=== PATIENT | female | born 1965 ===

== ENCOUNTER 2024-07-30 09:33 | Outpatient (AMB) | payer BC, SELFPAY ==
[2024-07-30 09:47] VITALS: BP 110/78; PULSE 73; O2SAT 94; BMI 27.1
--- NOTE | 2024-07-30 09:47 | MHC.OFFVIS ---
Vital Signs 07/30/24 09:47 Height 5 ft 5 in Weight 162 lb 11.218 oz BMI 27.1 BP 110/78 Blood Pressure Location Lt brachial Position Sitting Pulse 73 Pulse Source Pulse Oximeter Pulse Oximetry (%) 94 Oxygen Delivery Method Room Air Intake Visit Reasons: knee arthritis Allergies No Known Allergies Allergy (Verified 07/30/24 09:49) HPI HPI knee arthritis: Details: Pain started a week ago in her right knee. She lost 50 lb with zepbound. She has had 6 months benefit with cortisone injection in her right knee. Review of Systems Const All systems reviewed & are unremarkable except as noted in HPI and below Physical Exam Vital Signs: Last Vital Signs Pulse 73 07/30/24 09:47 BP 110/78 07/30/24 09:47 Pulse Ox 94 07/30/24 09:47 Oxygen Delivery Method Room Air 07/30/24 09:47 BMI result Body Mass Index 27.1 Const Other: General: Comfortable Skin: No lesions seen MSK: Tender to palpate right joint line. Knee hypertrophy found. Mild effusion right knee. Slight valgus deformity of bilateral knees. Good range of motion of bilateral knees. Office Procedures AMB Joint Injection/Aspiration Joint Injection/Aspiration Details: Right knee joint Prep: site was prepped using aseptic technique Injected: 40 mg of, Kenalog, with 1 mL of and 1% plain lidocaine Procedure: The patient tolerated the procedure well. Postprocedure protocol was discussed with patient. Coding 88393 - Large joint Procedure code (CPT) selection complete Office Meds lidocaine (PF) 10 mg/mL (1 %) injection solution Performing Provider: Brandan Mills MD Performing Location: [facility] [place] [facility] Administered by: Brandan Mills MD on 07/30/24 10:28 Dose Route Admin Location Dispensed Lot Number Expiration Date [facility] [employer]ing Equipment Operator 10 mg Infiltration 2 mL [id number] [employer] Kenalog 40 mg/mL suspension for injection Performing Provider: Brandan Mills MD Performing Location: [facility] [place] [facility] Administered by: Brandan Mills MD on 07/30/24 10:28 Dose Route Admin Location Dispensed Lot Number Expiration Date [facility] [employer] Equipment Operator 40 mg intra-articular 1 mL [id number] [employer] Assessment & Plan Assessment & Plan (1) Knee osteoarthritis: Comment: Left knee greater than right knee Previously treated with cortisone injection to right knee on 11/2022, 07/2023 and 01/2024. Relapse of pain. Code(s): M17.9 - Osteoarthritis of knee, unspecified Category: Medical Qualifiers: Laterality: right Osteoarthritis type: primary Qualified Code(s): M17.11 - Unilateral primary osteoarthritis, right knee Plan: Patient received left knee cortisone injection this visit Discussed importance of having a regular exercise routine I congratulated the patient on weight loss. She is currently on Zepbound Return to clinic in 6 months or sooner if needed Orders: Orders AMB Joint Injection/Aspiration Today M17.9 - Osteoarthritis of knee, unspecified Coding Level of Care Code Est Pt Level 4 (95216) Complex EM visit Add On G2211 Diagnoses Primary osteoarthritis of right knee M17.11 Laterality: right Osteoarthritis type: primary CPT Codes Coding - 73518 Large joint: 05913 - Large joint ([id number])
== END 2024-07-30 10:30 | disposition home or self-care (01) ==
PROVIDERS: Visit Provider Internal Medicine Rheumatology
DX: M17.11 Unilateral primary osteoarthritis, right knee (principal)
CPT/HCPCS: 20610; 99213

== ENCOUNTER → 2024-07-30 09:33 | Outpatient (BNVA) | payer BC, SELFPAY | PROVIDERS: Visit Provider Internal Medicine Rheumatology | DX: M17.11 Unilateral primary osteoarthritis, right knee (principal) | CPT/HCPCS: 20610; J2003; J3300 ==

== ENCOUNTER 2025-01-28 10:40 | Outpatient (AMB) | payer BC, SELFPAY ==
--- NOTE | 2025-01-28 10:41 | A.OFFVIS_ITS ---
Vital Signs 01/28/25 10:42 Height 5 ft 5 in Weight 166 lb 0.129 oz BMI 27.6 BP 140/80 H Blood Pressure Location Lt brachial Position Sitting Pulse 85 Pulse Source Pulse Oximeter Pulse Oximetry (%) 98 Oxygen Delivery Method Room Air Intake Visit Reasons: 6 mnts Intake Note: Patient presents today for a follow up for right knee arthritis. Allergies No Known Allergies Allergy (Verified 07/30/24 09:49) HPI HPI 6 mnts: Details: She is planning possible surgery right 3rd trigger finger and cyst. Recieving cortisone injection. She developed right ankle and right hand swelling yesterday. MS is still there. Tylenol arthritis 1300mg TID without change. She had vomitting and dirrhea last week Mon to Monday. +chills. Could not find a thermameter. Physical Exam Vital Signs: Last Vital Signs Pulse 85 01/28/25 10:42 BP 140/80 H 01/28/25 10:42 Pulse Ox 98 01/28/25 10:42 Oxygen Delivery Method Room Air 01/28/25 10:42 BMI result Body Mass Index 27.6 Const Other: General: Comfortable Skin: No lesions seen Respiratory: Normal breath sounds. No crackles. CVS: RRR MSK: Tender left 2-4th MCPs with synovitis of 2nd-3rd MCP. Tender L 3rd PIP. Synovitis of left 2nd PIP. Tender and synovitis wrist and ankle with tenederness.Tender to palpate right joint line and anserine bursa. Knee hypertrophy found. Mild effusion right knee. Slight valgus deformity of bilateral knees. Right shoulder abduction 120 degree (current thoracic outlet syndrome/brachial plexus injury) requiring assistance of right arm for abduction. Good internal external rotation of both shoulders. Normal range of motion of lower extremities. Office Procedures AMB Joint Injection/Aspiration Joint Injection/Aspiration Details: Right knee joint Prep: site was prepped using aseptic technique Injected: 40 mg of, Kenalog, with 1 mL of and 1% plain lidocaine Procedure: Informed verbal consent was obtained. The patient tolerated the procedure well. Postprocedure protocol was discussed with patient. Coding 47451 - Large joint Procedure code (CPT) selection complete Office Meds lidocaine (PF) 10 mg/mL (1 %) injection solution Performing Provider: Brandan Mills MD Performing Location: [facility] [place] [facility] Administered by: Brandan Mills MD on 01/28/25 11:21 Dose Route Admin Location Dispensed Lot Number Expiration Date [facility] Biological Scientist 10 mg Infiltration 2 mL [id number] 12/21/26 07683-069-58 NINA MURDOCK Total Dispensed Waste 2 mL 50 % Kenalog 40 mg/mL suspension for injection Performing Provider: Brandan Mills MD Performing Location: [facility] [place] [facility] Administered by: Brandan Mills MD on 01/28/25 11:21 Dose Route Admin Location Dispensed Lot Number Expiration Date [facility] Biological Scientist 40 mg intra-articular 1 mL [id number] 02/20/27 99394-760-67 [employer] Total Dispensed Waste 1 mL 0 % Assessment & Plan Assessment & Plan (1) Knee osteoarthritis: Comment: Left knee greater than right knee. Previously treated with cortisone injection to right knee on 11/2022, 07/2023, 01/2024, 07/2024. Relapse of pain. Code(s): M17.9 - Osteoarthritis of knee, unspecified Category: Medical Qualifiers: Laterality: right Osteoarthritis type: primary Qualified Code(s): M17.11 - Unilateral primary osteoarthritis, right knee Plan: Patient received right knee cortisone injection this visit Discussed importance of having a regular exercise routine She is currently on Zepbound for weight loss Return to clinic in 3 months or sooner if needed (2) Reactive arthritis: Comment: inflammatory arthritis with onset yesterday is likely in related to recent GI illness from last week. We discussed natural course of reactive arthritis and management. Most cases of reactive arthritis or self-limited. 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 I will then prescribed a course of prednisone Avoid oral NSAIDs due to per history of chronic kidney disease Return to clinic in 3 months Orders: Orders AMB Joint Injection/Aspiration Today M17.11 - Unilateral primary osteoarthritis, right knee Coding Level of Care Code Est Pt Level 4 (22127) Complex EM visit Add On G2211 Diagnoses Primary osteoarthritis of right knee M17.11 Laterality: right Osteoarthritis type: primary Reactive arthritis of multiple sites M02.39 Reactive arthritis location: multiple sites CPT Codes Coding - 92474 Large joint: 95430 - Large joint ([id number])
[2025-01-28 10:42] VITALS: BP 140/80; PULSE 85; O2SAT 98; BMI 27.6
--- OUTSIDE RECORDS SUMMARY | 2025-01-28 11:40 | XMS_ITS | Data Portability ---
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 Bryson polanco on 01/19/2024. She reached the office describing an increase in pain and swelling and redness and was advised to present to urgent care. She denies feeling ill in any way. She denies any new injury accident or trauma specific to the left foot. She reports that she has been compliant with recommendations for ice elevation and use of her postop shoe. Review of the chart would reflect that she was recognized as having a blister on her first postop visit. That was drained in the office. She did not have any signs or symptoms of infection at that time. 58-year-old female with BMI of 32.3 is ambulatory into the exam room unassisted. She has an antalgic tendency favoring left lower extremity. She has a postop shoe in place. Her wounds are reinforced with Steri-Strips. They are removed. Her wounds are nicely closed with no signs or symptoms of infection. There is mild erythema in the space between her 2 surgical incisions. There is no fluctuance or drainage. There are no streaks of lymphangitis. Distal checks are intact save for some swelling at the great toe. 58-year-old female status post bunionectomy on 01/19/2024. History and exam show no clear signs of infection or complication. Recommendations are for continued ice applications and elevation. Tylenol as needed for pain. Asked that he level restriction and use of postop shoe as instructed by her surgeon. Follow-up as previously scheduled with our foot and ankle team. Patient was seen and evaluated by Lennox Avery MS, CATRACHITA in indirect conjuction with Documenting Provider: Nicolette Michelle MD . He/She agrees with history, physical examination, tests/diagnostic imaging, and treatment plan. This document was generated using voice recognition software. As a result, there may be unintended spelling, grammatical and/or textual errors. [email or web address] Not available 02/06/2024 14:39:55 02/29/2024 02/29/2024 The patient is doing well six weeks post operatively following her left foot hallux valgus correction and right foot PITER procedure She will begin to transition to regular footwear as tolerated Continue with scar massage Plan to follow up in 6 weeks for repeat evaluation with repeat weightbearing left foot xrays Patient was seen and evaluated by Heike Mcleod PA-C in indirect conjunction with Documenting Provider: Nicolette Michelle MD He/She agrees with history, physical examination, tests/diagnostic imaging, and treatment plan [email or web address] Not available 02/29/2024 11:55:06 04/18/2024 04/18/2024 She is doing gre at now 3 months postoperatively. She may continue to advance her activities as she is able. She may continue to ice and elevate if needed. She should continue to work on her first MTP range of motion although this is quite good. She will follow-up in three months for repeat evaluation with repeat x-rays of her left foot. If she has any issues sooner with her right foot and her possible suture, she will follow up. Not available 04/21/2024 13:25:38 05/24/2024 05/24/2024 The above findin gs were discussed in detail to the patient.She has evidence of left middle finger trigger finger recurrent from steroid injections, last one about 5 months ago as well as a left middle finger retinacular cyst. Pathology expected prognosis were discussed. Treatment options for recurrent trigger finger including another steroid injection versus consideration for surgical A1 ángel release. I did let her know that after the third injection, typically symptoms do not continue to improve. She is considering surgery however does not feel the timing is right for her and would like to proceed with an injection at this time and will consider surgery if it does recur after this. In terms of the retinacular cyst, we discussed treatment options which include continued observation, sometimes they can get better on their own, or in office injection versus surgical excision. She like to try an office injection today. Details of injection and as well as risks were discussed, including but not limited to infection, bleeding, nerve injury, no improvement, worsening of symptoms, flare reaction, skin depigmentation, and lipodystrophy. I let them know it can take 2 days to 2 weeks to start working and up to 6 weeks to take its full effect. They understand this and gave verbal consent. They tolerated the procedure well. She will return to see me if her symptoms recur or she would like to consider surgery, I did let her know if to wait 3 months after this injection to do surgery which puts this in to August. All of her questions were answered, she is in agreement the plan. [email or web address] Not available 05/24/2024 12:55:23 07/25/2024 07/25/2024 She is doing gre at now more than 6 months postoperatively. She has no limitations. She may advance her activities as she is able. She may follow-up with me as needed. [email or web address] Not available 07/27/2024 17:53:47 Plan of Treatment Reminders Order Date Submit Date Provider Last Modified By Organization Details Last Modified Time Details Appointments FOLLOW UP 2024 09:30A M Olamide lea MD Not available Not available Not available Lab None recorded. Referral None recorded. Procedures None recorded. Surgeries None recorded. Imaging XR, foot, 3 or more view 2024 025 [facility], [address], [place], [address], 07/25/2024 17:15:47 XR, foot, 3 or more view 2023 024 [facility], [address], [place], [id number], 04/18/2024 16:34:50 XR, foot, 3 or more view 2023 [email or web address] [facility], [address], [address], [place], [address], 02/29/2024 12:15:08 Medication Orders lidocaine (PF) 10 mg/mL (1 %) injection solution 2023 024 [email or web address] [facility], [address] [place] [address], [id number], 07/25/2024 09:47:27 triamcino lone acetonide 40 mg/mL suspensio n for injection 2023 024 [email or web address] [facility], [address] [place] [address], [id number], 07/25/2024 09:47:49 lidocaine (PF) 10 mg/mL (1 %) injection solution 2023 024 [email or web address] Not available 07/25/2024 09:47:27 triamcino lone acetonide 40 mg/mL suspensio n for injection 2023 024 Not available 07/25/2024 09:47:49 Patient TargetsNo targets recorded. Patient Instructions Encounter Date Encounter Id Patient Instructions Last Modified By Organization Details Last Modified Time 02/29/2024 [id number] Weightbearing x-rays of the left foot were obtained in the [place] office on 02/29/24 demonstrates hallux valgus correction with first metatarsal osteotomy and proximal phalanx osteotomy. There is callus appreciated at the first metatarsal osteotomy [email or web address] Not available 02/29/2024 11:55:32 04/18/2024 [id number] Weightbearing x-rays of the left foot were obtained on 04/18/24 demonstrating excellent correction of her hallux valgus deformity with hardware in her first metatarsal and proximal phalanx. Not available 04/21/2024 13:26:52 05/24/2024 [id number] You have been provided with a cortisone injection in order to reduce the pain and inflammation that you are experiencing. The injection consists of two medications. Cortisone (an anti-inflammatory that will take 48-72 hours to take effect) and Lidocaine (a numbing agent that will last 2-3 hours). Please note that not everyone will have a lasting response following the injection. PATIENT INSTRUCTIONS Once the Lidocaine wears off, you may have an increase in your pain. I recommend icing the affected area for 20 minutes 3-4 times per day. It is recommended that you refrain from any high level activities using the joint or limb that was injected for approximately 24-48 hours. Normal day-to-day activities are generally not a problem. POSSIBLE SIDE EFFECTS Individuals with dark complexions may experience some skin discoloration locally at the site of the injection. There is the possibility of an increase in discomfort within 48 hours following the injection. This is called a flare . To help minimize the chances of this, please see the post-injection instructions above. There is a less than 1% chance of an infection. If you notice any signs of infection (redness, warmth, drainage, fever greater than 100 degrees) please call our office or contact us through the portal [email or web address]. [email or web address] Not available 05/24/2024 12:53:31 07/25/2024 [id number] 3 views of the left foot obtained weightbearing on 07/25/2024 demonstrate a healed first metatarsal and proximal phalanx osteotomy with a well corrected hallux valgus deformity. Not available 07/27/2024 17:53:18 Reason for Referral None Reported. Problems Name Problem SNOMED Code Status Onset Date Resolution Date Notes Provider Name and Address Organization Details Recorded Time Acquired trigger finger of left middle finger 3912439581260 02 Active [address], [place], [address], [place] [facility] 3 11:54:23 Neck pain 14667307 Active [address], [place], [address], [place] [facility] 4 10:01:50 Ganglion cyst of tendon sheath of left hand 4140473255370 105 Active [address], [place], [address], [place] [facility] 3 10:01:23 Osteoarthri tis of wrist 885428795 Active [address], [place], [address], [place] [facility] 3 10:01:32 Acquired left hallux valgus 9491375062582 03 Active 2022 Nicolette Michelle MD [address], [place], [address], [place] [facility] 3 07:49:37 Tailor's bunion of left foot 5195746779522 100 Active [address], [place], [address], [place] [facility] 3 07:49:42 Ganglion of flexor tendon sheath of finger 806528726 Active [address], [place], [address], [place] [facility] 4 12:53:19 Problem Notes None recorded. Procedures Surgical History Date Name Laterality Status Provider Name and Address Organization Details Recorded Time 05/24/20 24 LES trigger finger/De Quervain's injection completed MD [address], [place], [address], [place] [facility] 05/24/2024 12:50:57 05/24/20 24 LES ganglion cyst injection completed MD [address], [place], [address], [place] [facility] 05/24/2024 12:53:02 01/19/20 24 ORTHOPAEDIC SURGERY (SURG) completed Yamilet Singh [place] [facility] 01/22/2024 09:18:37 01/03/20 24 AONE tendon sheath cortisone injection completed Pavan Santana MD [address], [place], [address], [facility] 01/03/2024 12:01:17 04/05/20 23 AONE tendon sheath cortisone injection completed Pavan Santana MD [address], [place], [address], [facility] 04/05/2023 12:16:48 procedure on wrist completed Nael [facility] 2022 09:37:28 Imaging Results None recorded. Procedure Notes None recorded. Medical Equipment None Reported. Allergies Allergen ID Allergen Name Allergen Category Reaction Reaction Severity Criticality Documentation Date Start Date Code Code System Note Provider Name and Address Organization Details Recorded Time 3054 diclofena c Not available Not available Not available Not available 2022 3355 RxNorm Nael Wheat null, [facility] 09:35:31 Medications Name Sig Start Date Stop Date Status Note LastModified by Organization Details LastModified Time flowflex kit test 05/03 completed Not Available Not Available Not Available cyclobenzap rine 10 mg tablet TAKE ONE TABLET BY MOUTH THREE TIMES A DAY 02/05 completed Not Available Not Available Not Available amoxicillin 500 mg capsule TAKE 4 CAPSULES BY MOUTH 1 HOUR BEFORE DENTAL APPOINTME NT DIRECTED active Not Available Not Available No t Available bupropion HCl SR 150 mg tablet,12 hr sustained-r elease TAKE ONE TABLET BY MOUTH TWICE A DAY active Not Available Not Available No t Available aspirin 325 mg tablet TAKE 1 TABLET EVERY DAY BY MOUTH AFTER SURGERY FOR 30 DAYS 04/26 completed Not Available Not Available Not Available hydrocodone 5 mg-acetamin ophen 325 mg tablet TAKE ONE TABLET BY MOUTH EVERY 6 HOURS NEEDED FOR PAIN 05/03 completed Not Available Not Available Not Available sucralfate 1 gram tablet TAKE ONE TABLET BY MOUTH FOUR TIMES A DAY 02/05 completed Not Available Not Available Not Available lisinopril 20 mg tablet TAKE ONE TABLET BY MOUTH EVERY DAY active Not Available Not Available No t Available omeprazole 40 mg capsule,del ayed release TAKE ONE CAPSULE BY MOUTH ONCE DAILY 02/05 completed Not Available Not Available Not Available acetaminoph en 500 mg tablet TAKE 2 TABLETS 3 TIMES A DAY BY MOUTH AFTER SURGERY NEEDED FOR PAIN 02/05 completed Not Available Not Available Not Available amoxicillin 500 mg tablet TAKE 1 TABLET BY MOUTH THREE TIMES A DAY FOR 10 DAYS 05/03 completed Not Available Not Available Not Available pantoprazol e 20 mg tablet,emani yed release TAKE ONE TABLET BY MOUTH TWICE A DAY active Not Available Not Available No t Available methocarbam ol 750 mg tablet 04/03 completed Not Available Not Available Not Available IBU 600 mg tablet TAKE 1 TABLET BY MOUTH EVERY 6 HOURS 02/05 completed Not Available Not Available Not Available Kenalog 10 mg/mL suspension for injection Take 2 mL by injection route. 05/03 completed Not Available Not Available Not Available triamcinolo ne acetonide 40 mg/mL suspension for injection Take 20 mg by injection route. 07/25 completed Not Available Not Available Not Available nortriptyli ne 10 mg capsule TAKE TWO TABLETS BY MOUTH ONCE A DAY active Not Available Not Available No t Available polymyxin B sulfate 10,000 unit-trimet hoprim 1 mg/mL eye drops INSTILL ONE DROP IN EACH EYE EVERY 3 HOURS FOR 7 DAYS; START WITH ONLY IN THE RIGHT EYE AND INCREASE TO IN EACH EYE IF SYMPTOMS DEVELOP IN I 02/05 completed Not Available Not Available Not Available gabapentin 300 mg capsule TAKE ONE CAPSULE BY MOUTH EVERY MORNING AND TAKE TWO CAPSULES BY MOUTH EVERY EVENING active Not Available Not Available No t Available montelukast 10 mg tablet TAKE ONE TABLET BY MOUTH EVERY DAY 12/06 completed Not Available Not Available Not Available lisinopril 40 mg tablet TAKE ONE TABLET BY MOUTH EVERY DAY 07/25 completed Not Available Not Available Not Available ipratropium bromide 21 mcg (0.03 %) nasal spray SPRAY 1 SPRAY IN EACH NOSTRIL DAILY AT BEDTIME active Not Available Not Available No t Available amoxicillin 875 mg-potassiu m clavulanate 125 mg tablet TAKE ONE TABLET BY MOUTH EVERY 12 HOURS FOR 7 DAYS 01/31 completed Not Available Not Available Not Available oxycodone 5 mg tablet TAKE ONE TABLET BY MOUTH EVERY 6 HOURS 02/05 completed Not Available Not Available Not Available bupropion HCl SR 200 mg tablet,12 hr sustained-r elease TAKE ONE TABLET BY MOUTH TWICE A DAY 07/25 completed Not Available Not Available Not Available cyclobenzap rine 5 mg tablet TAKE ONE TABLET BY MOUTH DAILY AT BEDTIME NEEDED active Not Available Not Available No t Available Premarin 0.625 mg/gram vaginal cream INSERT 0.5 GRAM VAGINALLY TWICE WEEKLY AT BEDTIME FOR 60 DAYS active Not Available Not Available No t Available duloxetine 30 mg capsule,del ayed release TAKE ONE CAPSULE BY MOUTH TWICE A DAY active Not Available Not Available No t Available chlorhexidi ne gluconate 0.12 % mouthwash SWISH AND EXPECTORA TE 10ML THREE TIMES A DAY 12/06 completed Not Available Not Available Not Available lidocaine (PF) 10 mg/mL (1 %) injection solution Take 1 mL by injection route. 07/25 completed Not Available Not Available Not Available GaviLyte-G 236 gram-22.74 gram-6.74 gram-5.86 gram oral solution MIX POWDER WITH WATER ACCORDING TO PRODUCT LABEL. FOLLOW INSTRUCTI ONS GIVEN BY [facility] FOR WHEN TO START. TAKE 8OZ BY MOUTH EVERY 20 MINUTE 04/03 completed Not Available Not Available Not Available lidocaine (PF) 100 mg/5 mL (2 %) injection syringe Take 1 mL by injection route. 02/05 completed Not Available Not Available Not Available Flowflex COVID-19 Antigen Home Test kit USE DIRECTED PER MANUFACTU RER INSTRUCTI ONS TO TEST FOR COVID-19 04/03 completed Not Available Not Available Not Available Zepbound 10 mg/0.5 mL subcutaneou s pen injector INJECT 0.5ML UNDER THE SKIN ONCE A WEEK active Not Available Not Available No t Available Zepbound 5 mg/0.5 mL subcutaneou s pen injector INJECT THE CONTENTS OF 1 PEN 5 MG PER 0.5ML) SUBCUTANE OUSLY ONCE WEEKLY 04/26 completed Not Available Not Available Not Available Zepbound 2.5 mg/0.5 mL subcutaneou s pen injector INJECT UNDER THE SKIN ONCE A WEEK DIRECTED 02/05 completed Not Available Not Available Not Available Zepbound 7.5 mg/0.5 mL subcutaneou s pen injector INJECT 0.5ML UNDER THE SKIN ONCE WEEKLY 05/24 completed Not Available Not Available Not Available Vitals Date Recorded Body height Body mass index (BMI) Body weight Provider Name and Address Organization Details Last Updated DateTime 07/25/2024 167.64 cm 32.3 kg/m2 [address]66.[address] [place] [facility] 07/25/2024 09:48:08 Date Recorded Body height Body mass index (BMI) Body weight Provider Name and Address Organization Details Last Updated DateTime 02/06/2024 167.64 cm 32.3 kg/m2 16294.47 g Matilde Perlaersen [place] [facility] 02/06/2024 14:04:06 Date Recorded Body height Body mass index (BMI) Body weight Provider Name and Address Organization Details Last Updated DateTime 04/18/2024 167.64 cm 32.3 kg/m2 [address]456.[address] [place] [facility] 04/18/2024 14:59:13 Date Recorded Body height Body mass index (BMI) Body weight Provider Name and Address Organization Details Last Updated DateTime 04/26/2024 167.64 cm 32.3 kg/m2 [address]6087.[address] [place] [facility] 04/26/2024 09:33:52 Date Recorded Body height Body mass index (BMI) Body weight Provider Name and Address Organization Details Last Updated DateTime 05/24/2024 167.64 cm 32.3 kg/m2 44568.47 g Justyna Cali [place] [facility] 05/24/2024 08:32:40 Social History None recorded. Functional Status Question Answer Note LastModified by Organizat ion Details LastModified Time Do you or have you ever used any other forms of tobacco or nicotine? No [email or web address] Information not available 05/24/2024 What is your level of alcohol consumption? Occasional [email or web address] Information not available 2022 Mental Status None recorded. Family History Nothing Reported. Medical History Condition Response Coronary Artery Disease N Gout N Hyperthyroidism N MRSA N Blood Transfusion N Emphysema N Hypothyroidism N Depression N COPD N Pacemaker N Vascular Disease N Gastrointestinal Disease N Anxiety Disorder N Autoimmune disease N Arthritis N Cancer N Stroke N High Cholesterol N Neurologic Disorder N Liver Disease N Organ Transplant N Rheumatoid Arthritis N Arrhythmia N Fibromyalgia N Kidney Disease N Allergies/Hayfever N Adverse Reaction to Anesthesia N Thyroid Problems N Anemia N Brain Injury N Heart Attack (MN) N Osteopenia N Diabetes N Bleeding Disorder N Seizures/Epilepsy N AIDS/HIV N Congestive Heart Failure (CHF) N Asthma N Amputation N Reflux/GERD N Sleep Apnea N Hepatitis N Aneurysm N Heart Disease N Pulmonary Embolism N Hypertension Y Osteoporosis N Gynecological HistoryNo gynecological history recorded. Obstetrics History GPAL:G 0 P 0 0 0 0 Past Encounters Encounter ID Performer Location Encounter Start Date Encounter Closed Date Diagnosis/Indication Diagnosis SNOMED-CT Code Diagnosis ICD10 Code Diagnosis Note [id number] Rohan Dewey MD [place] [phone] 11/14/2022 11:34:57 11/14/2022 12:37:55 History of lumbar fusion 7406203122 9106 Z98.1 Pressure i njury of buttock 288680679 L89.309 Ischial bursitis/W eaver's bottom [id number] Pavan Santana MD [address] [address] 2022 09:28:07 2022 10:02:58 Pain of left wrist 7372980043 30121 M25.532 Ganglion c yst of tendon sheath of left hand 2942468205 070794 M67.442 Osteoarthr itis of wrist 320364646 M19.039 [id number] Nicolette Michelle MD [address] [address] 11/24/2022 09:56:15 11/24/2022 10:27:30 Pain in left foot 0202924250 73745 M79.672 Acquired l eft hallux valgus 7729577985 95670 M20.12 Tailor's b union of left foot 4294682555 401201 M21.622 Orthopedic hardware in situ 903367853 Z97.8 [id number] Pavan Santana MD [address] [address] 04/05/2023 11:30:08 04/05/2023 12:00:47 Acquired trigger finger of left middle finger 0690367141 73144 M65.332 Ganglion c yst of tendon sheath of left hand 2935456723 832506 M67.442 [id number] Pavan Santana MD [address] [address] 05/03/2023 09:11:24 05/03/2023 09:23:00 Acquired trigger finger of left middle finger 4373622423 68024 M65.332 Ganglion c yst of tendon sheath of left hand 3687687282 703151 M67.442 [id number] Rohan Dewey MD [address] [address] 08/07/2023 09:10:05 08/07/2023 10:05:59 Neck pain 86414469 M54.2 Low back pain 069563116 M54.50 Pain in pelvis 86239153 R10.2 History of cervical spine fusion 6167505026 101 Z98.1 History of lumbar fusion 5411362665 9106 Z98.1 [id number] RAÚL KENNEDY PA-C [address] [address] 09/11/2023 13:14:07 09/11/2023 14:13:06 Neck pain 35297305 M54.2 History of cervical spine fusion 6867400070 101 Z98.1 History of lumbar fusion 0247682492 9106 Z98.1 [id number] Nicolette Michelle MD [address] [address] 12/07/2023 11:33:01 12/07/2023 12:19:28 Acquired left hallux valgus 7981367594 20203 M20.12 Orthopedic hardware in situ 942463946 Z97.8 Pain in right foot 45323 36727 72795 M79.671 [id number] Pavan Santana MD [address] [address] 01/03/2024 11:12:04 01/03/2024 11:35:21 Triggering of digit 627420144 M65.332 Additional diagnosis detail: Trigger finger, left middle finger 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 3907236773 77529 M65.332 Ganglion c yst of tendon sheath of left hand 2760893441 830442 M67.442 Long finger [id number] HEIKE MCLEOD PA-C [place] [address] 02/01/2024 16:08:00 02/01/2024 16:45:08 Acquired left hallux valgus 0532910343 84858 M20.12 Orthopedic hardware in situ 549817997 Z97.8 [id number] [facility] [address] [place], [place] [address] [address] [place] [address] 9 02/06/2024 13:46:52 02/06/2024 14:36:04 Acquired left hallux valgus 6310021461 12538 M20.12 [id number] HEIKE MCLEOD PA-C [place] [address] 02/29/2024 11:30:04 02/29/2024 11:56:30 Acquired left hallux valgus 2638443750 52365 M20.12 Orthopedic hardware in situ 012675253 Z97.8 [id number] Nicolette Michelle MD [place] [address] 9 04/18/2024 14:53:17 04/18/2024 15:18:20 Acquired left hallux valgus 9712850578 21306 M20.12 Orthopedic hardware in situ 742567122 Z97.8 [id number] Olamide Joseph MD [place] [address] 9 05/24/2024 08:28:47 05/24/2024 09:08:23 Triggering of digit 485536733 M65.332 Ganglion o f flexor tendon sheath of finger 836180244 M67.442 [id number] Nicolette Michelle MD [place] [address] 9 07/25/2024 09:37:19 07/25/2024 10:37:36 Acquired left hallux valgus 2627101728 83661 M20.12 Orthopedic hardware in situ 480806762 Z97.8 Health Concerns Section Related Observation LastModified by Organization Detai ls LastModified Time None Recorded Concern Status LastModified by Organization Details LastModified Time None Recorded Advance Directives Directive None Recorded Payers Insurance Date Sequence Insurance Name Policy Number Policy Yeager Covered Member ID Yeager Member ID Guarantor Name 07/24/2024 1 [place] [id number] Jose Manuel Riddle [id number] Notes Date Note Type Note Provider Name and Address Organization Details Recorded Time 02/29/2024 text/html Date of Surgery: 01/19/24 left foot hallux valgus correction, right foot removal of hardware Anjali Ruiz is a 58 year old female who presents today 6 weeks post oepratively. She has no pain. She is still wearing a postoperative shoe on the left foot but is returned to regular footwear on the right. She has little swelling. She is overall happy with her progress. She denies chest pain, shortness of breath, calf pain, calf swelling or fevers. From 02/01/24 TK: for her first post operative appointment. She is doing very well. She did roll her left foot but does not report any significant injuries after this happened. She has very little discomfort. She is overall doing very well. She denies chest pain, shortness of breath, calf pain, calf swelling or fevers. From 12/07/23 AJF: approximately 1 year after she was last seen regarding her bilateral feet. She is overall unchanged. She would like to proceed with removal of hardware from her right foot and correction of her left hallux valgus. She reports that her pain on the left is an average of a 7 and on the right is an 8 out of 10. She finds her hardware to be very symptomatic for her. Regarding the left side, she would like to proceed with correction of her hallux valgus deformity. From 11/24/22 (AJF): for evaluation of a new problem regarding her left foot. She notes that she has previously undergone surgery on her right foot for correction of her hallux valgus but ultimately had to have a second surgery for hammertoes and ultimately underwent Keely osteotomies of her second and third toes. She is overall very frustrated that she had to have 2 surgeries. Again regarding her right foot, she recently saw a veneer clipper who told her that she did not know what these implants were and was uncomfortable removing them and the patient now feels increasingly upset that she would need to have a third surgery. However, she presents today noting that her feet, predominantly her left foot gets sore in some shoes and she would like to know what her options are. She reports that her pain is aching burning and cramping and a 6-8 out of 10. It is moderate constant worsening. She previously underwent spine surgery with Dr. Saravia reports that she did quite well from this. She denies any ongoing radiculopathy or neuropathy. Nicolette Michelle MD [address], [place], [address], [place] [facility] 03/03/2024 10:04:59 04/18/2024 text/html Date of Surgery: 01/19/24: 1. L eft foot hallux valgus correction2. Right foot removal of hardware Anjali Ruiz is a 58 year old female who presents today for follow-up evaluation now approximately 3 months postoperatively. Overall, she is doing well. She does report more discomfort on her right side where I removed her hardware than on her left hallux valgus correction. She notes that she has an irritation at the proximal aspect of the incision on the right side. She is overall pleased with her correction on her left side. From 02/29/24 (TK): 6 weeks post oepratively. She has no pain. She is still wearing a postoperative shoe on the left foot but is returned to regular footwear on the right. She has little swelling. She is overall happy with her progress. She denies chest pain, shortness of breath, calf pain, calf swelling or fevers. From 02/01/24 TK: for her first post operative appointment. She is doing very well. She did roll her left foot but does not report any significant injuries after this happened. She has very little discomfort. She is overall doing very well. She denies chest pain, shortness of breath, calf pain, calf swelling or fevers. From 12/07/23 AJF: approximately 1 year after she was last seen regarding her bilateral feet. She is overall unchanged. She would like to proceed with removal of hardware from her right foot and correction of her left hallux valgus. She reports that her pain on the left is an average of a 7 and on the right is an 8 out of 10. She finds her hardware to be very symptomatic for her. Regarding the left side, she would like to proceed with correction of her hallux valgus deformity. From 11/24/22 (AJF): for evaluation of a new problem regarding her left foot. She notes that she has previously undergone surgery on her right foot for correction of her hallux valgus but ultimately had to have a second surgery for hammertoes and ultimately underwent Keely osteotomies of her second and third toes. She is overall very frustrated that she had to have 2 surgeries. Again regarding her right foot, she recently saw a veneer clipper who told her that she did not know what these implants were and was uncomfortable removing them and the patient now feels increasingly upset that she would need to have a third surgery. However, she presents today noting that her feet, predominantly her left foot gets sore in some shoes and she would like to know what her options are. She reports that her pain is aching burning and cramping and a 6-8 out of 10. It is moderate constant worsening. She previously underwent spine surgery with Dr. Saravia reports that she did quite well from this. She denies any ongoing radiculopathy or neuropathy. 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 Santana in the past and has undergone trigger finger injections to the left middle finger, on 04/05/2023 and most recently on 01/03/2024.She notes the injections helped for 3 to 4 months and then symptoms started to recur. 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 This is painful with activities such as gripping. She does not feel like its gotten larger or smaller in size. Olamide Joseph MD [address], [place], [address], [place] [facility] 05/24/2024 12:56:03 07/25/2024 text/html Date of Surgery: 01/19/24: 1. Left foot hallux valgus correction2. Right foot removal of hardware Anjali Ruiz is a 58 year old female who presents today for evaluation now more than 6 months status post correction of her left hallux valgus and removal of her hardware on her right foot. She reports that she is doing great. Her pain is a 0 out of 10. From 04/18/24 (AJF): for follow-up evaluation now approximately 3 months postoperatively. Overall, she is doing well. She does report more discomfort on her right side where I removed her hardware than on her left hallux valgus correction. She notes that she has an irritation at the proximal aspect of the incision on the right side. She is overall pleased with her correction on her left side. From 02/29/24 (TK): 6 weeks postoperatively. She has no pain. She is still wearing a postoperative shoe on the left foot but is returned to regular footwear on the right. She has little swelling. She is overall happy with her progress. She denies chest pain, shortness of breath, calf pain, calf swelling or fevers. From 02/01/24 TK: for her first post operative appointment. She is doing very well. She did roll her left foot but does not report any significant injuries after this happened. She has very little discomfort. She is overall doing very well. She denies chest pain, shortness of breath, calf pain, calf swelling or fevers. From 12/07/23 AJF: approximately 1 year after she was last seen regarding her bilateral feet. She is overall unchanged. She would like to proceed with removal of hardware from her right foot and correction of her left hallux valgus. She reports that her pain on the left is an average of a 7 and on the right is an 8 out of 10. She finds her hardware to be very symptomatic for her. Regarding the left side, she would like to proceed with correction of her hallux valgus deformity. From 11/24/22 (AJF): for evaluation of a new problem regarding her left foot. She notes that she has previously undergone surgery on her right foot for correction of her hallux valgus but ultimately had to have a second surgery for hammertoes and ultimately underwent Keely osteotomies of her second and third toes. She is overall very frustrated that she had to have 2 surgeries. Again regarding her right foot, she recently saw a veneer clipper who told her that she did not know what these implants were and was uncomfortable removing them and the patient now feels increasingly upset that she would need to have a third surgery. However, she presents today noting that her feet, predominantly her left foot gets sore in some shoes and she would like to know what her options are. She reports that her pain is aching burning and cramping and a 6-8 out of 10. It is moderate constant worsening. She previously underwent spine surgery with Dr. Saravia reports that she did quite well from this. She denies any ongoing radiculopathy or neuropathy. Nicolette Michelle MD [address], [place], [address], [place] - [facility] 07/27/2024 17:54:03 OBGyn Episode No OBEpisode recorded.
--- OUTSIDE RECORDS SUMMARY | 2025-01-28 11:40 | XMS_ITS | Clinical Summary ---
Author Organization [facility] Address [address] [place] [address] Care Team Providers Care Mixing Picker Tender Name Role Phone Carleen López MD Primary Care Provider Allergies Active Allergy Reactions Criticality Noted Date Comments Diclofenac 06/27/2022 Other reaction(s): kidney failure Meloxicam 06/27/2022 Other reaction(s): elevated liver enzyme Medications Medication Sig Dispensed Refills Start Date End Date Status buPROPion (WELLBUTRIN SR) 150 MG 12 hr tablet Take 1 tablet (150 mg total) by mouth 2 (two) times a day. 0 12/04/2020 Active gabapentin (NEURONTIN) 300 MG capsule TAKE ONE CAPSULE IN THE MORNING AND TWO CAPSULES IN THE EVENING. DOSE INCREASE 0 12/04/2020 Active pantoprazole (PROTONIX) 20 MG tablet Take 1 tablet (20 mg total) by mouth 2 (two) times a day. 0 06/05/2021 Active vitamin B-12 (CYANOCOBALAMIN) 500 MCG tablet Take 2 tablets (1,000 mcg total) by mouth once a week. 0 Active Ascorbic Acid (Vitamin C) 500 MG CAPS Take 1,000 mg by mouth once a week. 0 Active Emdyyvr-Hznlwrbrib-J itamin D (VITAMIN D3/CALCIUM/PHOSPHORU S PO) Take 1 tablet by mouth once a week. 0 Active Magnesium 400 MG CAPS Take 1 capsule by mouth every night at bedtime. 0 Active Ferrous Sulfate (IRON PO) Take 1 tablet by mouth once a week. Patient did not know dose 0 Active nortriptyline (PAMELOR) 10 MG capsule TAKE 1-2 CAPSULES BY MOUTH EVERY NIGHT 0 11/08/2021 Active lisinopril (PRINIVIL,ZESTRIL) tablet 20 mg TAKE ONE TABLET BY MOUTH EVERY DAY 0 12/12/2021 Active senna (SENOKOT) 8.6 MG tablet Take 1 tablet by mouth 2 (two) times a day. 30 tablet 0 07/30/2022 Active methocarbamol (ROBAXIN) 750 MG tablet Take 1 tablet (750 mg total) by mouth every 6 (six) hours as needed (spasm). 30 tablet 0 07/30/2022 Active oxyCODONE (ROXICODONE) 5 MG immediate release tabletIndications:Hi story of fusion of cervical spine Take 1 tablet (5 mg total) by mouth every 4 (four) hours as needed for pain. 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 Neck pain 02/15/2021 Cervical spondylolysis 02/15/2021 Family History Medical History Relation Name Comments Arthritis Father Hyperlipidemia Father Arthritis Mother Cancer Mother Hypertension Mother Relation Name Status Comments Father Mother Social History Tobacco Use Types Packs/Day Years Used Date Smoking Tobacco: Never Smokeless Tobacco: Never Alcohol Use Standard Drinks/Week Comments Yes 2 (1 standard drink = 0.6 oz pure alcohol) 2 drinks/day wine and liquor, 1 day/week Sex and Gender Information Value Date Recorded Sex Assigned at Female 06/16/2021 2:59 PM EST Gender Identity Not on file Sexual Orientation Not on file Job Start Date Occupation Industry Not on file Not on file Not on file Last Filed Vital Signs Vital Sign Reading Time Taken Comments Blood Pressure 111/73 07/31/2022 8:15 AM EST Pulse 96 07/31/2022 8:15 AM EST Temperature 36.6 C (97.8 F) 07/31/2022 8:15 AM EST Respiratory Rate 16 07/31/2022 8:15 AM EST Oxygen Saturation 99% 07/31/2022 8:15 AM EST Inhaled Oxygen Concentration - - Weight 86.6 kg (191 lb) 08/15/2022 3:03 PM EST Height 165.1 cm (5' 5 ) 08/15/2022 3:03 PM EST Body Mass Index 31.78 08/15/2022 3:03 PM EST Plan of Treatment Health Maintenance Due Date Last Done Comments Hepatitis C Screening 1965 COVID-19 Vaccine (#1) 05/17/1964 Depression Screening 1975 BMI Counseling 11/15/1981 Preventative Health Evaluation 11/15/1981 DTap / Tdap / Td (1 - Tdap) 11/15/1982 Cervical Cancer Screening (P ap Smear) 11/15/1984 Colon Cancer Screening (Colonoscopy) 11/15/2008 Breast Cancer Screening (Mammogram) 11/15/2013 Shingrix-Zoster Vaccine (1 of 2) 11/15/2013 Influenza Vaccine (#1) 2025 RSV Adult > 60+ Yrs or Pregn ant (1 - 1-dose 75+ series) 11/15/2038 Hepatitis B Vaccines Aged Out No long er eligible based on patient's age to complete this topic Pneumococcal Vaccine Aged Out No long er eligible based on patient's age to complete this topic RSV Ped < 20 months Aged Out No longe r eligible based on patient's age to complete this topic Medical Devices Implanted Type Area Project Safety Manager Device Identifier Shelf Expiration Date Model / Serial / Lot Surgiflo Hemostatic Matrix [employer] [id number] - [id number] Implanted:Qty : 1 on 06/23/2021 by [place]an [place] [facility] [facility] [place] Hemostatic Agent Anterior: Spine Cervical [employer] 12/21/2022 [id number] / / [id number] Surgiflo Hemostatic Matrix [employer]King [id number] - [id number] Implanted:Qty : 1 on 07/29/2022 by Rohan Dewey [place] [facility] [facility] Hemostatic Agent Anterior: Spine Lumbar [employer] 04/22/2024 [id number] / / [id number] Vikos Cervical 14x14.5x6mm 7d Stry-Spin [id number] - [id number] Implanted:Qty : 1 on 06/23/2021 by Rohan Dewey [place] [facility] [facility] Anterior: Spine Cervical [employer] 02/17/2025 [id number] / [id number] / Vikos Cervical 14x14.5x6mm 7d Stry-Spin [id number] - [id number] Implanted:Qty : 1 on 06/23/2021 by Rohan Dewey [place] [facility] Anterior: Spine Cervical [employer] 08/18/2024 [id number] / [id number] / Vikos Allograft Systems Implanted:Qty : 1 on 06/23/2021 by Rohan Dewey [place] [facility] Anterior: Spine Cervical [employer] 06/29/2024 [id number] / [id number] / Anterior Cervical Plate Constr 3 Level 54mm Stry-K2m [id number] - [id number] Implanted:Qty : 1 on 06/23/2021 by Rohan Dewey [place] [facility] [place] [facility] Anterior: Spine Cervical [employer] [id number] / / Screw Va Self-Start 4x14mm Stry-K2m [id number] - [id number] Implanted:Qty : 8 on 06/23/2021 by Rohan Dewey [place] [facility] [place] [facility] Anterior: Spine Cervical [employer] [id number] / / Merrick Screw Implanted:Qty : 1 on 07/29/2022 by Rohan Dewey [place] [facility] [place] [facility] Anterior: Spine Lumbar [employer] [id number] / / Bone Graft Spine Infuse Med Medt-Sofa [id number] - [id number] Implanted:Qty : 1 on 07/29/2022 by Rohan Dewey [place] [facility] Spine Lumbar [employer] 07/24/2024 [id number] / / [id number] Merrick Al Implanted:Qty : 1 on 07/29/2022 by Rohan Dewey [place] [facility] [place] [facility] Anterior: Spine Lumbar [employer] 01/19/2027 [id number] / / [id number] Monetery Screw Implanted:Qty : 5 on 07/29/2022 by Rohan Dewey [place] [facility] [place] [facility] Anterior: Spine Lumbar [employer] [id number] / / Manisha Shrestha Implanted:Qty : 1 on 07/29/2022 by Rohan Dewey [place] [facility] Anterior: Spine Lumbar [employer] 02/12/2027 [id number] / / [id number] Additional Health Concerns Infection Onset Date Last Indicated COVID-19 Confirmed 07/02/2022 07/04/2022 Advance Directives For more information, please contact: [phone] Documents on File Type Date Recorded 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 Code Status History Code Status Date Activated Date Inactivated Comments Full Code 06/23/2021 11:16 AM 06/24/2021 5:12 PM This code status was ascertained in the following way: discussion with patient . Care Teams Mixing Picker Tender Relationship Specialty Start Date End Date Carleen López MD [address] [address] PCP - General Internal Medicine 06/16/21
--- OUTSIDE RECORDS SUMMARY | 2025-01-28 11:40 | XMS_ITS | Clinical Summary ---
Author Organization [facility] Address [address] [place] [address] Care Team Providers Care Rn Acute Dialysis Name Role Phone Carleen López MD Primary Care Provider [phone] Surgical History Surgery Date Site/Laterality Comments SHOULDER SURGERY PROCEDURE:SHOULDER SURGERY;COMMENT:repair of rotator cuff HAND SURGERY PROCEDURE:HAND SURGERY FOOT SURGERY PROCEDURE:FOOT SURGERY BARIATRIC SURGERY PROCEDURE:BARIATRIC SURGERY;COMMENT:gastric bypass CHOLECYSTECTOMY PROCEDURE:CHOLECYSTECTOMY OTHER SURGICAL HISTORY PROCEDURE:silicone breast implants OTHER SURGICAL HISTORY PROCEDURE:PANNICULECTOMY;COMMENT :also removal of posterior excess skin COLONOSCOPY PROCEDURE:COLONOSCOPY TONSILLECTOMY PROCEDURE:TONSILLECTOMY ESOPHAGOGASTRODUODENOSCOPY PROCEDURE:ESOPHAGOGASTRODUODENOS COPY;COMMENT:with biopsy CERVICAL FUSION 06/23/2021 Anterior PROCEDURE:CERVICAL FUSION;COMMENT:Procedure: C4-5, C5-6, C6-7 ANTERIOR CERVICAL DISC FUSION 3 LEVELS; Surgeon: Rohan Dewey MD; Location: [facility] MAIN OPERATING ROOM; Service: Spine; Laterality: Anterior; CERVICAL FUSION 06/23/2021 N/A PROCEDURE:CERVICAL FUSION;COMMENT:Procedure: ANTERIOR CERVICAL DISC FUSION 1 LEVEL; Surgeon: Rohan Dewey MD; Location: [facility] MAIN OPERATING ROOM; Service: Spine; Laterality: N/A; LUMBAR FUSION 07/29/2022 Anterior PROCEDURE:LUMBAR FUSION;COMMENT:Procedure: L4-5, L5-S1 FUSION SPINE LUMBAR ANTERIOR 2 INTERSPACES; Surgeon: Rohan Dewey MD; Location: [facility] MAIN OPERATING ROOM; Service: Spine; Laterality: Anterior; LUMBAR FUSION 07/29/2022 N/A PROCEDURE:LUMBAR FUSION;COMMENT:Procedure: FUSION SPINE LUMBAR ANTERIOR 1 INTERSPACE; Surgeon: Rohan Dewey MD; Location: [facility] MAIN OPERATING ROOM; Service: Spine; Laterality: N/A; Medical History Medical History Date Comments Hypertension DX:Hypertension High blood pressure DX:High bloo d pressure MRSA infection DX:MRSA infectio n;COMMENT:2013 Left lateral torso abscess HALEIGH (obstructive sleep apnea) DX :HALEIGH (obstructive sleep apnea);COMMENT:mild, does not use CPAP Erb's palsy DX:Erb's palsy Anxiety DX:Anxiety Osteoarthritis DX:Osteoarthriti s Chronic congestion of paranasal sinus DX:Chronic congestion of paranasal sinus Chronic back pain DX:Chronic gregory k pain Colon polyp, hyperplastic DX:Col on polyp, hyperplastic Insomnia DX:Insomnia Joint laxity DX:Joint laxity Class 1 obesity in adult DX:Clas s 1 obesity in adult Sciatica DX:Sciatica Depression DX:Depression Family History Medical History Relation Name Comments Arthritis Father Hyperlipidemia Father Arthritis Mother Cancer Mother Hypertension Mother Relation Name Status Comments Father Mother Social History Tobacco Use Types Packs/Day Years Used Date Smoking Tobacco: Never Smokeless Tobacco: Never Alcohol Use Standard Drinks/Week Comments Yes 2 (1 standard drink = 0.6 oz pur e alcohol) Comments Unknown Sex and Gender Information Value Date Recorded Sex Assigned at Not on file Legal Sex Female 10:03 PM EST Gender Identity Not on file Sexual Orientation Not on file Obstetrics History Last Filed Vital Signs Vital Sign Reading Time Taken Comments Blood Pressure 106/71 12/19/2023 2:31 PM EDT Pulse 105 12/19/2023 2:31 PM EDT Temperature - - Respiratory Rate - - Oxygen Saturation - - Inhaled Oxygen Concentration - - Weight 89.2 kg (196 lb 9.6 oz) 12/19/2023 2:31 P M EDT Height 167.6 cm (5' 6 ) 12/19/2023 2:31 PM EDT Body Mass Index 31.73 12/19/2023 2:31 PM EDT Plan of Treatment Health Maintenance Due Date Last Done Comments Breast Cancer Screening 1965 DTaP,Tdap,and Td Vaccines (1 - Tdap) 11/15/1982 Cervical Cancer Screening: P ap Smear 11/15/1984 Pneumococcal Vaccine: 50+ Ye ars (1 of 1 - PCV) 11/15/2013 Zoster Vaccines (1 of 2) 11/15/2013 Colorectal Cancer Screening: Colonoscopy 07/01/2022 Depression Screening 07/01/2022 HIV Screening 07/01/2022 Hepatitis C Screening 07/01/2022 Social Influencers of Health Screening 07/01/2022 COVID-19 Vaccine ( - 2023-2 5 season) 2024 Influenza Vaccine (#1) 2025 RSV Immunization Adult Patie nts (1 - 1-dose 75+ series) 11/15/2038 HIB Vaccines Aged Out No longer eligi ble based on patient's age to complete this topic HPV Vaccines Aged Out No longer eligi ble based on patient's age to complete this topic Hepatitis A Vaccines Aged Out No long er eligible based on patient's age to complete this topic Hepatitis B Vaccines Aged Out No long er eligible based on patient's age to complete this topic IPV Vaccines Aged Out No longer eligi ble based on patient's age to complete this topic MMR Vaccines Aged Out No longer eligi ble based on patient's age to complete this topic Meningococcal ACWY Vaccine Aged Out N o longer eligible based on patient's age to complete this topic Meningococcal B Vaccine Aged Out No l onger eligible based on patient's age to complete this topic RSV Immunization Patients Un kavitha 20 months Aged Out No longer eligible b ased on patient's age to complete this topic Varicella Vaccines Aged Out No longer eligible based on patient's age to complete this topic Medical Devices Implanted Type Area Validation Specialist Device Identifier Shelf Expiration Date Model / Serial / Lot Surgiflo Hemostatic Matrix Jaree [id number] Implanted:Qty : 1 on 06/23/2021 by Rohan Dewey MD Implants N/A: Spine Cervical [employer] 12/21/2022 2991 / / [id number] Surgiflo Hemostatic Matrix [id number] Implanted:Qty : 1 on 07/29/2022 by Rohan Dewey MD Implants N/A: Spine Lumbar [employer] 04/22/2024 2991 / / [id number] Vikos Cervical 14x14.5x6mm 7d Stry-Spin [id number] - [id number] Implanted:Qty : 1 on 06/23/2021 by Rohan Dewey MD N/A: Spine Cervical [employer] 02/17/2025 [id number] / [id number] / Vikos Cervical 14x14.5x6mm 7d Stry-Spin [id number] - [id number] Implanted:Qty : 1 on 06/23/2021 by Rohan Dewey MD N/A: Spine Cervical [employer] 08/18/2024 [id number] L7 / [id number] / Vikos [employer] Systems Implanted:Qty : 1 on 06/23/2021 by Rohan Dewey MD N/A: Spine Cervical [employer] 06/29/2024 [id number] L7 / [id number] / Anterior Cervical Plate Constr 3 Level 54mm Stry-K2m [id number] Implanted:Qty : 1 on 06/23/2021 by Rohan Dewey MD N/A: Spine Cervical [employer] [id number] / / Screw Va Self-Start 4x14mm Stry-K2m [id number] Implanted:Qty : 8 on 06/23/2021 by Rohan Dewey MD N/A: Spine Cervical [employer] [id number] / / [place] Screw Implanted:Qty : 1 on 07/29/2022 by Rohan Dewey MD N/A: Spine Lumbar [employer] [id number] / / Bone Graft Spine Infuse Med Medt-Sofa [id number] Implanted:Qty : 1 on 07/29/2022 by Rohan Dewey MD Spine Lumbar [employer] 07/24/2024 [id number] / / [id number] [place] Al Implanted:Qty : 1 on 07/29/2022 by Rohan Dewey MD N/A: Spine Lumbar [employer] 01/19/2027 [id number] / / [id number] Monetery Screw Implanted:Qty : 5 on 07/29/2022 by Rohan Dewey MD N/A: Spine Lumbar [employer] [id number] / / [place] Al Implanted:Qty : 1 on 07/29/2022 by Rohan Dewey MD N/A: Spine Lumbar [employer] 02/12/2027 [id number] / / [id number] Care Teams Rn Acute Dialysis Relationship Specialty Start Date End Date Carleen López MD [address] [place] [id number] PCP - General Internal Medicine 06/16/21
--- OUTSIDE RECORDS SUMMARY | 2025-01-28 11:40 | XMS_ITS | Patient Health Record ---
[facility] Organization [facility] [address] Address [address] [place] [address] Care Team Providers Care Assistant Branch Manager Name Role Phone Paige Desir Unavailable [phone] Allergies Allergen (clinical drug ingredient) Drug/Non Drug Allergy documented on EMR Reaction Allergy Type Onset Date Status maltodextrin maltodextrin (uncoded) Unknown Allergy Active fluoxetine Fluoxetine Unknown Drug Allergy Activ e Wellbutrin Unknown Drug Allergy Active lisinopril Lisinopril Unknown Drug Allergy Activ e sucralose Sucralose vomiting Allergy Active Results Component Value Reference Range Notes MAGNESIUM Reviewed date:03/27/2024 01:08:56 PM Interpretation: Performing Lab: Notes/Report: MAGNESIUM 2.3 1.9-2.6 mg/dL Note [employer], [place] [address] Housing Project Manager - Dayanara Cash MD TSH Reviewed date:03/27/2024 01:09:40 PM Interpretation: Performing Lab: Notes/Report: [facility], a member of [address] [address] Housing Project Manager - Dayanara Cash MD TSH 1.58 0.40-4.00 uIU/ml VITAMIN B12 Reviewed date:03/27/2024 01:08:41 PM Interpretation: Performing Lab: Notes/Report: VITAMIN B12 465 250-900 pg/mL COMPREHENSIVE METABOLIC PANE L Reviewed date:03/27/2024 01:09:25 PM Interpretation: Performing Lab: Notes/Report: Note Original Orderi ng Provider: PAIGE DESIR PA-C GLUCOSE 95 70-100 mg/dL Reference range applicable to fasting specimens only BUN 14 5-25 mg/dL CREAT 0.92 0.5-1.1 mg/dL GLOMERULAR FILTRATION RATE 71 >60 This eGFR result was calculated using the CKD-EPI 2020 Creatinine Equation SODIUM 141 135-145 mEq/L POTASSIUM 4.1 3.5-5.5 mmol/L CHLORIDE 109 96-110 mmol/L CO2 25 21-32 mmol/L ANION GAP 7 3-11 CALCIUM 9.3 8.5-10.5 mg/dL ALBUMIN 3.5 3.2-5.0 G/dL SGPT 29 10-60 U/L Reason For Referral No Information Medications Medication SIG (Take, Route, Frequency, Duration) Notes Start Date End Date Status Lisinopril 20 MG 1 tablet Oral Once a day; Duration: 30 days Active Nortriptyline HCl 10 MG Oral; Duration: 30 Days Active buPROPion HCl ER (SR) 150 MG 1 tablet in the morning Orally Once a day; Duration: 30 days Active Fish Oil 1200 MG 1 capsule Orally Thr ee times a day; Duration: 30 day(s) 09/28/2023 Active Zepbound 10 MG/0.5ML 0.5 mL Subcutaneous once weekly; Duration: 30 days Active Pantoprazole Sodium 20 MG TAKE ONE TABLE T BY MOUTH TWICE A DAY Oral; Duration: 90 Days Active Gabapentin 300 MG TAKE ONE CAPSULE BY MOUTH EVERY MORNING AND TAKE TWO CAPSULES EVERY EVENING Oral; Duration: 30 Days Active DULoxetine HCl 30 MG TAKE ONE CAPSULE BY MOUTH TWICE A DAY Oral; Duration: 30 Days Active Probiotic 09/28/2023 Active Magnesium Citrate 100 MG as directed Orally 2023 Active Tylenol Arthritis Pain 09/28/2023 Active Social History Tobacco Use: Social History Observation Description Date Details (start date - stop date) Former Smoker NA - NA Tobacco Use/Smoking Question Answer Notes Are you a former smoker How long has it been since you last smoked? 5-10 years Alcohol Screen (Audit-C) Question Answer Notes Did you have a drink contain ing alcohol in the past year? Yes How often did you have a dri nk containing alcohol in the past year? 4 or more times a week (4 points) Points 4 Interpretation Positive Problems Problem Type SNOMED Code ICD Code Onset Dates Problem Status W/U Status Risk Notes Problem Essential hypertension (32223986) Essential hypertension (I10) Active confirmed Problem Pure hypercholesterolemia (252807003) Pure hypercholesterolemia (E78.00) Active confirmed Problem Vitamin D deficiency (47427443) Vitamin D deficiency (E55.9) Active confirmed Problem Obesity (002663204) Obesity (BMI 30-39.9) (E66.9) Active confirmed Problem Obese class II (580472714734152) BMI 35.0-35.9,adult (Z68.35) Active confirmed Problem Obese class I (856004486911100) BMI 33.0-33.9,adult (Z68.33) Active confirmed Problem BMI 30+ - obesity (204388132) BMI 32.0-32.9,adult (Z68.32) Active confirmed Problem BMI 25-29 - overweight (867084733) BMI 27.0-27.9,adult (Z68.27) Active confirmed Problem Body mass index 30.0 0 to 34.99 (260598299600487) BMI 34.0-34.9,adult (Z68.34) Active confirmed Problem Overweight (399334107) Overweight (BMI 25.0-29.9) (E66.3) Active confirmed Problem History of gastric bypass (938868501) History of gastric bypass (Z98.84) Active confirmed Vital Signs Heart Rate 86 /min 01/07/2025 Oximetry 97 % 01/07/2025 Blood pressure diastolic 70 mm Hg 01/07/2025 Height 64 in 01/07/2025 Blood pressure systolic 112 mm Hg 01/07/2025 Weight 152.5 lbs 01/07/2025 BMI 26.17 kg/m2 01/07/2025 Encounters Encounter Location Date Provider Diagnosis [facility] [address] [address] 02/21/2024 Paige Svrcek Overweight (BMI 25.0 -29.9) E66.3 ; BMI 29.0-29.9,adult Z68.29 ; Essential hypertension I10 ; Pure hypercholesterolemia E78.00 ; History of gastric bypass Z98.84 and Weight loss counseling, encounter for Z71.3 [facility] [address] [address] 03/20/2024 Paige Svrcek Overweight (BMI 25.0 -29.9) E66.3 ; BMI 28.0-28.9,adult Z68.28 ; Muscle cramps R25.2 ; Essential hypertension I10 ; Pure hypercholesterolemia E78.00 ; History of gastric bypass Z98.84 and Weight loss counseling, encounter for Z71.3 [facility] [address] 04/23/2024 Paige Svrcek Overweight (BMI 25.0 -29.9) E66.3 ; BMI 27.0-27.9,adult Z68.27 ; Muscle cramps R25.2 ; Essential hypertension I10 ; Pure hypercholesterolemia E78.00 ; History of gastric bypass Z98.84 and Weight loss counseling, encounter for Z71.3 [facility] [address] 05/28/2024 Paige Svrcek BMI 27.0-27.9,adult Z68.27 ; Overweight (BMI 25.0-29.9) E66.3 ; Essential hypertension I10 ; Pure hypercholesterolemia E78.00 ; History of gastric bypass Z98.84 and Weight loss counseling, encounter for Z71.3 [facility] [address] 06/25/2024 Paige Svrcek BMI 27.0-27.9,adult Z68.27 ; Overweight (BMI 25.0-29.9) E66.3 ; Essential hypertension I10 ; Pure hypercholesterolemia E78.00 ; History of gastric bypass Z98.84 and Weight loss counseling, encounter for Z71.3 [facility] [address] 08/06/2024 Paige Svrcek BMI 27.0-27.9,adult Z68.27 ; Overweight (BMI 25.0-29.9) E66.3 ; Essential hypertension I10 ; Pure hypercholesterolemia E78.00 ; History of gastric bypass Z98.84 and Weight loss counseling, encounter for Z71.3 [facility] [address] 09/05/2024 Paige Svrcek Overweight (BMI 25.0 -29.9) E66.3 ; BMI 26.0-26.9,adult Z68.26 ; Essential hypertension I10 ; Pure hypercholesterolemia E78.00 ; History of gastric bypass Z98.84 and Weight loss counseling, encounter for Z71.3 [facility] [address] [address] 10/03/2024 Paige Svrcek Overweight (BMI 25.0 -29.9) E66.3 ; BMI 26.0-26.9,adult Z68.26 ; Essential hypertension I10 ; Pure hypercholesterolemia E78.00 ; History of gastric bypass Z98.84 and Weight loss counseling, encounter for Z71.3 [facility] [address] [address] 10/31/2024 Paige Svrcek Overweight (BMI 25.0 -29.9) E66.3 ; BMI 27.0-27.9,adult Z68.27 ; Essential hypertension I10 ; Pure hypercholesterolemia E78.00 ; History of gastric bypass Z98.84 and Weight loss counseling, encounter for Z71.3 [facility] [address] 12/05/2024 Paige Svrcek Overweight (BMI 25.0 -29.9) E66.3 ; BMI 25.0-25.9,adult Z68.25 ; Essential hypertension I10 ; Pure hypercholesterolemia E78.00 ; History of gastric bypass Z98.84 and Weight loss counseling, encounter for Z71.3 [facility] [address] 01/07/2025 Paige Svrcek Overweight (BMI 25.0 -29.9) E66.3 ; BMI 26.0-26.9,adult Z68.26 ; Essential hypertension I10 ; Pure hypercholesterolemia E78.00 ; History of gastric bypass Z98.84 and Weight loss counseling, encounter for Z71.[address] [facility] [address] [place] [address] 03/26/2024 Paige Svrcek [facility] [address] [address] 09/05/2024 Paige Svrcek [facility] [address] 12/05/2024 Paige Svrcek Assessments Encounter Date Diagnosis (ICD Code) Assessment Notes Treatment Notes Treatment Clinical Notes Section Notes 02/21/2024 BMI 29.0-29.9,adult (ICD-10 - Z68.29) #Obesity. 09/28/23: 208.78 pounds, BMI 34.7. S 10/19/23: 211 lbs, BMI 35.1 11/30/23: 200.1 lbs, BMI 33.3 02/21/24: 178.5, BMI 29.7 She is doing fantastic on Zepbound 5 mg. Denies any side effects. She is down an additional 14 pounds since her last visit and 30 pounds overall. She has noticed increased appetite and food noise and is requesting increase in dose. Will increase to 7.5 mg weekly on next fill. Discussed importance of protein intake, hydration and regular exercise. Follow-up in 4 weeks sooner with any concerns. #Hypertension. Blood pressure has been controlled on medication. Followed by PCP. #Hyperlipidemia. Followed by PCP. The patient will continue exercise regimen with an emphasis on improving/increasin g steps to at least 6,000-10,000 steps per day. Increasing cardio and strength training exercises as tolerated to improve weight loss and work on building muscle mass. Patient is committed to smarter eating with calorie counting and mindful eating. Limiting processed foods and carbohydrates and increasing leafy greens and lean proteins as well as fruits into their diet. Patient was counseled on the importance of eating local, organic food when possible. Patient has been counseled regarding effects of GLP/GIP-1 agonists and other FDA approved weight loss medications with regards to a multifactorial approach of weight loss as mentioned above and that the medication alone will not be sufficient to meet patients goals. We discussed holistic medication approach with emphasis on lifestyle modification. Discussed obesity as it increases risk of diabetes, cardiovascular disease, and/or organ damage. We spent a lot of time discussing the relationship between food, exercise, sleep, mental health, and obesity. We discussed the importance of having SECAs done every visit and having accountability done during these visits. That the scale is done to monitor not only weight loss but the body composition during medication management and healthy lifestyle changes. We discussed that if the patient is unable at times to financially afford this scale that we would rather waive the fee and have the scale done than have the patient not have the scale obtained. Will follow up with the patient in 4 weeks time to monitor weight loss. Total time was 30 min, greater than 50 % of time was spent on care coordination Case discussed with collaborating physician Michelle Allen who reviewed the assessment and plan. Chart, medications, labs, vital signs reviewed. Dictation was accomplished with the use of [employer] voice recognition software, prone to medical misidentifications and grammatical errors. This is unintentional and the practitioner does try to identify and correct these, but some could still be present. Please do not hesitate to contact practitioner for clarification. All questions answered to patients satisfaction. Patient verbalized understanding of diagnosis and treatments explained. To call sooner prior to next visit it any questions/concerns arise. 02/21/2024 Overweight (BMI 25.0-29.9) (ICD-10 - E66.3) #Obesity. 09/28/23: 208.78 pounds, BMI 34.7. S 10/19/23: 211 lbs, BMI 35.1 11/30/23: 200.1 lbs, BMI 33.3 02/21/24: 178.5, BMI 29.7 She is doing fantastic on Zepbound 5 mg. Denies any side effects. She is down an additional 14 pounds since her last visit and 30 pounds overall. She has noticed increased appetite and food noise and is requesting increase in dose. Will increase to 7.5 mg weekly on next fill. Discussed importance of protein intake, hydration and regular exercise. Follow-up in 4 weeks sooner with any concerns. #Hypertension. Blood pressure has been controlled on medication. Followed by PCP. #Hyperlipidemia. Followed by PCP. The patient will continue exercise regimen with an emphasis on improving/increasin g steps to at least 6,000-10,000 steps per day. Increasing cardio and strength training exercises as tolerated to improve weight loss and work on building muscle mass. Patient is committed to smarter eating with calorie counting and mindful eating. Limiting processed foods and carbohydrates and increasing leafy greens and lean proteins as well as fruits into their diet. Patient was counseled on the importance of eating local, organic food when possible. Patient has been counseled regarding effects of GLP/GIP-1 agonists and other FDA approved weight loss medications with regards to a multifactorial approach of weight loss as mentioned above and that the medication alone will not be sufficient to meet patients goals. We discussed holistic medication approach with emphasis on lifestyle modification. Discussed obesity as it increases risk of diabetes, cardiovascular disease, and/or organ damage. We spent a lot of time discussing the relationship between food, exercise, sleep, mental health, and obesity. We discussed the importance of having SECAs done every visit and having accountability done during these visits. That the scale is done to monitor not only weight loss but the body composition during medication management and healthy lifestyle changes. We discussed that if the patient is unable at times to financially afford this scale that we would rather waive the fee and have the scale done than have the patient not have the scale obtained. Will follow up with the patient in 4 weeks time to monitor weight loss. Total time was 30 min, greater than 50 % of time was spent on care coordination Case discussed with collaborating physician Michelle Allen who reviewed the assessment and plan. Chart, medications, labs, vital signs reviewed. Dictation was accomplished with the use of [employer] voice recognition software, prone to medical misidentifications and grammatical errors. This is unintentional and the practitioner does try to identify and correct these, but some could still be present. Please do not hesitate to contact practitioner for clarification. All questions answered to patients satisfaction. Patient verbalized understanding of diagnosis and treatments explained. To call sooner prior to next visit it any questions/concerns arise. 03/20/2024 BMI 28.0-28.9,adult (ICD-10 - Z68.28) #Obesity. 09/28/23: 208.78 pounds, BMI 34.7. S 10/19/23: 211 lbs, BMI 35.1 11/30/23: 200.1 lbs, BMI 33.3 02/21/24: 178.5, BMI 29.7 She is doing fantastic on Zepbound 5 mg. Denies any side effects. She is down an additional 14 pounds since her last visit and 30 pounds overall. She has noticed increased appetite and food noise and is requesting increase in dose. Will increase to 7.5 mg weekly on next fill. Discussed importance of protein intake, hydration and regular exercise. Follow-up in 4 weeks sooner with any concerns. 03/20/24: 172.8 pounds, BMI 28.8. She has done well on Zepbound 7.5 mg. However she has had intermittent muscle cramping, fatigue vomiting and diarrhea x 3 episodes. No symptoms in the past 2 weeks. Will get updated labs and follow-up pending results. She believes she was overdoing it on electrolytes and has cut back on intake. Continue to work on protein intake and regular exercise. Follow-up 4 weeks sooner with any concerns. #Muscle cramps- intermittent. check updated labs. F/u pending results. #Hypertension. Blood pressure has been controlled on medication. Followed by PCP. #Hyperlipidemia. Followed by PCP. The patient will continue exercise regimen with an emphasis on improving/increasin g steps to at least 6,000-10,000 steps per day. Increasing cardio and strength training exercises as tolerated to improve weight loss and work on building muscle mass. Patient is committed to smarter eating with calorie counting and mindful eating. Limiting processed foods and carbohydrates and increasing leafy greens and lean proteins as well as fruits into their diet. Patient was counseled on the importance of eating local, organic food when possible. Patient has been counseled regarding effects of GLP/GIP-1 agonists and other FDA approved weight loss medications with regards to a multifactorial approach of weight loss as mentioned above and that the medication alone will not be sufficient to meet patients goals. We discussed holistic medication approach with emphasis on lifestyle modification. Discussed obesity as it increases risk of diabetes, cardiovascular disease, and/or organ damage. We spent a lot of time discussing the relationship between food, exercise, sleep, mental health, and obesity. We discussed the importance of having SECAs done every visit and having accountability done during these visits. That the scale is done to monitor not only weight loss but the body composition during medication management and healthy lifestyle changes. We discussed that if the patient is unable at times to financially afford this scale that we would rather waive the fee and have the scale done than have the patient not have the scale obtained. Will follow up with the patient in 4 weeks time to monitor weight loss. Total time was 30 min, greater than 50 % of time was spent on care coordination Case discussed with collaborating physician Michelle Allen who reviewed the assessment and plan. Chart, medications, labs, vital signs reviewed. Dictation was accomplished with the use of [employer] voice recognition software, prone to medical misidentifications and grammatical errors. This is unintentional and the practitioner does try to identify and correct these, but some could still be present. Please do not hesitate to contact practitioner for clarification. All questions answered to patients satisfaction. Patient verbalized understanding of diagnosis and treatments explained. To call sooner prior to next visit it any questions/concerns arise. 03/20/2024 Overweight (BMI 25.0-29.9) (ICD-10 - E66.3) #Obesity. 09/28/23: 208.78 pounds, BMI 34.7. S 10/19/23: 211 lbs, BMI 35.1 11/30/23: 200.1 lbs, BMI 33.3 02/21/24: 178.5, BMI 29.7 She is doing fantastic on Zepbound 5 mg. Denies any side effects. She is down an additional 14 pounds since her last visit and 30 pounds overall. She has noticed increased appetite and food noise and is requesting increase in dose. Will increase to 7.5 mg weekly on next fill. Discussed importance of protein intake, hydration and regular exercise. Follow-up in 4 weeks sooner with any concerns. 03/20/24: 172.8 pounds, BMI 28.8. She has done well on Zepbound 7.5 mg. However she has had intermittent muscle cramping, fatigue vomiting and diarrhea x 3 episodes. No symptoms in the past 2 weeks. Will get updated labs and follow-up pending results. She believes she was overdoing it on electrolytes and has cut back on intake. Continue to work on protein intake and regular exercise. Follow-up 4 weeks sooner with any concerns. #Muscle cramps- intermittent. check updated labs. F/u pending results. #Hypertension. Blood pressure has been controlled on medication. Followed by PCP. #Hyperlipidemia. Followed by PCP. The patient will continue exercise regimen with an emphasis on improving/increasin g steps to at least 6,000-10,000 steps per day. Increasing cardio and strength training exercises as tolerated to improve weight loss and work on building muscle mass. Patient is committed to smarter eating with calorie counting and mindful eating. Limiting processed foods and carbohydrates and increasing leafy greens and lean proteins as well as fruits into their diet. Patient was counseled on the importance of eating local, organic food when possible. Patient has been counseled regarding effects of GLP/GIP-1 agonists and other FDA approved weight loss medications with regards to a multifactorial approach of weight loss as mentioned above and that the medication alone will not be sufficient to meet patients goals. We discussed holistic medication approach with emphasis on lifestyle modification. Discussed obesity as it increases risk of diabetes, cardiovascular disease, and/or organ damage. We spent a lot of time discussing the relationship between food, exercise, sleep, mental health, and obesity. We discussed the importance of having SECAs done every visit and having accountability done during these visits. That the scale is done to monitor not only weight loss but the body composition during medication management and healthy lifestyle changes. We discussed that if the patient is unable at times to financially afford this scale that we would rather waive the fee and have the scale done than have the patient not have the scale obtained. Will follow up with the patient in 4 weeks time to monitor weight loss. Total time was 30 min, greater than 50 % of time was spent on care coordination Case discussed with collaborating physician Michelle Allen who reviewed the assessment and plan. Chart, medications, labs, vital signs reviewed. Dictation was accomplished with the use of [employer] voice recognition software, prone to medical misidentifications and grammatical errors. This is unintentional and the practitioner does try to identify and correct these, but some could still be present. Please do not hesitate to contact practitioner for clarification. All questions answered to patients satisfaction. Patient verbalized understanding of diagnosis and treatments explained. To call sooner prior to next visit it any questions/concerns arise. 04/23/2024 BMI 27.0-27.9,adult (ICD-10 - Z68.27) #Obesity. 09/28/23: 208.78 pounds, BMI 34.7. S 10/19/23: 211 lbs, BMI 35.1 11/30/23: 200.1 lbs, BMI 33.3 02/21/24: 178.5, BMI 29.7 She is doing fantastic on Zepbound 5 mg. Will increase to 7.5 mg weekly on next fill. 03/20/24: 172.8 pounds, BMI 28.8. She has done well on Zepbound 7.5 mg. 04/23/24: 167.2 pounds, BMI 27.8. She is doing well on Zepbound 7.5 mg however has noticed increased appetite. She is down 44 pounds overall since starting with us. Will increase to 10 mg of Zepbound this month. Discussed importance of protein intake hydration and consistent exercise. Will follow-up again in 4 weeks with repeat Seca scale at that time. Follow-up sooner with any concerns. #Muscle cramps- resolved. #Hypertension. Blood pressure has been controlled on medication. Followed by PCP. #Hyperlipidemia. Followed by PCP. The patient will continue exercise regimen with an emphasis on improving/increasin g steps to at least 6,000-10,000 steps per day. Increasing cardio and strength training exercises as tolerated to improve weight loss and work on building muscle mass. Patient is committed to smarter eating with calorie counting and mindful eating. Limiting processed foods and carbohydrates and increasing leafy greens and lean proteins as well as fruits into their diet. Patient was counseled on the importance of eating local, organic food when possible. Patient has been counseled regarding effects of GLP/GIP-1 agonists and other FDA approved weight loss medications with regards to a multifactorial approach of weight loss as mentioned above and that the medication alone will not be sufficient to meet patients goals. We discussed holistic medication approach with emphasis on lifestyle modification. Discussed obesity as it increases risk of diabetes, cardiovascular disease, and/or organ damage. We spent a lot of time discussing the relationship between food, exercise, sleep, mental health, and obesity. We discussed the importance of having SECAs done every visit and having accountability done during these visits. That the scale is done to monitor not only weight loss but the body composition during medication management and healthy lifestyle changes. We discussed that if the patient is unable at times to financially afford this scale that we would rather waive the fee and have the scale done than have the patient not have the scale obtained. Will follow up with the patient in 4 weeks time to monitor weight loss. Total time was 30 min, greater than 50 % of time was spent on care coordination Case discussed with collaborating physician Michelle Allen who reviewed the assessment and plan. Chart, medications, labs, vital signs reviewed. Dictation was accomplished with the use of [employer] voice recognition software, prone to medical misidentifications and grammatical errors. This is unintentional and the practitioner does try to identify and correct these, but some could still be present. Please do not hesitate to contact practitioner for clarification. All questions answered to patients satisfaction. Patient verbalized understanding of diagnosis and treatments explained. To call sooner prior to next visit it any questions/concerns arise. 04/23/2024 Overweight (BMI 25.0-29.9) (ICD-10 - E66.3) #Obesity. 09/28/23: 208.78 pounds, BMI 34.7. S 10/19/23: 211 lbs, BMI 35.1 11/30/23: 200.1 lbs, BMI 33.3 02/21/24: 178.5, BMI 29.7 She is doing fantastic on Zepbound 5 mg. Will increase to 7.5 mg weekly on next fill. 03/20/24: 172.8 pounds, BMI 28.8. She has done well on Zepbound 7.5 mg. 04/23/24: 167.2 pounds, BMI 27.8. She is doing well on Zepbound 7.5 mg however has noticed increased appetite. She is down 44 pounds overall since starting with us. Will increase to 10 mg of Zepbound this month. Discussed importance of protein intake hydration and consistent exercise. Will follow-up again in 4 weeks with repeat Seca scale at that time. Follow-up sooner with any concerns. #Muscle cramps- resolved. #Hypertension. Blood pressure has been controlled on medication. Followed by PCP. #Hyperlipidemia. Followed by PCP. The patient will continue exercise regimen with an emphasis on improving/increasin g steps to at least 6,000-10,000 steps per day. Increasing cardio and strength training exercises as tolerated to improve weight loss and work on building muscle mass. Patient is committed to smarter eating with calorie counting and mindful eating. Limiting processed foods and carbohydrates and increasing leafy greens and lean proteins as well as fruits into their diet. Patient was counseled on the importance of eating local, organic food when possible. Patient has been counseled regarding effects of GLP/GIP-1 agonists and other FDA approved weight loss medications with regards to a multifactorial approach of weight loss as mentioned above and that the medication alone will not be sufficient to meet patients goals. We discussed holistic medication approach with emphasis on lifestyle modification. Discussed obesity as it increases risk of diabetes, cardiovascular disease, and/or organ damage. We spent a lot of time discussing the relationship between food, exercise, sleep, mental health, and obesity. We discussed the importance of having SECAs done every visit and having accountability done during these visits. That the scale is done to monitor not only weight loss but the body composition during medication management and healthy lifestyle changes. We discussed that if the patient is unable at times to financially afford this scale that we would rather waive the fee and have the scale done than have the patient not have the scale obtained. Will follow up with the patient in 4 weeks time to monitor weight loss. Total time was 30 min, greater than 50 % of time was spent on care coordination Case discussed with collaborating physician Michelle Allen who reviewed the assessment and plan. Chart, medications, labs, vital signs reviewed. Dictation was accomplished with the use of [employer] voice recognition software, prone to medical misidentifications and grammatical errors. This is unintentional and the practitioner does try to identify and correct these, but some could still be present. Please do not hesitate to contact practitioner for clarification. All questions answered to patients satisfaction. Patient verbalized understanding of diagnosis and treatments explained. To call sooner prior to next visit it any questions/concerns arise. 05/28/2024 BMI 27.0-27.9,adult (ICD-10 - Z68.27) #Obesity. 09/28/23: 208.78 pounds, BMI 34.7. S 10/19/23: 211 lbs, BMI 35.1 11/30/23: 200.1 lbs, BMI 33.3 02/21/24: 178.5, BMI 29.7 She is doing fantastic on Zepbound 5 mg. Will increase to 7.5 mg weekly on next fill. 03/20/24: 172.8 pounds, BMI 28.8. She has done well on Zepbound 7.5 mg. 04/23/24: 167.2 pounds, BMI 27.8. She is doing well on Zepbound 7.5 mg however has noticed increased appetite. She is down 44 pounds overall since starting with us. Will increase to 10 mg of Zepbound this month. Discussed importance of protein intake hydration and consistent exercise. Will follow-up again in 4 weeks with repeat Seca scale at that time. Follow-up sooner with any concerns 05/28/24: 160.7 pounds, BMI 27.6. She is doing well on Zepbound 10 mg. She is down 50 pounds overall since starting. Discussed continued protein intake, hydration and regular exercise especially resistance training. Advised to add B complex vitamin and increase vitamin D supplement. Offered JOSETTE injection which she declines today. Will follow-up again in 1 month sooner with any concerns. #Hypertension. Blood pressure has been controlled on medication. Followed by PCP. #Hyperlipidemia. Followed by PCP. The patient will continue exercise regimen with an emphasis on improving/increasin g steps to at least 6,000-10,000 steps per day. Increasing cardio and strength training exercises as tolerated to improve weight loss and work on building muscle mass. Patient is committed to smarter eating with calorie counting and mindful eating. Limiting processed foods and carbohydrates and increasing leafy greens and lean proteins as well as fruits into their diet. Patient was counseled on the importance of eating local, organic food when possible. Patient has been counseled regarding effects of GLP/GIP-1 agonists and other FDA approved weight loss medications with regards to a multifactorial approach of weight loss as mentioned above and that the medication alone will not be sufficient to meet patients goals. We discussed holistic medication approach with emphasis on lifestyle modification. Discussed obesity as it increases risk of diabetes, cardiovascular disease, and/or organ damage. We spent a lot of time discussing the relationship between food, exercise, sleep, mental health, and obesity. We discussed the importance of having SECAs done every visit and having accountability done during these visits. That the scale is done to monitor not only weight loss but the body composition during medication management and healthy lifestyle changes. We discussed that if the patient is unable at times to financially afford this scale that we would rather waive the fee and have the scale done than have the patient not have the scale obtained. Will follow up with the patient in 4 weeks time to monitor weight loss. Total time was 30 min, greater than 50 % of time was spent on care coordination Case discussed with collaborating physician Ranjana Allen who reviewed the assessment and plan. Chart, medications, labs, vital signs reviewed. Dictation was accomplished with the use of [employer] voice recognition software, prone to medical misidentifications and grammatical errors. This is unintentional and the practitioner does try to identify and correct these, but some could still be present. Please do not hesitate to contact practitioner for clarification. All questions answered to patients satisfaction. Patient verbalized understanding of diagnosis and treatments explained. To call sooner prior to next visit it any questions/concerns arise. 05/28/2024 Overweight (BMI 25.0-29.9) (ICD-10 - E66.3) #Obesity. 09/28/23: 208.78 pounds, BMI 34.7. S 10/19/23: 211 lbs, BMI 35.1 11/30/23: 200.1 lbs, BMI 33.3 02/21/24: 178.5, BMI 29.7 She is doing fantastic on Zepbound 5 mg. Will increase to 7.5 mg weekly on next fill. 03/20/24: 172.8 pounds, BMI 28.8. She has done well on Zepbound 7.5 mg. 04/23/24: 167.2 pounds, BMI 27.8. She is doing well on Zepbound 7.5 mg however has noticed increased appetite. She is down 44 pounds overall since starting with us. Will increase to 10 mg of Zepbound this month. Discussed importance of protein intake hydration and consistent exercise. Will follow-up again in 4 weeks with repeat Seca scale at that time. Follow-up sooner with any concerns 05/28/24: 160.7 pounds, BMI 27.6. She is doing well on Zepbound 10 mg. She is down 50 pounds overall since starting. Discussed continued protein intake, hydration and regular exercise especially resistance training. Advised to add B complex vitamin and increase vitamin D supplement. Offered JOSETTE injection which she declines today. Will follow-up again in 1 month sooner with any concerns. #Hypertension. Blood pressure has been controlled on medication. Followed by PCP. #Hyperlipidemia. Followed by PCP. The patient will continue exercise regimen with an emphasis on improving/increasin g steps to at least 6,000-10,000 steps per day. Increasing cardio and strength training exercises as tolerated to improve weight loss and work on building muscle mass. Patient is committed to smarter eating with calorie counting and mindful eating. Limiting processed foods and carbohydrates and increasing leafy greens and lean proteins as well as fruits into their diet. Patient was counseled on the importance of eating local, organic food when possible. Patient has been counseled regarding effects of GLP/GIP-1 agonists and other FDA approved weight loss medications with regards to a multifactorial approach of weight loss as mentioned above and that the medication alone will not be sufficient to meet patients goals. We discussed holistic medication approach with emphasis on lifestyle modification. Discussed obesity as it increases risk of diabetes, cardiovascular disease, and/or organ damage. We spent a lot of time discussing the relationship between food, exercise, sleep, mental health, and obesity. We discussed the importance of having SECAs done every visit and having accountability done during these visits. That the scale is done to monitor not only weight loss but the body composition during medication management and healthy lifestyle changes. We discussed that if the patient is unable at times to financially afford this scale that we would rather waive the fee and have the scale done than have the patient not have the scale obtained. Will follow up with the patient in 4 weeks time to monitor weight loss. Total time was 30 min, greater than 50 % of time was spent on care coordination Case discussed with collaborating physician Ranjana Allen who reviewed the assessment and plan. Chart, medications, labs, vital signs reviewed. Dictation was accomplished with the use of [employer] voice recognition software, prone to medical misidentifications and grammatical errors. This is unintentional and the practitioner does try to identify and correct these, but some could still be present. Please do not hesitate to contact practitioner for clarification. All questions answered to patients satisfaction. Patient verbalized understanding of diagnosis and treatments explained. To call sooner prior to next visit it any questions/concerns arise. 06/25/2024 BMI 27.0-27.9,adult (ICD-10 - Z68.27) #Obesity. 09/28/23: 208.78 pounds, BMI 34.7. S 10/19/23: 211 lbs, BMI 35.1 11/30/23: 200.1 lbs, BMI 33.3 02/21/24: 178.5, BMI 29.7 She is doing fantastic on Zepbound 5 mg. Will increase to 7.5 mg weekly on next fill. 03/20/24: 172.8 pounds, BMI 28.8. She has done well on Zepbound 7.5 mg. 04/23/24: 167.2 pounds, BMI 27.8. She is doing well on Zepbound 7.5 mg however has noticed increased appetite. She is down 44 pounds overall since starting with us. Will increase to 10 mg of Zepbound this month. Discussed importance of protein intake hydration and consistent exercise. Will follow-up again in 4 weeks with repeat Seca scale at that time. Follow-up sooner with any concerns 05/28/24: 160.7 pounds, BMI 27.6. She is doing well on Zepbound 10 mg. She is down 50 pounds overall since starting. Discussed continued protein intake, hydration and regular exercise especially resistance training. Advised to add B complex vitamin and increase vitamin D supplement. Offered JOSETTE injection which she declines today. Will follow-up again in 1 month sooner with any concerns. 06/25/24: 162 pounds, BMI 27.8. Weight is up slightly however fat mass is down and muscle mass is up. Discussed in detail with patient. Continue to work on consistent exercise, hydration and protein intake. Will follow-up again in 1 month sooner with any concerns will continue current regimen of Zepbound 10 mg weekly. #Hypertension. Blood pressure has been controlled on Lisinopril, Dose recreased by PCP yesterday. Followed by PCP. #Hyperlipidemia. Followed by PCP. The patient will continue exercise regimen with an emphasis on improving/increasin g steps to at least 6,000-10,000 steps per day. Increasing cardio and strength training exercises as tolerated to improve weight loss and work on building muscle mass. Patient is committed to smarter eating with calorie counting and mindful eating. Limiting processed foods and carbohydrates and increasing leafy greens and lean proteins as well as fruits into their diet. Patient was counseled on the importance of eating local, organic food when possible. Patient has been counseled regarding effects of GLP/GIP-1 agonists and other FDA approved weight loss medications with regards to a multifactorial approach of weight loss as mentioned above and that the medication alone will not be sufficient to meet patients goals. We discussed holistic medication approach with emphasis on lifestyle modification. Discussed obesity as it increases risk of diabetes, cardiovascular disease, and/or organ damage. We spent a lot of time discussing the relationship between food, exercise, sleep, mental health, and obesity. We discussed the importance of having SECAs done every visit and having accountability done during these visits. That the scale is done to monitor not only weight loss but the body composition during medication management and healthy lifestyle changes. We discussed that if the patient is unable at times to financially afford this scale that we would rather waive the fee and have the scale done than have the patient not have the scale obtained. Will follow up with the patient in 4 weeks time to monitor weight loss. Total time was 30 min, greater than 50 % of time was spent on care coordination Case discussed with collaborating physician Michelle Allen who reviewed the assessment and plan. Chart, medications, labs, vital signs reviewed. Dictation was accomplished with the use of [employer] voice recognition software, prone to medical misidentifications and grammatical errors. This is unintentional and the practitioner does try to identify and correct these, but some could still be present. Please do not hesitate to contact practitioner for clarification. All questions answered to patients satisfaction. Patient verbalized understanding of diagnosis and treatments explained. To call sooner prior to next visit it any questions/concerns arise. 06/25/2024 Overweight (BMI 25.0-29.9) (ICD-10 - E66.3) #Obesity. 09/28/23: 208.78 pounds, BMI 34.7. S 10/19/23: 211 lbs, BMI 35.1 11/30/23: 200.1 lbs, BMI 33.3 02/21/24: 178.5, BMI 29.7 She is doing fantastic on Zepbound 5 mg. Will increase to 7.5 mg weekly on next fill. 03/20/24: 172.8 pounds, BMI 28.8. She has done well on Zepbound 7.5 mg. 04/23/24: 167.2 pounds, BMI 27.8. She is doing well on Zepbound 7.5 mg however has noticed increased appetite. She is down 44 pounds overall since starting with us. Will increase to 10 mg of Zepbound this month. Discussed importance of protein intake hydration and consistent exercise. Will follow-up again in 4 weeks with repeat Seca scale at that time. Follow-up sooner with any concerns 05/28/24: 160.7 pounds, BMI 27.6. She is doing well on Zepbound 10 mg. She is down 50 pounds overall since starting. Discussed continued protein intake, hydration and regular exercise especially resistance training. Advised to add B complex vitamin and increase vitamin D supplement. Offered JOSETTE injection which she declines today. Will follow-up again in 1 month sooner with any concerns. 06/25/24: 162 pounds, BMI 27.8. Weight is up slightly however fat mass is down and muscle mass is up. Discussed in detail with patient. Continue to work on consistent exercise, hydration and protein intake. Will follow-up again in 1 month sooner with any concerns will continue current regimen of Zepbound 10 mg weekly. #Hypertension. Blood pressure has been controlled on Lisinopril, Dose recreased by PCP yesterday. Followed by PCP. #Hyperlipidemia. Followed by PCP. The patient will continue exercise regimen with an emphasis on improving/increasin g steps to at least 6,000-10,000 steps per day. Increasing cardio and strength training exercises as tolerated to improve weight loss and work on building muscle mass. Patient is committed to smarter eating with calorie counting and mindful eating. Limiting processed foods and carbohydrates and increasing leafy greens and lean proteins as well as fruits into their diet. Patient was counseled on the importance of eating local, organic food when possible. Patient has been counseled regarding effects of GLP/GIP-1 agonists and other FDA approved weight loss medications with regards to a multifactorial approach of weight loss as mentioned above and that the medication alone will not be sufficient to meet patients goals. We discussed holistic medication approach with emphasis on lifestyle modification. Discussed obesity as it increases risk of diabetes, cardiovascular disease, and/or organ damage. We spent a lot of time discussing the relationship between food, exercise, sleep, mental health, and obesity. We discussed the importance of having SECAs done every visit and having accountability done during these visits. That the scale is done to monitor not only weight loss but the body composition during medication management and healthy lifestyle changes. We discussed that if the patient is unable at times to financially afford this scale that we would rather waive the fee and have the scale done than have the patient not have the scale obtained. Will follow up with the patient in 4 weeks time to monitor weight loss. Total time was 30 min, greater than 50 % of time was spent on care coordination Case discussed with collaborating physician Michelle Allen who reviewed the assessment and plan. Chart, medications, labs, vital signs reviewed. Dictation was accomplished with the use of [employer] voice recognition software, prone to medical misidentifications and grammatical errors. This is unintentional and the practitioner does try to identify and correct these, but some could still be present. Please do not hesitate to contact practitioner for clarification. All questions answered to patients satisfaction. Patient verbalized understanding of diagnosis and treatments explained. To call sooner prior to next visit it any questions/concerns arise. 08/06/2024 BMI 27.0-27.9,adult (ICD-10 - Z68.27) #Obesity. 09/28/23: 208.78 pounds, BMI 34.7. S 10/19/23: 211 lbs, BMI 35.1 11/30/23: 200.1 lbs, BMI 33.3 02/21/24: 178.5, BMI 29.7 She is doing fantastic on Zepbound 5 mg. Will increase to 7.5 mg weekly on next fill. 03/20/24: 172.8 pounds, BMI 28.8. She has done well on Zepbound 7.5 mg. 04/23/24: 167.2 pounds, BMI 27.8. She is doing well on Zepbound 7.5 mg however has noticed increased appetite. She is down 44 pounds overall since starting with us. Will increase to 10 mg of Zepbound this month. Discussed importance of protein intake hydration and consistent exercise. Will follow-up again in 4 weeks with repeat Seca scale at that time. Follow-up sooner with any concerns 05/28/24: 160.7 pounds, BMI 27.6. She is doing well on Zepbound 10 mg. She is down 50 pounds overall since starting. Discussed continued protein intake, hydration and regular exercise especially resistance training. Advised to add B complex vitamin and increase vitamin D supplement. Offered JOSETTE injection which she declines today. Will follow-up again in 1 month sooner with any concerns. 06/25/24: 162 pounds, BMI 27.8. Weight is up slightly however fat mass is down and muscle mass is up. Discussed in detail with patient. Continue to work on consistent exercise, hydration and protein intake. Will follow-up again in 1 month sooner with any concerns will continue current regimen of Zepbound 10 mg weekly. 08/06/24: 157.9 pounds, BMI 27.1. She is doing well on Zepbound 10 mg. Discussed consistency with exercise. Continue hydration and protein intake. Will continue current regimen follow-up again in 1 month sooner with any concerns. #Hypertension. Blood pressure has been controlled on Lisinopril. Followed by PCP. #Hyperlipidemia. Followed by PCP. The patient will continue exercise regimen with an emphasis on improving/increasin g steps to at least 6,000-10,000 steps per day. Increasing cardio and strength training exercises as tolerated to improve weight loss and work on building muscle mass. Patient is committed to smarter eating with calorie counting and mindful eating. Limiting processed foods and carbohydrates and increasing leafy greens and lean proteins as well as fruits into their diet. Patient was counseled on the importance of eating local, organic food when possible. Patient has been counseled regarding effects of GLP/GIP-1 agonists and other FDA approved weight loss medications with regards to a multifactorial approach of weight loss as mentioned above and that the medication alone will not be sufficient to meet patients goals. We discussed holistic medication approach with emphasis on lifestyle modification. Discussed obesity as it increases risk of diabetes, cardiovascular disease, and/or organ damage. We spent a lot of time discussing the relationship between food, exercise, sleep, mental health, and obesity. We discussed the importance of having SECAs done every visit and having accountability done during these visits. That the scale is done to monitor not only weight loss but the body composition during medication management and healthy lifestyle changes. We discussed that if the patient is unable at times to financially afford this scale that we would rather waive the fee and have the scale done than have the patient not have the scale obtained. Will follow up with the patient in 4 weeks time to monitor weight loss. Total time was 30 min, greater than 50 % of time was spent on care coordination Case discussed with collaborating physician Michelle Allen who reviewed the assessment and plan. Chart, medications, labs, vital signs reviewed. Dictation was accomplished with the use of [employer] voice recognition software, prone to medical misidentifications and grammatical errors. This is unintentional and the practitioner does try to identify and correct these, but some could still be present. Please do not hesitate to contact practitioner for clarification. All questions answered to patients satisfaction. Patient verbalized understanding of diagnosis and treatments explained. To call sooner prior to next visit it any questions/concerns arise. 08/06/2024 Overweight (BMI 25.0-29.9) (ICD-10 - E66.3) #Obesity. 09/28/23: 208.78 pounds, BMI 34.7. S 10/19/23: 211 lbs, BMI 35.1 11/30/23: 200.1 lbs, BMI 33.3 02/21/24: 178.5, BMI 29.7 She is doing fantastic on Zepbound 5 mg. Will increase to 7.5 mg weekly on next fill. 03/20/24: 172.8 pounds, BMI 28.8. She has done well on Zepbound 7.5 mg. 04/23/24: 167.2 pounds, BMI 27.8. She is doing well on Zepbound 7.5 mg however has noticed increased appetite. She is down 44 pounds overall since starting with us. Will increase to 10 mg of Zepbound this month. Discussed importance of protein intake hydration and consistent exercise. Will follow-up again in 4 weeks with repeat Seca scale at that time. Follow-up sooner with any concerns 05/28/24: 160.7 pounds, BMI 27.6. She is doing well on Zepbound 10 mg. She is down 50 pounds overall since starting. Discussed continued protein intake, hydration and regular exercise especially resistance training. Advised to add B complex vitamin and increase vitamin D supplement. Offered JOSETTE injection which she declines today. Will follow-up again in 1 month sooner with any concerns. 06/25/24: 162 pounds, BMI 27.8. Weight is up slightly however fat mass is down and muscle mass is up. Discussed in detail with patient. Continue to work on consistent exercise, hydration and protein intake. Will follow-up again in 1 month sooner with any concerns will continue current regimen of Zepbound 10 mg weekly. 08/06/24: 157.9 pounds, BMI 27.1. She is doing well on Zepbound 10 mg. Discussed consistency with exercise. Continue hydration and protein intake. Will continue current regimen follow-up again in 1 month sooner with any concerns. #Hypertension. Blood pressure has been controlled on Lisinopril. Followed by PCP. #Hyperlipidemia. Followed by PCP. The patient will continue exercise regimen with an emphasis on improving/increasin g steps to at least 6,000-10,000 steps per day. Increasing cardio and strength training exercises as tolerated to improve weight loss and work on building muscle mass. Patient is committed to smarter eating with calorie counting and mindful eating. Limiting processed foods and carbohydrates and increasing leafy greens and lean proteins as well as fruits into their diet. Patient was counseled on the importance of eating local, organic food when possible. Patient has been counseled regarding effects of GLP/GIP-1 agonists and other FDA approved weight loss medications with regards to a multifactorial approach of weight loss as mentioned above and that the medication alone will not be sufficient to meet patients goals. We discussed holistic medication approach with emphasis on lifestyle modification. Discussed obesity as it increases risk of diabetes, cardiovascular disease, and/or organ damage. We spent a lot of time discussing the relationship between food, exercise, sleep, mental health, and obesity. We discussed the importance of having SECAs done every visit and having accountability done during these visits. That the scale is done to monitor not only weight loss but the body composition during medication management and healthy lifestyle changes. We discussed that if the patient is unable at times to financially afford this scale that we would rather waive the fee and have the scale done than have the patient not have the scale obtained. Will follow up with the patient in 4 weeks time to monitor weight loss. Total time was 30 min, greater than 50 % of time was spent on care coordination Case discussed with collaborating physician Michelle Allen who reviewed the assessment and plan. Chart, medications, labs, vital signs reviewed. Dictation was accomplished with the use of [employer] voice recognition software, prone to medical misidentifications and grammatical errors. This is unintentional and the practitioner does try to identify and correct these, but some could still be present. Please do not hesitate to contact practitioner for clarification. All questions answered to patients satisfaction. Patient verbalized understanding of diagnosis and treatments explained. To call sooner prior to next visit it any questions/concerns arise. 09/05/2024 BMI 26.0-26.9,adult (ICD-10 - Z68.26) #Obesity. 09/05/24: 154.2 pounds, BMI 26.5. She has done well on Zepbound 10 mg. She is very close to her goal of 150 pounds. We did review updated Sarkis and her muscle mass did come down this past month. We discussed this at length. Discussed increasing her protein intake to make sure she is getting at least 80 g a day as well as adding in resistance training. Will monitor closely. If muscle mass goes down further would need to taper down on dose. We did discuss strategies for maintenance as well. She is down about 55 pounds overall. Will follow-up again in 1 month sooner with any concerns. #Hypertension. Blood pressure has been controlled on Lisinopril. Followed by PCP. #Hyperlipidemia. Followed by PCP. The patient will continue exercise regimen with an emphasis on improving/increasin g steps to at least 6,000-10,000 steps per day. Increasing cardio and strength training exercises as tolerated to improve weight loss and work on building muscle mass. Patient is committed to smarter eating with calorie counting and mindful eating. Limiting processed foods and carbohydrates and increasing leafy greens and lean proteins as well as fruits into their diet. Patient was counseled on the importance of eating local, organic food when possible. Patient has been counseled regarding effects of GLP/GIP-1 agonists and other FDA approved weight loss medications with regards to a multifactorial approach of weight loss as mentioned above and that the medication alone will not be sufficient to meet patients goals. We discussed holistic medication approach with emphasis on lifestyle modification. Discussed obesity as it increases risk of diabetes, cardiovascular disease, and/or organ damage. We spent a lot of time discussing the relationship between food, exercise, sleep, mental health, and obesity. We discussed the importance of having SECAs done every visit and having accountability done during these visits. That the scale is done to monitor not only weight loss but the body composition during medication management and healthy lifestyle changes. We discussed that if the patient is unable at times to financially afford this scale that we would rather waive the fee and have the scale done than have the patient not have the scale obtained. Will follow up with the patient in 4 weeks time to monitor weight loss. Total time was 30 min, greater than 50 % of time was spent on care coordination Case discussed with collaborating physician Michelle Allen who reviewed the assessment and plan. Chart, medications, labs, vital signs reviewed. Dictation was accomplished with the use of [employer] voice recognition software, prone to medical misidentifications and grammatical errors. This is unintentional and the practitioner does try to identify and correct these, but some could still be present. Please do not hesitate to contact practitioner for clarification. All questions answered to patients satisfaction. Patient verbalized understanding of diagnosis and treatments explained. To call sooner prior to next visit it any questions/concerns arise. 09/05/2024 Overweight (BMI 25.0-29.9) (ICD-10 - E66.3) #Obesity. 09/05/24: 154.2 pounds, BMI 26.5. She has done well on Zepbound 10 mg. She is very close to her goal of 150 pounds. We did review updated Sarkis and her muscle mass did come down this past month. We discussed this at length. Discussed increasing her protein intake to make sure she is getting at least 80 g a day as well as adding in resistance training. Will monitor closely. If muscle mass goes down further would need to taper down on dose. We did discuss strategies for maintenance as well. She is down about 55 pounds overall. Will follow-up again in 1 month sooner with any concerns. #Hypertension. Blood pressure has been controlled on Lisinopril. Followed by PCP. #Hyperlipidemia. Followed by PCP. The patient will continue exercise regimen with an emphasis on improving/increasin g steps to at least 6,000-10,000 steps per day. Increasing cardio and strength training exercises as tolerated to improve weight loss and work on building muscle mass. Patient is committed to smarter eating with calorie counting and mindful eating. Limiting processed foods and carbohydrates and increasing leafy greens and lean proteins as well as fruits into their diet. Patient was counseled on the importance of eating local, organic food when possible. Patient has been counseled regarding effects of GLP/GIP-1 agonists and other FDA approved weight loss medications with regards to a multifactorial approach of weight loss as mentioned above and that the medication alone will not be sufficient to meet patients goals. We discussed holistic medication approach with emphasis on lifestyle modification. Discussed obesity as it increases risk of diabetes, cardiovascular disease, and/or organ damage. We spent a lot of time discussing the relationship between food, exercise, sleep, mental health, and obesity. We discussed the importance of having SECAs done every visit and having accountability done during these visits. That the scale is done to monitor not only weight loss but the body composition during medication management and healthy lifestyle changes. We discussed that if the patient is unable at times to financially afford this scale that we would rather waive the fee and have the scale done than have the patient not have the scale obtained. Will follow up with the patient in 4 weeks time to monitor weight loss. Total time was 30 min, greater than 50 % of time was spent on care coordination Case discussed with collaborating physician Michelle Allen who reviewed the assessment and plan. Chart, medications, labs, vital signs reviewed. Dictation was accomplished with the use of [employer] voice recognition software, prone to medical misidentifications and grammatical errors. This is unintentional and the practitioner does try to identify and correct these, but some could still be present. Please do not hesitate to contact practitioner for clarification. All questions answered to patients satisfaction. Patient verbalized understanding of diagnosis and treatments explained. To call sooner prior to next visit it any questions/concerns arise. 10/03/2024 BMI 26.0-26.9,adult (ICD-10 - Z68.26) #Obesity. 10/03/24: 152.9 pounds, BMI 26.2. She has done well on Zepbound and is very close to her goal. We are working on maintenance and increasing muscle mass. Again reviewed importance of protein intake and regular exercise including resistance training. She will add protein shake daily. Can start spacing out her dosing to every 10 days. Will monitor closely and follow-up in 1 month. Consider tapering down dose at next visit. #Hypertension. Blood pressure has been controlled on Lisinopril. Followed by PCP. #Hyperlipidemia. Followed by PCP. The patient will continue exercise regimen with an emphasis on improving/increasin g steps to at least 6,000-10,000 steps per day. Increasing cardio and strength training exercises as tolerated to improve weight loss and work on building muscle mass. Patient is committed to smarter eating with calorie counting and mindful eating. Limiting processed foods and carbohydrates and increasing leafy greens and lean proteins as well as fruits into their diet. Patient was counseled on the importance of eating local, organic food when possible. Patient has been counseled regarding effects of GLP/GIP-1 agonists and other FDA approved weight loss medications with regards to a multifactorial approach of weight loss as mentioned above and that the medication alone will not be sufficient to meet patients goals. We discussed holistic medication approach with emphasis on lifestyle modification. Discussed obesity as it increases risk of diabetes, cardiovascular disease, and/or organ damage. We spent a lot of time discussing the relationship between food, exercise, sleep, mental health, and obesity. We discussed the importance of having SECAs done every visit and having accountability done during these visits. That the scale is done to monitor not only weight loss but the body composition during medication management and healthy lifestyle changes. We discussed that if the patient is unable at times to financially afford this scale that we would rather waive the fee and have the scale done than have the patient not have the scale obtained. Will follow up with the patient in 4 weeks time to monitor weight loss. Total time was 30 min, greater than 50 % of time was spent on care coordination Case discussed with collaborating physician Ranjana Allen who reviewed the assessment and plan. Chart, medications, labs, vital signs reviewed. Dictation was accomplished with the use of [employer] voice recognition software, prone to medical misidentifications and grammatical errors. This is unintentional and the practitioner does try to identify and correct these, but some could still be present. Please do not hesitate to contact practitioner for clarification. All questions answered to patients satisfaction. Patient verbalized understanding of diagnosis and treatments explained. To call sooner prior to next visit it any questions/concerns arise. 10/03/2024 Overweight (BMI 25.0-29.9) (ICD-10 - E66.3) #Obesity. 10/03/24: 152.9 pounds, BMI 26.2. She has done well on Zepbound and is very close to her goal. We are working on maintenance and increasing muscle mass. Again reviewed importance of protein intake and regular exercise including resistance training. She will add protein shake daily. Can start spacing out her dosing to every 10 days. Will monitor closely and follow-up in 1 month. Consider tapering down dose at next visit. #Hypertension. Blood pressure has been controlled on Lisinopril. Followed by PCP. #Hyperlipidemia. Followed by PCP. The patient will continue exercise regimen with an emphasis on improving/increasin g steps to at least 6,000-10,000 steps per day. Increasing cardio and strength training exercises as tolerated to improve weight loss and work on building muscle mass. Patient is committed to smarter eating with calorie counting and mindful eating. Limiting processed foods and carbohydrates and increasing leafy greens and lean proteins as well as fruits into their diet. Patient was counseled on the importance of eating local, organic food when possible. Patient has been counseled regarding effects of GLP/GIP-1 agonists and other FDA approved weight loss medications with regards to a multifactorial approach of weight loss as mentioned above and that the medication alone will not be sufficient to meet patients goals. We discussed holistic medication approach with emphasis on lifestyle modification. Discussed obesity as it increases risk of diabetes, cardiovascular disease, and/or organ damage. We spent a lot of time discussing the relationship between food, exercise, sleep, mental health, and obesity. We discussed the importance of having SECAs done every visit and having accountability done during these visits. That the scale is done to monitor not only weight loss but the body composition during medication management and healthy lifestyle changes. We discussed that if the patient is unable at times to financially afford this scale that we would rather waive the fee and have the scale done than have the patient not have the scale obtained. Will follow up with the patient in 4 weeks time to monitor weight loss. Total time was 30 min, greater than 50 % of time was spent on care coordination Case discussed with collaborating physician Ranjana Allen who reviewed the assessment and plan. Chart, medications, labs, vital signs reviewed. Dictation was accomplished with the use of [employer] voice recognition software, prone to medical misidentifications and grammatical errors. This is unintentional and the practitioner does try to identify and correct these, but some could still be present. Please do not hesitate to contact practitioner for clarification. All questions answered to patients satisfaction. Patient verbalized understanding of diagnosis and treatments explained. To call sooner prior to next visit it any questions/concerns arise. 10/31/2024 BMI 27.0-27.9,adult (ICD-10 - Z68.27) #Obesity. 10/31/24: 160.7 pounds, BMI 27.6. Her weight is up 7 pounds since last visit however fat mass is down and muscle mass is up 5-1/2 pounds. She has really made an effort to increase her protein intake and exercise regimen. Encouraged to continue protein shakes to help supplement. As well as consistent exercise. Will continue current dosing of Zepbound 10 mg weekly. Follow-up with me in 1 month sooner with any concerns. #Hypertension. Blood pressure has been controlled on Lisinopril. Followed by PCP. #Hyperlipidemia. Followed by PCP. The patient will continue exercise regimen with an emphasis on improving/increasin g steps to at least 6,000-10,000 steps per day. Increasing cardio and strength training exercises as tolerated to improve weight loss and work on building muscle mass. Patient is committed to smarter eating with calorie counting and mindful eating. Limiting processed foods and carbohydrates and increasing leafy greens and lean proteins as well as fruits into their diet. Patient was counseled on the importance of eating local, organic food when possible. Patient has been counseled regarding effects of GLP/GIP-1 agonists and other FDA approved weight loss medications with regards to a multifactorial approach of weight loss as mentioned above and that the medication alone will not be sufficient to meet patients goals. We discussed holistic medication approach with emphasis on lifestyle modification. Discussed obesity as it increases risk of diabetes, cardiovascular disease, and/or organ damage. We spent a lot of time discussing the relationship between food, exercise, sleep, mental health, and obesity. We discussed the importance of having SECAs done every visit and having accountability done during these visits. That the scale is done to monitor not only weight loss but the body composition during medication management and healthy lifestyle changes. We discussed that if the patient is unable at times to financially afford this scale that we would rather waive the fee and have the scale done than have the patient not have the scale obtained. Will follow up with the patient in 4 weeks time to monitor weight loss. Total time was 30 min, greater than 50 % of time was spent on care coordination Case discussed with collaborating physician Ranjana Allen who reviewed the assessment and plan. Chart, medications, labs, vital signs reviewed. Dictation was accomplished with the use of [employer] voice recognition software, prone to medical misidentifications and grammatical errors. This is unintentional and the practitioner does try to identify and correct these, but some could still be present. Please do not hesitate to contact practitioner for clarification. All questions answered to patients satisfaction. Patient verbalized understanding of diagnosis and treatments explained. To call sooner prior to next visit it any questions/concerns arise. 10/31/2024 Overweight (BMI 25.0-29.9) (ICD-10 - E66.3) #Obesity. 10/31/24: 160.7 pounds, BMI 27.6. Her weight is up 7 pounds since last visit however fat mass is down and muscle mass is up 5-1/2 pounds. She has really made an effort to increase her protein intake and exercise regimen. Encouraged to continue protein shakes to help supplement. As well as consistent exercise. Will continue current dosing of Zepbound 10 mg weekly. Follow-up with me in 1 month sooner with any concerns. #Hypertension. Blood pressure has been controlled on Lisinopril. Followed by PCP. #Hyperlipidemia. Followed by PCP. The patient will continue exercise regimen with an emphasis on improving/increasin g steps to at least 6,000-10,000 steps per day. Increasing cardio and strength training exercises as tolerated to improve weight loss and work on building muscle mass. Patient is committed to smarter eating with calorie counting and mindful eating. Limiting processed foods and carbohydrates and increasing leafy greens and lean proteins as well as fruits into their diet. Patient was counseled on the importance of eating local, organic food when possible. Patient has been counseled regarding effects of GLP/GIP-1 agonists and other FDA approved weight loss medications with regards to a multifactorial approach of weight loss as mentioned above and that the medication alone will not be sufficient to meet patients goals. We discussed holistic medication approach with emphasis on lifestyle modification. Discussed obesity as it increases risk of diabetes, cardiovascular disease, and/or organ damage. We spent a lot of time discussing the relationship between food, exercise, sleep, mental health, and obesity. We discussed the importance of having SECAs done every visit and having accountability done during these visits. That the scale is done to monitor not only weight loss but the body composition during medication management and healthy lifestyle changes. We discussed that if the patient is unable at times to financially afford this scale that we would rather waive the fee and have the scale done than have the patient not have the scale obtained. Will follow up with the patient in 4 weeks time to monitor weight loss. Total time was 30 min, greater than 50 % of time was spent on care coordination Case discussed with collaborating physician Ranjana Allen who reviewed the assessment and plan. Chart, medications, labs, vital signs reviewed. Dictation was accomplished with the use of [employer] voice recognition software, prone to medical misidentifications and grammatical errors. This is unintentional and the practitioner does try to identify and correct these, but some could still be present. Please do not hesitate to contact practitioner for clarification. All questions answered to patients satisfaction. Patient verbalized understanding of diagnosis and treatments explained. To call sooner prior to next visit it any questions/concerns arise. 12/05/2024 BMI 25.0-25.9,adult (ICD-10 - Z68.25) #Obesity. 12/05/24: 151 pounds, BMI 25.9. She is doing well on Zepbound 10 mg. Weight is down however fat mass is stable and muscle is down. Discussed importance of lifestyle modifications including increased protein intake and consistent exercise. Will continue current dose follow-up again in 1 month. Continue to work on composition changes. #Hypertension. Blood pressure has been controlled on Lisinopril. Followed by PCP. #Hyperlipidemia. Followed by PCP. The patient will continue exercise regimen with an emphasis on improving/increasin g steps to at least 6,000-10,000 steps per day. Increasing cardio and strength training exercises as tolerated to improve weight loss and work on building muscle mass. Patient is committed to smarter eating with calorie counting and mindful eating. Limiting processed foods and carbohydrates and increasing leafy greens and lean proteins as well as fruits into their diet. Patient was counseled on the importance of eating local, organic food when possible. Patient has been counseled regarding effects of GLP/GIP-1 agonists and other FDA approved weight loss medications with regards to a multifactorial approach of weight loss as mentioned above and that the medication alone will not be sufficient to meet patients goals. We discussed holistic medication approach with emphasis on lifestyle modification. Discussed obesity as it increases risk of diabetes, cardiovascular disease, and/or organ damage. We spent a lot of time discussing the relationship between food, exercise, sleep, mental health, and obesity. We discussed the importance of having SECAs done every visit and having accountability done during these visits. That the scale is done to monitor not only weight loss but the body composition during medication management and healthy lifestyle changes. We discussed that if the patient is unable at times to financially afford this scale that we would rather waive the fee and have the scale done than have the patient not have the scale obtained. Will follow up with the patient in 4 weeks time to monitor weight loss. Total time was 30 min, greater than 50 % of time was spent on care coordination Case discussed with collaborating physician Michelle Allen who reviewed the assessment and plan. Chart, medications, labs, vital signs reviewed. Dictation was accomplished with the use of [employer] voice recognition software, prone to medical misidentifications and grammatical errors. This is unintentional and the practitioner does try to identify and correct these, but some could still be present. Please do not hesitate to contact practitioner for clarification. All questions answered to patients satisfaction. Patient verbalized understanding of diagnosis and treatments explained. To call sooner prior to next visit it any questions/concerns arise. 12/05/2024 Overweight (BMI 25.0-29.9) (ICD-10 - E66.3) #Obesity. 12/05/24: 151 pounds, BMI 25.9. She is doing well on Zepbound 10 mg. Weight is down however fat mass is stable and muscle is down. Discussed importance of lifestyle modifications including increased protein intake and consistent exercise. Will continue current dose follow-up again in 1 month. Continue to work on composition changes. #Hypertension. Blood pressure has been controlled on Lisinopril. Followed by PCP. #Hyperlipidemia. Followed by PCP. The patient will continue exercise regimen with an emphasis on improving/increasin g steps to at least 6,000-10,000 steps per day. Increasing cardio and strength training exercises as tolerated to improve weight loss and work on building muscle mass. Patient is committed to smarter eating with calorie counting and mindful eating. Limiting processed foods and carbohydrates and increasing leafy greens and lean proteins as well as fruits into their diet. Patient was counseled on the importance of eating local, organic food when possible. Patient has been counseled regarding effects of GLP/GIP-1 agonists and other FDA approved weight loss medications with regards to a multifactorial approach of weight loss as mentioned above and that the medication alone will not be sufficient to meet patients goals. We discussed holistic medication approach with emphasis on lifestyle modification. Discussed obesity as it increases risk of diabetes, cardiovascular disease, and/or organ damage. We spent a lot of time discussing the relationship between food, exercise, sleep, mental health, and obesity. We discussed the importance of having SECAs done every visit and having accountability done during these visits. That the scale is done to monitor not only weight loss but the body composition during medication management and healthy lifestyle changes. We discussed that if the patient is unable at times to financially afford this scale that we would rather waive the fee and have the scale done than have the patient not have the scale obtained. Will follow up with the patient in 4 weeks time to monitor weight loss. Total time was 30 min, greater than 50 % of time was spent on care coordination Case discussed with collaborating physician Michelle Allen who reviewed the assessment and plan. Chart, medications, labs, vital signs reviewed. Dictation was accomplished with the use of [employer] voice recognition software, prone to medical misidentifications and grammatical errors. This is unintentional and the practitioner does try to identify and correct these, but some could still be present. Please do not hesitate to contact practitioner for clarification. All questions answered to patients satisfaction. Patient verbalized understanding of diagnosis and treatments explained. To call sooner prior to next visit it any questions/concerns arise. 01/07/2025 BMI 26.0-26.9,adult (ICD-10 - Z68.26) #Obesity. 01/07/25: 152.4, BMI 26.2. She is doing fantastic on Zepbound 10 mg. Weight is up 1 pound however fat mass down 6 and half pounds and muscle mass up 2 pounds. Continue increased protein intake and regular exercise including resistance training. Follow-up again in 1 month sooner as needed. #Hypertension. Blood pressure has been controlled on Lisinopril. Followed by PCP. #Hyperlipidemia. Followed by PCP. The patient will continue exercise regimen with an emphasis on improving/increasin g steps to at least 6,000-10,000 steps per day. Increasing cardio and strength training exercises as tolerated to improve weight loss and work on building muscle mass. Patient is committed to smarter eating with calorie counting and mindful eating. Limiting processed foods and carbohydrates and increasing leafy greens and lean proteins as well as fruits into their diet. Patient was counseled on the importance of eating local, organic food when possible. Patient has been counseled regarding effects of GLP/GIP-1 agonists and other FDA approved weight loss medications with regards to a multifactorial approach of weight loss as mentioned above and that the medication alone will not be sufficient to meet patients goals. We discussed holistic medication approach with emphasis on lifestyle modification. Discussed obesity as it increases risk of diabetes, cardiovascular disease, and/or organ damage. We spent a lot of time discussing the relationship between food, exercise, sleep, mental health, and obesity. We discussed the importance of having SECAs done every visit and having accountability done during these visits. That the scale is done to monitor not only weight loss but the body composition during medication management and healthy lifestyle changes. We discussed that if the patient is unable at times to financially afford this scale that we would rather waive the fee and have the scale done than have the patient not have the scale obtained. Will follow up with the patient in 4 weeks time to monitor weight loss. Total time was 30 min, greater than 50 % of time was spent on care coordination Case discussed with collaborating physician Michelle Allen who reviewed the assessment and plan. Chart, medications, labs, vital signs reviewed. Dictation was accomplished with the use of [employer] voice recognition software, prone to medical misidentifications and grammatical errors. This is unintentional and the practitioner does try to identify and correct these, but some could still be present. Please do not hesitate to contact practitioner for clarification. All questions answered to patients satisfaction. Patient verbalized understanding of diagnosis and treatments explained. To call sooner prior to next visit it any questions/concerns arise. 01/07/2025 Overweight (BMI 25.0-29.9) (ICD-10 - E66.3) #Obesity. 01/07/25: 152.4, BMI 26.2. She is doing fantastic on Zepbound 10 mg. Weight is up 1 pound however fat mass down 6 and half pounds and muscle mass up 2 pounds. Continue increased protein intake and regular exercise including resistance training. Follow-up again in 1 month sooner as needed. #Hypertension. Blood pressure has been controlled on Lisinopril. Followed by PCP. #Hyperlipidemia. Followed by PCP. The patient will continue exercise regimen with an emphasis on improving/increasin g steps to at least 6,000-10,000 steps per day. Increasing cardio and strength training exercises as tolerated to improve weight loss and work on building muscle mass. Patient is committed to smarter eating with calorie counting and mindful eating. Limiting processed foods and carbohydrates and increasing leafy greens and lean proteins as well as fruits into their diet. Patient was counseled on the importance of eating local, organic food when possible. Patient has been counseled regarding effects of GLP/GIP-1 agonists and other FDA approved weight loss medications with regards to a multifactorial approach of weight loss as mentioned above and that the medication alone will not be sufficient to meet patients goals. We discussed holistic medication approach with emphasis on lifestyle modification. Discussed obesity as it increases risk of diabetes, cardiovascular disease, and/or organ damage. We spent a lot of time discussing the relationship between food, exercise, sleep, mental health, and obesity. We discussed the importance of having SECAs done every visit and having accountability done during these visits. That the scale is done to monitor not only weight loss but the body composition during medication management and healthy lifestyle changes. We discussed that if the patient is unable at times to financially afford this scale that we would rather waive the fee and have the scale done than have the patient not have the scale obtained. Will follow up with the patient in 4 weeks time to monitor weight loss. Total time was 30 min, greater than 50 % of time was spent on care coordination Case discussed with collaborating physician Michelle Allen who reviewed the assessment and plan. Chart, medications, labs, vital signs reviewed. Dictation was accomplished with the use of [employer] voice recognition software, prone to medical misidentifications and grammatical errors. This is unintentional and the practitioner does try to identify and correct these, but some could still be present. Please do not hesitate to contact practitioner for clarification. All questions answered to patients satisfaction. Patient verbalized understanding of diagnosis and treatments explained. To call sooner prior to next visit it any questions/concerns arise. 12/05/2024 Essential hypertensi on (ICD-10 - I10) #Obesity. 12/05/24: 151 pounds, BMI 25.9. She is doing well on Zepbound 10 mg. Weight is down however fat mass is stable and muscle is down. Discussed importance of lifestyle modifications including increased protein intake and consistent exercise. Will continue current dose follow-up again in 1 month. Continue to work on composition changes. #Hypertension. Blood pressure has been controlled on Lisinopril. Followed by PCP. #Hyperlipidemia. Followed by PCP. The patient will continue exercise regimen with an emphasis on improving/increasin g steps to at least 6,000-10,000 steps per day. Increasing cardio and strength training exercises as tolerated to improve weight loss and work on building muscle mass. Patient is committed to smarter eating with calorie counting and mindful eating. Limiting processed foods and carbohydrates and increasing leafy greens and lean proteins as well as fruits into their diet. Patient was counseled on the importance of eating local, organic food when possible. Patient has been counseled regarding effects of GLP/GIP-1 agonists and other FDA approved weight loss medications with regards to a multifactorial approach of weight loss as mentioned above and that the medication alone will not be sufficient to meet patients goals. We discussed holistic medication approach with emphasis on lifestyle modification. Discussed obesity as it increases risk of diabetes, cardiovascular disease, and/or organ damage. We spent a lot of time discussing the relationship between food, exercise, sleep, mental health, and obesity. We discussed the importance of having SECAs done every visit and having accountability done during these visits. That the scale is done to monitor not only weight loss but the body composition during medication management and healthy lifestyle changes. We discussed that if the patient is unable at times to financially afford this scale that we would rather waive the fee and have the scale done than have the patient not have the scale obtained. Will follow up with the patient in 4 weeks time to monitor weight loss. Total time was 30 min, greater than 50 % of time was spent on care coordination Case discussed with collaborating physician Michelle Allen who reviewed the assessment and plan. Chart, medications, labs, vital signs reviewed. Dictation was accomplished with the use of [employer] voice recognition software, prone to medical misidentifications and grammatical errors. This is unintentional and the practitioner does try to identify and correct these, but some could still be present. Please do not hesitate to contact practitioner for clarification. All questions answered to patients satisfaction. Patient verbalized understanding of diagnosis and treatments explained. To call sooner prior to next visit it any questions/concerns arise. 01/07/2025 Essential hypertensi on (ICD-10 - I10) #Obesity. 01/07/25: 152.4, BMI 26.2. She is doing fantastic on Zepbound 10 mg. Weight is up 1 pound however fat mass down 6 and half pounds and muscle mass up 2 pounds. Continue increased protein intake and regular exercise including resistance training. Follow-up again in 1 month sooner as needed. #Hypertension. Blood pressure has been controlled on Lisinopril. Followed by PCP. #Hyperlipidemia. Followed by PCP. The patient will continue exercise regimen with an emphasis on improving/increasin g steps to at least 6,000-10,000 steps per day. Increasing cardio and strength training exercises as tolerated to improve weight loss and work on building muscle mass. Patient is committed to smarter eating with calorie counting and mindful eating. Limiting processed foods and carbohydrates and increasing leafy greens and lean proteins as well as fruits into their diet. Patient was counseled on the importance of eating local, organic food when possible. Patient has been counseled regarding effects of GLP/GIP-1 agonists and other FDA approved weight loss medications with regards to a multifactorial approach of weight loss as mentioned above and that the medication alone will not be sufficient to meet patients goals. We discussed holistic medication approach with emphasis on lifestyle modification. Discussed obesity as it increases risk of diabetes, cardiovascular disease, and/or organ damage. We spent a lot of time discussing the relationship between food, exercise, sleep, mental health, and obesity. We discussed the importance of having SECAs done every visit and having accountability done during these visits. That the scale is done to monitor not only weight loss but the body composition during medication management and healthy lifestyle changes. We discussed that if the patient is unable at times to financially afford this scale that we would rather waive the fee and have the scale done than have the patient not have the scale obtained. Will follow up with the patient in 4 weeks time to monitor weight loss. Total time was 30 min, greater than 50 % of time was spent on care coordination Case discussed with collaborating physician Michelle Allen who reviewed the assessment and plan. Chart, medications, labs, vital signs reviewed. Dictation was accomplished with the use of [employer] voice recognition software, prone to medical misidentifications and grammatical errors. This is unintentional and the practitioner does try to identify and correct these, but some could still be present. Please do not hesitate to contact practitioner for clarification. All questions answered to patients satisfaction. Patient verbalized understanding of diagnosis and treatments explained. To call sooner prior to next visit it any questions/concerns arise. 10/03/2024 Essential hypertensi on (ICD-10 - I10) #Obesity. 10/03/24: 152.9 pounds, BMI 26.2. She has done well on Zepbound and is very close to her goal. We are working on maintenance and increasing muscle mass. Again reviewed importance of protein intake and regular exercise including resistance training. She will add protein shake daily. Can start spacing out her dosing to every 10 days. Will monitor closely and follow-up in 1 month. Consider tapering down dose at next visit. #Hypertension. Blood pressure has been controlled on Lisinopril. Followed by PCP. #Hyperlipidemia. Followed by PCP. The patient will continue exercise regimen with an emphasis on improving/increasin g steps to at least 6,000-10,000 steps per day. Increasing cardio and strength training exercises as tolerated to improve weight loss and work on building muscle mass. Patient is committed to smarter eating with calorie counting and mindful eating. Limiting processed foods and carbohydrates and increasing leafy greens and lean proteins as well as fruits into their diet. Patient was counseled on the importance of eating local, organic food when possible. Patient has been counseled regarding effects of GLP/GIP-1 agonists and other FDA approved weight loss medications with regards to a multifactorial approach of weight loss as mentioned above and that the medication alone will not be sufficient to meet patients goals. We discussed holistic medication approach with emphasis on lifestyle modification. Discussed obesity as it increases risk of diabetes, cardiovascular disease, and/or organ damage. We spent a lot of time discussing the relationship between food, exercise, sleep, mental health, and obesity. We discussed the importance of having SECAs done every visit and having accountability done during these visits. That the scale is done to monitor not only weight loss but the body composition during medication management and healthy lifestyle changes. We discussed that if the patient is unable at times to financially afford this scale that we would rather waive the fee and have the scale done than have the patient not have the scale obtained. Will follow up with the patient in 4 weeks time to monitor weight loss. Total time was 30 min, greater than 50 % of time was spent on care coordination Case discussed with collaborating physician Ranjana Allen who reviewed the assessment and plan. Chart, medications, labs, vital signs reviewed. Dictation was accomplished with the use of [employer] voice recognition software, prone to medical misidentifications and grammatical errors. This is unintentional and the practitioner does try to identify and correct these, but some could still be present. Please do not hesitate to contact practitioner for clarification. All questions answered to patients satisfaction. Patient verbalized understanding of diagnosis and treatments explained. To call sooner prior to next visit it any questions/concerns arise. 10/31/2024 Essential hypertensi on (ICD-10 - I10) #Obesity. 10/31/24: 160.7 pounds, BMI 27.6. Her weight is up 7 pounds since last visit however fat mass is down and muscle mass is up 5-1/2 pounds. She has really made an effort to increase her protein intake and exercise regimen. Encouraged to continue protein shakes to help supplement. As well as consistent exercise. Will continue current dosing of Zepbound 10 mg weekly. Follow-up with me in 1 month sooner with any concerns. #Hypertension. Blood pressure has been controlled on Lisinopril. Followed by PCP. #Hyperlipidemia. Followed by PCP. The patient will continue exercise regimen with an emphasis on improving/increasin g steps to at least 6,000-10,000 steps per day. Increasing cardio and strength training exercises as tolerated to improve weight loss and work on building muscle mass. Patient is committed to smarter eating with calorie counting and mindful eating. Limiting processed foods and carbohydrates and increasing leafy greens and lean proteins as well as fruits into their diet. Patient was counseled on the importance of eating local, organic food when possible. Patient has been counseled regarding effects of GLP/GIP-1 agonists and other FDA approved weight loss medications with regards to a multifactorial approach of weight loss as mentioned above and that the medication alone will not be sufficient to meet patients goals. We discussed holistic medication approach with emphasis on lifestyle modification. Discussed obesity as it increases risk of diabetes, cardiovascular disease, and/or organ damage. We spent a lot of time discussing the relationship between food, exercise, sleep, mental health, and obesity. We discussed the importance of having SECAs done every visit and having accountability done during these visits. That the scale is done to monitor not only weight loss but the body composition during medication management and healthy lifestyle changes. We discussed that if the patient is unable at times to financially afford this scale that we would rather waive the fee and have the scale done than have the patient not have the scale obtained. Will follow up with the patient in 4 weeks time to monitor weight loss. Total time was 30 min, greater than 50 % of time was spent on care coordination Case discussed with collaborating physician Ranjana Allen who reviewed the assessment and plan. Chart, medications, labs, vital signs reviewed. Dictation was accomplished with the use of [employer] voice recognition software, prone to medical misidentifications and grammatical errors. This is unintentional and the practitioner does try to identify and correct these, but some could still be present. Please do not hesitate to contact practitioner for clarification. All questions answered to patients satisfaction. Patient verbalized understanding of diagnosis and treatments explained. To call sooner prior to next visit it any questions/concerns arise. 08/06/2024 Essential hypertensi on (ICD-10 - I10) #Obesity. 09/28/23: 208.78 pounds, BMI 34.7. S 10/19/23: 211 lbs, BMI 35.1 11/30/23: 200.1 lbs, BMI 33.3 02/21/24: 178.5, BMI 29.7 She is doing fantastic on Zepbound 5 mg. Will increase to 7.5 mg weekly on next fill. 03/20/24: 172.8 pounds, BMI 28.8. She has done well on Zepbound 7.5 mg. 04/23/24: 167.2 pounds, BMI 27.8. She is doing well on Zepbound 7.5 mg however has noticed increased appetite. She is down 44 pounds overall since starting with us. Will increase to 10 mg of Zepbound this month. Discussed importance of protein intake hydration and consistent exercise. Will follow-up again in 4 weeks with repeat Seca scale at that time. Follow-up sooner with any concerns 05/28/24: 160.7 pounds, BMI 27.6. She is doing well on Zepbound 10 mg. She is down 50 pounds overall since starting. Discussed continued protein intake, hydration and regular exercise especially resistance training. Advised to add B complex vitamin and increase vitamin D supplement. Offered JOSETTE injection which she declines today. Will follow-up again in 1 month sooner with any concerns. 06/25/24: 162 pounds, BMI 27.8. Weight is up slightly however fat mass is down and muscle mass is up. Discussed in detail with patient. Continue to work on consistent exercise, hydration and protein intake. Will follow-up again in 1 month sooner with any concerns will continue current regimen of Zepbound 10 mg weekly. 08/06/24: 157.9 pounds, BMI 27.1. She is doing well on Zepbound 10 mg. Discussed consistency with exercise. Continue hydration and protein intake. Will continue current regimen follow-up again in 1 month sooner with any concerns. #Hypertension. Blood pressure has been controlled on Lisinopril. Followed by PCP. #Hyperlipidemia. Followed by PCP. The patient will continue exercise regimen with an emphasis on improving/increasin g steps to at least 6,000-10,000 steps per day. Increasing cardio and strength training exercises as tolerated to improve weight loss and work on building muscle mass. Patient is committed to smarter eating with calorie counting and mindful eating. Limiting processed foods and carbohydrates and increasing leafy greens and lean proteins as well as fruits into their diet. Patient was counseled on the importance of eating local, organic food when possible. Patient has been counseled regarding effects of GLP/GIP-1 agonists and other FDA approved weight loss medications with regards to a multifactorial approach of weight loss as mentioned above and that the medication alone will not be sufficient to meet patients goals. We discussed holistic medication approach with emphasis on lifestyle modification. Discussed obesity as it increases risk of diabetes, cardiovascular disease, and/or organ damage. We spent a lot of time discussing the relationship between food, exercise, sleep, mental health, and obesity. We discussed the importance of having SECAs done every visit and having accountability done during these visits. That the scale is done to monitor not only weight loss but the body composition during medication management and healthy lifestyle changes. We discussed that if the patient is unable at times to financially afford this scale that we would rather waive the fee and have the scale done than have the patient not have the scale obtained. Will follow up with the patient in 4 weeks time to monitor weight loss. Total time was 30 min, greater than 50 % of time was spent on care coordination Case discussed with collaborating physician Michelle Allen who reviewed the assessment and plan. Chart, medications, labs, vital signs reviewed. Dictation was accomplished with the use of [employer] voice recognition software, prone to medical misidentifications and grammatical errors. This is unintentional and the practitioner does try to identify and correct these, but some could still be present. Please do not hesitate to contact practitioner for clarification. All questions answered to patients satisfaction. Patient verbalized understanding of diagnosis and treatments explained. To call sooner prior to next visit it any questions/concerns arise. 09/05/2024 Essential hypertensi on (ICD-10 - I10) #Obesity. 09/05/24: 154.2 pounds, BMI 26.5. She has done well on Zepbound 10 mg. She is very close to her goal of 150 pounds. We did review updated [place] and her muscle mass did come down this past month. We discussed this at length. Discussed increasing her protein intake to make sure she is getting at least 80 g a day as well as adding in resistance training. Will monitor closely. If muscle mass goes down further would need to taper down on dose. We did discuss strategies for maintenance as well. She is down about 55 pounds overall. Will follow-up again in 1 month sooner with any concerns. #Hypertension. Blood pressure has been controlled on Lisinopril. Followed by PCP. #Hyperlipidemia. Followed by PCP. The patient will continue exercise regimen with an emphasis on improving/increasin g steps to at least 6,000-10,000 steps per day. Increasing cardio and strength training exercises as tolerated to improve weight loss and work on building muscle mass. Patient is committed to smarter eating with calorie counting and mindful eating. Limiting processed foods and carbohydrates and increasing leafy greens and lean proteins as well as fruits into their diet. Patient was counseled on the importance of eating local, organic food when possible. Patient has been counseled regarding effects of GLP/GIP-1 agonists and other FDA approved weight loss medications with regards to a multifactorial approach of weight loss as mentioned above and that the medication alone will not be sufficient to meet patients goals. We discussed holistic medication approach with emphasis on lifestyle modification. Discussed obesity as it increases risk of diabetes, cardiovascular disease, and/or organ damage. We spent a lot of time discussing the relationship between food, exercise, sleep, mental health, and obesity. We discussed the importance of having SECAs done every visit and having accountability done during these visits. That the scale is done to monitor not only weight loss but the body composition during medication management and healthy lifestyle changes. We discussed that if the patient is unable at times to financially afford this scale that we would rather waive the fee and have the scale done than have the patient not have the scale obtained. Will follow up with the patient in 4 weeks time to monitor weight loss. Total time was 30 min, greater than 50 % of time was spent on care coordination Case discussed with collaborating physician Michelle Allen who reviewed the assessment and plan. Chart, medications, labs, vital signs reviewed. Dictation was accomplished with the use of [employer] voice recognition software, prone to medical misidentifications and grammatical errors. This is unintentional and the practitioner does try to identify and correct these, but some could still be present. Please do not hesitate to contact practitioner for clarification. All questions answered to patients satisfaction. Patient verbalized understanding of diagnosis and treatments explained. To call sooner prior to next visit it any questions/concerns arise. 05/28/2024 Essential hypertensi on (ICD-10 - I10) #Obesity. 09/28/23: 208.78 pounds, BMI 34.7. S 10/19/23: 211 lbs, BMI 35.1 11/30/23: 200.1 lbs, BMI 33.3 02/21/24: 178.5, BMI 29.7 She is doing fantastic on Zepbound 5 mg. Will increase to 7.5 mg weekly on next fill. 03/20/24: 172.8 pounds, BMI 28.8. She has done well on Zepbound 7.5 mg. 04/23/24: 167.2 pounds, BMI 27.8. She is doing well on Zepbound 7.5 mg however has noticed increased appetite. She is down 44 pounds overall since starting with us. Will increase to 10 mg of Zepbound this month. Discussed importance of protein intake hydration and consistent exercise. Will follow-up again in 4 weeks with repeat Seca scale at that time. Follow-up sooner with any concerns 05/28/24: 160.7 pounds, BMI 27.6. She is doing well on Zepbound 10 mg. She is down 50 pounds overall since starting. Discussed continued protein intake, hydration and regular exercise especially resistance training. Advised to add B complex vitamin and increase vitamin D supplement. Offered JOSETTE injection which she declines today. Will follow-up again in 1 month sooner with any concerns. #Hypertension. Blood pressure has been controlled on medication. Followed by PCP. #Hyperlipidemia. Followed by PCP. The patient will continue exercise regimen with an emphasis on improving/increasin g steps to at least 6,000-10,000 steps per day. Increasing cardio and strength training exercises as tolerated to improve weight loss and work on building muscle mass. Patient is committed to smarter eating with calorie counting and mindful eating. Limiting processed foods and carbohydrates and increasing leafy greens and lean proteins as well as fruits into their diet. Patient was counseled on the importance of eating local, organic food when possible. Patient has been counseled regarding effects of GLP/GIP-1 agonists and other FDA approved weight loss medications with regards to a multifactorial approach of weight loss as mentioned above and that the medication alone will not be sufficient to meet patients goals. We discussed holistic medication approach with emphasis on lifestyle modification. Discussed obesity as it increases risk of diabetes, cardiovascular disease, and/or organ damage. We spent a lot of time discussing the relationship between food, exercise, sleep, mental health, and obesity. We discussed the importance of having SECAs done every visit and having accountability done during these visits. That the scale is done to monitor not only weight loss but the body composition during medication management and healthy lifestyle changes. We discussed that if the patient is unable at times to financially afford this scale that we would rather waive the fee and have the scale done than have the patient not have the scale obtained. Will follow up with the patient in 4 weeks time to monitor weight loss. Total time was 30 min, greater than 50 % of time was spent on care coordination Case discussed with collaborating physician Ranjana Allen who reviewed the assessment and plan. Chart, medications, labs, vital signs reviewed. Dictation was accomplished with the use of [employer] voice recognition software, prone to medical misidentifications and grammatical errors. This is unintentional and the practitioner does try to identify and correct these, but some could still be present. Please do not hesitate to contact practitioner for clarification. All questions answered to patients satisfaction. Patient verbalized understanding of diagnosis and treatments explained. To call sooner prior to next visit it any questions/concerns arise. 06/25/2024 Essential hypertensi on (ICD-10 - I10) #Obesity. 09/28/23: 208.78 pounds, BMI 34.7. S 10/19/23: 211 lbs, BMI 35.1 11/30/23: 200.1 lbs, BMI 33.3 02/21/24: 178.5, BMI 29.7 She is doing fantastic on Zepbound 5 mg. Will increase to 7.5 mg weekly on next fill. 03/20/24: 172.8 pounds, BMI 28.8. She has done well on Zepbound 7.5 mg. 04/23/24: 167.2 pounds, BMI 27.8. She is doing well on Zepbound 7.5 mg however has noticed increased appetite. She is down 44 pounds overall since starting with us. Will increase to 10 mg of Zepbound this month. Discussed importance of protein intake hydration and consistent exercise. Will follow-up again in 4 weeks with repeat Seca scale at that time. Follow-up sooner with any concerns 05/28/24: 160.7 pounds, BMI 27.6. She is doing well on Zepbound 10 mg. She is down 50 pounds overall since starting. Discussed continued protein intake, hydration and regular exercise especially resistance training. Advised to add B complex vitamin and increase vitamin D supplement. Offered JOSETTE injection which she declines today. Will follow-up again in 1 month sooner with any concerns. 06/25/24: 162 pounds, BMI 27.8. Weight is up slightly however fat mass is down and muscle mass is up. Discussed in detail with patient. Continue to work on consistent exercise, hydration and protein intake. Will follow-up again in 1 month sooner with any concerns will continue current regimen of Zepbound 10 mg weekly. #Hypertension. Blood pressure has been controlled on Lisinopril, Dose recreased by PCP yesterday. Followed by PCP. #Hyperlipidemia. Followed by PCP. The patient will continue exercise regimen with an emphasis on improving/increasin g steps to at least 6,000-10,000 steps per day. Increasing cardio and strength training exercises as tolerated to improve weight loss and work on building muscle mass. Patient is committed to smarter eating with calorie counting and mindful eating. Limiting processed foods and carbohydrates and increasing leafy greens and lean proteins as well as fruits into their diet. Patient was counseled on the importance of eating local, organic food when possible. Patient has been counseled regarding effects of GLP/GIP-1 agonists and other FDA approved weight loss medications with regards to a multifactorial approach of weight loss as mentioned above and that the medication alone will not be sufficient to meet patients goals. We discussed holistic medication approach with emphasis on lifestyle modification. Discussed obesity as it increases risk of diabetes, cardiovascular disease, and/or organ damage. We spent a lot of time discussing the relationship between food, exercise, sleep, mental health, and obesity. We discussed the importance of having SECAs done every visit and having accountability done during these visits. That the scale is done to monitor not only weight loss but the body composition during medication management and healthy lifestyle changes. We discussed that if the patient is unable at times to financially afford this scale that we would rather waive the fee and have the scale done than have the patient not have the scale obtained. Will follow up with the patient in 4 weeks time to monitor weight loss. Total time was 30 min, greater than 50 % of time was spent on care coordination Case discussed with collaborating physician Michelle Allen who reviewed the assessment and plan. Chart, medications, labs, vital signs reviewed. Dictation was accomplished with the use of [employer] voice recognition software, prone to medical misidentifications and grammatical errors. This is unintentional and the practitioner does try to identify and correct these, but some could still be present. Please do not hesitate to contact practitioner for clarification. All questions answered to patients satisfaction. Patient verbalized understanding of diagnosis and treatments explained. To call sooner prior to next visit it any questions/concerns arise. 03/20/2024 Muscle cramps (ICD-1 0 - R25.2) #Obesity. 09/28/23: 208.78 pounds, BMI 34.7. S 10/19/23: 211 lbs, BMI 35.1 11/30/23: 200.1 lbs, BMI 33.3 02/21/24: 178.5, BMI 29.7 She is doing fantastic on Zepbound 5 mg. Denies any side effects. She is down an additional 14 pounds since her last visit and 30 pounds overall. She has noticed increased appetite and food noise and is requesting increase in dose. Will increase to 7.5 mg weekly on next fill. Discussed importance of protein intake, hydration and regular exercise. Follow-up in 4 weeks sooner with any concerns. 03/20/24: 172.8 pounds, BMI 28.8. She has done well on Zepbound 7.5 mg. However she has had intermittent muscle cramping, fatigue vomiting and diarrhea x 3 episodes. No symptoms in the past 2 weeks. Will get updated labs and follow-up pending results. She believes she was overdoing it on electrolytes and has cut back on intake. Continue to work on protein intake and regular exercise. Follow-up 4 weeks sooner with any concerns. #Muscle cramps- intermittent. check updated labs. F/u pending results. #Hypertension. Blood pressure has been controlled on medication. Followed by PCP. #Hyperlipidemia. Followed by PCP. The patient will continue exercise regimen with an emphasis on improving/increasin g steps to at least 6,000-10,000 steps per day. Increasing cardio and strength training exercises as tolerated to improve weight loss and work on building muscle mass. Patient is committed to smarter eating with calorie counting and mindful eating. Limiting processed foods and carbohydrates and increasing leafy greens and lean proteins as well as fruits into their diet. Patient was counseled on the importance of eating local, organic food when possible. Patient has been counseled regarding effects of GLP/GIP-1 agonists and other FDA approved weight loss medications with regards to a multifactorial approach of weight loss as mentioned above and that the medication alone will not be sufficient to meet patients goals. We discussed holistic medication approach with emphasis on lifestyle modification. Discussed obesity as it increases risk of diabetes, cardiovascular disease, and/or organ damage. We spent a lot of time discussing the relationship between food, exercise, sleep, mental health, and obesity. We discussed the importance of having SECAs done every visit and having accountability done during these visits. That the scale is done to monitor not only weight loss but the body composition during medication management and healthy lifestyle changes. We discussed that if the patient is unable at times to financially afford this scale that we would rather waive the fee and have the scale done than have the patient not have the scale obtained. Will follow up with the patient in 4 weeks time to monitor weight loss. Total time was 30 min, greater than 50 % of time was spent on care coordination Case discussed with collaborating physician Michelle Allen who reviewed the assessment and plan. Chart, medications, labs, vital signs reviewed. Dictation was accomplished with the use of [employer] voice recognition software, prone to medical misidentifications and grammatical errors. This is unintentional and the practitioner does try to identify and correct these, but some could still be present. Please do not hesitate to contact practitioner for clarification. All questions answered to patients satisfaction. Patient verbalized understanding of diagnosis and treatments explained. To call sooner prior to next visit it any questions/concerns arise. 04/23/2024 Muscle cramps (ICD-1 0 - R25.2) #Obesity. 09/28/23: 208.78 pounds, BMI 34.7. S 10/19/23: 211 lbs, BMI 35.1 11/30/23: 200.1 lbs, BMI 33.3 02/21/24: 178.5, BMI 29.7 She is doing fantastic on Zepbound 5 mg. Will increase to 7.5 mg weekly on next fill. 03/20/24: 172.8 pounds, BMI 28.8. She has done well on Zepbound 7.5 mg. 04/23/24: 167.2 pounds, BMI 27.8. She is doing well on Zepbound 7.5 mg however has noticed increased appetite. She is down 44 pounds overall since starting with us. Will increase to 10 mg of Zepbound this month. Discussed importance of protein intake hydration and consistent exercise. Will follow-up again in 4 weeks with repeat Seca scale at that time. Follow-up sooner with any concerns. #Muscle cramps- resolved. #Hypertension. Blood pressure has been controlled on medication. Followed by PCP. #Hyperlipidemia. Followed by PCP. The patient will continue exercise regimen with an emphasis on improving/increasin g steps to at least 6,000-10,000 steps per day. Increasing cardio and strength training exercises as tolerated to improve weight loss and work on building muscle mass. Patient is committed to smarter eating with calorie counting and mindful eating. Limiting processed foods and carbohydrates and increasing leafy greens and lean proteins as well as fruits into their diet. Patient was counseled on the importance of eating local, organic food when possible. Patient has been counseled regarding effects of GLP/GIP-1 agonists and other FDA approved weight loss medications with regards to a multifactorial approach of weight loss as mentioned above and that the medication alone will not be sufficient to meet patients goals. We discussed holistic medication approach with emphasis on lifestyle modification. Discussed obesity as it increases risk of diabetes, cardiovascular disease, and/or organ damage. We spent a lot of time discussing the relationship between food, exercise, sleep, mental health, and obesity. We discussed the importance of having SECAs done every visit and having accountability done during these visits. That the scale is done to monitor not only weight loss but the body composition during medication management and healthy lifestyle changes. We discussed that if the patient is unable at times to financially afford this scale that we would rather waive the fee and have the scale done than have the patient not have the scale obtained. Will follow up with the patient in 4 weeks time to monitor weight loss. Total time was 30 min, greater than 50 % of time was spent on care coordination Case discussed with collaborating physician Michelle Allen who reviewed the assessment and plan. Chart, medications, labs, vital signs reviewed. Dictation was accomplished with the use of [employer] voice recognition software, prone to medical misidentifications and grammatical errors. This is unintentional and the practitioner does try to identify and correct these, but some could still be present. Please do not hesitate to contact practitioner for clarification. All questions answered to patients satisfaction. Patient verbalized understanding of diagnosis and treatments explained. To call sooner prior to next visit it any questions/concerns arise. 02/21/2024 Essential hypertensi on (ICD-10 - I10) #Obesity. 09/28/23: 208.78 pounds, BMI 34.7. S 10/19/23: 211 lbs, BMI 35.1 11/30/23: 200.1 lbs, BMI 33.3 02/21/24: 178.5, BMI 29.7 She is doing fantastic on Zepbound 5 mg. Denies any side effects. She is down an additional 14 pounds since her last visit and 30 pounds overall. She has noticed increased appetite and food noise and is requesting increase in dose. Will increase to 7.5 mg weekly on next fill. Discussed importance of protein intake, hydration and regular exercise. Follow-up in 4 weeks sooner with any concerns. #Hypertension. Blood pressure has been controlled on medication. Followed by PCP. #Hyperlipidemia. Followed by PCP. The patient will continue exercise regimen with an emphasis on improving/increasin g steps to at least 6,000-10,000 steps per day. Increasing cardio and strength training exercises as tolerated to improve weight loss and work on building muscle mass. Patient is committed to smarter eating with calorie counting and mindful eating. Limiting processed foods and carbohydrates and increasing leafy greens and lean proteins as well as fruits into their diet. Patient was counseled on the importance of eating local, organic food when possible. Patient has been counseled regarding effects of GLP/GIP-1 agonists and other FDA approved weight loss medications with regards to a multifactorial approach of weight loss as mentioned above and that the medication alone will not be sufficient to meet patients goals. We discussed holistic medication approach with emphasis on lifestyle modification. Discussed obesity as it increases risk of diabetes, cardiovascular disease, and/or organ damage. We spent a lot of time discussing the relationship between food, exercise, sleep, mental health, and obesity. We discussed the importance of having SECAs done every visit and having accountability done during these visits. That the scale is done to monitor not only weight loss but the body composition during medication management and healthy lifestyle changes. We discussed that if the patient is unable at times to financially afford this scale that we would rather waive the fee and have the scale done than have the patient not have the scale obtained. Will follow up with the patient in 4 weeks time to monitor weight loss. Total time was 30 min, greater than 50 % of time was spent on care coordination Case discussed with collaborating physician Michelle Allen who reviewed the assessment and plan. Chart, medications, labs, vital signs reviewed. Dictation was accomplished with the use of [employer] voice recognition software, prone to medical misidentifications and grammatical errors. This is unintentional and the practitioner does try to identify and correct these, but some could still be present. Please do not hesitate to contact practitioner for clarification. All questions answered to patients satisfaction. Patient verbalized understanding of diagnosis and treatments explained. To call sooner prior to next visit it any questions/concerns arise. 02/21/2024 Pure hypercholesterolemia (ICD-10 - E78.00) #Obesity. 09/28/23: 208.78 pounds, BMI 34.7. S 10/19/23: 211 lbs, BMI 35.1 11/30/23: 200.1 lbs, BMI 33.3 02/21/24: 178.5, BMI 29.7 She is doing fantastic on Zepbound 5 mg. Denies any side effects. She is down an additional 14 pounds since her last visit and 30 pounds overall. She has noticed increased appetite and food noise and is requesting increase in dose. Will increase to 7.5 mg weekly on next fill. Discussed importance of protein intake, hydration and regular exercise. Follow-up in 4 weeks sooner with any concerns. #Hypertension. Blood pressure has been controlled on medication. Followed by PCP. #Hyperlipidemia. Followed by PCP. The patient will continue exercise regimen with an emphasis on improving/increasin g steps to at least 6,000-10,000 steps per day. Increasing cardio and strength training exercises as tolerated to improve weight loss and work on building muscle mass. Patient is committed to smarter eating with calorie counting and mindful eating. Limiting processed foods and carbohydrates and increasing leafy greens and lean proteins as well as fruits into their diet. Patient was counseled on the importance of eating local, organic food when possible. Patient has been counseled regarding effects of GLP/GIP-1 agonists and other FDA approved weight loss medications with regards to a multifactorial approach of weight loss as mentioned above and that the medication alone will not be sufficient to meet patients goals. We discussed holistic medication approach with emphasis on lifestyle modification. Discussed obesity as it increases risk of diabetes, cardiovascular disease, and/or organ damage. We spent a lot of time discussing the relationship between food, exercise, sleep, mental health, and obesity. We discussed the importance of having SECAs done every visit and having accountability done during these visits. That the scale is done to monitor not only weight loss but the body composition during medication management and healthy lifestyle changes. We discussed that if the patient is unable at times to financially afford this scale that we would rather waive the fee and have the scale done than have the patient not have the scale obtained. Will follow up with the patient in 4 weeks time to monitor weight loss. Total time was 30 min, greater than 50 % of time was spent on care coordination Case discussed with collaborating physician Michelle Allen who reviewed the assessment and plan. Chart, medications, labs, vital signs reviewed. Dictation was accomplished with the use of [employer] voice recognition software, prone to medical misidentifications and grammatical errors. This is unintentional and the practitioner does try to identify and correct these, but some could still be present. Please do not hesitate to contact practitioner for clarification. All questions answered to patients satisfaction. Patient verbalized understanding of diagnosis and treatments explained. To call sooner prior to next visit it any questions/concerns arise. 03/20/2024 Essential hypertensi on (ICD-10 - I10) #Obesity. 09/28/23: 208.78 pounds, BMI 34.7. S 10/19/23: 211 lbs, BMI 35.1 11/30/23: 200.1 lbs, BMI 33.3 02/21/24: 178.5, BMI 29.7 She is doing fantastic on Zepbound 5 mg. Denies any side effects. She is down an additional 14 pounds since her last visit and 30 pounds overall. She has noticed increased appetite and food noise and is requesting increase in dose. Will increase to 7.5 mg weekly on next fill. Discussed importance of protein intake, hydration and regular exercise. Follow-up in 4 weeks sooner with any concerns. 03/20/24: 172.8 pounds, BMI 28.8. She has done well on Zepbound 7.5 mg. However she has had intermittent muscle cramping, fatigue vomiting and diarrhea x 3 episodes. No symptoms in the past 2 weeks. Will get updated labs and follow-up pending results. She believes she was overdoing it on electrolytes and has cut back on intake. Continue to work on protein intake and regular exercise. Follow-up 4 weeks sooner with any concerns. #Muscle cramps- intermittent. check updated labs. F/u pending results. #Hypertension. Blood pressure has been controlled on medication. Followed by PCP. #Hyperlipidemia. Followed by PCP. The patient will continue exercise regimen with an emphasis on improving/increasin g steps to at least 6,000-10,000 steps per day. Increasing cardio and strength training exercises as tolerated to improve weight loss and work on building muscle mass. Patient is committed to smarter eating with calorie counting and mindful eating. Limiting processed foods and carbohydrates and increasing leafy greens and lean proteins as well as fruits into their diet. Patient was counseled on the importance of eating local, organic food when possible. Patient has been counseled regarding effects of GLP/GIP-1 agonists and other FDA approved weight loss medications with regards to a multifactorial approach of weight loss as mentioned above and that the medication alone will not be sufficient to meet patients goals. We discussed holistic medication approach with emphasis on lifestyle modification. Discussed obesity as it increases risk of diabetes, cardiovascular disease, and/or organ damage. We spent a lot of time discussing the relationship between food, exercise, sleep, mental health, and obesity. We discussed the importance of having SECAs done every visit and having accountability done during these visits. That the scale is done to monitor not only weight loss but the body composition during medication management and healthy lifestyle changes. We discussed that if the patient is unable at times to financially afford this scale that we would rather waive the fee and have the scale done than have the patient not have the scale obtained. Will follow up with the patient in 4 weeks time to monitor weight loss. Total time was 30 min, greater than 50 % of time was spent on care coordination Case discussed with collaborating physician Michelle Allen who reviewed the assessment and plan. Chart, medications, labs, vital signs reviewed. Dictation was accomplished with the use of [employer] voice recognition software, prone to medical misidentifications and grammatical errors. This is unintentional and the practitioner does try to identify and correct these, but some could still be present. Please do not hesitate to contact practitioner for clarification. All questions answered to patients satisfaction. Patient verbalized understanding of diagnosis and treatments explained. To call sooner prior to next visit it any questions/concerns arise. 04/23/2024 Essential hypertensi on (ICD-10 - I10) #Obesity. 09/28/23: 208.78 pounds, BMI 34.7. S 10/19/23: 211 lbs, BMI 35.1 11/30/23: 200.1 lbs, BMI 33.3 02/21/24: 178.5, BMI 29.7 She is doing fantastic on Zepbound 5 mg. Will increase to 7.5 mg weekly on next fill. 03/20/24: 172.8 pounds, BMI 28.8. She has done well on Zepbound 7.5 mg. 04/23/24: 167.2 pounds, BMI 27.8. She is doing well on Zepbound 7.5 mg however has noticed increased appetite. She is down 44 pounds overall since starting with us. Will increase to 10 mg of Zepbound this month. Discussed importance of protein intake hydration and consistent exercise. Will follow-up again in 4 weeks with repeat Seca scale at that time. Follow-up sooner with any concerns. #Muscle cramps- resolved. #Hypertension. Blood pressure has been controlled on medication. Followed by PCP. #Hyperlipidemia. Followed by PCP. The patient will continue exercise regimen with an emphasis on improving/increasin g steps to at least 6,000-10,000 steps per day. Increasing cardio and strength training exercises as tolerated to improve weight loss and work on building muscle mass. Patient is committed to smarter eating with calorie counting and mindful eating. Limiting processed foods and carbohydrates and increasing leafy greens and lean proteins as well as fruits into their diet. Patient was counseled on the importance of eating local, organic food when possible. Patient has been counseled regarding effects of GLP/GIP-1 agonists and other FDA approved weight loss medications with regards to a multifactorial approach of weight loss as mentioned above and that the medication alone will not be sufficient to meet patients goals. We discussed holistic medication approach with emphasis on lifestyle modification. Discussed obesity as it increases risk of diabetes, cardiovascular disease, and/or organ damage. We spent a lot of time discussing the relationship between food, exercise, sleep, mental health, and obesity. We discussed the importance of having SECAs done every visit and having accountability done during these visits. That the scale is done to monitor not only weight loss but the body composition during medication management and healthy lifestyle changes. We discussed that if the patient is unable at times to financially afford this scale that we would rather waive the fee and have the scale done than have the patient not have the scale obtained. Will follow up with the patient in 4 weeks time to monitor weight loss. Total time was 30 min, greater than 50 % of time was spent on care coordination Case discussed with collaborating physician Michelle Allen who reviewed the assessment and plan. Chart, medications, labs, vital signs reviewed. Dictation was accomplished with the use of [employer] voice recognition software, prone to medical misidentifications and grammatical errors. This is unintentional and the practitioner does try to identify and correct these, but some could still be present. Please do not hesitate to contact practitioner for clarification. All questions answered to patients satisfaction. Patient verbalized understanding of diagnosis and treatments explained. To call sooner prior to next visit it any questions/concerns arise. 06/25/2024 Pure hypercholesterolemia (ICD-10 - E78.00) #Obesity. 09/28/23: 208.78 pounds, BMI 34.7. S 10/19/23: 211 lbs, BMI 35.1 11/30/23: 200.1 lbs, BMI 33.3 02/21/24: 178.5, BMI 29.7 She is doing fantastic on Zepbound 5 mg. Will increase to 7.5 mg weekly on next fill. 03/20/24: 172.8 pounds, BMI 28.8. She has done well on Zepbound 7.5 mg. 04/23/24: 167.2 pounds, BMI 27.8. She is doing well on Zepbound 7.5 mg however has noticed increased appetite. She is down 44 pounds overall since starting with us. Will increase to 10 mg of Zepbound this month. Discussed importance of protein intake hydration and consistent exercise. Will follow-up again in 4 weeks with repeat Seca scale at that time. Follow-up sooner with any concerns 05/28/24: 160.7 pounds, BMI 27.6. She is doing well on Zepbound 10 mg. She is down 50 pounds overall since starting. Discussed continued protein intake, hydration and regular exercise especially resistance training. Advised to add B complex vitamin and increase vitamin D supplement. Offered JOSETTE injection which she declines today. Will follow-up again in 1 month sooner with any concerns. 06/25/24: 162 pounds, BMI 27.8. Weight is up slightly however fat mass is down and muscle mass is up. Discussed in detail with patient. Continue to work on consistent exercise, hydration and protein intake. Will follow-up again in 1 month sooner with any concerns will continue current regimen of Zepbound 10 mg weekly. #Hypertension. Blood pressure has been controlled on Lisinopril, Dose recreased by PCP yesterday. Followed by PCP. #Hyperlipidemia. Followed by PCP. The patient will continue exercise regimen with an emphasis on improving/increasin g steps to at least 6,000-10,000 steps per day. Increasing cardio and strength training exercises as tolerated to improve weight loss and work on building muscle mass. Patient is committed to smarter eating with calorie counting and mindful eating. Limiting processed foods and carbohydrates and increasing leafy greens and lean proteins as well as fruits into their diet. Patient was counseled on the importance of eating local, organic food when possible. Patient has been counseled regarding effects of GLP/GIP-1 agonists and other FDA approved weight loss medications with regards to a multifactorial approach of weight loss as mentioned above and that the medication alone will not be sufficient to meet patients goals. We discussed holistic medication approach with emphasis on lifestyle modification. Discussed obesity as it increases risk of diabetes, cardiovascular disease, and/or organ damage. We spent a lot of time discussing the relationship between food, exercise, sleep, mental health, and obesity. We discussed the importance of having SECAs done every visit and having accountability done during these visits. That the scale is done to monitor not only weight loss but the body composition during medication management and healthy lifestyle changes. We discussed that if the patient is unable at times to financially afford this scale that we would rather waive the fee and have the scale done than have the patient not have the scale obtained. Will follow up with the patient in 4 weeks time to monitor weight loss. Total time was 30 min, greater than 50 % of time was spent on care coordination Case discussed with collaborating physician Michelle Allen who reviewed the assessment and plan. Chart, medications, labs, vital signs reviewed. Dictation was accomplished with the use of Dragon voice recognition software, prone to medical misidentifications and grammatical errors. This is unintentional and the practitioner does try to identify and correct these, but some could still be present. Please do not hesitate to contact practitioner for clarification. All questions answered to patients satisfaction. Patient verbalized understanding of diagnosis and treatments explained. To call sooner prior to next visit it any questions/concerns arise. 05/28/2024 Pure hypercholesterolemia (ICD-10 - E78.00) #Obesity. 09/28/23: 208.78 pounds, BMI 34.7. S 10/19/23: 211 lbs, BMI 35.1 11/30/23: 200.1 lbs, BMI 33.3 02/21/24: 178.5, BMI 29.7 She is doing fantastic on Zepbound 5 mg. Will increase to 7.5 mg weekly on next fill. 03/20/24: 172.8 pounds, BMI 28.8. She has done well on Zepbound 7.5 mg. 04/23/24: 167.2 pounds, BMI 27.8. She is doing well on Zepbound 7.5 mg however has noticed increased appetite. She is down 44 pounds overall since starting with us. Will increase to 10 mg of Zepbound this month. Discussed importance of protein intake hydration and consistent exercise. Will follow-up again in 4 weeks with repeat Seca scale at that time. Follow-up sooner with any concerns 05/28/24: 160.7 pounds, BMI 27.6. She is doing well on Zepbound 10 mg. She is down 50 pounds overall since starting. Discussed continued protein intake, hydration and regular exercise especially resistance training. Advised to add B complex vitamin and increase vitamin D supplement. Offered JOSETTE injection which she declines today. Will follow-up again in 1 month sooner with any concerns. #Hypertension. Blood pressure has been controlled on medication. Followed by PCP. #Hyperlipidemia. Followed by PCP. The patient will continue exercise regimen with an emphasis on improving/increasin g steps to at least 6,000-10,000 steps per day. Increasing cardio and strength training exercises as tolerated to improve weight loss and work on building muscle mass. Patient is committed to smarter eating with calorie counting and mindful eating. Limiting processed foods and carbohydrates and increasing leafy greens and lean proteins as well as fruits into their diet. Patient was counseled on the importance of eating local, organic food when possible. Patient has been counseled regarding effects of GLP/GIP-1 agonists and other FDA approved weight loss medications with regards to a multifactorial approach of weight loss as mentioned above and that the medication alone will not be sufficient to meet patients goals. We discussed holistic medication approach with emphasis on lifestyle modification. Discussed obesity as it increases risk of diabetes, cardiovascular disease, and/or organ damage. We spent a lot of time discussing the relationship between food, exercise, sleep, mental health, and obesity. We discussed the importance of having SECAs done every visit and having accountability done during these visits. That the scale is done to monitor not only weight loss but the body composition during medication management and healthy lifestyle changes. We discussed that if the patient is unable at times to financially afford this scale that we would rather waive the fee and have the scale done than have the patient not have the scale obtained. Will follow up with the patient in 4 weeks time to monitor weight loss. Total time was 30 min, greater than 50 % of time was spent on care coordination Case discussed with collaborating physician Ranjana Allen who reviewed the assessment and plan. Chart, medications, labs, vital signs reviewed. Dictation was accomplished with the use of [employer] voice recognition software, prone to medical misidentifications and grammatical errors. This is unintentional and the practitioner does try to identify and correct these, but some could still be present. Please do not hesitate to contact practitioner for clarification. All questions answered to patients satisfaction. Patient verbalized understanding of diagnosis and treatments explained. To call sooner prior to next visit it any questions/concerns arise. 09/05/2024 Pure hypercholesterolemia (ICD-10 - E78.00) #Obesity. 09/05/24: 154.2 pounds, BMI 26.5. She has done well on Zepbound 10 mg. She is very close to her goal of 150 pounds. We did review updated Sarkis and her muscle mass did come down this past month. We discussed this at length. Discussed increasing her protein intake to make sure she is getting at least 80 g a day as well as adding in resistance training. Will monitor closely. If muscle mass goes down further would need to taper down on dose. We did discuss strategies for maintenance as well. She is down about 55 pounds overall. Will follow-up again in 1 month sooner with any concerns. #Hypertension. Blood pressure has been controlled on Lisinopril. Followed by PCP. #Hyperlipidemia. Followed by PCP. The patient will continue exercise regimen with an emphasis on improving/increasin g steps to at least 6,000-10,000 steps per day. Increasing cardio and strength training exercises as tolerated to improve weight loss and work on building muscle mass. Patient is committed to smarter eating with calorie counting and mindful eating. Limiting processed foods and carbohydrates and increasing leafy greens and lean proteins as well as fruits into their diet. Patient was counseled on the importance of eating local, organic food when possible. Patient has been counseled regarding effects of GLP/GIP-1 agonists and other FDA approved weight loss medications with regards to a multifactorial approach of weight loss as mentioned above and that the medication alone will not be sufficient to meet patients goals. We discussed holistic medication approach with emphasis on lifestyle modification. Discussed obesity as it increases risk of diabetes, cardiovascular disease, and/or organ damage. We spent a lot of time discussing the relationship between food, exercise, sleep, mental health, and obesity. We discussed the importance of having SECAs done every visit and having accountability done during these visits. That the scale is done to monitor not only weight loss but the body composition during medication management and healthy lifestyle changes. We discussed that if the patient is unable at times to financially afford this scale that we would rather waive the fee and have the scale done than have the patient not have the scale obtained. Will follow up with the patient in 4 weeks time to monitor weight loss. Total time was 30 min, greater than 50 % of time was spent on care coordination Case discussed with collaborating physician Michelle Allen who reviewed the assessment and plan. Chart, medications, labs, vital signs reviewed. Dictation was accomplished with the use of [employer] voice recognition software, prone to medical misidentifications and grammatical errors. This is unintentional and the practitioner does try to identify and correct these, but some could still be present. Please do not hesitate to contact practitioner for clarification. All questions answered to patients satisfaction. Patient verbalized understanding of diagnosis and treatments explained. To call sooner prior to next visit it any questions/concerns arise. 08/06/2024 Pure hypercholesterolemia (ICD-10 - E78.00) #Obesity. 09/28/23: 208.78 pounds, BMI 34.7. S 10/19/23: 211 lbs, BMI 35.1 11/30/23: 200.1 lbs, BMI 33.3 02/21/24: 178.5, BMI 29.7 She is doing fantastic on Zepbound 5 mg. Will increase to 7.5 mg weekly on next fill. 03/20/24: 172.8 pounds, BMI 28.8. She has done well on Zepbound 7.5 mg. 04/23/24: 167.2 pounds, BMI 27.8. She is doing well on Zepbound 7.5 mg however has noticed increased appetite. She is down 44 pounds overall since starting with us. Will increase to 10 mg of Zepbound this month. Discussed importance of protein intake hydration and consistent exercise. Will follow-up again in 4 weeks with repeat Seca scale at that time. Follow-up sooner with any concerns 05/28/24: 160.7 pounds, BMI 27.6. She is doing well on Zepbound 10 mg. She is down 50 pounds overall since starting. Discussed continued protein intake, hydration and regular exercise especially resistance training. Advised to add B complex vitamin and increase vitamin D supplement. Offered JOSETTE injection which she declines today. Will follow-up again in 1 month sooner with any concerns. 06/25/24: 162 pounds, BMI 27.8. Weight is up slightly however fat mass is down and muscle mass is up. Discussed in detail with patient. Continue to work on consistent exercise, hydration and protein intake. Will follow-up again in 1 month sooner with any concerns will continue current regimen of Zepbound 10 mg weekly. 08/06/24: 157.9 pounds, BMI 27.1. She is doing well on Zepbound 10 mg. Discussed consistency with exercise. Continue hydration and protein intake. Will continue current regimen follow-up again in 1 month sooner with any concerns. #Hypertension. Blood pressure has been controlled on Lisinopril. Followed by PCP. #Hyperlipidemia. Followed by PCP. The patient will continue exercise regimen with an emphasis on improving/increasin g steps to at least 6,000-10,000 steps per day. Increasing cardio and strength training exercises as tolerated to improve weight loss and work on building muscle mass. Patient is committed to smarter eating with calorie counting and mindful eating. Limiting processed foods and carbohydrates and increasing leafy greens and lean proteins as well as fruits into their diet. Patient was counseled on the importance of eating local, organic food when possible. Patient has been counseled regarding effects of GLP/GIP-1 agonists and other FDA approved weight loss medications with regards to a multifactorial approach of weight loss as mentioned above and that the medication alone will not be sufficient to meet patients goals. We discussed holistic medication approach with emphasis on lifestyle modification. Discussed obesity as it increases risk of diabetes, cardiovascular disease, and/or organ damage. We spent a lot of time discussing the relationship between food, exercise, sleep, mental health, and obesity. We discussed the importance of having SECAs done every visit and having accountability done during these visits. That the scale is done to monitor not only weight loss but the body composition during medication management and healthy lifestyle changes. We discussed that if the patient is unable at times to financially afford this scale that we would rather waive the fee and have the scale done than have the patient not have the scale obtained. Will follow up with the patient in 4 weeks time to monitor weight loss. Total time was 30 min, greater than 50 % of time was spent on care coordination Case discussed with collaborating physician Michelle Allen who reviewed the assessment and plan. Chart, medications, labs, vital signs reviewed. Dictation was accomplished with the use of [employer] voice recognition software, prone to medical misidentifications and grammatical errors. This is unintentional and the practitioner does try to identify and correct these, but some could still be present. Please do not hesitate to contact practitioner for clarification. All questions answered to patients satisfaction. Patient verbalized understanding of diagnosis and treatments explained. To call sooner prior to next visit it any questions/concerns arise. 10/31/2024 Pure hypercholesterolemia (ICD-10 - E78.00) #Obesity. 10/31/24: 160.7 pounds, BMI 27.6. Her weight is up 7 pounds since last visit however fat mass is down and muscle mass is up 5-1/2 pounds. She has really made an effort to increase her protein intake and exercise regimen. Encouraged to continue protein shakes to help supplement. As well as consistent exercise. Will continue current dosing of Zepbound 10 mg weekly. Follow-up with me in 1 month sooner with any concerns. #Hypertension. Blood pressure has been controlled on Lisinopril. Followed by PCP. #Hyperlipidemia. Followed by PCP. The patient will continue exercise regimen with an emphasis on improving/increasin g steps to at least 6,000-10,000 steps per day. Increasing cardio and strength training exercises as tolerated to improve weight loss and work on building muscle mass. Patient is committed to smarter eating with calorie counting and mindful eating. Limiting processed foods and carbohydrates and increasing leafy greens and lean proteins as well as fruits into their diet. Patient was counseled on the importance of eating local, organic food when possible. Patient has been counseled regarding effects of GLP/GIP-1 agonists and other FDA approved weight loss medications with regards to a multifactorial approach of weight loss as mentioned above and that the medication alone will not be sufficient to meet patients goals. We discussed holistic medication approach with emphasis on lifestyle modification. Discussed obesity as it increases risk of diabetes, cardiovascular disease, and/or organ damage. We spent a lot of time discussing the relationship between food, exercise, sleep, mental health, and obesity. We discussed the importance of having SECAs done every visit and having accountability done during these visits. That the scale is done to monitor not only weight loss but the body composition during medication management and healthy lifestyle changes. We discussed that if the patient is unable at times to financially afford this scale that we would rather waive the fee and have the scale done than have the patient not have the scale obtained. Will follow up with the patient in 4 weeks time to monitor weight loss. Total time was 30 min, greater than 50 % of time was spent on care coordination Case discussed with collaborating physician Ranjana Allen who reviewed the assessment and plan. Chart, medications, labs, vital signs reviewed. Dictation was accomplished with the use of [employer] voice recognition software, prone to medical misidentifications and grammatical errors. This is unintentional and the practitioner does try to identify and correct these, but some could still be present. Please do not hesitate to contact practitioner for clarification. All questions answered to patients satisfaction. Patient verbalized understanding of diagnosis and treatments explained. To call sooner prior to next visit it any questions/concerns arise. 10/03/2024 Pure hypercholesterolemia (ICD-10 - E78.00) #Obesity. 10/03/24: 152.9 pounds, BMI 26.2. She has done well on Zepbound and is very close to her goal. We are working on maintenance and increasing muscle mass. Again reviewed importance of protein intake and regular exercise including resistance training. She will add protein shake daily. Can start spacing out her dosing to every 10 days. Will monitor closely and follow-up in 1 month. Consider tapering down dose at next visit. #Hypertension. Blood pressure has been controlled on Lisinopril. Followed by PCP. #Hyperlipidemia. Followed by PCP. The patient will continue exercise regimen with an emphasis on improving/increasin g steps to at least 6,000-10,000 steps per day. Increasing cardio and strength training exercises as tolerated to improve weight loss and work on building muscle mass. Patient is committed to smarter eating with calorie counting and mindful eating. Limiting processed foods and carbohydrates and increasing leafy greens and lean proteins as well as fruits into their diet. Patient was counseled on the importance of eating local, organic food when possible. Patient has been counseled regarding effects of GLP/GIP-1 agonists and other FDA approved weight loss medications with regards to a multifactorial approach of weight loss as mentioned above and that the medication alone will not be sufficient to meet patients goals. We discussed holistic medication approach with emphasis on lifestyle modification. Discussed obesity as it increases risk of diabetes, cardiovascular disease, and/or organ damage. We spent a lot of time discussing the relationship between food, exercise, sleep, mental health, and obesity. We discussed the importance of having SECAs done every visit and having accountability done during these visits. That the scale is done to monitor not only weight loss but the body composition during medication management and healthy lifestyle changes. We discussed that if the patient is unable at times to financially afford this scale that we would rather waive the fee and have the scale done than have the patient not have the scale obtained. Will follow up with the patient in 4 weeks time to monitor weight loss. Total time was 30 min, greater than 50 % of time was spent on care coordination Case discussed with collaborating physician Ranjana Allen who reviewed the assessment and plan. Chart, medications, labs, vital signs reviewed. Dictation was accomplished with the use of [employer] voice recognition software, prone to medical misidentifications and grammatical errors. This is unintentional and the practitioner does try to identify and correct these, but some could still be present. Please do not hesitate to contact practitioner for clarification. All questions answered to patients satisfaction. Patient verbalized understanding of diagnosis and treatments explained. To call sooner prior to next visit it any questions/concerns arise. 01/07/2025 Pure hypercholesterolemia (ICD-10 - E78.00) #Obesity. 01/07/25: 152.4, BMI 26.2. She is doing fantastic on Zepbound 10 mg. Weight is up 1 pound however fat mass down 6 and half pounds and muscle mass up 2 pounds. Continue increased protein intake and regular exercise including resistance training. Follow-up again in 1 month sooner as needed. #Hypertension. Blood pressure has been controlled on Lisinopril. Followed by PCP. #Hyperlipidemia. Followed by PCP. The patient will continue exercise regimen with an emphasis on improving/increasin g steps to at least 6,000-10,000 steps per day. Increasing cardio and strength training exercises as tolerated to improve weight loss and work on building muscle mass. Patient is committed to smarter eating with calorie counting and mindful eating. Limiting processed foods and carbohydrates and increasing leafy greens and lean proteins as well as fruits into their diet. Patient was counseled on the importance of eating local, organic food when possible. Patient has been counseled regarding effects of GLP/GIP-1 agonists and other FDA approved weight loss medications with regards to a multifactorial approach of weight loss as mentioned above and that the medication alone will not be sufficient to meet patients goals. We discussed holistic medication approach with emphasis on lifestyle modification. Discussed obesity as it increases risk of diabetes, cardiovascular disease, and/or organ damage. We spent a lot of time discussing the relationship between food, exercise, sleep, mental health, and obesity. We discussed the importance of having SECAs done every visit and having accountability done during these visits. That the scale is done to monitor not only weight loss but the body composition during medication management and healthy lifestyle changes. We discussed that if the patient is unable at times to financially afford this scale that we would rather waive the fee and have the scale done than have the patient not have the scale obtained. Will follow up with the patient in 4 weeks time to monitor weight loss. Total time was 30 min, greater than 50 % of time was spent on care coordination Case discussed with collaborating physician Michelle Allen who reviewed the assessment and plan. Chart, medications, labs, vital signs reviewed. Dictation was accomplished with the use of [employer] voice recognition software, prone to medical misidentifications and grammatical errors. This is unintentional and the practitioner does try to identify and correct these, but some could still be present. Please do not hesitate to contact practitioner for clarification. All questions answered to patients satisfaction. Patient verbalized understanding of diagnosis and treatments explained. To call sooner prior to next visit it any questions/concerns arise. 12/05/2024 Pure hypercholesterolemia (ICD-10 - E78.00) #Obesity. 12/05/24: 151 pounds, BMI 25.9. She is doing well on Zepbound 10 mg. Weight is down however fat mass is stable and muscle is down. Discussed importance of lifestyle modifications including increased protein intake and consistent exercise. Will continue current dose follow-up again in 1 month. Continue to work on composition changes. #Hypertension. Blood pressure has been controlled on Lisinopril. Followed by PCP. #Hyperlipidemia. Followed by PCP. The patient will continue exercise regimen with an emphasis on improving/increasin g steps to at least 6,000-10,000 steps per day. Increasing cardio and strength training exercises as tolerated to improve weight loss and work on building muscle mass. Patient is committed to smarter eating with calorie counting and mindful eating. Limiting processed foods and carbohydrates and increasing leafy greens and lean proteins as well as fruits into their diet. Patient was counseled on the importance of eating local, organic food when possible. Patient has been counseled regarding effects of GLP/GIP-1 agonists and other FDA approved weight loss medications with regards to a multifactorial approach of weight loss as mentioned above and that the medication alone will not be sufficient to meet patients goals. We discussed holistic medication approach with emphasis on lifestyle modification. Discussed obesity as it increases risk of diabetes, cardiovascular disease, and/or organ damage. We spent a lot of time discussing the relationship between food, exercise, sleep, mental health, and obesity. We discussed the importance of having SECAs done every visit and having accountability done during these visits. That the scale is done to monitor not only weight loss but the body composition during medication management and healthy lifestyle changes. We discussed that if the patient is unable at times to financially afford this scale that we would rather waive the fee and have the scale done than have the patient not have the scale obtained. Will follow up with the patient in 4 weeks time to monitor weight loss. Total time was 30 min, greater than 50 % of time was spent on care coordination Case discussed with collaborating physician Michelle Allen who reviewed the assessment and plan. Chart, medications, labs, vital signs reviewed. Dictation was accomplished with the use of [employer] voice recognition software, prone to medical misidentifications and grammatical errors. This is unintentional and the practitioner does try to identify and correct these, but some could still be present. Please do not hesitate to contact practitioner for clarification. All questions answered to patients satisfaction. Patient verbalized understanding of diagnosis and treatments explained. To call sooner prior to next visit it any questions/concerns arise. 01/07/2025 History of gastric bypass (ICD-10 - Z98.84) #Obesity. 01/07/25: 152.4, BMI 26.2. She is doing fantastic on Zepbound 10 mg. Weight is up 1 pound however fat mass down 6 and half pounds and muscle mass up 2 pounds. Continue increased protein intake and regular exercise including resistance training. Follow-up again in 1 month sooner as needed. #Hypertension. Blood pressure has been controlled on Lisinopril. Followed by PCP. #Hyperlipidemia. Followed by PCP. The patient will continue exercise regimen with an emphasis on improving/increasin g steps to at least 6,000-10,000 steps per day. Increasing cardio and strength training exercises as tolerated to improve weight loss and work on building muscle mass. Patient is committed to smarter eating with calorie counting and mindful eating. Limiting processed foods and carbohydrates and increasing leafy greens and lean proteins as well as fruits into their diet. Patient was counseled on the importance of eating local, organic food when possible. Patient has been counseled regarding effects of GLP/GIP-1 agonists and other FDA approved weight loss medications with regards to a multifactorial approach of weight loss as mentioned above and that the medication alone will not be sufficient to meet patients goals. We discussed holistic medication approach with emphasis on lifestyle modification. Discussed obesity as it increases risk of diabetes, cardiovascular disease, and/or organ damage. We spent a lot of time discussing the relationship between food, exercise, sleep, mental health, and obesity. We discussed the importance of having SECAs done every visit and having accountability done during these visits. That the scale is done to monitor not only weight loss but the body composition during medication management and healthy lifestyle changes. We discussed that if the patient is unable at times to financially afford this scale that we would rather waive the fee and have the scale done than have the patient not have the scale obtained. Will follow up with the patient in 4 weeks time to monitor weight loss. Total time was 30 min, greater than 50 % of time was spent on care coordination Case discussed with collaborating physician Michelle Allen who reviewed the assessment and plan. Chart, medications, labs, vital signs reviewed. Dictation was accomplished with the use of [employer] voice recognition software, prone to medical misidentifications and grammatical errors. This is unintentional and the practitioner does try to identify and correct these, but some could still be present. Please do not hesitate to contact practitioner for clarification. All questions answered to patients satisfaction. Patient verbalized understanding of diagnosis and treatments explained. To call sooner prior to next visit it any questions/concerns arise. 10/03/2024 History of gastric bypass (ICD-10 - Z98.84) #Obesity. 10/03/24: 152.9 pounds, BMI 26.2. She has done well on Zepbound and is very close to her goal. We are working on maintenance and increasing muscle mass. Again reviewed importance of protein intake and regular exercise including resistance training. She will add protein shake daily. Can start spacing out her dosing to every 10 days. Will monitor closely and follow-up in 1 month. Consider tapering down dose at next visit. #Hypertension. Blood pressure has been controlled on Lisinopril. Followed by PCP. #Hyperlipidemia. Followed by PCP. The patient will continue exercise regimen with an emphasis on improving/increasin g steps to at least 6,000-10,000 steps per day. Increasing cardio and strength training exercises as tolerated to improve weight loss and work on building muscle mass. Patient is committed to smarter eating with calorie counting and mindful eating. Limiting processed foods and carbohydrates and increasing leafy greens and lean proteins as well as fruits into their diet. Patient was counseled on the importance of eating local, organic food when possible. Patient has been counseled regarding effects of GLP/GIP-1 agonists and other FDA approved weight loss medications with regards to a multifactorial approach of weight loss as mentioned above and that the medication alone will not be sufficient to meet patients goals. We discussed holistic medication approach with emphasis on lifestyle modification. Discussed obesity as it increases risk of diabetes, cardiovascular disease, and/or organ damage. We spent a lot of time discussing the relationship between food, exercise, sleep, mental health, and obesity. We discussed the importance of having SECAs done every visit and having accountability done during these visits. That the scale is done to monitor not only weight loss but the body composition during medication management and healthy lifestyle changes. We discussed that if the patient is unable at times to financially afford this scale that we would rather waive the fee and have the scale done than have the patient not have the scale obtained. Will follow up with the patient in 4 weeks time to monitor weight loss. Total time was 30 min, greater than 50 % of time was spent on care coordination Case discussed with collaborating physician Ranjana Allen who reviewed the assessment and plan. Chart, medications, labs, vital signs reviewed. Dictation was accomplished with the use of [employer] voice recognition software, prone to medical misidentifications and grammatical errors. This is unintentional and the practitioner does try to identify and correct these, but some could still be present. Please do not hesitate to contact practitioner for clarification. All questions answered to patients satisfaction. Patient verbalized understanding of diagnosis and treatments explained. To call sooner prior to next visit it any questions/concerns arise. 12/05/2024 History of gastric bypass (ICD-10 - Z98.84) #Obesity. 12/05/24: 151 pounds, BMI 25.9. She is doing well on Zepbound 10 mg. Weight is down however fat mass is stable and muscle is down. Discussed importance of lifestyle modifications including increased protein intake and consistent exercise. Will continue current dose follow-up again in 1 month. Continue to work on composition changes. #Hypertension. Blood pressure has been controlled on Lisinopril. Followed by PCP. #Hyperlipidemia. Followed by PCP. The patient will continue exercise regimen with an emphasis on improving/increasin g steps to at least 6,000-10,000 steps per day. Increasing cardio and strength training exercises as tolerated to improve weight loss and work on building muscle mass. Patient is committed to smarter eating with calorie counting and mindful eating. Limiting processed foods and carbohydrates and increasing leafy greens and lean proteins as well as fruits into their diet. Patient was counseled on the importance of eating local, organic food when possible. Patient has been counseled regarding effects of GLP/GIP-1 agonists and other FDA approved weight loss medications with regards to a multifactorial approach of weight loss as mentioned above and that the medication alone will not be sufficient to meet patients goals. We discussed holistic medication approach with emphasis on lifestyle modification. Discussed obesity as it increases risk of diabetes, cardiovascular disease, and/or organ damage. We spent a lot of time discussing the relationship between food, exercise, sleep, mental health, and obesity. We discussed the importance of having SECAs done every visit and having accountability done during these visits. That the scale is done to monitor not only weight loss but the body composition during medication management and healthy lifestyle changes. We discussed that if the patient is unable at times to financially afford this scale that we would rather waive the fee and have the scale done than have the patient not have the scale obtained. Will follow up with the patient in 4 weeks time to monitor weight loss. Total time was 30 min, greater than 50 % of time was spent on care coordination Case discussed with collaborating physician Michelle Allen who reviewed the assessment and plan. Chart, medications, labs, vital signs reviewed. Dictation was accomplished with the use of [employer] voice recognition software, prone to medical misidentifications and grammatical errors. This is unintentional and the practitioner does try to identify and correct these, but some could still be present. Please do not hesitate to contact practitioner for clarification. All questions answered to patients satisfaction. Patient verbalized understanding of diagnosis and treatments explained. To call sooner prior to next visit it any questions/concerns arise. 10/31/2024 History of gastric bypass (ICD-10 - Z98.84) #Obesity. 10/31/24: 160.7 pounds, BMI 27.6. Her weight is up 7 pounds since last visit however fat mass is down and muscle mass is up 5-1/2 pounds. She has really made an effort to increase her protein intake and exercise regimen. Encouraged to continue protein shakes to help supplement. As well as consistent exercise. Will continue current dosing of Zepbound 10 mg weekly. Follow-up with me in 1 month sooner with any concerns. #Hypertension. Blood pressure has been controlled on Lisinopril. Followed by PCP. #Hyperlipidemia. Followed by PCP. The patient will continue exercise regimen with an emphasis on improving/increasin g steps to at least 6,000-10,000 steps per day. Increasing cardio and strength training exercises as tolerated to improve weight loss and work on building muscle mass. Patient is committed to smarter eating with calorie counting and mindful eating. Limiting processed foods and carbohydrates and increasing leafy greens and lean proteins as well as fruits into their diet. Patient was counseled on the importance of eating local, organic food when possible. Patient has been counseled regarding effects of GLP/GIP-1 agonists and other FDA approved weight loss medications with regards to a multifactorial approach of weight loss as mentioned above and that the medication alone will not be sufficient to meet patients goals. We discussed holistic medication approach with emphasis on lifestyle modification. Discussed obesity as it increases risk of diabetes, cardiovascular disease, and/or organ damage. We spent a lot of time discussing the relationship between food, exercise, sleep, mental health, and obesity. We discussed the importance of having SECAs done every visit and having accountability done during these visits. That the scale is done to monitor not only weight loss but the body composition during medication management and healthy lifestyle changes. We discussed that if the patient is unable at times to financially afford this scale that we would rather waive the fee and have the scale done than have the patient not have the scale obtained. Will follow up with the patient in 4 weeks time to monitor weight loss. Total time was 30 min, greater than 50 % of time was spent on care coordination Case discussed with collaborating physician Ranjana Allen who reviewed the assessment and plan. Chart, medications, labs, vital signs reviewed. Dictation was accomplished with the use of [employer] voice recognition software, prone to medical misidentifications and grammatical errors. This is unintentional and the practitioner does try to identify and correct these, but some could still be present. Please do not hesitate to contact practitioner for clarification. All questions answered to patients satisfaction. Patient verbalized understanding of diagnosis and treatments explained. To call sooner prior to next visit it any questions/concerns arise. 09/05/2024 History of gastric bypass (ICD-10 - Z98.84) #Obesity. 09/05/24: 154.2 pounds, BMI 26.5. She has done well on Zepbound 10 mg. She is very close to her goal of 150 pounds. We did review updated [place] and her muscle mass did come down this past month. We discussed this at length. Discussed increasing her protein intake to make sure she is getting at least 80 g a day as well as adding in resistance training. Will monitor closely. If muscle mass goes down further would need to taper down on dose. We did discuss strategies for maintenance as well. She is down about 55 pounds overall. Will follow-up again in 1 month sooner with any concerns. #Hypertension. Blood pressure has been controlled on Lisinopril. Followed by PCP. #Hyperlipidemia. Followed by PCP. The patient will continue exercise regimen with an emphasis on improving/increasin g steps to at least 6,000-10,000 steps per day. Increasing cardio and strength training exercises as tolerated to improve weight loss and work on building muscle mass. Patient is committed to smarter eating with calorie counting and mindful eating. Limiting processed foods and carbohydrates and increasing leafy greens and lean proteins as well as fruits into their diet. Patient was counseled on the importance of eating local, organic food when possible. Patient has been counseled regarding effects of GLP/GIP-1 agonists and other FDA approved weight loss medications with regards to a multifactorial approach of weight loss as mentioned above and that the medication alone will not be sufficient to meet patients goals. We discussed holistic medication approach with emphasis on lifestyle modification. Discussed obesity as it increases risk of diabetes, cardiovascular disease, and/or organ damage. We spent a lot of time discussing the relationship between food, exercise, sleep, mental health, and obesity. We discussed the importance of having SECAs done every visit and having accountability done during these visits. That the scale is done to monitor not only weight loss but the body composition during medication management and healthy lifestyle changes. We discussed that if the patient is unable at times to financially afford this scale that we would rather waive the fee and have the scale done than have the patient not have the scale obtained. Will follow up with the patient in 4 weeks time to monitor weight loss. Total time was 30 min, greater than 50 % of time was spent on care coordination Case discussed with collaborating physician Michelle Allen who reviewed the assessment and plan. Chart, medications, labs, vital signs reviewed. Dictation was accomplished with the use of [employer] voice recognition software, prone to medical misidentifications and grammatical errors. This is unintentional and the practitioner does try to identify and correct these, but some could still be present. Please do not hesitate to contact practitioner for clarification. All questions answered to patients satisfaction. Patient verbalized understanding of diagnosis and treatments explained. To call sooner prior to next visit it any questions/concerns arise. 08/06/2024 History of gastric bypass (ICD-10 - Z98.84) #Obesity. 09/28/23: 208.78 pounds, BMI 34.7. S 10/19/23: 211 lbs, BMI 35.1 11/30/23: 200.1 lbs, BMI 33.3 02/21/24: 178.5, BMI 29.7 She is doing fantastic on Zepbound 5 mg. Will increase to 7.5 mg weekly on next fill. 03/20/24: 172.8 pounds, BMI 28.8. She has done well on Zepbound 7.5 mg. 04/23/24: 167.2 pounds, BMI 27.8. She is doing well on Zepbound 7.5 mg however has noticed increased appetite. She is down 44 pounds overall since starting with us. Will increase to 10 mg of Zepbound this month. Discussed importance of protein intake hydration and consistent exercise. Will follow-up again in 4 weeks with repeat Seca scale at that time. Follow-up sooner with any concerns 05/28/24: 160.7 pounds, BMI 27.6. She is doing well on Zepbound 10 mg. She is down 50 pounds overall since starting. Discussed continued protein intake, hydration and regular exercise especially resistance training. Advised to add B complex vitamin and increase vitamin D supplement. Offered JOSETTE injection which she declines today. Will follow-up again in 1 month sooner with any concerns. 06/25/24: 162 pounds, BMI 27.8. Weight is up slightly however fat mass is down and muscle mass is up. Discussed in detail with patient. Continue to work on consistent exercise, hydration and protein intake. Will follow-up again in 1 month sooner with any concerns will continue current regimen of Zepbound 10 mg weekly. 08/06/24: 157.9 pounds, BMI 27.1. She is doing well on Zepbound 10 mg. Discussed consistency with exercise. Continue hydration and protein intake. Will continue current regimen follow-up again in 1 month sooner with any concerns. #Hypertension. Blood pressure has been controlled on Lisinopril. Followed by PCP. #Hyperlipidemia. Followed by PCP. The patient will continue exercise regimen with an emphasis on improving/increasin g steps to at least 6,000-10,000 steps per day. Increasing cardio and strength training exercises as tolerated to improve weight loss and work on building muscle mass. Patient is committed to smarter eating with calorie counting and mindful eating. Limiting processed foods and carbohydrates and increasing leafy greens and lean proteins as well as fruits into their diet. Patient was counseled on the importance of eating local, organic food when possible. Patient has been counseled regarding effects of GLP/GIP-1 agonists and other FDA approved weight loss medications with regards to a multifactorial approach of weight loss as mentioned above and that the medication alone will not be sufficient to meet patients goals. We discussed holistic medication approach with emphasis on lifestyle modification. Discussed obesity as it increases risk of diabetes, cardiovascular disease, and/or organ damage. We spent a lot of time discussing the relationship between food, exercise, sleep, mental health, and obesity. We discussed the importance of having SECAs done every visit and having accountability done during these visits. That the scale is done to monitor not only weight loss but the body composition during medication management and healthy lifestyle changes. We discussed that if the patient is unable at times to financially afford this scale that we would rather waive the fee and have the scale done than have the patient not have the scale obtained. Will follow up with the patient in 4 weeks time to monitor weight loss. Total time was 30 min, greater than 50 % of time was spent on care coordination Case discussed with collaborating physician Michelle Allen who reviewed the assessment and plan. Chart, medications, labs, vital signs reviewed. Dictation was accomplished with the use of [employer] voice recognition software, prone to medical misidentifications and grammatical errors. This is unintentional and the practitioner does try to identify and correct these, but some could still be present. Please do not hesitate to contact practitioner for clarification. All questions answered to patients satisfaction. Patient verbalized understanding of diagnosis and treatments explained. To call sooner prior to next visit it any questions/concerns arise. 06/25/2024 History of gastric bypass (ICD-10 - Z98.84) #Obesity. 09/28/23: 208.78 pounds, BMI 34.7. S 10/19/23: 211 lbs, BMI 35.1 11/30/23: 200.1 lbs, BMI 33.3 02/21/24: 178.5, BMI 29.7 She is doing fantastic on Zepbound 5 mg. Will increase to 7.5 mg weekly on next fill. 03/20/24: 172.8 pounds, BMI 28.8. She has done well on Zepbound 7.5 mg. 04/23/24: 167.2 pounds, BMI 27.8. She is doing well on Zepbound 7.5 mg however has noticed increased appetite. She is down 44 pounds overall since starting with us. Will increase to 10 mg of Zepbound this month. Discussed importance of protein intake hydration and consistent exercise. Will follow-up again in 4 weeks with repeat Seca scale at that time. Follow-up sooner with any concerns 05/28/24: 160.7 pounds, BMI 27.6. She is doing well on Zepbound 10 mg. She is down 50 pounds overall since starting. Discussed continued protein intake, hydration and regular exercise especially resistance training. Advised to add B complex vitamin and increase vitamin D supplement. Offered JOSETTE injection which she declines today. Will follow-up again in 1 month sooner with any concerns. 06/25/24: 162 pounds, BMI 27.8. Weight is up slightly however fat mass is down and muscle mass is up. Discussed in detail with patient. Continue to work on consistent exercise, hydration and protein intake. Will follow-up again in 1 month sooner with any concerns will continue current regimen of Zepbound 10 mg weekly. #Hypertension. Blood pressure has been controlled on Lisinopril, Dose recreased by PCP yesterday. Followed by PCP. #Hyperlipidemia. Followed by PCP. The patient will continue exercise regimen with an emphasis on improving/increasin g steps to at least 6,000-10,000 steps per day. Increasing cardio and strength training exercises as tolerated to improve weight loss and work on building muscle mass. Patient is committed to smarter eating with calorie counting and mindful eating. Limiting processed foods and carbohydrates and increasing leafy greens and lean proteins as well as fruits into their diet. Patient was counseled on the importance of eating local, organic food when possible. Patient has been counseled regarding effects of GLP/GIP-1 agonists and other FDA approved weight loss medications with regards to a multifactorial approach of weight loss as mentioned above and that the medication alone will not be sufficient to meet patients goals. We discussed holistic medication approach with emphasis on lifestyle modification. Discussed obesity as it increases risk of diabetes, cardiovascular disease, and/or organ damage. We spent a lot of time discussing the relationship between food, exercise, sleep, mental health, and obesity. We discussed the importance of having SECAs done every visit and having accountability done during these visits. That the scale is done to monitor not only weight loss but the body composition during medication management and healthy lifestyle changes. We discussed that if the patient is unable at times to financially afford this scale that we would rather waive the fee and have the scale done than have the patient not have the scale obtained. Will follow up with the patient in 4 weeks time to monitor weight loss. Total time was 30 min, greater than 50 % of time was spent on care coordination Case discussed with collaborating physician Michelle Allen who reviewed the assessment and plan. Chart, medications, labs, vital signs reviewed. Dictation was accomplished with the use of [employer] voice recognition software, prone to medical misidentifications and grammatical errors. This is unintentional and the practitioner does try to identify and correct these, but some could still be present. Please do not hesitate to contact practitioner for clarification. All questions answered to patients satisfaction. Patient verbalized understanding of diagnosis and treatments explained. To call sooner prior to next visit it any questions/concerns arise. 05/28/2024 History of gastric bypass (ICD-10 - Z98.84) #Obesity. 09/28/23: 208.78 pounds, BMI 34.7. S 10/19/23: 211 lbs, BMI 35.1 11/30/23: 200.1 lbs, BMI 33.3 02/21/24: 178.5, BMI 29.7 She is doing fantastic on Zepbound 5 mg. Will increase to 7.5 mg weekly on next fill. 03/20/24: 172.8 pounds, BMI 28.8. She has done well on Zepbound 7.5 mg. 04/23/24: 167.2 pounds, BMI 27.8. She is doing well on Zepbound 7.5 mg however has noticed increased appetite. She is down 44 pounds overall since starting with us. Will increase to 10 mg of Zepbound this month. Discussed importance of protein intake hydration and consistent exercise. Will follow-up again in 4 weeks with repeat Seca scale at that time. Follow-up sooner with any concerns 05/28/24: 160.7 pounds, BMI 27.6. She is doing well on Zepbound 10 mg. She is down 50 pounds overall since starting. Discussed continued protein intake, hydration and regular exercise especially resistance training. Advised to add B complex vitamin and increase vitamin D supplement. Offered JOSETTE injection which she declines today. Will follow-up again in 1 month sooner with any concerns. #Hypertension. Blood pressure has been controlled on medication. Followed by PCP. #Hyperlipidemia. Followed by PCP. The patient will continue exercise regimen with an emphasis on improving/increasin g steps to at least 6,000-10,000 steps per day. Increasing cardio and strength training exercises as tolerated to improve weight loss and work on building muscle mass. Patient is committed to smarter eating with calorie counting and mindful eating. Limiting processed foods and carbohydrates and increasing leafy greens and lean proteins as well as fruits into their diet. Patient was counseled on the importance of eating local, organic food when possible. Patient has been counseled regarding effects of GLP/GIP-1 agonists and other FDA approved weight loss medications with regards to a multifactorial approach of weight loss as mentioned above and that the medication alone will not be sufficient to meet patients goals. We discussed holistic medication approach with emphasis on lifestyle modification. Discussed obesity as it increases risk of diabetes, cardiovascular disease, and/or organ damage. We spent a lot of time discussing the relationship between food, exercise, sleep, mental health, and obesity. We discussed the importance of having SECAs done every visit and having accountability done during these visits. That the scale is done to monitor not only weight loss but the body composition during medication management and healthy lifestyle changes. We discussed that if the patient is unable at times to financially afford this scale that we would rather waive the fee and have the scale done than have the patient not have the scale obtained. Will follow up with the patient in 4 weeks time to monitor weight loss. Total time was 30 min, greater than 50 % of time was spent on care coordination Case discussed with collaborating physician Ranjana Allen who reviewed the assessment and plan. Chart, medications, labs, vital signs reviewed. Dictation was accomplished with the use of [employer] voice recognition software, prone to medical misidentifications and grammatical errors. This is unintentional and the practitioner does try to identify and correct these, but some could still be present. Please do not hesitate to contact practitioner for clarification. All questions answered to patients satisfaction. Patient verbalized understanding of diagnosis and treatments explained. To call sooner prior to next visit it any questions/concerns arise. 04/23/2024 Pure hypercholesterolemia (ICD-10 - E78.00) #Obesity. 09/28/23: 208.78 pounds, BMI 34.7. S 10/19/23: 211 lbs, BMI 35.1 11/30/23: 200.1 lbs, BMI 33.3 02/21/24: 178.5, BMI 29.7 She is doing fantastic on Zepbound 5 mg. Will increase to 7.5 mg weekly on next fill. 03/20/24: 172.8 pounds, BMI 28.8. She has done well on Zepbound 7.5 mg. 04/23/24: 167.2 pounds, BMI 27.8. She is doing well on Zepbound 7.5 mg however has noticed increased appetite. She is down 44 pounds overall since starting with us. Will increase to 10 mg of Zepbound this month. Discussed importance of protein intake hydration and consistent exercise. Will follow-up again in 4 weeks with repeat Seca scale at that time. Follow-up sooner with any concerns. #Muscle cramps- resolved. #Hypertension. Blood pressure has been controlled on medication. Followed by PCP. #Hyperlipidemia. Followed by PCP. The patient will continue exercise regimen with an emphasis on improving/increasin g steps to at least 6,000-10,000 steps per day. Increasing cardio and strength training exercises as tolerated to improve weight loss and work on building muscle mass. Patient is committed to smarter eating with calorie counting and mindful eating. Limiting processed foods and carbohydrates and increasing leafy greens and lean proteins as well as fruits into their diet. Patient was counseled on the importance of eating local, organic food when possible. Patient has been counseled regarding effects of GLP/GIP-1 agonists and other FDA approved weight loss medications with regards to a multifactorial approach of weight loss as mentioned above and that the medication alone will not be sufficient to meet patients goals. We discussed holistic medication approach with emphasis on lifestyle modification. Discussed obesity as it increases risk of diabetes, cardiovascular disease, and/or organ damage. We spent a lot of time discussing the relationship between food, exercise, sleep, mental health, and obesity. We discussed the importance of having SECAs done every visit and having accountability done during these visits. That the scale is done to monitor not only weight loss but the body composition during medication management and healthy lifestyle changes. We discussed that if the patient is unable at times to financially afford this scale that we would rather waive the fee and have the scale done than have the patient not have the scale obtained. Will follow up with the patient in 4 weeks time to monitor weight loss. Total time was 30 min, greater than 50 % of time was spent on care coordination Case discussed with collaborating physician Michelle Allen who reviewed the assessment and plan. Chart, medications, labs, vital signs reviewed. Dictation was accomplished with the use of [employer] voice recognition software, prone to medical misidentifications and grammatical errors. This is unintentional and the practitioner does try to identify and correct these, but some could still be present. Please do not hesitate to contact practitioner for clarification. All questions answered to patients satisfaction. Patient verbalized understanding of diagnosis and treatments explained. To call sooner prior to next visit it any questions/concerns arise. 03/20/2024 Pure hypercholesterolemia (ICD-10 - E78.00) #Obesity. 09/28/23: 208.78 pounds, BMI 34.7. S 10/19/23: 211 lbs, BMI 35.1 11/30/23: 200.1 lbs, BMI 33.3 02/21/24: 178.5, BMI 29.7 She is doing fantastic on Zepbound 5 mg. Denies any side effects. She is down an additional 14 pounds since her last visit and 30 pounds overall. She has noticed increased appetite and food noise and is requesting increase in dose. Will increase to 7.5 mg weekly on next fill. Discussed importance of protein intake, hydration and regular exercise. Follow-up in 4 weeks sooner with any concerns. 03/20/24: 172.8 pounds, BMI 28.8. She has done well on Zepbound 7.5 mg. However she has had intermittent muscle cramping, fatigue vomiting and diarrhea x 3 episodes. No symptoms in the past 2 weeks. Will get updated labs and follow-up pending results. She believes she was overdoing it on electrolytes and has cut back on intake. Continue to work on protein intake and regular exercise. Follow-up 4 weeks sooner with any concerns. #Muscle cramps- intermittent. check updated labs. F/u pending results. #Hypertension. Blood pressure has been controlled on medication. Followed by PCP. #Hyperlipidemia. Followed by PCP. The patient will continue exercise regimen with an emphasis on improving/increasin g steps to at least 6,000-10,000 steps per day. Increasing cardio and strength training exercises as tolerated to improve weight loss and work on building muscle mass. Patient is committed to smarter eating with calorie counting and mindful eating. Limiting processed foods and carbohydrates and increasing leafy greens and lean proteins as well as fruits into their diet. Patient was counseled on the importance of eating local, organic food when possible. Patient has been counseled regarding effects of GLP/GIP-1 agonists and other FDA approved weight loss medications with regards to a multifactorial approach of weight loss as mentioned above and that the medication alone will not be sufficient to meet patients goals. We discussed holistic medication approach with emphasis on lifestyle modification. Discussed obesity as it increases risk of diabetes, cardiovascular disease, and/or organ damage. We spent a lot of time discussing the relationship between food, exercise, sleep, mental health, and obesity. We discussed the importance of having SECAs done every visit and having accountability done during these visits. That the scale is done to monitor not only weight loss but the body composition during medication management and healthy lifestyle changes. We discussed that if the patient is unable at times to financially afford this scale that we would rather waive the fee and have the scale done than have the patient not have the scale obtained. Will follow up with the patient in 4 weeks time to monitor weight loss. Total time was 30 min, greater than 50 % of time was spent on care coordination Case discussed with collaborating physician Michelle Allen who reviewed the assessment and plan. Chart, medications, labs, vital signs reviewed. Dictation was accomplished with the use of [employer] voice recognition software, prone to medical misidentifications and grammatical errors. This is unintentional and the practitioner does try to identify and correct these, but some could still be present. Please do not hesitate to contact practitioner for clarification. All questions answered to patients satisfaction. Patient verbalized understanding of diagnosis and treatments explained. To call sooner prior to next visit it any questions/concerns arise. 02/21/2024 History of gastric bypass (ICD-10 - Z98.84) #Obesity. 09/28/23: 208.78 pounds, BMI 34.7. S 10/19/23: 211 lbs, BMI 35.1 11/30/23: 200.1 lbs, BMI 33.3 02/21/24: 178.5, BMI 29.7 She is doing fantastic on Zepbound 5 mg. Denies any side effects. She is down an additional 14 pounds since her last visit and 30 pounds overall. She has noticed increased appetite and food noise and is requesting increase in dose. Will increase to 7.5 mg weekly on next fill. Discussed importance of protein intake, hydration and regular exercise. Follow-up in 4 weeks sooner with any concerns. #Hypertension. Blood pressure has been controlled on medication. Followed by PCP. #Hyperlipidemia. Followed by PCP. The patient will continue exercise regimen with an emphasis on improving/increasin g steps to at least 6,000-10,000 steps per day. Increasing cardio and strength training exercises as tolerated to improve weight loss and work on building muscle mass. Patient is committed to smarter eating with calorie counting and mindful eating. Limiting processed foods and carbohydrates and increasing leafy greens and lean proteins as well as fruits into their diet. Patient was counseled on the importance of eating local, organic food when possible. Patient has been counseled regarding effects of GLP/GIP-1 agonists and other FDA approved weight loss medications with regards to a multifactorial approach of weight loss as mentioned above and that the medication alone will not be sufficient to meet patients goals. We discussed holistic medication approach with emphasis on lifestyle modification. Discussed obesity as it increases risk of diabetes, cardiovascular disease, and/or organ damage. We spent a lot of time discussing the relationship between food, exercise, sleep, mental health, and obesity. We discussed the importance of having SECAs done every visit and having accountability done during these visits. That the scale is done to monitor not only weight loss but the body composition during medication management and healthy lifestyle changes. We discussed that if the patient is unable at times to financially afford this scale that we would rather waive the fee and have the scale done than have the patient not have the scale obtained. Will follow up with the patient in 4 weeks time to monitor weight loss. Total time was 30 min, greater than 50 % of time was spent on care coordination Case discussed with collaborating physician Michelle Allen who reviewed the assessment and plan. Chart, medications, labs, vital signs reviewed. Dictation was accomplished with the use of [employer] voice recognition software, prone to medical misidentifications and grammatical errors. This is unintentional and the practitioner does try to identify and correct these, but some could still be present. Please do not hesitate to contact practitioner for clarification. All questions answered to patients satisfaction. Patient verbalized understanding of diagnosis and treatments explained. To call sooner prior to next visit it any questions/concerns arise. 02/21/2024 Weight loss counseling, encounter for (ICD-10 - Z71.3) #Obesity. 09/28/23: 208.78 pounds, BMI 34.7. S 10/19/23: 211 lbs, BMI 35.1 11/30/23: 200.1 lbs, BMI 33.3 02/21/24: 178.5, BMI 29.7 She is doing fantastic on Zepbound 5 mg. Denies any side effects. She is down an additional 14 pounds since her last visit and 30 pounds overall. She has noticed increased appetite and food noise and is requesting increase in dose. Will increase to 7.5 mg weekly on next fill. Discussed importance of protein intake, hydration and regular exercise. Follow-up in 4 weeks sooner with any concerns. #Hypertension. Blood pressure has been controlled on medication. Followed by PCP. #Hyperlipidemia. Followed by PCP. The patient will continue exercise regimen with an emphasis on improving/increasin g steps to at least 6,000-10,000 steps per day. Increasing cardio and strength training exercises as tolerated to improve weight loss and work on building muscle mass. Patient is committed to smarter eating with calorie counting and mindful eating. Limiting processed foods and carbohydrates and increasing leafy greens and lean proteins as well as fruits into their diet. Patient was counseled on the importance of eating local, organic food when possible. Patient has been counseled regarding effects of GLP/GIP-1 agonists and other FDA approved weight loss medications with regards to a multifactorial approach of weight loss as mentioned above and that the medication alone will not be sufficient to meet patients goals. We discussed holistic medication approach with emphasis on lifestyle modification. Discussed obesity as it increases risk of diabetes, cardiovascular disease, and/or organ damage. We spent a lot of time discussing the relationship between food, exercise, sleep, mental health, and obesity. We discussed the importance of having SECAs done every visit and having accountability done during these visits. That the scale is done to monitor not only weight loss but the body composition during medication management and healthy lifestyle changes. We discussed that if the patient is unable at times to financially afford this scale that we would rather waive the fee and have the scale done than have the patient not have the scale obtained. Will follow up with the patient in 4 weeks time to monitor weight loss. Total time was 30 min, greater than 50 % of time was spent on care coordination Case discussed with collaborating physician Michelle Allen who reviewed the assessment and plan. Chart, medications, labs, vital signs reviewed. Dictation was accomplished with the use of [employer] voice recognition software, prone to medical misidentifications and grammatical errors. This is unintentional and the practitioner does try to identify and correct these, but some could still be present. Please do not hesitate to contact practitioner for clarification. All questions answered to patients satisfaction. Patient verbalized understanding of diagnosis and treatments explained. To call sooner prior to next visit it any questions/concerns arise. 03/20/2024 History of gastric bypass (ICD-10 - Z98.84) #Obesity. 09/28/23: 208.78 pounds, BMI 34.7. S 10/19/23: 211 lbs, BMI 35.1 11/30/23: 200.1 lbs, BMI 33.3 02/21/24: 178.5, BMI 29.7 She is doing fantastic on Zepbound 5 mg. Denies any side effects. She is down an additional 14 pounds since her last visit and 30 pounds overall. She has noticed increased appetite and food noise and is requesting increase in dose. Will increase to 7.5 mg weekly on next fill. Discussed importance of protein intake, hydration and regular exercise. Follow-up in 4 weeks sooner with any concerns. 03/20/24: 172.8 pounds, BMI 28.8. She has done well on Zepbound 7.5 mg. However she has had intermittent muscle cramping, fatigue vomiting and diarrhea x 3 episodes. No symptoms in the past 2 weeks. Will get updated labs and follow-up pending results. She believes she was overdoing it on electrolytes and has cut back on intake. Continue to work on protein intake and regular exercise. Follow-up 4 weeks sooner with any concerns. #Muscle cramps- intermittent. check updated labs. F/u pending results. #Hypertension. Blood pressure has been controlled on medication. Followed by PCP. #Hyperlipidemia. Followed by PCP. The patient will continue exercise regimen with an emphasis on improving/increasin g steps to at least 6,000-10,000 steps per day. Increasing cardio and strength training exercises as tolerated to improve weight loss and work on building muscle mass. Patient is committed to smarter eating with calorie counting and mindful eating. Limiting processed foods and carbohydrates and increasing leafy greens and lean proteins as well as fruits into their diet. Patient was counseled on the importance of eating local, organic food when possible. Patient has been counseled regarding effects of GLP/GIP-1 agonists and other FDA approved weight loss medications with regards to a multifactorial approach of weight loss as mentioned above and that the medication alone will not be sufficient to meet patients goals. We discussed holistic medication approach with emphasis on lifestyle modification. Discussed obesity as it increases risk of diabetes, cardiovascular disease, and/or organ damage. We spent a lot of time discussing the relationship between food, exercise, sleep, mental health, and obesity. We discussed the importance of having SECAs done every visit and having accountability done during these visits. That the scale is done to monitor not only weight loss but the body composition during medication management and healthy lifestyle changes. We discussed that if the patient is unable at times to financially afford this scale that we would rather waive the fee and have the scale done than have the patient not have the scale obtained. Will follow up with the patient in 4 weeks time to monitor weight loss. Total time was 30 min, greater than 50 % of time was spent on care coordination Case discussed with collaborating physician Michelle Allen who reviewed the assessment and plan. Chart, medications, labs, vital signs reviewed. Dictation was accomplished with the use of [employer] voice recognition software, prone to medical misidentifications and grammatical errors. This is unintentional and the practitioner does try to identify and correct these, but some could still be present. Please do not hesitate to contact practitioner for clarification. All questions answered to patients satisfaction. Patient verbalized understanding of diagnosis and treatments explained. To call sooner prior to next visit it any questions/concerns arise. 04/23/2024 History of gastric bypass (ICD-10 - Z98.84) #Obesity. 09/28/23: 208.78 pounds, BMI 34.7. S 10/19/23: 211 lbs, BMI 35.1 11/30/23: 200.1 lbs, BMI 33.3 02/21/24: 178.5, BMI 29.7 She is doing fantastic on Zepbound 5 mg. Will increase to 7.5 mg weekly on next fill. 03/20/24: 172.8 pounds, BMI 28.8. She has done well on Zepbound 7.5 mg. 04/23/24: 167.2 pounds, BMI 27.8. She is doing well on Zepbound 7.5 mg however has noticed increased appetite. She is down 44 pounds overall since starting with us. Will increase to 10 mg of Zepbound this month. Discussed importance of protein intake hydration and consistent exercise. Will follow-up again in 4 weeks with repeat Seca scale at that time. Follow-up sooner with any concerns. #Muscle cramps- resolved. #Hypertension. Blood pressure has been controlled on medication. Followed by PCP. #Hyperlipidemia. Followed by PCP. The patient will continue exercise regimen with an emphasis on improving/increasin g steps to at least 6,000-10,000 steps per day. Increasing cardio and strength training exercises as tolerated to improve weight loss and work on building muscle mass. Patient is committed to smarter eating with calorie counting and mindful eating. Limiting processed foods and carbohydrates and increasing leafy greens and lean proteins as well as fruits into their diet. Patient was counseled on the importance of eating local, organic food when possible. Patient has been counseled regarding effects of GLP/GIP-1 agonists and other FDA approved weight loss medications with regards to a multifactorial approach of weight loss as mentioned above and that the medication alone will not be sufficient to meet patients goals. We discussed holistic medication approach with emphasis on lifestyle modification. Discussed obesity as it increases risk of diabetes, cardiovascular disease, and/or organ damage. We spent a lot of time discussing the relationship between food, exercise, sleep, mental health, and obesity. We discussed the importance of having SECAs done every visit and having accountability done during these visits. That the scale is done to monitor not only weight loss but the body composition during medication management and healthy lifestyle changes. We discussed that if the patient is unable at times to financially afford this scale that we would rather waive the fee and have the scale done than have the patient not have the scale obtained. Will follow up with the patient in 4 weeks time to monitor weight loss. Total time was 30 min, greater than 50 % of time was spent on care coordination Case discussed with collaborating physician Michelle Allen who reviewed the assessment and plan. Chart, medications, labs, vital signs reviewed. Dictation was accomplished with the use of [employer] voice recognition software, prone to medical misidentifications and grammatical errors. This is unintentional and the practitioner does try to identify and correct these, but some could still be present. Please do not hesitate to contact practitioner for clarification. All questions answered to patients satisfaction. Patient verbalized understanding of diagnosis and treatments explained. To call sooner prior to next visit it any questions/concerns arise. 05/28/2024 Weight loss counseling, encounter for (ICD-10 - Z71.3) #Obesity. 09/28/23: 208.78 pounds, BMI 34.7. S 10/19/23: 211 lbs, BMI 35.1 11/30/23: 200.1 lbs, BMI 33.3 02/21/24: 178.5, BMI 29.7 She is doing fantastic on Zepbound 5 mg. Will increase to 7.5 mg weekly on next fill. 03/20/24: 172.8 pounds, BMI 28.8. She has done well on Zepbound 7.5 mg. 04/23/24: 167.2 pounds, BMI 27.8. She is doing well on Zepbound 7.5 mg however has noticed increased appetite. She is down 44 pounds overall since starting with us. Will increase to 10 mg of Zepbound this month. Discussed importance of protein intake hydration and consistent exercise. Will follow-up again in 4 weeks with repeat Seca scale at that time. Follow-up sooner with any concerns 05/28/24: 160.7 pounds, BMI 27.6. She is doing well on Zepbound 10 mg. She is down 50 pounds overall since starting. Discussed continued protein intake, hydration and regular exercise especially resistance training. Advised to add B complex vitamin and increase vitamin D supplement. Offered JOSETTE injection which she declines today. Will follow-up again in 1 month sooner with any concerns. #Hypertension. Blood pressure has been controlled on medication. Followed by PCP. #Hyperlipidemia. Followed by PCP. The patient will continue exercise regimen with an emphasis on improving/increasin g steps to at least 6,000-10,000 steps per day. Increasing cardio and strength training exercises as tolerated to improve weight loss and work on building muscle mass. Patient is committed to smarter eating with calorie counting and mindful eating. Limiting processed foods and carbohydrates and increasing leafy greens and lean proteins as well as fruits into their diet. Patient was counseled on the importance of eating local, organic food when possible. Patient has been counseled regarding effects of GLP/GIP-1 agonists and other FDA approved weight loss medications with regards to a multifactorial approach of weight loss as mentioned above and that the medication alone will not be sufficient to meet patients goals. We discussed holistic medication approach with emphasis on lifestyle modification. Discussed obesity as it increases risk of diabetes, cardiovascular disease, and/or organ damage. We spent a lot of time discussing the relationship between food, exercise, sleep, mental health, and obesity. We discussed the importance of having SECAs done every visit and having accountability done during these visits. That the scale is done to monitor not only weight loss but the body composition during medication management and healthy lifestyle changes. We discussed that if the patient is unable at times to financially afford this scale that we would rather waive the fee and have the scale done than have the patient not have the scale obtained. Will follow up with the patient in 4 weeks time to monitor weight loss. Total time was 30 min, greater than 50 % of time was spent on care coordination Case discussed with collaborating physician Ranjana Allen who reviewed the assessment and plan. Chart, medications, labs, vital signs reviewed. Dictation was accomplished with the use of [employer] voice recognition software, prone to medical misidentifications and grammatical errors. This is unintentional and the practitioner does try to identify and correct these, but some could still be present. Please do not hesitate to contact practitioner for clarification. All questions answered to patients satisfaction. Patient verbalized understanding of diagnosis and treatments explained. To call sooner prior to next visit it any questions/concerns arise. 06/25/2024 Weight loss counseling, encounter for (ICD-10 - Z71.3) #Obesity. 09/28/23: 208.78 pounds, BMI 34.7. S 10/19/23: 211 lbs, BMI 35.1 11/30/23: 200.1 lbs, BMI 33.3 02/21/24: 178.5, BMI 29.7 She is doing fantastic on Zepbound 5 mg. Will increase to 7.5 mg weekly on next fill. 03/20/24: 172.8 pounds, BMI 28.8. She has done well on Zepbound 7.5 mg. 04/23/24: 167.2 pounds, BMI 27.8. She is doing well on Zepbound 7.5 mg however has noticed increased appetite. She is down 44 pounds overall since starting with us. Will increase to 10 mg of Zepbound this month. Discussed importance of protein intake hydration and consistent exercise. Will follow-up again in 4 weeks with repeat Seca scale at that time. Follow-up sooner with any concerns 05/28/24: 160.7 pounds, BMI 27.6. She is doing well on Zepbound 10 mg. She is down 50 pounds overall since starting. Discussed continued protein intake, hydration and regular exercise especially resistance training. Advised to add B complex vitamin and increase vitamin D supplement. Offered JOSETTE injection which she declines today. Will follow-up again in 1 month sooner with any concerns. 06/25/24: 162 pounds, BMI 27.8. Weight is up slightly however fat mass is down and muscle mass is up. Discussed in detail with patient. Continue to work on consistent exercise, hydration and protein intake. Will follow-up again in 1 month sooner with any concerns will continue current regimen of Zepbound 10 mg weekly. #Hypertension. Blood pressure has been controlled on Lisinopril, Dose recreased by PCP yesterday. Followed by PCP. #Hyperlipidemia. Followed by PCP. The patient will continue exercise regimen with an emphasis on improving/increasin g steps to at least 6,000-10,000 steps per day. Increasing cardio and strength training exercises as tolerated to improve weight loss and work on building muscle mass. Patient is committed to smarter eating with calorie counting and mindful eating. Limiting processed foods and carbohydrates and increasing leafy greens and lean proteins as well as fruits into their diet. Patient was counseled on the importance of eating local, organic food when possible. Patient has been counseled regarding effects of GLP/GIP-1 agonists and other FDA approved weight loss medications with regards to a multifactorial approach of weight loss as mentioned above and that the medication alone will not be sufficient to meet patients goals. We discussed holistic medication approach with emphasis on lifestyle modification. Discussed obesity as it increases risk of diabetes, cardiovascular disease, and/or organ damage. We spent a lot of time discussing the relationship between food, exercise, sleep, mental health, and obesity. We discussed the importance of having SECAs done every visit and having accountability done during these visits. That the scale is done to monitor not only weight loss but the body composition during medication management and healthy lifestyle changes. We discussed that if the patient is unable at times to financially afford this scale that we would rather waive the fee and have the scale done than have the patient not have the scale obtained. Will follow up with the patient in 4 weeks time to monitor weight loss. Total time was 30 min, greater than 50 % of time was spent on care coordination Case discussed with collaborating physician Michelle Allen who reviewed the assessment and plan. Chart, medications, labs, vital signs reviewed. Dictation was accomplished with the use of [employer] voice recognition software, prone to medical misidentifications and grammatical errors. This is unintentional and the practitioner does try to identify and correct these, but some could still be present. Please do not hesitate to contact practitioner for clarification. All questions answered to patients satisfaction. Patient verbalized understanding of diagnosis and treatments explained. To call sooner prior to next visit it any questions/concerns arise. 08/06/2024 Weight loss counseling, encounter for (ICD-10 - Z71.3) #Obesity. 09/28/23: 208.78 pounds, BMI 34.7. S 10/19/23: 211 lbs, BMI 35.1 11/30/23: 200.1 lbs, BMI 33.3 02/21/24: 178.5, BMI 29.7 She is doing fantastic on Zepbound 5 mg. Will increase to 7.5 mg weekly on next fill. 03/20/24: 172.8 pounds, BMI 28.8. She has done well on Zepbound 7.5 mg. 04/23/24: 167.2 pounds, BMI 27.8. She is doing well on Zepbound 7.5 mg however has noticed increased appetite. She is down 44 pounds overall since starting with us. Will increase to 10 mg of Zepbound this month. Discussed importance of protein intake hydration and consistent exercise. Will follow-up again in 4 weeks with repeat Seca scale at that time. Follow-up sooner with any concerns 05/28/24: 160.7 pounds, BMI 27.6. She is doing well on Zepbound 10 mg. She is down 50 pounds overall since starting. Discussed continued protein intake, hydration and regular exercise especially resistance training. Advised to add B complex vitamin and increase vitamin D supplement. Offered JOSETTE injection which she declines today. Will follow-up again in 1 month sooner with any concerns. 06/25/24: 162 pounds, BMI 27.8. Weight is up slightly however fat mass is down and muscle mass is up. Discussed in detail with patient. Continue to work on consistent exercise, hydration and protein intake. Will follow-up again in 1 month sooner with any concerns will continue current regimen of Zepbound 10 mg weekly. 08/06/24: 157.9 pounds, BMI 27.1. She is doing well on Zepbound 10 mg. Discussed consistency with exercise. Continue hydration and protein intake. Will continue current regimen follow-up again in 1 month sooner with any concerns. #Hypertension. Blood pressure has been controlled on Lisinopril. Followed by PCP. #Hyperlipidemia. Followed by PCP. The patient will continue exercise regimen with an emphasis on improving/increasin g steps to at least 6,000-10,000 steps per day. Increasing cardio and strength training exercises as tolerated to improve weight loss and work on building muscle mass. Patient is committed to smarter eating with calorie counting and mindful eating. Limiting processed foods and carbohydrates and increasing leafy greens and lean proteins as well as fruits into their diet. Patient was counseled on the importance of eating local, organic food when possible. Patient has been counseled regarding effects of GLP/GIP-1 agonists and other FDA approved weight loss medications with regards to a multifactorial approach of weight loss as mentioned above and that the medication alone will not be sufficient to meet patients goals. We discussed holistic medication approach with emphasis on lifestyle modification. Discussed obesity as it increases risk of diabetes, cardiovascular disease, and/or organ damage. We spent a lot of time discussing the relationship between food, exercise, sleep, mental health, and obesity. We discussed the importance of having SECAs done every visit and having accountability done during these visits. That the scale is done to monitor not only weight loss but the body composition during medication management and healthy lifestyle changes. We discussed that if the patient is unable at times to financially afford this scale that we would rather waive the fee and have the scale done than have the patient not have the scale obtained. Will follow up with the patient in 4 weeks time to monitor weight loss. Total time was 30 min, greater than 50 % of time was spent on care coordination Case discussed with collaborating physician Michelle Allen who reviewed the assessment and plan. Chart, medications, labs, vital signs reviewed. Dictation was accomplished with the use of [employer] voice recognition software, prone to medical misidentifications and grammatical errors. This is unintentional and the practitioner does try to identify and correct these, but some could still be present. Please do not hesitate to contact practitioner for clarification. All questions answered to patients satisfaction. Patient verbalized understanding of diagnosis and treatments explained. To call sooner prior to next visit it any questions/concerns arise. 09/05/2024 Weight loss counseling, encounter for (ICD-10 - Z71.3) #Obesity. 09/05/24: 154.2 pounds, BMI 26.5. She has done well on Zepbound 10 mg. She is very close to her goal of 150 pounds. We did review updated S[place] and her muscle mass did come down this past month. We discussed this at length. Discussed increasing her protein intake to make sure she is getting at least 80 g a day as well as adding in resistance training. Will monitor closely. If muscle mass goes down further would need to taper down on dose. We did discuss strategies for maintenance as well. She is down about 55 pounds overall. Will follow-up again in 1 month sooner with any concerns. #Hypertension. Blood pressure has been controlled on Lisinopril. Followed by PCP. #Hyperlipidemia. Followed by PCP. The patient will continue exercise regimen with an emphasis on improving/increasin g steps to at least 6,000-10,000 steps per day. Increasing cardio and strength training exercises as tolerated to improve weight loss and work on building muscle mass. Patient is committed to smarter eating with calorie counting and mindful eating. Limiting processed foods and carbohydrates and increasing leafy greens and lean proteins as well as fruits into their diet. Patient was counseled on the importance of eating local, organic food when possible. Patient has been counseled regarding effects of GLP/GIP-1 agonists and other FDA approved weight loss medications with regards to a multifactorial approach of weight loss as mentioned above and that the medication alone will not be sufficient to meet patients goals. We discussed holistic medication approach with emphasis on lifestyle modification. Discussed obesity as it increases risk of diabetes, cardiovascular disease, and/or organ damage. We spent a lot of time discussing the relationship between food, exercise, sleep, mental health, and obesity. We discussed the importance of having SECAs done every visit and having accountability done during these visits. That the scale is done to monitor not only weight loss but the body composition during medication management and healthy lifestyle changes. We discussed that if the patient is unable at times to financially afford this scale that we would rather waive the fee and have the scale done than have the patient not have the scale obtained. Will follow up with the patient in 4 weeks time to monitor weight loss. Total time was 30 min, greater than 50 % of time was spent on care coordination Case discussed with collaborating physician Michelle Allen who reviewed the assessment and plan. Chart, medications, labs, vital signs reviewed. Dictation was accomplished with the use of [employer] voice recognition software, prone to medical misidentifications and grammatical errors. This is unintentional and the practitioner does try to identify and correct these, but some could still be present. Please do not hesitate to contact practitioner for clarification. All questions answered to patients satisfaction. Patient verbalized understanding of diagnosis and treatments explained. To call sooner prior to next visit it any questions/concerns arise. 10/31/2024 Weight loss counseling, encounter for (ICD-10 - Z71.3) #Obesity. 10/31/24: 160.7 pounds, BMI 27.6. Her weight is up 7 pounds since last visit however fat mass is down and muscle mass is up 5-1/2 pounds. She has really made an effort to increase her protein intake and exercise regimen. Encouraged to continue protein shakes to help supplement. As well as consistent exercise. Will continue current dosing of Zepbound 10 mg weekly. Follow-up with me in 1 month sooner with any concerns. #Hypertension. Blood pressure has been controlled on Lisinopril. Followed by PCP. #Hyperlipidemia. Followed by PCP. The patient will continue exercise regimen with an emphasis on improving/increasin g steps to at least 6,000-10,000 steps per day. Increasing cardio and strength training exercises as tolerated to improve weight loss and work on building muscle mass. Patient is committed to smarter eating with calorie counting and mindful eating. Limiting processed foods and carbohydrates and increasing leafy greens and lean proteins as well as fruits into their diet. Patient was counseled on the importance of eating local, organic food when possible. Patient has been counseled regarding effects of GLP/GIP-1 agonists and other FDA approved weight loss medications with regards to a multifactorial approach of weight loss as mentioned above and that the medication alone will not be sufficient to meet patients goals. We discussed holistic medication approach with emphasis on lifestyle modification. Discussed obesity as it increases risk of diabetes, cardiovascular disease, and/or organ damage. We spent a lot of time discussing the relationship between food, exercise, sleep, mental health, and obesity. We discussed the importance of having SECAs done every visit and having accountability done during these visits. That the scale is done to monitor not only weight loss but the body composition during medication management and healthy lifestyle changes. We discussed that if the patient is unable at times to financially afford this scale that we would rather waive the fee and have the scale done than have the patient not have the scale obtained. Will follow up with the patient in 4 weeks time to monitor weight loss. Total time was 30 min, greater than 50 % of time was spent on care coordination Case discussed with collaborating physician Ranjana Allen who reviewed the assessment and plan. Chart, medications, labs, vital signs reviewed. Dictation was accomplished with the use of [employer] voice recognition software, prone to medical misidentifications and grammatical errors. This is unintentional and the practitioner does try to identify and correct these, but some could still be present. Please do not hesitate to contact practitioner for clarification. All questions answered to patients satisfaction. Patient verbalized understanding of diagnosis and treatments explained. To call sooner prior to next visit it any questions/concerns arise. 12/05/2024 Weight loss counseling, encounter for (ICD-10 - Z71.3) #Obesity. 12/05/24: 151 pounds, BMI 25.9. She is doing well on Zepbound 10 mg. Weight is down however fat mass is stable and muscle is down. Discussed importance of lifestyle modifications including increased protein intake and consistent exercise. Will continue current dose follow-up again in 1 month. Continue to work on composition changes. #Hypertension. Blood pressure has been controlled on Lisinopril. Followed by PCP. #Hyperlipidemia. Followed by PCP. The patient will continue exercise regimen with an emphasis on improving/increasin g steps to at least 6,000-10,000 steps per day. Increasing cardio and strength training exercises as tolerated to improve weight loss and work on building muscle mass. Patient is committed to smarter eating with calorie counting and mindful eating. Limiting processed foods and carbohydrates and increasing leafy greens and lean proteins as well as fruits into their diet. Patient was counseled on the importance of eating local, organic food when possible. Patient has been counseled regarding effects of GLP/GIP-1 agonists and other FDA approved weight loss medications with regards to a multifactorial approach of weight loss as mentioned above and that the medication alone will not be sufficient to meet patients goals. We discussed holistic medication approach with emphasis on lifestyle modification. Discussed obesity as it increases risk of diabetes, cardiovascular disease, and/or organ damage. We spent a lot of time discussing the relationship between food, exercise, sleep, mental health, and obesity. We discussed the importance of having SECAs done every visit and having accountability done during these visits. That the scale is done to monitor not only weight loss but the body composition during medication management and healthy lifestyle changes. We discussed that if the patient is unable at times to financially afford this scale that we would rather waive the fee and have the scale done than have the patient not have the scale obtained. Will follow up with the patient in 4 weeks time to monitor weight loss. Total time was 30 min, greater than 50 % of time was spent on care coordination Case discussed with collaborating physician Michelle Allen who reviewed the assessment and plan. Chart, medications, labs, vital signs reviewed. Dictation was accomplished with the use of [employer] voice recognition software, prone to medical misidentifications and grammatical errors. This is unintentional and the practitioner does try to identify and correct these, but some could still be present. Please do not hesitate to contact practitioner for clarification. All questions answered to patients satisfaction. Patient verbalized understanding of diagnosis and treatments explained. To call sooner prior to next visit it any questions/concerns arise. 10/03/2024 Weight loss counseling, encounter for (ICD-10 - Z71.3) #Obesity. 10/03/24: 152.9 pounds, BMI 26.2. She has done well on Zepbound and is very close to her goal. We are working on maintenance and increasing muscle mass. Again reviewed importance of protein intake and regular exercise including resistance training. She will add protein shake daily. Can start spacing out her dosing to every 10 days. Will monitor closely and follow-up in 1 month. Consider tapering down dose at next visit. #Hypertension. Blood pressure has been controlled on Lisinopril. Followed by PCP. #Hyperlipidemia. Followed by PCP. The patient will continue exercise regimen with an emphasis on improving/increasin g steps to at least 6,000-10,000 steps per day. Increasing cardio and strength training exercises as tolerated to improve weight loss and work on building muscle mass. Patient is committed to smarter eating with calorie counting and mindful eating. Limiting processed foods and carbohydrates and increasing leafy greens and lean proteins as well as fruits into their diet. Patient was counseled on the importance of eating local, organic food when possible. Patient has been counseled regarding effects of GLP/GIP-1 agonists and other FDA approved weight loss medications with regards to a multifactorial approach of weight loss as mentioned above and that the medication alone will not be sufficient to meet patients goals. We discussed holistic medication approach with emphasis on lifestyle modification. Discussed obesity as it increases risk of diabetes, cardiovascular disease, and/or organ damage. We spent a lot of time discussing the relationship between food, exercise, sleep, mental health, and obesity. We discussed the importance of having SECAs done every visit and having accountability done during these visits. That the scale is done to monitor not only weight loss but the body composition during medication management and healthy lifestyle changes. We discussed that if the patient is unable at times to financially afford this scale that we would rather waive the fee and have the scale done than have the patient not have the scale obtained. Will follow up with the patient in 4 weeks time to monitor weight loss. Total time was 30 min, greater than 50 % of time was spent on care coordination Case discussed with collaborating physician Ranjana Allen who reviewed the assessment and plan. Chart, medications, labs, vital signs reviewed. Dictation was accomplished with the use of [employer] voice recognition software, prone to medical misidentifications and grammatical errors. This is unintentional and the practitioner does try to identify and correct these, but some could still be present. Please do not hesitate to contact practitioner for clarification. All questions answered to patients satisfaction. Patient verbalized understanding of diagnosis and treatments explained. To call sooner prior to next visit it any questions/concerns arise. 01/07/2025 Weight loss counseling, encounter for (ICD-10 - Z71.3) #Obesity. 01/07/25: 152.4, BMI 26.2. She is doing fantastic on Zepbound 10 mg. Weight is up 1 pound however fat mass down 6 and half pounds and muscle mass up 2 pounds. Continue increased protein intake and regular exercise including resistance training. Follow-up again in 1 month sooner as needed. #Hypertension. Blood pressure has been controlled on Lisinopril. Followed by PCP. #Hyperlipidemia. Followed by PCP. The patient will continue exercise regimen with an emphasis on improving/increasin g steps to at least 6,000-10,000 steps per day. Increasing cardio and strength training exercises as tolerated to improve weight loss and work on building muscle mass. Patient is committed to smarter eating with calorie counting and mindful eating. Limiting processed foods and carbohydrates and increasing leafy greens and lean proteins as well as fruits into their diet. Patient was counseled on the importance of eating local, organic food when possible. Patient has been counseled regarding effects of GLP/GIP-1 agonists and other FDA approved weight loss medications with regards to a multifactorial approach of weight loss as mentioned above and that the medication alone will not be sufficient to meet patients goals. We discussed holistic medication approach with emphasis on lifestyle modification. Discussed obesity as it increases risk of diabetes, cardiovascular disease, and/or organ damage. We spent a lot of time discussing the relationship between food, exercise, sleep, mental health, and obesity. We discussed the importance of having SECAs done every visit and having accountability done during these visits. That the scale is done to monitor not only weight loss but the body composition during medication management and healthy lifestyle changes. We discussed that if the patient is unable at times to financially afford this scale that we would rather waive the fee and have the scale done than have the patient not have the scale obtained. Will follow up with the patient in 4 weeks time to monitor weight loss. Total time was 30 min, greater than 50 % of time was spent on care coordination Case discussed with collaborating physician Michelle Allen who reviewed the assessment and plan. Chart, medications, labs, vital signs reviewed. Dictation was accomplished with the use of [employer] voice recognition software, prone to medical misidentifications and grammatical errors. This is unintentional and the practitioner does try to identify and correct these, but some could still be present. Please do not hesitate to contact practitioner for clarification. All questions answered to patients satisfaction. Patient verbalized understanding of diagnosis and treatments explained. To call sooner prior to next visit it any questions/concerns arise. 04/23/2024 Weight loss counseling, encounter for (ICD-10 - Z71.3) #Obesity. 09/28/23: 208.78 pounds, BMI 34.7. S 10/19/23: 211 lbs, BMI 35.1 11/30/23: 200.1 lbs, BMI 33.3 02/21/24: 178.5, BMI 29.7 She is doing fantastic on Zepbound 5 mg. Will increase to 7.5 mg weekly on next fill. 03/20/24: 172.8 pounds, BMI 28.8. She has done well on Zepbound 7.5 mg. 04/23/24: 167.2 pounds, BMI 27.8. She is doing well on Zepbound 7.5 mg however has noticed increased appetite. She is down 44 pounds overall since starting with us. Will increase to 10 mg of Zepbound this month. Discussed importance of protein intake hydration and consistent exercise. Will follow-up again in 4 weeks with repeat Seca scale at that time. Follow-up sooner with any concerns. #Muscle cramps- resolved. #Hypertension. Blood pressure has been controlled on medication. Followed by PCP. #Hyperlipidemia. Followed by PCP. The patient will continue exercise regimen with an emphasis on improving/increasin g steps to at least 6,000-10,000 steps per day. Increasing cardio and strength training exercises as tolerated to improve weight loss and work on building muscle mass. Patient is committed to smarter eating with calorie counting and mindful eating. Limiting processed foods and carbohydrates and increasing leafy greens and lean proteins as well as fruits into their diet. Patient was counseled on the importance of eating local, organic food when possible. Patient has been counseled regarding effects of GLP/GIP-1 agonists and other FDA approved weight loss medications with regards to a multifactorial approach of weight loss as mentioned above and that the medication alone will not be sufficient to meet patients goals. We discussed holistic medication approach with emphasis on lifestyle modification. Discussed obesity as it increases risk of diabetes, cardiovascular disease, and/or organ damage. We spent a lot of time discussing the relationship between food, exercise, sleep, mental health, and obesity. We discussed the importance of having SECAs done every visit and having accountability done during these visits. That the scale is done to monitor not only weight loss but the body composition during medication management and healthy lifestyle changes. We discussed that if the patient is unable at times to financially afford this scale that we would rather waive the fee and have the scale done than have the patient not have the scale obtained. Will follow up with the patient in 4 weeks time to monitor weight loss. Total time was 30 min, greater than 50 % of time was spent on care coordination Case discussed with collaborating physician Michelle Allen who reviewed the assessment and plan. Chart, medications, labs, vital signs reviewed. Dictation was accomplished with the use of [employer] voice recognition software, prone to medical misidentifications and grammatical errors. This is unintentional and the practitioner does try to identify and correct these, but some could still be present. Please do not hesitate to contact practitioner for clarification. All questions answered to patients satisfaction. Patient verbalized understanding of diagnosis and treatments explained. To call sooner prior to next visit it any questions/concerns arise. 03/20/2024 Weight loss counseling, encounter for (ICD-10 - Z71.3) #Obesity. 09/28/23: 208.78 pounds, BMI 34.7. S 10/19/23: 211 lbs, BMI 35.1 11/30/23: 200.1 lbs, BMI 33.3 02/21/24: 178.5, BMI 29.7 She is doing fantastic on Zepbound 5 mg. Denies any side effects. She is down an additional 14 pounds since her last visit and 30 pounds overall. She has noticed increased appetite and food noise and is requesting increase in dose. Will increase to 7.5 mg weekly on next fill. Discussed importance of protein intake, hydration and regular exercise. Follow-up in 4 weeks sooner with any concerns. 03/20/24: 172.8 pounds, BMI 28.8. She has done well on Zepbound 7.5 mg. However she has had intermittent muscle cramping, fatigue vomiting and diarrhea x 3 episodes. No symptoms in the past 2 weeks. Will get updated labs and follow-up pending results. She believes she was overdoing it on electrolytes and has cut back on intake. Continue to work on protein intake and regular exercise. Follow-up 4 weeks sooner with any concerns. #Muscle cramps- intermittent. check updated labs. F/u pending results. #Hypertension. Blood pressure has been controlled on medication. Followed by PCP. #Hyperlipidemia. Followed by PCP. The patient will continue exercise regimen with an emphasis on improving/increasin g steps to at least 6,000-10,000 steps per day. Increasing cardio and strength training exercises as tolerated to improve weight loss and work on building muscle mass. Patient is committed to smarter eating with calorie counting and mindful eating. Limiting processed foods and carbohydrates and increasing leafy greens and lean proteins as well as fruits into their diet. Patient was counseled on the importance of eating local, organic food when possible. Patient has been counseled regarding effects of GLP/GIP-1 agonists and other FDA approved weight loss medications with regards to a multifactorial approach of weight loss as mentioned above and that the medication alone will not be sufficient to meet patients goals. We discussed holistic medication approach with emphasis on lifestyle modification. Discussed obesity as it increases risk of diabetes, cardiovascular disease, and/or organ damage. We spent a lot of time discussing the relationship between food, exercise, sleep, mental health, and obesity. We discussed the importance of having SECAs done every visit and having accountability done during these visits. That the scale is done to monitor not only weight loss but the body composition during medication management and healthy lifestyle changes. We discussed that if the patient is unable at times to financially afford this scale that we would rather waive the fee and have the scale done than have the patient not have the scale obtained. Will follow up with the patient in 4 weeks time to monitor weight loss. Total time was 30 min, greater than 50 % of time was spent on care coordination Case discussed with collaborating physician Michelle Allen who reviewed the assessment and plan. Chart, medications, labs, vital signs reviewed. Dictation was accomplished with the use of [employer] voice recognition software, prone to medical misidentifications and grammatical errors. This is unintentional and the practitioner does try to identify and correct these, but some could still be present. Please do not hesitate to contact practitioner for clarification. All questions answered to patients satisfaction. Patient verbalized understanding of diagnosis and treatments explained. To call sooner prior to next visit it any questions/concerns arise. Plan Of Treatment Pending Test Test Name Order Date 25OH VITAMIN D 09/28/2023 COMPREHENSIVE METABOLIC PANEL 03/20/2024 HEMOGLOBIN A1C 09/28/2023 INSULIN 09/28/2023 MAGNESIUM 03/20/2024 TSH 03/20/2024 VITAMIN B12 03/20/2024 VITAMIN B12 09/28/2023 VITAMIN D, 1,25 DIHYDROXY LC/MS/MS 11/29 Next Appt Details Provider Name:Paige Desir, 0 02/11/2025 08:45:00 AM, [address], [id number], Provider Name:Paige Desir, 0 03/13/2025 09:45:00 AM, [address], [id number], Insurance Providers Payer Name Payer Address Payer Phone Subscriber Number Group Number Insured Name Patient Relationship to Insured Coverage Start Date Coverage End Date [facility] [employer] [facility] [employer] [address] [place] [address] [id number] Anjali Holland Self - patient is the insured Medical (General) History Medical History History ICD Code hypertension hypercholesterolemia Arthritis asthma depression Surgical History Surgery Date(Month/Year) hysterectomy anal cancer surgery x3 knee surgery hand surgery
--- OUTSIDE RECORDS SUMMARY | 2025-01-28 11:40 | XMS_ITS | Clinical Summary ---
Author Organization [facility] Address [address] [place] [address] Care Team Providers Care [employer] Name Role Phone Carleen López MD Primary Care Provider + [phone] Allergies Active Allergy Reactions Criticality Noted Date Comments Diclofenac Unknown/Patient and Family Unable to Define Medium 06/27/2022 Other reaction(s): kidney failure Meloxicam Unknown/Patient and Family Unable to Define Medium 06/27/2022 Other reaction(s): elevated liver enzyme Medications buPROPion (WELLBUTRIN SR) 150 MG 12 hr tablet 1 tablet by Mouth/Oral Cavity route every 12 hours. 09/19/2024 Active DULoxetine (CYMBALTA) 30 MG capsule 1 capsule by Mouth/Oral Cavity route every 12 hours. 09/19/2024 Active gabapentin (NEURONTIN) 300 MG capsule 09/23/2024 Active lisinopril (PRINIVIL,ZeSTR IL) 20 MG tablet Take 20 mg by mouth. 09/19/2024 Active nortriptyline (PAMELOR) 10 MG capsule take two tablets by mouth once a day 09/19/2024 Active PANTOprazole (PROTONIX) 20 MG tablet 1 tablet by Mouth/Oral Cavity route every 12 hours. 08/20/2024 Active Zepbound 10 MG/0.5ML pen-injector inject 0.5ml under the skin once a week 09/07/2024 Active ipratropium (ATROVENT) 0.06 % nasal sprayIndication s:Chronic rhinitis 2 sprays into each nostril 3 times a day. 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 Neck pain 02/15/2021 Family History Medical History Relation Name Comments Thyroid disease Maternal Aunt Cancer Maternal Grandmother Cancer Mother Relation Name Status Comments Maternal Aunt Maternal Grandmother Mother Social History Tobacco Use Types Packs/Day Years Used Date Smoking Tobacco: Never Passive Smoke Exposure: Never Smokeless Tobacco: Never Tobacco Cessation:Counseling Given: Not Answered Alcohol Use Standard Drinks/Week Comments Yes 0 (1 standard drink = 0.6 oz pur e alcohol) Comments Unknown Sex and Gender Information Value Date Recorded Sex Assigned at Not on file Legal Sex Female 5:50 PM EDT Gender Identity Not on file Sexual Orientation Not on file Last Filed Vital Signs Vital Sign Reading Time Taken Comments Blood Pressure - - Pulse - - Temperature - - Respiratory Rate - - Oxygen Saturation - - Inhaled Oxygen Concentration - - Weight 68 kg (150 lb) 09/26/2024 10:57 AM EST Height 165.1 cm (5' 5 ) 09/26/2024 10:57 AM EST Body Mass Index 24.96 09/26/2024 10:57 AM EST Plan of Treatment Health Maintenance Due Date Last Done Comments Hepatitis C Virus Screening 1965 HIV Screening 11/15/1976 DTaP/Tdap/Td Vaccines (1 - Tdap) 11/15/1982 Pap Smear (Ages 21-65) 11/15/1984 Mammogram 2003 Colonoscopy 11/15/2008 Pneumococcal Vaccines 50+ (1 of 1 - PCV) 11/15/2013 Zoster (Shingles) Vaccine (1 of 2) 11/15/2013 COVID-19 Vaccine ( - 2023-2 5 season) 2024 Influenza Vaccine 02/21/2025 RSV Vaccine 60 years and old er and Patients (1 - 1-dose 75+ series) 11/15/2038 Hepatitis B Vaccines Aged Out No long er eligible based on patient's age to complete this topic Insurance BLUE [employer] OUT OF STATE - PPO Care Teams [employer] Relationship Specialty Start Date End Date Carleen López MD [facility] [place]ANE [place] [phone] PCP - General Internal Medicine 09/26/24
== END 2025-01-28 11:19 | disposition home or self-care (01) ==
LOC: HO.RHES 10:40
PROVIDERS: Visit Provider Internal Medicine Rheumatology
DX: M02.39 Reiter's disease, multiple sites (principal); M17.11 Unilateral primary osteoarthritis, right knee
CPT/HCPCS: 20610; 99213

== ENCOUNTER → 2025-01-28 10:40 | Outpatient (BNVA) | payer BC, SELFPAY | PROVIDERS: Visit Provider Internal Medicine Rheumatology | DX: M17.11 Unilateral primary osteoarthritis, right knee (principal) | CPT/HCPCS: 20610; J2003; J3300 ==

== ENCOUNTER 2025-02-04 08:38 | Outpatient (AMB) | payer BC, SELFPAY ==
--- OUTSIDE RECORDS SUMMARY | 2025-02-04 08:45 | XMS_ITS | Data Portability ---
Author Organization [place] [facility] Adamaris Silverio AONE [place] Address [address] [place] [address] Care Team Providers Care Software Sales Executive Name Role Phone ANT BOYLE Referring Provider [phone] Assessment Encounter Date Assessment Date Assessment LastModified [...] physical examination, tests/diagnostic imaging, and treatment plan [email or web address] Not available 02/29/2024 11:55:06 04/18/2024 04/18/2024 She [...] or more view 2024 025 [facility], [address], [place], [address], 07/25/2024 17:15:47 XR, foot, 3 or more view 2023 024 [facility], [address], [place], [address], 04/18/2024 16:34:50 XR, foot, 3 or more view 2023 [email or web address] [facility], [address], [place], [address], 02/29/2024 12:15:08 Medication Orders lidocaine (PF) 10 mg/mL (1 %) injection solution 2023 024 [email or web address] [facility], [address] [place] [address], [address], 07/25/2024 09:47:27 [email or web address] lone acetonide 40 mg/mL suspensio n for injection 2023 024 [email or web address] [facility], [address] [place] [address], [address], 07/25/2024 09:47:49 lidocaine (PF) 10 mg/mL (1 %) injection solution 2023 024 [email or web address] Not available 07/25/2024 09:47:27 [email or web address] lone acetonide 40 mg/mL suspensio n for injection 2023 024 Not available 07/25/2024 09:47:49 Patient TargetsNo targets recorded. Patient Instructions Encounter Date Encounter Id Patient Instructions Last Modified By Organization Details Last Modified Time 02/29/2024 [id number] Weightbearing x-rays of the left foot were obtained in the [place] office on 02/29/24 demonstrates hallux valgus correction with first metatarsal osteotomy and proximal phalanx osteotomy. There is callus appreciated at the first metatarsal osteotomy [email or web address] Not available 02/29/2024 11:55:32 04/18/2024 [id number] Weightbearing x-rays of the left foot were obtained on 04/18/24 demonstrating excellent correction of her hallux valgus deformity with hardware in her first metatarsal and proximal phalanx. Not available 04/21/2024 13:26:52 05/24/2024 [id number] You have been provided with a cortisone [...] [email or web address] Not available 05/24/2024 12:53:31 07/25/2024 [id number] 3 views of the left foot obtained weightbearing on 07/25/2024 demonstrate a healed first metatarsal and proximal phalanx osteotomy with a well corrected hallux valgus deformity. Not available 07/27/2024 17:53:18 Reason for Referral None Reported. Problems Name Problem SNOMED Code Status Onset Date Resolution Date Notes Provider Name and Address Organization Details Recorded Time Acquired trigger finger of left middle finger 7173579431286 02 Active [address], [place], [address], [place] [facility] 11:54:23 Neck pain 08862906 Active [address], [place], [address], [place] [facility] 4 10:01:50 Ganglion cyst of tendon sheath of left hand 2543415512879 105 Active [address], [place], [address], [place] [facility] 3 10:01:23 Osteoarthri tis of wrist 912698506 Active [address], [place], [address], [place] [facility] 3 10:01:32 Acquired left hallux valgus 4915920148575 03 Active 2022 Nicolette Michelle MD [address], [place], [address], [place] [facility] 3 07:49:37 Tailor's bunion of left foot 3155844579078 100 Active [address], [place], [address], [place] [facility] 3 07:49:42 Ganglion of flexor tendon sheath of finger 518457296 Active [address], [place], [address], [place] [facility] 4 12:53:19 Problem Notes None recorded. Procedures Surgical History Date Name Laterality Status Provider Name and Address Organization Details Recorded Time 05/24/20 24 LES trigger finger/De Quervain's injection completed MD [address]o [address], [place], [address], [place] [facility] 05/24/2024 12:50:57 05/24/20 24 LES ganglion cyst injection completed MD [address], [place], [address], [place] [facility] 05/24/2024 12:53:02 01/19/20 24 ORTHOPAEDIC SURGERY (SURG) completed Yamilet Singh [place] [facility] 01/22/2024 09:18:37 01/03/20 24 AONE tendon sheath cortisone injection completed Pavan Santana MD [address], [place], [address], [facility] 01/03/2024 12:01:17 04/05/20 23 AONE tendon sheath cortisone injection completed Pavan Santana MD [address], [place], [address], [facility] 04/05/2023 12:16:48 procedure on wrist completed Nael Sooligan [facility] 2022 09:37:28 Imaging Results None recorded. Procedure Notes None recorded. Medical Equipment None Reported. Allergies Allergen ID Allergen Name Allergen Category Reaction Reaction Severity Criticality Documentation Date Start Date Code Code System Note Provider Name and Address Organization Details Recorded Time 3054 diclofena c Not available Not available Not available Not available 2022 3355 RxNorm Nael Wheat null, [facility] 09:35:31 Medications Name Sig Start Date [...] PRODUCT LABEL. FOLLOW INSTRUCTI ONS GIVEN BY [facility] FOR WHEN TO START. TAKE 8OZ BY [...] Updated DateTime 07/25/2024 167.64 cm 32.3 kg/m2 60042.[address] [place] [facility] 07/25/2024 09:48:08 Date Recorded Body height Body mass index (BMI) Body weight Provider Name and Address Organization Details Last Updated DateTime 02/06/2024 167.64 cm 32.3 kg/m2 52578.47 g Matilde Perlaersen [place] [facility] 02/06/2024 14:04:06 Date Recorded Body height Body mass index (BMI) Body weight Provider Name and Address Organization Details Last Updated DateTime 04/18/2024 167.64 cm 32.3 kg/m2 58535.[address] [place] [facility] 04/18/2024 14:59:13 Date Recorded Body height Body mass index (BMI) Body weight Provider Name and Address Organization Details Last Updated DateTime 04/26/2024 167.64 cm 32.3 kg/m2 81384.[address] [place] [facility] 04/26/2024 09:33:52 Date Recorded Body height Body mass index (BMI) Body weight Provider Name and Address Organization Details Last Updated DateTime 05/24/2024 167.64 cm 32.3 kg/m2 60302.47 g Justyna Cali [place] [facility] 05/24/2024 08:32:40 Social History None recorded. [...] Blood Transfusion N Emphysema N Hypothyroidism N COPD N Depression N Pacemaker N Vascular Disease N Gastrointestinal Disease N Anxiety Disorder N Autoimmune disease N Arthritis N Cancer N Stroke N High Cholesterol N Neurologic Disorder N Liver Disease N Organ Transplant N Arrhythmia N Rheumatoid Arthritis N Fibromyalgia N Kidney Disease N Allergies/Hayfever N Adverse Reaction to Anesthesia N Thyroid Problems N Anemia N Brain Injury N Heart Attack ([place]) N Osteopenia N Diabetes N Bleeding Disorder [...] Code Diagnosis Note [id number] Rohan Dewey MD [place] [address] 11/14/2022 11:34:57 11/14/2022 12:37:55 History of lumbar fusion 2041781992 9106 Z98.1 Pressure i njury of buttock 474844316 L89.309 Ischial bursitis/W eaver's bottom 7046 Pavan Santana MD [address] [address] 2022 09:28:07 2022 10:02:58 Pain of left wrist 7919237493 14899 M25.532 Ganglion c yst of tendon sheath of left hand 3155493139 901515 M67.442 Osteoarthr itis of wrist 828711574 M19.039 8286 Nicolette Michelle MD [address] [address] 11/24/2022 09:56:15 11/24/2022 10:27:30 Pain in left foot 1349975886 37012 M79.672 Acquired l eft hallux valgus 0623568137 25258 M20.12 Tailor's b union of left foot 6209776130 839377 M21.622 Orthopedic hardware in situ 776793993 Z97.8 [id number] Pavan Santana MD [address] [address] 04/05/2023 11:30:08 04/05/2023 12:00:47 Acquired trigger finger of left middle finger 6159216390 54334 M65.332 Ganglion c yst of tendon sheath of left hand 2612626668 355176 M67.442 [id number] Pavan Santana MD [address] [address] 05/03/2023 09:11:24 05/03/2023 09:23:00 Acquired trigger finger of left middle finger 7704723940 43541 M65.332 Ganglion c yst of tendon sheath of left hand 0290095091 004757 M67.442 [id number] Rohan Dewey MD [address] [address] 08/07/2023 09:10:05 08/07/2023 10:05:59 Neck pain 69721982 M54.2 Low back pain 849684924 M54.50 Pain in pelvis 86551429 R10.2 History of cervical spine fusion 1845603999 101 Z98.1 History of lumbar fusion 3371442794 9106 Z98.1 [id number] RAÚL KENNEDY PA-C [address] [address] 09/11/2023 13:14:07 09/11/2023 14:13:06 Neck pain 62173852 M54.2 History of cervical spine fusion 1845854709 101 Z98.1 History of lumbar fusion 4472975734 9106 Z98.1 [id number] Nicolette Michelle MD [address] [address] 12/07/2023 11:33:01 12/07/2023 12:19:28 Acquired left hallux valgus 1767047544 89994 M20.12 Orthopedic hardware in situ 565999276 Z97.8 Pain in right foot 11336 74321 58210 M79.671 12438 Pavan Santana MD [address] [address] 01/03/2024 11:12:04 01/03/2024 11:35:21 Triggering of digit 581977555 M65.332 Additional diagnosis detail: Trigger finger, left middle finger Acquired t cafeteria aide finger of left middle finger 3233989125 70319 M65.332 Ganglion c yst of tendon sheath of left hand 4763318273 901687 M67.442 Long finger [id number] HEIKE MCLEOD PA-C [place] [address] 02/01/2024 16:08:00 02/01/2024 16:45:08 Acquired left hallux valgus 4844596210 52805 M20.12 Orthopedic hardware in situ 881387072 Z97.8 [id number] [facility] [address] [place], [place] [address] [address] [place] [address] 9 02/06/2024 13:46:52 02/06/2024 14:36:04 Acquired left hallux valgus 9981355944 20938 M20.12 [id number] HEIKE MCLEOD PA-C [place] [address] 02/29/2024 11:30:04 02/29/2024 11:56:30 Acquired left hallux valgus 4107595171 04137 M20.12 Orthopedic hardware in situ 377581775 Z97.8 [id number] Nicolette Michelle MD [place] [address] 04/18/2024 14:53:17 04/18/2024 15:18:20 Acquired left hallux valgus 3607132513 80100 M20.12 Orthopedic hardware in situ 510123414 Z97.8 [id number] Olamide Joseph MD [place] [address] 05/24/2024 08:28:47 05/24/2024 09:08:23 Triggering of digit 545992608 M65.332 Ganglion o f flexor tendon sheath of finger 597435730 M67.442 32521 Nicolette Michelle MD [place] [address] 07/25/2024 09:37:19 07/25/2024 10:37:36 Acquired left hallux valgus 9276549099 58668 M20.12 Orthopedic hardware in situ 857977679 Z97.8 Health Concerns Section Related Observation LastModified by Organization Detai ls LastModified Time None Recorded Concern Status LastModified by Organization Details LastModified Time None Recorded Advance Directives Directive None Recorded Payers Insurance Date Sequence Insurance Name Policy Number Policy Yeager Covered Member ID Yeager Member ID Guarantor Name 02/04/2025 1 [place] [id number] Jose Manuel Riddle [id number] [address] train Notes Date Note [...] her right foot, she recently saw a product support technician who told her that she did not [...] Nicolette Michelle MD [address], [place], [address], [place] [facility] 03/03/2024 10:04:59 04/18/2024 text/html Date of [...] her right foot, she recently saw a product support technician who told her that she did not [...] Nicolette Michelle MD [address], [place], [address], [place] [facility] 04/21/2024 13:27:11 05/24/2024 text/html This is a 58-year-old uhvci-xrgl-exwyywhd female who is presenting with left middle [...] Olamide Joseph MD [address], [place], [address], [place] [facility] 05/24/2024 12:56:03 07/25/2024 text/html Date of [...] her right foot, she recently saw a product support technician who told her that she did not [...] Nicolette Michelle MD [address], [place], [address], [place] [facility] 07/27/2024 17:54:03 OBGyn Episode No OBEpisode recorded.
--- OUTSIDE RECORDS SUMMARY | 2025-02-04 08:46 | XMS_ITS | Patient Health Record ---
[facility] Organization [facility] [address] Address [address] [place] [address] Care Team Providers Care Special Education Associate Name Role Phone Paige Desir Unavailable [phone] Allergies Allergen (clinical drug ingredient) Drug/Non Drug [...] Lab: Notes/Report: MAGNESIUM 2.3 1.9-2.6 mg/dL Note [employer], a member of [address] [address] Supervisor Microfilm Duplicating Unit - Dayanara Cash MD TSH Reviewed date:03/27/2024 01:09:40 PM Interpretation: Performing Lab: Notes/Report: Supervisor [employer] Duplicating Unit - Dayanara Cash MD [address] [place] [address] [employer], a member of [facility] TSH 1.58 0.40-4.00 uIU/ml VITAMIN B12 Reviewed [...] W/U Status Risk Notes Problem Essential hypertension (64357816) Essential hypertension (I10) Active confirmed Problem Pure hypercholesterolemia (823930681) Pure hypercholesterolemia (E78.00) Active confirmed Problem Vitamin D deficiency (36963978) Vitamin D deficiency (E55.9) Active confirmed Problem Obesity (396642052) Obesity (BMI 30-39.9) (E66.9) Active confirmed Problem Obese class II (528894404453497) BMI 35.0-35.9,adult (Z68.35) Active confirmed Problem Obese class I (930419014741199) BMI 33.0-33.9,adult (Z68.33) Active confirmed Problem BMI 30+ - obesity (467172258) BMI 32.0-32.9,adult (Z68.32) Active confirmed Problem BMI 25-29 - overweight (790927638) BMI 27.0-27.9,adult (Z68.27) Active confirmed Problem Body mass index 30.0 0 to 34.99 (281611733776481) BMI 34.0-34.9,adult (Z68.34) Active confirmed Problem Overweight (925662322) Overweight (BMI 25.0-29.9) (E66.3) Active confirmed Problem History of gastric bypass (952397449) History of gastric bypass (Z98.84) Active confirmed Vital Signs Heart Rate 86 /min 01/07/2025 Oximetry 97 % 01/07/2025 Blood pressure diastolic 70 mm Hg 01/07/2025 Height 64 in 01/07/2025 Blood pressure systolic 112 mm Hg 01/07/2025 Weight 152.5 lbs 01/07/2025 BMI 26.17 kg/m2 01/07/2025 Encounters Encounter Location Date Provider Diagnosis [facility] [address] [address] 02/21/2024 Paige Svrcek Overweight (BMI 25.0 -29.9) E66.3 ; BMI 29.0-29.9,adult Z68.29 ; Essential hypertension I10 ; Pure hypercholesterolemia E78.00 ; History of gastric bypass Z98.84 and Weight loss counseling, encounter for Z71.3 [facility] [address] [address] 03/20/2024 Paige Svrcek Overweight (BMI 25.0 -29.9) E66.3 ; BMI 28.0-28.9,adult Z68.28 ; Muscle cramps R25.2 ; Essential hypertension I10 ; Pure hypercholesterolemia E78.00 ; History of gastric bypass Z98.84 and Weight loss counseling, encounter for Z71.3 [facility] [address] 04/23/2024 Paige Svrcek Overweight (BMI 25.0 -29.9) E66.3 ; BMI 27.0-27.9,adult Z68.27 ; Muscle cramps R25.2 ; Essential hypertension I10 ; Pure hypercholesterolemia E78.00 ; History of gastric bypass Z98.84 and Weight loss counseling, encounter for Z71.3 [facility] [address] 05/28/2024 Paige Svrcek BMI 27.0-27.9,adult Z68.27 ; Overweight (BMI 25.0-29.9) E66.3 ; Essential hypertension I10 ; Pure hypercholesterolemia E78.00 ; History of gastric bypass Z98.84 and Weight loss counseling, encounter for Z71.3 [facility] [address] 06/25/2024 Paige Svrcek BMI 27.0-27.9,adult Z68.27 ; Overweight (BMI 25.0-29.9) E66.3 ; Essential hypertension I10 ; Pure hypercholesterolemia E78.00 ; History of gastric bypass Z98.84 and Weight loss counseling, encounter for Z71.3 [facility] [address] 08/06/2024 Paige Svrcek BMI 27.0-27.9,adult Z68.27 ; Overweight (BMI 25.0-29.9) E66.3 ; Essential hypertension I10 ; Pure hypercholesterolemia E78.00 ; History of gastric bypass Z98.84 and Weight loss counseling, encounter for Z71.3 [facility] [address] 09/05/2024 Paige Svrcek Overweight (BMI 25.0 -29.9) E66.3 ; BMI 26.0-26.9,adult Z68.26 ; Essential hypertension I10 ; Pure hypercholesterolemia E78.00 ; History of gastric bypass Z98.84 and Weight loss counseling, encounter for Z71.3 [facility] [address] [address] 10/03/2024 Paige Svrcek Overweight (BMI 25.0 -29.9) E66.3 ; BMI 26.0-26.9,adult Z68.26 ; Essential hypertension I10 ; Pure hypercholesterolemia E78.00 ; History of gastric bypass Z98.84 and Weight loss counseling, encounter for Z71.3 [facility] [address] [address] 10/31/2024 Paige Svrcek Overweight (BMI 25.0 -29.9) E66.3 ; BMI 27.0-27.9,adult Z68.27 ; Essential hypertension I10 ; Pure hypercholesterolemia E78.00 ; History of gastric bypass Z98.84 and Weight loss counseling, encounter for Z71.3 [facility] [address] 12/05/2024 Paige Svrcek Overweight (BMI 25.0 -29.9) E66.3 ; BMI 25.0-25.9,adult Z68.25 ; Essential hypertension I10 ; Pure hypercholesterolemia E78.00 ; History of gastric bypass Z98.84 and Weight loss counseling, encounter for Z71.3 [facility] [address] 01/07/2025 Paige Svrcek Overweight (BMI 25.0 -29.9) E66.3 ; BMI 26.0-26.9,adult Z68.26 ; Essential hypertension I10 ; Pure hypercholesterolemia E78.00 ; History of gastric bypass Z98.84 and Weight loss counseling, encounter for Z71.[address] [facility] [address] [place] [address] 03/26/2024 Paige Svrcek [facility] [address] [address] 09/05/2024 Paige Svrcek [facility] [address] 12/05/2024 Paige Svrcek Assessments Encounter Date [...] Dictation was accomplished with the use of [email or web address] voice recognition software, prone to medical misidentifications [...] Dictation was accomplished with the use of [email or web address] voice recognition software, prone to medical misidentifications [...] Dictation was accomplished with the use of [email or web address] voice recognition software, prone to medical misidentifications [...] Dictation was accomplished with the use of [email or web address] voice recognition software, prone to medical misidentifications [...] Dictation was accomplished with the use of [email or web address] voice recognition software, prone to medical misidentifications [...] Dictation was accomplished with the use of [email or web address] voice recognition software, prone to medical misidentifications [...] Dictation was accomplished with the use of [email or web address] voice recognition software, prone to medical misidentifications [...] Dictation was accomplished with the use of [email or web address] voice recognition software, prone to medical misidentifications [...] Dictation was accomplished with the use of [email or web address] voice recognition software, prone to medical misidentifications [...] Dictation was accomplished with the use of [email or web address] voice recognition software, prone to medical misidentifications [...] Dictation was accomplished with the use of [email or web address] voice recognition software, prone to medical misidentifications [...] Dictation was accomplished with the use of [email or web address] voice recognition software, prone to medical misidentifications [...] Dictation was accomplished with the use of [email or web address] voice recognition software, prone to medical misidentifications [...] Dictation was accomplished with the use of [email or web address] voice recognition software, prone to medical misidentifications [...] Dictation was accomplished with the use of [email or web address] voice recognition software, prone to medical misidentifications [...] Dictation was accomplished with the use of [email or web address] voice recognition software, prone to medical misidentifications [...] Dictation was accomplished with the use of [email or web address] voice recognition software, prone to medical misidentifications [...] Dictation was accomplished with the use of [email or web address] voice recognition software, prone to medical misidentifications [...] Dictation was accomplished with the use of [email or web address] voice recognition software, prone to medical misidentifications [...] Dictation was accomplished with the use of [email or web address] voice recognition software, prone to medical misidentifications [...] Dictation was accomplished with the use of [email or web address] voice recognition software, prone to medical misidentifications [...] Dictation was accomplished with the use of [email or web address] voice recognition software, prone to medical misidentifications [...] Dictation was accomplished with the use of [email or web address] voice recognition software, prone to medical misidentifications [...] Dictation was accomplished with the use of [email or web address] voice recognition software, prone to medical misidentifications [...] Dictation was accomplished with the use of [email or web address] voice recognition software, prone to medical misidentifications [...] Dictation was accomplished with the use of [email or web address] voice recognition software, prone to medical misidentifications [...] Dictation was accomplished with the use of [email or web address] voice recognition software, prone to medical misidentifications [...] Dictation was accomplished with the use of [email or web address] voice recognition software, prone to medical misidentifications [...] Dictation was accomplished with the use of [email or web address] voice recognition software, prone to medical misidentifications [...] Dictation was accomplished with the use of [email or web address] voice recognition software, prone to medical misidentifications [...] Dictation was accomplished with the use of [email or web address] voice recognition software, prone to medical misidentifications [...] Dictation was accomplished with the use of [email or web address] voice recognition software, prone to medical misidentifications [...] Dictation was accomplished with the use of [email or web address] voice recognition software, prone to medical misidentifications [...] Dictation was accomplished with the use of [email or web address] voice recognition software, prone to medical misidentifications [...] Dictation was accomplished with the use of [email or web address] voice recognition software, prone to medical misidentifications [...] Dictation was accomplished with the use of [employer] voice recognition software, prone to medical misidentifications [...] Dictation was accomplished with the use of [employer] voice recognition software, prone to medical misidentifications [...] Dictation was accomplished with the use of [employer] voice recognition software, prone to medical misidentifications [...] Dictation was accomplished with the use of [employer] voice recognition software, prone to medical misidentifications [...] Dictation was accomplished with the use of [employer] voice recognition software, prone to medical misidentifications [...] Dictation was accomplished with the use of [employer] voice recognition software, prone to medical misidentifications [...] Dictation was accomplished with the use of [employer] voice recognition software, prone to medical misidentifications [...] Dictation was accomplished with the use of [email or web address] voice recognition software, prone to medical misidentifications [...] Dictation was accomplished with the use of [employer] voice recognition software, prone to medical misidentifications [...] Dictation was accomplished with the use of [employer] voice recognition software, prone to medical misidentifications [...] Dictation was accomplished with the use of [employer] voice recognition software, prone to medical misidentifications [...] Dictation was accomplished with the use of [employer] voice recognition software, prone to medical misidentifications [...] Dictation was accomplished with the use of [employer] voice recognition software, prone to medical misidentifications [...] Dictation was accomplished with the use of [employer] voice recognition software, prone to medical misidentifications [...] Dictation was accomplished with the use of [employer] voice recognition software, prone to medical misidentifications [...] Dictation was accomplished with the use of [employer] voice recognition software, prone to medical misidentifications [...] Dictation was accomplished with the use of [employer] voice recognition software, prone to medical misidentifications [...] Dictation was accomplished with the use of [employer] voice recognition software, prone to medical misidentifications [...] Dictation was accomplished with the use of [employer] voice recognition software, prone to medical misidentifications [...] Dictation was accomplished with the use of [employer] voice recognition software, prone to medical misidentifications [...] Dictation was accomplished with the use of [employer] voice recognition software, prone to medical misidentifications [...] Dictation was accomplished with the use of [employer] voice recognition software, prone to medical misidentifications [...] Dictation was accomplished with the use of [employer] voice recognition software, prone to medical misidentifications [...] Dictation was accomplished with the use of [employer] voice recognition software, prone to medical misidentifications [...] Dictation was accomplished with the use of [employer] voice recognition software, prone to medical misidentifications [...] Dictation was accomplished with the use of [employer] voice recognition software, prone to medical misidentifications [...] Dictation was accomplished with the use of [employer] voice recognition software, prone to medical misidentifications [...] Dictation was accomplished with the use of [email or web address] voice recognition software, prone to medical misidentifications [...] Dictation was accomplished with the use of [email or web address] voice recognition software, prone to medical misidentifications [...] Dictation was accomplished with the use of [email or web address] voice recognition software, prone to medical misidentifications [...] Dictation was accomplished with the use of [email or web address] voice recognition software, prone to medical misidentifications [...] Name:Paige Desir, 0 02/11/2025 08:45:00 AM, [address], [address], Provider Name:Paige Desir, 0 03/13/2025 09:45:00 AM, [address], [address], Insurance Providers Payer Name Payer Address Payer Phone Subscriber Number Group Number Insured Name Patient Relationship to Insured Coverage Start Date Coverage End Date [facility] [address] [place] [address] [id number] Anjali Holland Self - patient is the insured Medical (General) History Medical History History ICD Code hypertension hypercholesterolemia Arthritis asthma depression Surgical History Surgery Date(Month/Year) hysterectomy anal cancer surgery x3 knee surgery hand surgery
--- OUTSIDE RECORDS SUMMARY | 2025-02-04 08:46 | XMS_ITS | Clinical Summary ---
Author Organization [facility] Address [address] [place] [address] Care Team Providers Care Pre Sales Network Engineer Name Role Phone Carleen López MD Primary [...] by mouth once a week. 0 Active Mpngwcl-Ieczedsrau-S itamin D (VITAMIN D3/CALCIUM/PHOSPHORU S PO) Take [...] topic Medical Devices Implanted Type Area Project Engineer Device Identifier Shelf Expiration Date Model / Serial / Lot Surgiflo Hemostatic Matrix InternetArray-X2TV [id number] - [id number] Implanted:Qty : 1 on 06/23/2021 by Rohan Dewey MD at [facility] Hemostatic Agent Anterior: Spine Cervical [employer] 12/21/2022 2991 / / [id number] Surgiflo Hemostatic Matrix InternetArray-X2TV [id number] - [id number] Implanted:Qty : 1 on 07/29/2022 by Rohan Dewey MD at [facility] Hemostatic Agent Anterior: Spine Lumbar [employer] 04/22/2024 2991 / / [id number] Vikos Cervical 14x14.5x6mm 7d Stry-Spin [id number] -[id number] - [id number] Implanted:Qty : 1 on 06/23/2021 by Rohan Dewey MD at [facility] Anterior: Spine Cervical MAYA [employer] 02/17/2025 [id number] L7 / [id number] / Vikos Cervical 14x14.5x6mm 7d Stry-Spin [id number] -[id number] - [id number] Implanted:Qty : 1 on 06/23/2021 by Rhoan Dewey MD at [facility] Anterior: Spine Cervical [employer] SPINE 08/18/2024 [id number] L7 / [id number] / Vikos Allograft Systems Implanted:Qty : 1 on 06/23/2021 by Rohan Dewey MD at [facility] Anterior: Spine Cervical MAYA - MEDICAL 06/29/2024 [id number] L7 / [id number] / Anterior Cervical Plate Constr 3 Level 54mm Stry-K2m [id number] - [id number] Implanted:Qty : 1 on 06/23/2021 by Rohan Dewey MD at [facility] Anterior: Spine Cervical MAYA SPINE [id number] / / Screw Va Self-Start 4x14mm Stry-K2m 8801-91116ck- [id number] - [id number] Implanted:Qty : 8 on 06/23/2021 by Rohan Dewey MD at [facility] Anterior: Spine Cervical MAYA SPINE [id number] / / [place] Screw Implanted:Qty : 1 on 07/29/2022 by Rohan Dewey MD at [facility] Anterior: Spine Lumbar MAY[employer] SPINE [id number] / / Bone Graft Spine Infuse Med Medt-Sofa [id number] 9 - [id number] Implanted:Qty : 1 on 07/29/2022 by Rohan Dewey MD at [facility] Spine Lumbar [employer] SOFAMOR DANEK 07/24/2024 [id number] / / [id number] [place] Al Implanted:Qty : 1 on 07/29/2022 by Rohan Dewey MD at [facility] Anterior: Spine Lumbar MAYA SPINE 01/19/2027 [id number] / / [id number] Monetery Screw Implanted:Qty : 5 on 07/29/2022 by Rohan Dewey MD at [facility] Anterior: Spine Lumbar MAYA SPINE [id number] / / Manisha Shrestha Implanted:Qty : 1 on 07/29/2022 by Rohan Dewey MD at [facility] Anterior: Spine Lumbar MAYA SPINE 02/12/2027 [id number] / / [id number] Additional Health Concerns Infection Onset Date Last Indicated COVID-19 Confirmed 07/02/2022 07/04/2022 Advance Directives For more information, please contact: [phone] Documents on File Type Date Recorded Patient General Dentist Expl anation Advance Directive and Living Will [...] way: discussion with patient . Care Teams Pre Sales Network Engineer Relationship Specialty Start Date End Date Carleen López MD [address] [address] PCP - General Internal Medicine 06/16/21
--- OUTSIDE RECORDS SUMMARY | 2025-02-04 08:46 | XMS_ITS | Clinical Summary ---
Author Organization [facility] Address [address] [place] [address] Care Team Providers Care Roof Bolter Name Role Phone Carleen López MD Primary Care Provider [phone] Surgical History Surgery Date Site/Laterality Comments SHOULDER [...] 3 LEVELS; Surgeon: Rohan Dewey MD; Location: [facility] MAIN OPERATING ROOM; Service: Spine; Laterality: Anterior; CERVICAL FUSION 06/23/2021 N/A PROCEDURE:CERVICAL FUSION;COMMENT:Procedure: ANTERIOR CERVICAL DISC FUSION 1 LEVEL; Surgeon: Rohan Dewey MD; Location: [facility] MAIN OPERATING ROOM; Service: Spine; Laterality: N/A; LUMBAR FUSION 07/29/2022 Anterior PROCEDURE:LUMBAR FUSION;COMMENT:Procedure: L4-5, L5-S1 FUSION SPINE LUMBAR ANTERIOR 2 INTERSPACES; Surgeon: Rohan Dewey MD; Location: [facility] MAIN OPERATING ROOM; Service: Spine; Laterality: Anterior; LUMBAR FUSION 07/29/2022 N/A PROCEDURE:LUMBAR FUSION;COMMENT:Procedure: FUSION SPINE LUMBAR ANTERIOR 1 INTERSPACE; Surgeon: Rohan Dewey MD; Location: [facility] MAIN OPERATING ROOM; Service: Spine; [...] this topic Medical Devices Implanted Type Area Watershed Tender Device Identifier Shelf Expiration Date Model / Serial / Lot Surgiflo Hemostatic Matrix [employer] [id number] Implanted:Qty : 1 on 06/23/2021 by Rohan Dewey MD Implants N/A: Spine Cervical [employer] 12/21/2022 2991 / / [id number] Surgiflo Hemostatic Matrix Bib + Tuck-Ethi [id number] Implanted:Qty : 1 on 07/29/2022 by Rohan Dewey MD Implants N/A: Spine Lumbar [employer] 04/22/2024 2991 / / [id number] Vikos Cervical 14x14.5x6mm 7d Stry-Spin [id number] -[id number] - [id number] Implanted:Qty : 1 on 06/23/2021 by Rohan Dewey MD N/A: Spine Cervical [employer]A SPINE 02/17/2025 [id number] L7 / [id number] / Vikos Cervical 14x14.5x6mm 7d Stry-Spin [id number] -[id number] - [id number] Implanted:Qty : 1 on 06/23/2021 by Rohan Dewey MD N/A: Spine Cervical [employer] SPINE 08/18/2024 [id number] L7 / [id number] / Vikos Allograft Systems Implanted:Qty : 1 on 06/23/2021 by Rohan Dewey MD N/A: Spine Cervical MAYA - MEDICAL 06/29/2024 [id number] L7 / [id number] / Anterior Cervical Plate Constr 3 Level 54mm Stry-K2m [id number] Implanted:Qty : 1 on 06/23/2021 by Rohan Dewey MD N/A: Spine Cervical MAYA SPINE [id number] / / Screw Va Self-Start 4x14mm Stry-K2m 8801-55880gn- [id number] Implanted:Qty : 8 on 06/23/2021 by Rohan Dewey MD N/A: Spine Cervical MAYA SPINE [id number] / / [place] Screw Implanted:Qty : 1 on 07/29/2022 by Rohan Dewey MD N/A: Spine Lumbar MAYA SPINE [id number] / / Bone Graft Spine Infuse Med Medt-Sofa [id number] Implanted:Qty : 1 on 07/29/2022 by Rohan Dewey MD Spine Lumbar MED[employer]IC SOFAMOR DANEK 07/24/2024 [id number] / / [id number] [place] Al Implanted:Qty : 1 on 07/29/2022 by Rohan Dewey MD N/A: Spine Lumbar MAYA SPINE 01/19/2027 [id number] / / [id number] Monetery Screw Implanted:Qty : 5 on 07/29/2022 by Rohan Dewey MD N/A: Spine Lumbar [employer]A SPINE [id number] / / [place] Al Implanted:Qty : 1 on 07/29/2022 by Rohan Dewey MD N/A: Spine Lumbar MAYA SPINE 02/12/2027 [id number] / / [id number] Care Teams Roof Bolter Relationship Specialty Start Date End Date Carleen López MD [address] [place] [address] PCP - General Internal Medicine 06/16/21
--- OUTSIDE RECORDS SUMMARY | 2025-02-04 08:46 | XMS_ITS | Clinical Summary ---
Author Organization [facility] Address [address] [place] [address] Care Team Providers Care Telesales Professional Name Role Phone Carleen López MD Primary Care Provider [phone] Allergies Active Allergy Reactions Criticality Noted Date [...] OUT OF STATE - PPO Care Teams Telesales Professional Relationship Specialty Start Date End Date Carleen López MD [facility] [address] [address] PCP - General Internal Medicine 09/26/24
--- NOTE | 2025-02-04 08:47 | MHC.OFFVIS ---
Vital Signs 02/04/25 08:48 Height 5 ft 5 in Intake Visit Reasons: Fu Allergies No Known Allergies Allergy (Verified 02/04/25 09:03) Medication List - Last Reconciled 02/04/25 by Faiza Jin CNP bupropion HCl SR 150 mg PO BID cyclobenzaprine 5 mg PO BEDTIME PRN duloxetine 30 mg PO BID gabapentin 300 mg PO DAILY gabapentin 600 mg PO BEDTIME lisinopril 10 mg PO DAILY nortriptyline 20 mg PO BEDTIME pantoprazole 40 mg PO DAILY tirzepatide (weight loss) (Zepbound) 10 mg subcut QWEEK HPI Comments Details: 59-year-old woman with chronic tension type headaches and fibromyalgia. 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 She had few days of GI upset with vomiting and diarrhea, headache with sensitivity to light, smell, and sound, and swelling to left leg and hand after being outside in the heat at the beginning of 01/2025. She went to [facility] about two weeks later, and had labs and CXR, but left without being seen. She has been having more headaches since 12/2024 and also having some more cramping in legs. She has also been getting some twitching in left arm and neck at night. She ran out of cyclobenzaprine which seemed to help. She was using marijuana at night to help with sleep. [facility] Medical History (Updated 02/04/25 @ 09:13 by Faiza Jin CNP) Insomnia Cervical disc disease Fibromyalgia Depression with anxiety Chronic tension type headache Surgical History (Updated 02/04/25 @ 09:16 by Faiza Jin CNP) S/P lumbar fusion S/P cervical spinal fusion Review of Systems Const Denies chills, Denies daytime sleepiness, Reports difficulty sleeping, Denies fatigue, Denies fever(s), Denies frequent falls, Reports headache(s), Denies increased appetite, Denies poor appetite, Denies snoring, Denies weakness, Denies weight gain and Denies weight loss Eyes Denies loss of vision ENT Denies vertigo, Denies dizziness and Reports headache(s) Card Denies chest pain at rest, Denies chest pain with activity, Denies syncope, Denies leg edema and Denies palpitations Resp Denies snoring GI Denies constipation, Denies heartburn, Denies diarrhea and Denies nausea Denies urinary frequency, Denies urinary incontinence and Denies urinary urgency Musc Denies abnormal gait, Denies numbness and Denies tingling Skin/Breast Denies dry skin and Denies rash Neuro Denies abnormal gait, Denies vertigo, Denies dizziness, Denies syncope, Denies frequent falls, Reports headache(s), Denies lack of coordination, Denies loss of vision, Denies memory loss, Denies numbness, Denies restless legs, Denies seizure-like activity, Denies tingling, Denies paresthesias, Denies tremor(s) and Denies weakness Psych Denies anxiety, Denies depression, Denies auditory hallucinations, Denies memory loss, Denies visual hallucinations and Denies suicidal ideation Endo Denies fatigue and Denies palpitations Physical Exam Const Other: General Appearance:? normal, in no acute distress. Skin:? no rashes, no significant birthmarks. Heart:? S1, S2 normal, no murmurs. Lungs:? clear anteriorly and posteriorly. Extremities:? no edema. Psych:? alert, oriented, cognitive function intact, cooperative with exam. Neuro Other: Mental Status:?Normal attention, orientation, memory and affect.? Cranial Nerves:?Pupils are equal, round and reactive to light. External occular muscles are intact. Visual richardson are full. Face is symmetrical. Facial sensations are normal. Tongue is midline. Palate elevates symmetrically. Shoulder shrugging is normal. Hearing to bedside conversation is normal. Motor Examination:?Mild right upper ext atrophy. DTRs previously noted to be trace. KJs and AJs brisk bilaterally. Plantars equivocal. Sensory Exam:?....? Coordination:?No ataxia,?no titubation.? Gait Exam: Within normal limits. Cerebellar Signs:?Cagzyp-ug-gnbw and hqsj-xt-hsoh is normal.? Extrapyramidal System:?No tremor, rigidity with normal facial expressions.? Pronator Drift:?Not present.? Involuntary Movements:?No tremors seen.? Speech:?Normal.? Assessment & Plan Assessment & Plan (1) Chronic tension type headache: Code(s): G44.229 - Chronic tension-type headache, not intractable Category: Medical Qualifiers: Intractability: not intractable Qualified Code(s): G44.229 - Chronic tension-type headache, not intractable Plan: Continue nortriptyline 10mg 2 tablets at bedtime/ (2) Fibromyalgia: Code(s): M79.7 - Fibromyalgia Category: Medical Plan: Continue duloxetine 30mg 1 capsule twice a day. Refilled cyclobenzaprine 5mg 1 tablet at bedtime as needed. (3) Cervical myelopathy: Code(s): G95.9 - Disease of spinal cord, unspecified Category: Medical Plan: Reviewed MRI c-spine ordered. (4) Depression with anxiety: Code(s): F41.8 - Other specified anxiety disorders Category: Medical Plan: . Plan . Orders: Orders MR cervical spine wo con Today G95.9 - Disease of spinal cord, unspecified Medications: New cyclobenzaprine 5 mg PO BEDTIME 30 tabs 1RF 30 days Discontinued cyclobenzaprine Discontinued Reason: Order 5 mg PO BEDTIME PRN Coding Level of Care Code Est Pt Level 4 (84746) Diagnoses Chronic tension-type headache, not intractable G44.229 Intractability: not intractable Fibromyalgia M79.7 Cervical myelopathy G95.9 Depression with anxiety F41.8
== END 2025-02-04 09:21 | disposition home or self-care (01) ==
LOC: HO.HSM 08:38
PROVIDERS: PCP Internal Medicine; Referring Provider Internal Medicine; Visit Provider Registered Nurse
DX: G44.229 Chronic tension-type headache, not intractable (principal); M79.7 Fibromyalgia; G95.9 Disease of spinal cord, unspecified; F41.8 Other specified anxiety disorders
CPT/HCPCS: 99214

== ENCOUNTER 2025-03-02 07:49 | Outpatient (REF) | payer BC, SELFPAY ==
--- NOTE | ~2025-03-02 | MR_ITS ---
CLINICAL HISTORY: G95.9 - Disease of spinal cord, unspecified --- Additional Notes or Special Instructions: s p cervical spinal fusion Exam: MRI cervical spine without IV trunk contrast Comparison: None Findings: 2 mm anterolisthesis C7-T1 and C3-4. No acute fracture, osseous lesion or suspicious bone marrow signal. Craniocervical junction and cervical spinal cord, included skull base are normal. Paraspinal musculature, prevertebral soft tissue and included neck demonstrate nothing unusual. Status post C4-C7 ACDF with artifacts associated with hardware. C2-3: Normal disc. Bilateral facet arthrosis, worse on the left. No central canal stenosis or foraminal narrowing. C3-4: Grade 1 anterolisthesis, uncovertebral osteophytes, no convincing disc protrusion or bulge. Left worse than right facet arthrosis. No central canal stenosis. No foraminal narrowing. C4-5: Surgical level. No central canal stenosis or foraminal narrowing. Likely facet ankylosis. C5-6: Surgical level. Uncovertebral osteophytes larger on the right. Facet arthrosis. No central canal stenosis. Mild to moderate foraminal narrowing, worse on the right. C6-7: Surgical level. No central canal stenosis or foraminal narrowing. Unremarkable facets. C7-T1: Grade 1 anterolisthesis and mild diffuse posterior disc bulge. Facet arthrosis bilaterally. No central canal stenosis. Wnwc-mc-syjftvis foraminal narrowing, worse on the left. Impression: 1. Status post C4-C7 ACDF, 2 mm spondylolisthesis C3-4 and C7-T1. 2. Mild degenerative spondylosis of the cervical spine. This document has been electronically signed by: Elenita Carter MD on 03/04/2025 09:48:20
== END 2025-03-02 07:50 | disposition home or self-care (01) ==
LOC: HO.MRI 07:49
PROVIDERS: PCP Internal Medicine; Visit Provider Registered Nurse
DX: G95.9 Disease of spinal cord, unspecified (principal)
CPT/HCPCS: 72141

== ENCOUNTER → 2025-03-02 08:06 | Outpatient (BNV) | payer BC, SELFPAY | PROVIDERS: PCP Internal Medicine; Visit Provider Radiology Diagnostic Radiology | DX: M47.812 Spondylosis without myelopathy or radiculopathy, cervical region (principal) | CPT/HCPCS: 72141 ==

== ENCOUNTER 2025-05-02 09:46 | Outpatient (AMB) | payer BC, SELFPAY ==
--- OUTSIDE RECORDS SUMMARY | 2025-02-11 04:45 | XMS_ITS ---
Author Organization [facility] [address] Address [address] [place] [address] Care Team Providers Care Inspector Machine Parts Name Role Phone Paige Jewell Unavailable [phone] Encounters Encounter Location Date Provider Diagnosis [facility] [address] [address] 02/11/2025 Paige Jewell Plan Of Treatment Next Appt Details Provider Name:Paige Jewell, 1 07/27/2024 09:00:00 AM, [address], [address], Provider Name:Paige Jewell, 1 09/02/2024 08:15:00 AM, [address] [place] [address], [phone], Progress Notes * Desirae RUIZ B:1965 (59 yo F)Acc No.[id number]:02/11/2025 Patient: Dakota PERSAUDAnjali JOHNS Provider: Kathryn Jewell PA-C :1965 A ge:59 Y S ex:Female Date:02/11/2025 Address:[address] [place], [place] [phone] Subjective: * Chief Complaints: * * Medical History: Objective: * Vitals: Assessment: Plan: * Treatment: * Images: Billing Information: * Visit Code: * Procedure Codes: * Electronic signature of Paige Jewell PA-C on 05/02/2025 at 10:30 AM EDT Sign off status: Pending * Provider: Kathryn Jewell PA-C Date: 0 02/11/2025 Generated for Jesus Alberto narayan/Nelida/Yogi on: 1 10:30 AM EDT
--- NOTE | 2025-05-02 10:10 | A.OFFVIS_ITS ---
Intake Visit Reasons: 3 months/ [facility] Allergies No Known Allergies Allergy (Verified 05/02/25 10:12) Medication List - Last Reconciled 05/02/25 by Faiza Jin CNP bupropion HCl SR 150 mg PO BID cyclobenzaprine 5 mg PO BEDTIME 30 days duloxetine 30 mg PO BID 90 days gabapentin 300 mg PO DAILY gabapentin 600 mg PO BEDTIME lisinopril 10 mg PO DAILY nortriptyline 20 mg (2 x 10 mg) PO BEDTIME 90 days pantoprazole 40 mg PO DAILY tirzepatide (weight loss) (Zepbound) 10 mg subcut QWEEK HPI Comments Details: 59-year-old woman with chronic tension type headaches and fibromyalgia. 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 She was doing okay. Headaches were still happening. She was still getting twitch, almost jerking or spasm-type movement to neck and left arm that almost every day in the evening when she was trying to rest. Ongoing chronic stress. She was thinking of finding part-time work. [facility], [facility] Medical History (Updated 05/02/25 @ 10:23 by Faiza Jin CNP) Insomnia Cervical disc disease Fibromyalgia Depression with anxiety Chronic tension type headache Surgical History (Updated 02/04/25 @ 09:16 by Faiza Jin CNP) S/P lumbar fusion S/P cervical spinal fusion Review of Systems Const Denies chills, Denies daytime sleepiness, Reports difficulty sleeping, Denies fatigue, Denies fever(s), Denies frequent falls, Reports headache(s), Denies increased appetite, Denies poor appetite, Denies snoring, Denies weakness, Denies weight gain and Denies weight loss Eyes Denies loss of vision ENT Denies vertigo, Denies dizziness and Reports headache(s) Card Denies chest pain at rest, Denies chest pain with activity, Denies syncope, Denies leg edema and Denies palpitations Resp Denies snoring GI Denies constipation, Denies heartburn, Denies diarrhea and Denies nausea Denies urinary frequency, Denies urinary incontinence and Denies urinary urgency Musc Denies abnormal gait, Denies numbness and Denies tingling Skin/Breast Denies dry skin and Denies rash Neuro Denies abnormal gait, Denies vertigo, Denies dizziness, Denies syncope, Denies frequent falls, Reports headache(s), Denies lack of coordination, Denies loss of vision, Denies memory loss, Denies numbness, Denies restless legs, Denies seizure-like activity, Denies tingling, Denies paresthesias, Denies tremor(s) and Denies weakness Psych Denies anxiety, Denies depression, Denies auditory hallucinations, Denies memory loss, Denies visual hallucinations and Denies suicidal ideation Endo Denies fatigue and Denies palpitations Physical Exam Const Other: General Appearance:? normal, in no acute distress. Skin:? no rashes, no significant birthmarks. Heart:? S1, S2 normal, no murmurs. Lungs:? clear anteriorly and posteriorly. Extremities:? no edema. Psych:? alert, oriented, cognitive function intact, cooperative with exam. Neuro Other: Mental Status:?Normal attention, orientation, memory and affect.? Cranial Nerves:?Pupils are equal, round and reactive to light. External occular muscles are intact. Visual richardson are full. Face is symmetrical. Facial sensations are normal. Tongue is midline. Palate elevates symmetrically. Shoulder shrugging is normal. Hearing to bedside conversation is normal. Motor Examination:?Mild right upper ext atrophy. DTRs previously noted to be trace. KJs and AJs brisk bilaterally. Plantars equivocal. Sensory Exam:?....? Coordination:?No ataxia,?no titubation.? Gait Exam: Within normal limits. Cerebellar Signs:?Dmedpm-kb-ynzw and ejqx-ef-jqar is normal.? Extrapyramidal System:?No tremor, rigidity with normal facial expressions.? Pronator Drift:?Not present.? Involuntary Movements:?No tremors seen.? Speech:?Normal.? Results Reviewed Results Reviewed: [address] [address] Magnetic Resonance Report Signed Patient: Anjali Ryan MR#: [id number] : 1965 Acct:[id number] Age/Sex: 59 / F ADM Date: 03/02/25 Loc: HO.MRI Attending Dr: Faiza Jin CNP Ordering Physician: Faiza Jin CNP Date of Service: 03/02/25 Procedure(s): MR cervical spine wo con Accession Number(s): [id number] cc: ANT BOYLE MD; Faiza Jin CNP~ CLINICAL HISTORY: G95.9 - Disease of spinal cord, unspecified --- Additional Notes or Special Instructions: s p cervical spinal fusion Exam: MRI cervical spine without IV trunk contrast Comparison: None Findings: 2 mm anterolisthesis C7-T1 and C3-4. No acute fracture, osseous lesion or suspicious bone marrow signal. Craniocervical junction and cervical spinal cord, included skull base are normal. Paraspinal musculature, prevertebral soft tissue and included neck demonstrate nothing unusual. Status post C4-C7 ACDF with artifacts associated with hardware. C2-3: Normal disc. Bilateral facet arthrosis, worse on the left. No central canal stenosis or foraminal narrowing. C3-4: Grade 1 anterolisthesis, uncovertebral osteophytes, no convincing disc protrusion or bulge. Left worse than right facet arthrosis. No central canal stenosis. No foraminal narrowing. C4-5: Surgical level. No central canal stenosis or foraminal narrowing. Likely facet ankylosis. C5-6: Surgical level. Uncovertebral osteophytes larger on the right. Facet arthrosis. No central canal stenosis. Mild to moderate foraminal narrowing, worse on the right. C6-7: Surgical level. No central canal stenosis or foraminal narrowing. Unremarkable facets. C7-T1: Grade 1 anterolisthesis and mild diffuse posterior disc bulge. Facet arthrosis bilaterally. No central canal stenosis. Qchc-pb-ebstejyt foraminal narrowing, worse on the left. Impression: 1. Status post C4-C7 ACDF, 2 mm spondylolisthesis C3-4 and C7-T1. 2. Mild degenerative spondylosis of the cervical spine. This document has been electronically signed by: Elenita Carter MD on 03/04/2025 09:48:20 -- MRI brain WO at [facility] in Jul 2017: a few b/l WM non specific lesions, small. Assessment & Plan Assessment & Plan (1) Chronic tension type headache: Code(s): G44.229 - Chronic tension-type headache, not intractable Category: Medical Qualifiers: Intractability: not intractable Qualified Code(s): G44.229 - Chronic tension-type headache, not intractable Plan: Continue nortriptyline 10mg 2 tablets at bedtime. (2) Fibromyalgia: Code(s): M79.7 - Fibromyalgia Category: Medical Plan: Continue duloxetine 30mg 1 capsule twice a day. Refilled cyclobenzaprine 5mg 1 tablet at bedtime as needed. (3) Cervical spondylolysis: Code(s): M43.02 - Spondylolysis, cervical region Category: Medical Plan: MRI results reviewed. (4) Myoclonic jerking: Code(s): G25.3 - Myoclonus Category: Medical Plan: EEG ordered. (5) Depression with anxiety: Code(s): F41.8 - Other specified anxiety disorders Category: Medical Plan: . Plan . Orders: Orders EEG Routine Today G25.3 - Myoclonus Medications: Refilled cyclobenzaprine 5 mg PO BEDTIME 30 tabs 1RF 30 days Coding Level of Care Code Est Pt Level 4 (63891) Diagnoses Chronic tension-type headache, not intractable G44.229 Intractability: not intractable Fibromyalgia M79.7 Cervical spondylolysis M43.02 Myoclonic jerking G25.3 Depression with anxiety F41.8
--- OUTSIDE RECORDS SUMMARY | 2025-05-02 10:31 | XMS_ITS | Clinical Summary ---
Author Organization [facility] Address [address] [place] [address] Care Team Providers Care Supervisor Lead Refinery Name Role Phone Carleen López MD Primary Care Provider [phone] Surgical History Surgery Date Site/Laterality Comments SHOULDER [...] 3 LEVELS; Surgeon: Rohan Dewey MD; Location: [facility] MAIN OPERATING ROOM; Service: Spine; Laterality: Anterior; CERVICAL FUSION 06/23/2021 N/A PROCEDURE:CERVICAL FUSION;COMMENT:Procedure: ANTERIOR CERVICAL DISC FUSION 1 LEVEL; Surgeon: Rohan Dewey MD; Location: [facility] MAIN OPERATING ROOM; Service: Spine; Laterality: N/A; LUMBAR FUSION 07/29/2022 Anterior PROCEDURE:LUMBAR FUSION;COMMENT:Procedure: L4-5, L5-S1 FUSION SPINE LUMBAR ANTERIOR 2 INTERSPACES; Surgeon: Rohan Dewey MD; Location: [facility] MAIN OPERATING ROOM; Service: Spine; Laterality: Anterior; LUMBAR FUSION 07/29/2022 N/A PROCEDURE:LUMBAR FUSION;COMMENT:Procedure: FUSION SPINE LUMBAR ANTERIOR 1 INTERSPACE; Surgeon: Rohan Dewey MD; Location: [facility] MAIN OPERATING ROOM; Service: Spine; Laterality: N/A; [...] Last Done Comments Breast Cancer Screening 1965 Colorectal Cancer Screening: Colonoscopy 1965 DTaP,Tdap,and Td Vaccines (1 - Tdap) 11/15/1982 Cervical Cancer Screening: P ap Smear 11/15/1984 Pneumococcal Vaccine: 50+ Ye ars (1 of 1 - PCV) 11/15/2013 Zoster Vaccines (1 of 2) 11/15/2013 HIV Screening 07/01/2022 Hepatitis C Screening 07/01/2022 Social Influencers of Health Screening 07/01/2022 Depression Screening 07/24/2024 COVID-19 Vaccine (1 - 2023-2 5 season) 2025 Influenza Vaccine (#1) 2025 RSV Immunization Adult [...] this topic Medical Devices Implanted Type Area Bug Trimmer Device Identifier Shelf Expiration Date Model / Serial / Lot Surgiflo Hemostatic Matrix OneAway-SalesVu [id number] Implanted:Qty : 1 on 06/23/2021 by Rohan Dewey MD Implants N/A: Spine Cervical [employer] 12/21/2022 2991 / / [id number] Surgiflo Hemostatic Matrix OneAway-Ethi [id number] Implanted:Qty : 1 on 07/29/2022 by Rohan Dewey MD Implants N/A: Spine Lumbar [employer] 04/22/2024 [id number] / / [id number] Vikos Cervical 14x14.5x6mm 7d Stry-Spin [id number] - [id number] Implanted:Qty : 1 on 06/23/2021 by Rohan Dewey MD N/A: Spine Cervical [employer] 02/17/2025 [id number] / [id number] / Vikos Cervical 14x14.5x6mm 7d Stry-Spin [id number] - [id number] Implanted:Qty : 1 on 06/23/2021 by Rohan Dewey MD N/A: Spine Cervical [employer] 08/18/2024 [id number] / [id number] / Vikos Allograft Systems Implanted:Qty : 1 on 06/23/2021 by Rohan Dewey MD N/A: Spine Cervical [employer]ICAL 06/29/2024 [id number] / [id number] / Anterior Cervical Plate Constr 3 Level 54mm Stry-K2m [id number] Implanted:Qty : 1 on 06/23/2021 by Rohan Dewey MD N/A: Spine Cervical [employer] [id number] / / Screw Va Self-Start 4x14mm Stry-K2m [id number] Implanted:Qty : 8 on 06/23/2021 by Rohan Dewey MD N/A: Spine Cervical [employer] [id number] / / Cuero Screw Implanted:Qty : 1 on 07/29/2022 by Rohan Dewey MD N/A: Spine Lumbar [employer] [id number] / / Bone Graft Spine Infuse Med Medt-Sofa [id number] Implanted:Qty : 1 on 07/29/2022 by Rohan Dewey MD Spine Lumbar [employer] SO[employer]AM[employer]ANEK 07/24/2024 [id number] / / [id number] Cuero Al Implanted:Qty : 1 on 07/29/2022 by Rohan Dewey MD N/A: Spine Lumbar [employer] 01/19/2027 [id number] / / [id number] Monetery Screw Implanted:Qty : 5 on 07/29/2022 by Rohan Dewey MD N/A: Spine Lumbar [employer] [id number] / / Cuero Al Implanted:Qty : 1 on 07/29/2022 by Rohan Dewey MD N/A: Spine Lumbar [employer] 02/12/2027 [id number] / / [id number] Care Teams Supervisor Lead Refinery Relationship Specialty Start Date End Date Carleen López MD [address] [place] [id number] PCP - General Internal Medicine 06/16/21
--- OUTSIDE RECORDS SUMMARY | 2025-05-02 10:31 | XMS_ITS ---
Author Name [facility] Organization Unknown History of Medication Use Medication Directions Dispensed Refills Start Date End Date Stat lisinopril 10 mg tablet TAKE ONE TABLET BY MOUTH EVERY DAY 02/07/2025 active ipratropium (ATROVENT) 0.06 % nasal spray 2 sprays into each nostril 3 times a day. 09/29/2024 active gabapentin (NEURONTIN) 300 MG capsule 09/23/2024 active buPROPion (WELLBUTRIN SR) 150 MG 12 hr tablet 1 tablet by Mouth/Oral Cavity route every 12 hours. 09/19/2024 active DULoxetine (CYMBALTA) 30 MG capsule 1 capsule by Mouth/Oral Cavity route every 12 hours. 09/19/2024 active lisinopril (PRINIVIL,ZeSTRIL) 20 MG tablet Take 20 mg by mouth. 09/19/2024 active nortriptyline (PAMELOR) 10 MG capsule take two tablets by mouth once a day 09/19/2024 active Zepbound 10 MG/0.5ML pen-injector inject 0.5ml under the skin once a week 09/07/2024 active PANTOprazole (PROTONIX) 20 MG tablet 1 tablet by Mouth/Oral Cavity route every 12 hours. 08/20/2024 active lidocaine (PF) 10 mg/mL (1 %) injection solution Take 1 mL by injection route. 05/24/2024 07/25/19 25 completed triamcinolone acetonide 40 mg/mL suspension for injection Take 20 mg by injection route. 01/03/2024 07/25/19 25 active lidocaine (PF) 100 mg/5 mL (2 %) injection syringe Take 1 mL by injection route. 04/05/2023 02/06/20 24 active Kenalog 10 mg/mL suspension for injection Take 2 mL by injection route. 04/05/2023 05/03/20 23 completed Zepbound 5 mg/0.5 mL subcutaneous pen injector INJECT THE CONTENTS OF 1 PEN 5 MG PER 0.5ML) SUBCUTANEOUSLY ONCE WEEKLY 04/26/20 24 active acetaminophen 500 mg tablet TAKE 2 TABLETS 3 TIMES A DAY BY MOUTH AFTER SURGERY NEEDED FOR PAIN 02/06/20 24 active cyclobenzaprine 10 mg tablet TAKE ONE TABLET BY MOUTH AT BEDTIME 02/06/20 24 completed IBU 600 mg tablet TAKE 1 TABLET BY MOUTH EVERY 6 HOURS 02/06/20 24 completed omeprazole 40 mg capsule,delayed release TAKE ONE CAPSULE BY MOUTH ONCE DAILY 02/06/20 24 completed oxycodone 5 mg tablet TAKE ONE TABLET BY MOUTH EVERY 4 HOURS NEEDED PAIN 02/06/20 24 completed polymyxin B sulfate 10,000 unit-trimethoprim 1 mg/mL eye drops INSTILL ONE DROP IN EACH EYE EVERY 3 HOURS FOR 7 DAYS; START WITH ONLY IN THE RIGHT EYE AND INCREASE TO IN EACH EYE IF SYMPTOMS DEVELOP IN I 02/06/20 24 active sucralfate 1 gram tablet TAKE ONE TABLET BY MOUTH FOUR TIMES A DAY 02/06/20 24 active Zepbound 2.5 mg/0.5 mL subcutaneous pen injector INJECT UNDER THE SKIN ONCE A WEEK DIRECTED 02/06/20 24 completed amoxicillin 875 mg-potassium clavulanate 125 mg tablet TAKE ONE TABLET BY MOUTH EVERY 12 HOURS FOR 7 DAYS 02/01/20 24 completed bupropion HCl SR 150 mg tablet,12 hr sustained-release TAKE ONE TABLET BY MOUTH TWICE A DAY 12/07/19 24 active chlorhexidine gluconate 0.12 % mouthwash SWISH AND EXPECTORATE 10ML THREE TIMES A DAY 12/07/19 24 active lisinopril 20 mg tablet TAKE ONE TABLET BY MOUTH EVERY DAY 12/07/19 24 completed lisinopril 40 mg tablet TAKE ONE TABLET BY MOUTH EVERY DAY 12/07/19 24 active montelukast 10 mg tablet TAKE ONE TABLET BY MOUTH EVERY DAY 12/07/19 24 active amoxicillin 500 mg capsule TAKE 4 CAPSULES BY MOUTH 1 HOUR BEFORE DENTAL APPOINTMENT DIRECTED 05/03/20 23 active amoxicillin 500 mg tablet TAKE 1 TABLET BY MOUTH THREE TIMES A DAY FOR 10 DAYS 05/03/20 23 completed Flowflex COVID-19 Antigen Home Test kit USE DIRECTED PER [employer] INSTRUCTIONS TO TEST FOR COVID-19 05/03/20 23 completed hydrocodone 5 mg-acetaminophen 325 mg tablet TAKE ONE TABLET BY MOUTH EVERY 6 HOURS NEEDED FOR PAIN 05/03/20 completed ipratropium bromide 21 mcg (0.03 %) nasal spray SPRAY 2 SPRAYS INTO EACH NOSTRIL TWICE A DAY 05/03/20 completed Premarin 0.625 mg/gram vaginal cream INSERT 0.5 GRAM VAGINALLY TWO TIMES A WEEK AT BEDTIME 05/03/20 completed GaviLyte-G 236 gram-22.74 gram-6.74 gram-5.86 gram oral solution MIX POWDER WITH WATER ACCORDING TO PRODUCT LABEL. FOLLOW INSTRUCTIONS GIVEN BY [facility] FOR WHEN TO START. TAKE 8OZ BY MOUTH EVERY 20 MINUTE 04/03/20 completed methocarbamol 750 mg tablet 04/03/20 completed lidocaine (PF) 100 mg/5 mL (2 %) injection syringe active lidocaine (PF) 10 mg/mL (1 %) injection solution active Kenalog 10 mg/mL suspension for injection active triamcinolone acetonide 40 mg/mL suspension for injection active aspirin 325 mg tablet TAKE 1 TABLET EVERY DAY BY MOUTH AFTER SURGERY FOR 30 DAYS active bupropion HCl SR 200 mg tablet,12 hr sustained-release TAKE ONE TABLET BY MOUTH TWICE A DAY active cyclobenzaprine 5 mg tablet TAKE ONE TABLET BY MOUTH DAILY AT BEDTIME NEEDED active duloxetine 30 mg capsule,delayed release TAKE ONE CAPSULE BY MOUTH TWICE A DAY active gabapentin 300 mg capsule TAKE ONE CAPSULE BY MOUTH EVERY MORNING AND TAKE TWO CAPSULES EVERY EVENING active ipratropium bromide 42 mcg (0.06 %) nasal spray INSTILL 2 SPRAYS IN EACH NOSTRIL THREE TIMES A DAY active nortriptyline 10 mg capsule TAKE TWO TABLETS BY MOUTH ONCE DAILY active pantoprazole 20 mg tablet,delayed release TAKE ONE TABLET BY MOUTH TWICE A DAY active Zepbound 10 mg/0.5 mL subcutaneous pen injector INJECT 0.5ML UNDER THE SKIN ONCE A WEEK active Zepbound 7.5 mg/0.5 mL subcutaneous pen injector INJECT 0.5ML UNDER THE SKIN ONCE WEEKLY active Allergies Allergen Reaction Severity Comment Documented Date Source Statu s MELOXICAM UNKNOWN/PATIENT AND FAMILY UNABLE TO DEFINE Other reaction(s): elevated liver enzyme 06/27/2022 [facility] active DICLOFENAC UNKNOWN/PATIENT AND FAMILY UNABLE TO DEFINE Other reaction(s): kidney failure [facility] Problems Problem Status Onset Date Problem Type Date of Resolution Source Ganglion of flexor tendon sheath of finger active 2024-05-24 [facility] Osteoarthritis of wrist active 2022 [facility]Act [facility] Tailor's bunion of left foot active 2022-11-28 [facility]Act [facility] Contracture of right elbow joint active 2025-02-12 [facility]Act [facility] Acquired left hallux valgus active 2022-11-28 [facility]Act [facility] Neck pain active 2023-08-[address] [facility] [address] Acquired trigger finger of left middle finger active 2023-04-05 [facility]Act [facility] 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 ProblemAct [facility] Neck pain active 2021-02-15 ProblemAct [facility] Lumbosacral pain active 2021-06-08 ProblemAct [facility] History of fusion of cervical spine active 2021-07-05 [facility]Act [facility] Other abnormal auditory perceptions, bilateral active Encounter[facility]osisAct [facility] Elective surgery active 2022-07-30 ProblemAct [facility] Cervical spondylolysis active 2021-02-15 ProblemAct [facility] Spinal stenosis, lumbar region with neurogenic claudication active 2021-06-08 ProblemAct [facility] Encounters Encounter Type Encounter Reason Primary Diagnosis Location Date Ambulatory [facility] 02/13/2025 Ambulatory [facility] 02/07/2025 Ambulatory Other abnormal auditory perceptions, bilateral Other abnormal auditory perceptions, bilateral [employer] 10/02/2024 Ambulatory Nasal Congestion Nasal Congestion [facility] 09/26/2024 Ambulatory [facility] [place] 07/29/2024 Ambulatory [facility] 07/25/2024 Ambulatory [facility] 05[facility]27/2024 Ambulatory [facility] 05/24/2024 Ambulatory [facility] 05/15/2024 Ambulatory [facility] 04/26/2024 Ambulatory [facility] 04/26/2024 Ambulatory [facility] 04/18/2024 Ambulatory [facility] 02/19/2024 Ambulatory [facility] [place] 01/31/2024 Ambulatory ROUTINE Hallux valgus (acquired), left foot [facility] 01/19/2024 Ambulatory [facility] [place] 01/04/2024 Ambulatory [facility] 01[facility]03/2024 Ambulatory [facility] 12/27/2023 Ambulatory [facility] 12/19/2023 Ambulatory [facility] 12/07/2023 Ambulatory [facility] 12/07/2023 Ambulatory [facility] 11/07/2023 Ambulatory [facility] 10[facility]03/2023 Ambulatory [facility] 09/11/2023 Ambulatory [facility] 08/29/2023 Ambulatory [facility] 08/07/2023 Ambulatory [facility] 08/04/2023 Ambulatory [facility] 07/04/2023 Ambulatory [facility] 06/29/2023 Ambulatory [facility] 05/30/2023 Ambulatory [facility] 05/03/2023 Ambulatory [facility] 04[facility]25/2023 Ambulatory [facility] 04/03/2023 Ambulatory [facility] 04/03/2023 Ambulatory [facility] 01/10/2023 Ambulatory [facility] 01/08/2023 Ambulatory [facility] 12/06/2022 Ambulatory [facility] 2022 Ambulatory [facility] 11/14/2022 Ambulatory [facility] 11/14/2022 Ambulatory [facility] 11/14/2022 Ambulatory [facility] 11/14/2022 Ambulatory [facility] 09/28/2022 Care Team Organization Name Specialty Phone Email Start Date End [facility] [employer] 10/01/2024 11/06/2024 [facility] 09/30/2024 [employer] 08/14/2024 [facility] [place] 01/08/2024 [facility] [place] 01/08/2024 [facility] 12/24/2022 [facility]
--- OUTSIDE RECORDS SUMMARY | 2025-05-02 10:31 | XMS_ITS | Patient Health Record ---
Author Organization [facility] [address] Address [address] [place] [address] Care Team Providers Care Pbx Inspector Name Role Phone Paige Jewell Unavailable [phone] Allergies Allergen (clinical drug ingredient) Drug/Non Drug Allergy documented on EMR Reaction Allergy Type Onset Date Status maltodextrin maltodextrin (uncoded) Unknown Allergy Active fluoxetine Fluoxetine Unknown Drug Allergy Activ e Wellbutrin Unknown Drug Allergy Active lisinopril Lisinopril Unknown Drug Allergy Activ e sucralose Sucralose vomiting Allergy Active Reason For Referral No Information Medications Medication SIG (Take, Route, Frequency, Duration) Notes Start Date End Date Status Magnesium Citrate 100 MG as directed Orally 2023 Active Tylenol Arthritis Pain 09/28/2023 Active Zepbound 10 MG/0.5ML INJECT 0.5ML UNDER THE SKIN ONCE A WEEK; Duration: 28 Not-Taking Probiotic 09/28/2023 Active Nortriptyline HCl 10 MG Oral; Duration: 30 Days Active buPROPion HCl ER (SR) 150 MG 1 tablet in the morning Orally Once a day; Duration: 30 days Active Lisinopril 20 MG 1 tablet Oral Once a day; Duration: 30 days Active Zepbound 10 MG/0.5ML 0.5 mL Subcutaneous once weekly; Duration: 30 days Active Gabapentin 300 MG TAKE ONE CAPSULE BY MOUTH EVERY MORNING AND TAKE TWO CAPSULES EVERY EVENING Oral; Duration: 30 Days Active DULoxetine HCl 30 MG TAKE ONE CAPSULE BY MOUTH TWICE A DAY Oral; Duration: 30 Days Active Fish Oil 1200 MG [address] ee times a day; Duration: 30 day(s) 09/28/2023 Active Pantoprazole Sodium 20 MG TAKE ONE TABLE T BY MOUTH TWICE A DAY Oral; Duration: 90 Days Active Social History Tobacco Use: Social History [...] W/U Status Risk Notes Problem Essential hypertension (25931403) Essential hypertension (I10) Active confirmed Problem Pure hypercholesterolemia (738799202) Pure hypercholesterolemia (E78.00) Active confirmed Problem Vitamin D deficiency (45330118) Vitamin D deficiency (E55.9) Active confirmed Problem Obesity (747628481) Obesity (BMI 30-39.9) (E66.9) Active confirmed Problem Obese class II (480056621468139) BMI 35.0-35.9,adult (Z68.35) Active confirmed Problem Obese class I (720561717730464) BMI 33.0-33.9,adult (Z68.33) Active confirmed Problem BMI 30+ - obesity (126011763) BMI 32.0-32.9,adult (Z68.32) Active confirmed Problem BMI 25-29 - overweight (900285581) BMI 27.0-27.9,adult (Z68.27) Active confirmed Problem Body mass index 30.0 0 to 34.99 (730640212490396) BMI 34.0-34.9,adult (Z68.34) Active confirmed Problem Overweight (947353726) Overweight (BMI 25.0-29.9) (E66.3) Active confirmed Problem History of gastric bypass (087414774) History of gastric bypass (Z98.84) Active confirmed Vital Signs Heart Rate 73 /min 04/24/2025 Oximetry 99 % 04/24/2025 Blood pressure diastolic 64 mm Hg 04/24/2025 Height 64 in 04/24/2025 Blood pressure systolic 118 mm Hg 04/24/2025 Weight 139.3 lbs 04/24/2025 BMI 23.91 kg/m2 04/24/2025 Encounters Encounter Location Date Provider Diagnosis [facility] [address] [address] 05/28/2024 Paige Svrcek BMI 27.0-27.9,adult Z68.27 ; Overweight (BMI 25.0-29.9) E66.3 ; Essential hypertension I10 ; Pure hypercholesterolemia E78.00 ; History of gastric bypass Z98.84 and Weight loss counseling, encounter for Z71.3 [facility] [address] 06/25/2024 Paige Svrcek BMI 27.0-27.9,adult Z68.27 ; Overweight (BMI 25.0-29.9) E66.3 ; Essential hypertension I10 ; Pure hypercholesterolemia E78.00 ; History of gastric bypass Z98.84 and Weight loss counseling, encounter for Z71.3 [facility] [address] 08/06/2024 Paige Svrcek BMI 27.0-27.9,adult Z68.27 ; Overweight (BMI 25.0-29.9) E66.3 ; Essential hypertension I10 ; Pure hypercholesterolemia E78.00 ; History of gastric bypass Z98.84 and Weight loss counseling, encounter for Z71.3 [facility] [address] 09/05/2024 Paige Svrcek Overweight (BMI 25.0 -29.9) E66.3 ; BMI 26.0-26.9,adult Z68.26 ; Essential hypertension I10 ; Pure hypercholesterolemia E78.00 ; History of gastric bypass Z98.84 and Weight loss counseling, encounter for Z71.3 [facility] [address] 10/03/2024 Paige Svrcek Overweight (BMI 25.0 -29.9) E66.3 ; BMI 26.0-26.9,adult Z68.26 ; Essential hypertension I10 ; Pure hypercholesterolemia E78.00 ; History of gastric bypass Z98.84 and Weight loss counseling, encounter for Z71.3 [facility] [address] [address] 10/31/2024 Paige Svrcek Overweight (BMI 25.0 -29.9) E66.3 ; BMI 27.0-27.9,adult Z68.27 ; Essential hypertension I10 ; Pure hypercholesterolemia E78.00 ; History of gastric bypass Z98.84 and Weight loss counseling, encounter for Z71.3 [facility] [address] [address] 12/05/2024 Paige Svrcek Overweight (BMI 25.0 -29.9) E66.3 ; BMI 25.0-25.9,adult Z68.25 ; Essential hypertension I10 ; Pure hypercholesterolemia E78.00 ; History of gastric bypass Z98.84 and [facility] [address] 01/07/2025 Paige Svrcek Overweight (BMI 25.0 -29.9) E66.3 ; BMI 26.0-26.9,adult Z68.26 ; Essential hypertension I10 ; Pure hypercholesterolemia E78.00 ; History of gastric bypass Z98.84 and [facility] [address] 02/24/2025 Paige Svrcek Overweight (BMI 25.0 -29.9) E66.3 ; Essential hypertension I10 ; Pure hypercholesterolemia E78.00 ; History of gastric bypass Z98.84 and [facility] loss counseling[facility] Z71.[facility] [address] 03/27/2025 Paige Svrcek Essential hypertensi on I10 ; BMI 24.0-24.9, adult Z68.24 ; Pure hypercholesterolemia E78.00 ; History of gastric bypass Z98.84 and Weight loss counseling, encounter for Z71.3 [facility] [address] 04/24/2025 Paige Svrcek Essential hypertensi on I10 ; BMI 23.0-23.9, adult Z68.23 ; Pure hypercholesterolemia E78.00 ; History of gastric bypass Z98.84 and Weight loss counseling, encounter for Z71.3 [facility] [address] [facility] [address] [place] [address] 09/05/2024 Paige Svrcek [facility] [address] [address] 12/05/2024 Pa[facility] Svrcek [facility] [address] [address] 02/10/2025 Paige Jewell Assessments Encounter Date Diagnosis (ICD Code) Assessment Notes Treatment Notes Treatment Clinical Notes Section Notes 05/28/2024 BMI 27.0-27.9,adult (ICD-10 - Z68.27) #Obesity. [...] Dictation was accomplished with the use of [employer] voice recognition software, prone to medical misidentifications [...] Dictation was accomplished with the use of [employer] voice recognition software, prone to medical misidentifications [...] Dictation was accomplished with the use of [employer] voice recognition software, prone to medical misidentifications [...] Dictation was accomplished with the use of [employer] voice recognition software, prone to medical misidentifications [...] to 7.5 mg weekly on next fill. 8/28/24: 172.8 pounds, BMI 28.8. She has done [...] Dictation was accomplished with the use of [employer] voice recognition software, prone to medical misidentifications [...] Dictation was accomplished with the use of [employer] voice recognition software, prone to medical misidentifications [...] Dictation was accomplished with the use of [employer] voice recognition software, prone to medical misidentifications [...] Dictation was accomplished with the use of [employer] voice recognition software, prone to medical misidentifications [...] Dictation was accomplished with the use of [employer] voice recognition software, prone to medical misidentifications [...] Dictation was accomplished with the use of [employer] voice recognition software, prone to medical misidentifications [...] Dictation was accomplished with the use of [employer] voice recognition software, prone to medical misidentifications [...] Dictation was accomplished with the use of [employer] voice recognition software, prone to medical misidentifications [...] Dictation was accomplished with the use of [employer] voice recognition software, prone to medical misidentifications [...] Dictation was accomplished with the use of [employer] voice recognition software, prone to medical misidentifications [...] Dictation was accomplished with the use of [employer] voice recognition software, prone to medical misidentifications [...] Dictation was accomplished with the use of [employer] voice recognition software, prone to medical misidentifications and grammatical errors. This is unintentional and the practitioner does try to identify and correct these, but some could still be present. Please do not hesitate to contact practitioner for clarification. All questions answered to patients satisfaction. Patient verbalized understanding of diagnosis and treatments explained. To call sooner prior to next visit it any questions/concerns arise. 02/24/2025 Essential hypertensi on (ICD-10 - I10) #Overweight: 144.4 pounds, BMI 24.8. She is now in a normal BMI range. Currently on Zepbound 10 mg. Working on composition changes. Goal to build further muscle while maintaining weight. She has had a lot of illness this past month. Will plan to continue current dose of 10 mg weekly. If she continues to lose weight will need to cut back on dose. Continue to prioritize protein intake and increase resistance training. Follow-up in 4 weeks sooner with any [...] Dictation was accomplished with the use of [employer] voice recognition software, prone to medical misidentifications and grammatical errors. This is unintentional and the practitioner does try to identify and correct these, but some could still be present. Please do not hesitate to contact practitioner for clarification. All questions answered to patients satisfaction. Patient verbalized understanding of diagnosis and treatments explained. To call sooner prior to next visit it any questions/concerns arise. 02/24/2025 Overweight (BMI 25.0-29.9) (ICD-10 - E66.3) #Overweight: 144.4 pounds, BMI 24.8. She is now in a normal BMI range. Currently on Zepbound 10 mg. Working on composition changes. Goal to build further muscle while maintaining weight. She has had a lot of illness this past month. Will plan to continue current dose of 10 mg weekly. If she continues to lose weight will need to cut back on dose. Continue to prioritize protein intake and increase resistance training. Follow-up in 4 weeks sooner with any [...] Dictation was accomplished with the use of [employer] voice recognition software, prone to medical misidentifications and grammatical errors. This is unintentional and the practitioner does try to identify and correct these, but some could still be present. Please do not hesitate to contact practitioner for clarification. All questions answered to patients satisfaction. Patient verbalized understanding of diagnosis and treatments explained. To call sooner prior to next visit it any questions/concerns arise. 03/27/2025 Essential hypertensi on (ICD-10 - I10) #Overweight: 142.9 pounds, BMI 24.5. She is now in a normal BMI range. Currently on Zepbound 10 mg. Working on composition changes. Goal to build further muscle while maintaining weight. Will plan to continue current dose of 10 mg weekly. If she continues to lose weight will need to cut back on dose. Continue to prioritize protein intake and increase resistance training. Follow-up in 4 weeks sooner with any [...] Dictation was accomplished with the use of [employer] voice recognition software, prone to medical misidentifications and grammatical errors. This is unintentional and the practitioner does try to identify and correct these, but some could still be present. Please do not hesitate to contact practitioner for clarification. All questions answered to patients satisfaction. Patient verbalized understanding of diagnosis and treatments explained. To call sooner prior to next visit it any questions/concerns arise. 03/27/2025 BMI 24.0-24.9, adult (ICD-10 - Z68.24) #Overweight: 142.9 pounds, BMI 24.5. She is now in a normal BMI range. Currently on Zepbound 10 mg. Working on composition changes. Goal to build further muscle while maintaining weight. Will plan to continue current dose of 10 mg weekly. If she continues to lose weight will need to cut back on dose. Continue to prioritize protein intake and increase resistance training. Follow-up in 4 weeks sooner with any [...] Dictation was accomplished with the use of [employer] voice recognition software, prone to medical misidentifications and grammatical errors. This is unintentional and the practitioner does try to identify and correct these, but some could still be present. Please do not hesitate to contact practitioner for clarification. All questions answered to patients satisfaction. Patient verbalized understanding of diagnosis and treatments explained. To call sooner prior to next visit it any questions/concerns arise. 04/24/2025 Essential hypertensi on (ICD-10 - I10) #Overweight: 139.3, BMI 23.9. She is now in a normal BMI range. Currently on Zepbound 10 mg. Working on composition changes. Fat mass is down and muscle is up. Goal to build further muscle while maintaining weight. Discussed maintenance dosing and potential change of coverage, July. She will start spacing out her dose to every 10 days and monitor over the next month. Follow-up with me in 4 weeks. Continue high-protein diet, hydration and regular exercise. Follow-up sooner as needed #Hypertension. Blood pressure has been controlled on [...] Dictation was accomplished with the use of [employer] voice recognition software, prone to medical misidentifications and grammatical errors. This is unintentional and the practitioner does try to identify and correct these, but some could still be present. Please do not hesitate to contact practitioner for clarification. All questions answered to patients satisfaction. Patient verbalized understanding of diagnosis and treatments explained. To call sooner prior to next visit it any questions/concerns arise. 04/24/2025 BMI 23.0-23.9, adult (ICD-10 - Z68.23) #Overweight: 139.3, BMI 23.9. She is now in a normal BMI range. Currently on Zepbound 10 mg. Working on composition changes. Fat mass is down and muscle is up. Goal to build further muscle while maintaining weight. Discussed maintenance dosing and potential change of coverage, July. She will start spacing out her dose to every 10 days and monitor over the next month. Follow-up with me in 4 weeks. Continue high-protein diet, hydration and regular exercise. Follow-up sooner as needed #Hypertension. Blood pressure has been controlled on [...] Dictation was accomplished with the use of [employer] voice recognition software, prone to medical misidentifications and grammatical errors. This is unintentional and the practitioner does try to identify and correct these, but some could still be present. Please do not hesitate to contact practitioner for clarification. All questions answered to patients satisfaction. Patient verbalized understanding of diagnosis and treatments explained. To call sooner prior to next visit it any questions/concerns arise. 04/24/2025 Pure hypercholesterolemia (ICD-10 - E78.00) #Overweight: 139.3, BMI 23.9. She is now in a normal BMI range. Currently on Zepbound 10 mg. Working on composition changes. Fat mass is down and muscle is up. Goal to build further muscle while maintaining weight. Discussed maintenance dosing and potential change of coverage, July. She will start spacing out her dose to every 10 days and monitor over the next month. Follow-up with me in 4 weeks. Continue high-protein diet, hydration and regular exercise. Follow-up sooner as needed #Hypertension. Blood pressure has been controlled on [...] Dictation was accomplished with the use of [employer] voice recognition software, prone to medical misidentifications and grammatical errors. This is unintentional and the practitioner does try to identify and correct these, but some could still be present. Please do not hesitate to contact practitioner for clarification. All questions answered to patients satisfaction. Patient verbalized understanding of diagnosis and treatments explained. To call sooner prior to next visit it any questions/concerns arise. 03/27/2025 Pure hypercholesterolemia (ICD-10 - E78.00) #Overweight: 142.9 pounds, BMI 24.5. She is now in a normal BMI range. Currently on Zepbound 10 mg. Working on composition changes. Goal to build further muscle while maintaining weight. Will plan to continue current dose of 10 mg weekly. If she continues to lose weight will need to cut back on dose. Continue to prioritize protein intake and increase resistance training. Follow-up in 4 weeks sooner with any [...] Dictation was accomplished with the use of [employer] voice recognition software, prone to medical misidentifications and grammatical errors. This is unintentional and the practitioner does try to identify and correct these, but some could still be present. Please do not hesitate to contact practitioner for clarification. All questions answered to patients satisfaction. Patient verbalized understanding of diagnosis and treatments explained. To call sooner prior to next visit it any questions/concerns arise. 02/24/2025 Pure hypercholesterolemia (ICD-10 - E78.00) #Overweight: 144.4 pounds, BMI 24.8. She is now in a normal BMI range. Currently on Zepbound 10 mg. Working on composition changes. Goal to build further muscle while maintaining weight. She has had a lot of illness this past month. Will plan to continue current dose of 10 mg weekly. If she continues to lose weight will need to cut back on dose. Continue to prioritize protein intake and increase resistance training. Follow-up in 4 weeks sooner with any [...] Dictation was accomplished with the use of [employer] voice recognition software, prone to medical misidentifications [...] Dictation was accomplished with the use of [employer] voice recognition software, prone to medical misidentifications [...] Dictation was accomplished with the use of [employer] voice recognition software, prone to medical misidentifications [...] Dictation was accomplished with the use of [employer] voice recognition software, prone to medical misidentifications [...] Dictation was accomplished with the use of [employer] voice recognition software, prone to medical misidentifications [...] Dictation was accomplished with the use of [employer] voice recognition software, prone to medical misidentifications [...] Dictation was accomplished with the use of [employer] voice recognition software, prone to medical misidentifications [...] Dictation was accomplished with the use of [employer] voice recognition software, prone to medical misidentifications [...] Dictation was accomplished with the use of [employer] voice recognition software, prone to medical misidentifications [...] Dictation was accomplished with the use of [employer] voice recognition software, prone to medical misidentifications [...] Dictation was accomplished with the use of [employer] voice recognition software, prone to medical misidentifications [...] Dictation was accomplished with the use of [employer] voice recognition software, prone to medical misidentifications [...] Dictation was accomplished with the use of [employer] voice recognition software, prone to medical misidentifications [...] Dictation was accomplished with the use of [employer] voice recognition software, prone to medical misidentifications [...] Dictation was accomplished with the use of [employer] voice recognition software, prone to medical misidentifications [...] Dictation was accomplished with the use of [employer] voice recognition software, prone to medical misidentifications [...] Dictation was accomplished with the use of [employer] voice recognition software, prone to medical misidentifications and grammatical errors. This is unintentional and the practitioner does try to identify and correct these, but some could still be present. Please do not hesitate to contact practitioner for clarification. All questions answered to patients satisfaction. Patient verbalized understanding of diagnosis and treatments explained. To call sooner prior to next visit it any questions/concerns arise. 02/24/2025 History of gastric bypass (ICD-10 - Z98.84) #Overweight: 144.4 pounds, BMI 24.8. She is now in a normal BMI range. Currently on Zepbound 10 mg. Working on composition changes. Goal to build further muscle while maintaining weight. She has had a lot of illness this past month. Will plan to continue current dose of 10 mg weekly. If she continues to lose weight will need to cut back on dose. Continue to prioritize protein intake and increase resistance training. Follow-up in 4 weeks sooner with any [...] Dictation was accomplished with the use of [employer] voice recognition software, prone to medical misidentifications and grammatical errors. This is unintentional and the practitioner does try to identify and correct these, but some could still be present. Please do not hesitate to contact practitioner for clarification. All questions answered to patients satisfaction. Patient verbalized understanding of diagnosis and treatments explained. To call sooner prior to next visit it any questions/concerns arise. 03/27/2025 History of gastric bypass (ICD-10 - Z98.84) #Overweight: 142.9 pounds, BMI 24.5. She is now in a normal BMI range. Currently on Zepbound 10 mg. Working on composition changes. Goal to build further muscle while maintaining weight. Will plan to continue current dose of 10 mg weekly. If she continues to lose weight will need to cut back on dose. Continue to prioritize protein intake and increase resistance training. Follow-up in 4 weeks sooner with any [...] Dictation was accomplished with the use of [employer] voice recognition software, prone to medical misidentifications and grammatical errors. This is unintentional and the practitioner does try to identify and correct these, but some could still be present. Please do not hesitate to contact practitioner for clarification. All questions answered to patients satisfaction. Patient verbalized understanding of diagnosis and treatments explained. To call sooner prior to next visit it any questions/concerns arise. 04/24/2025 History of gastric bypass (ICD-10 - Z98.84) #Overweight: 139.3, BMI 23.9. She is now in a normal BMI range. Currently on Zepbound 10 mg. Working on composition changes. Fat mass is down and muscle is up. Goal to build further muscle while maintaining weight. Discussed maintenance dosing and potential change of coverage, July. She will start spacing out her dose to every 10 days and monitor over the next month. Follow-up with me in 4 weeks. Continue high-protein diet, hydration and regular exercise. Follow-up sooner as needed #Hypertension. Blood pressure has been controlled on [...] Dictation was accomplished with the use of [employer] voice recognition software, prone to medical misidentifications and grammatical errors. This is unintentional and the practitioner does try to identify and correct these, but some could still be present. Please do not hesitate to contact practitioner for clarification. All questions answered to patients satisfaction. Patient verbalized understanding of diagnosis and treatments explained. To call sooner prior to next visit it any questions/concerns arise. 04/24/2025 Weight loss counseling, encounter for (ICD-10 - Z71.3) #Overweight: 139.3, BMI 23.9. She is now in a normal BMI range. Currently on Zepbound 10 mg. Working on composition changes. Fat mass is down and muscle is up. Goal to build further muscle while maintaining weight. Discussed maintenance dosing and potential change of coverage, July. She will start spacing out her dose to every 10 days and monitor over the next month. Follow-up with me in 4 weeks. Continue high-protein diet, hydration and regular exercise. Follow-up sooner as needed #Hypertension. Blood pressure has been controlled on [...] Dictation was accomplished with the use of [employer] voice recognition software, prone to medical misidentifications and grammatical errors. This is unintentional and the practitioner does try to identify and correct these, but some could still be present. Please do not hesitate to contact practitioner for clarification. All questions answered to patients satisfaction. Patient verbalized understanding of diagnosis and treatments explained. To call sooner prior to next visit it any questions/concerns arise. 03/27/2025 Weight loss counseling, encounter for (ICD-10 - Z71.3) #Overweight: 142.9 pounds, BMI 24.5. She is now in a normal BMI range. Currently on Zepbound 10 mg. Working on composition changes. Goal to build further muscle while maintaining weight. Will plan to continue current dose of 10 mg weekly. If she continues to lose weight will need to cut back on dose. Continue to prioritize protein intake and increase resistance training. Follow-up in 4 weeks sooner with any [...] Dictation was accomplished with the use of [employer] voice recognition software, prone to medical misidentifications and grammatical errors. This is unintentional and the practitioner does try to identify and correct these, but some could still be present. Please do not hesitate to contact practitioner for clarification. All questions answered to patients satisfaction. Patient verbalized understanding of diagnosis and treatments explained. To call sooner prior to next visit it any questions/concerns arise. 02/24/2025 Weight loss counseling, encounter for (ICD-10 - Z71.3) #Overweight: 144.4 pounds, BMI 24.8. She is now in a normal BMI range. Currently on Zepbound 10 mg. Working on composition changes. Goal to build further muscle while maintaining weight. She has had a lot of illness this past month. Will plan to continue current dose of 10 mg weekly. If she continues to lose weight will need to cut back on dose. Continue to prioritize protein intake and increase resistance training. Follow-up in 4 weeks sooner with any [...] Dictation was accomplished with the use of [employer] voice recognition software, prone to medical misidentifications [...] Dictation was accomplished with the use of [employer] voice recognition software, prone to medical misidentifications [...] Dictation was accomplished with the use of [employer] voice recognition software, prone to medical misidentifications [...] Dictation was accomplished with the use of [employer] voice recognition software, prone to medical misidentifications [...] Dictation was accomplished with the use of [employer] voice recognition software, prone to medical misidentifications [...] Dictation was accomplished with the use of [employer] voice recognition software, prone to medical misidentifications [...] Dictation was accomplished with the use of [employer] voice recognition software, prone to medical misidentifications [...] Dictation was accomplished with the use of [employer] voice recognition software, prone to medical misidentifications [...] Dictation was accomplished with the use of [employer] voice recognition software, prone to medical misidentifications [...] 34.7. S 10/19/23: 211 lbs, BMI 35.1 5/9/24: 200.1 lbs, BMI 33.3 02/21/24: 178.5, BMI [...] Dictation was accomplished with the use of [employer] voice recognition software, prone to medical misidentifications [...] Dictation was accomplished with the use of [employer] voice recognition software, prone to medical misidentifications [...] Dictation was accomplished with the use of [employer] voice recognition software, prone to medical misidentifications [...] Dictation was accomplished with the use of [employer] voice recognition software, prone to medical misidentifications [...] Dictation was accomplished with the use of [employer] voice recognition software, prone to medical misidentifications [...] Dictation was accomplished with the use of [employer] voice recognition software, prone to medical misidentifications [...] Dictation was accomplished with the use of [employer] voice recognition software, prone to medical misidentifications [...] Dictation was accomplished with the use of [employer] voice recognition software, prone to medical misidentifications [...] LC/MS/MS 11/29 Next Appt Details Provider Name:Paige Jewell, 1 07/27/2024 09:00:00 AM, [address] , [facility] [address], [place], [address], Provider Name:Paige Jewell, Charles 09/02/2024 08:15:00 AM, [address], [facility] [address], [place], [address], Insurance Providers Payer Name Payer Address Payer Phone Subscriber Number Group Number Insured Name Patient Relationship to Insured Coverage Start Date Coverage End Date [facility] [address] [place] [address] [id number] Anjali Holland Self - patient is the insured Medical (General) History Medical History History ICD Code hypertension hypercholesterolemia Arthritis asthma depression Surgical History Surgery Date(Month/Year) hysterectomy anal cancer surgery x3 knee surgery hand surgery
--- OUTSIDE RECORDS SUMMARY | 2025-05-02 10:31 | XMS_ITS | Clinical Summary ---
Author Organization [facility] Address [address] [place] [address] Care Team Providers Care Astronomy Instructor Name Role Phone Carleen López MD Primary Care Provider [phone] Allergies Active Allergy Reactions Criticality Noted Date [...] Zoster (Shingles) Vaccine (1 of 2) 11/15/2013 RSV Vaccine 60 years and old er and Patients (1 - Risk 60-74 years 1-dose series) 2023 Influenza Vaccine 02/21/2025 COVID-19 Vaccine (1 - 2023-2 5 season) 2025 Hepatitis B Vaccines Aged Out No long er eligible based on patient's age to complete this topic Insurance BLUE CROSS OUT OF STATE - PPO Care Teams Astronomy Instructor Relationship Specialty Start Date End Date Carleen López MD [address] [facility] [place] [place] [address] PCP - General Internal Medicine 09/26/24
--- OUTSIDE RECORDS SUMMARY | 2025-05-02 10:31 | XMS_ITS | Clinical Summary ---
Author Organization [facility] Address [address] [place] [address] Care Team Providers Care Weigher And Grader Name Role Phone Carleen López MD Primary [...] by mouth once a week. 0 Active Jebqzai-Wtswvsxkto-U itamin D (VITAMIN D3/CALCIUM/PHOSPHORU S PO) Take [...] this topic Medical Devices Implanted Type Area Lace Stripper Device Identifier Shelf Expiration Date Model / Serial / Lot Surgiflo Hemostatic Matrix [employer] 2991-300558 - [id number] Implanted:Qty : 1 on 06/23/2021 by Rohan Dewey MD at [facility] and Med Hemostatic Agent Anterior: Spine Cervical J[employer] 12/21/2022 2991 / / [id number] Surgiflo Hemostatic Matrix [employer] 2991-201548 - [id number] Implanted:Qty : 1 on 07/29/2022 by Rohan Dewey MD at [facility] and Med Hemostatic Agent Anterior: Spine Lumbar [employer] 04/22/2024 2991 / / [id number] Vikos Cervical 14x14.5x6mm 7d Stry-Spin [id number] -[id number] - [id number] Implanted:Qty : 1 on 06/23/2021 by Rohan Dewey MD at [facility] and Med Anterior: Spine Cervical MAYA SPINE 02/17/2025 [id number] / [id number] / Vikos Cervical 14x14.5x6mm 7d Stry-Spin [id number] -[id number] - [id number] Implanted:Qty : 1 on 06/23/2021 by Rohan Dewey MD at [facility] and Med Anterior: Spine Cervical MAYA SPINE 08/18/2024 [id number] / [id number] / Vikos Allograft Systems Implanted:Qty : 1 on 06/23/2021 by Rohan Dewey MD at [facility] and Med Anterior: Spine Cervical MAYA - MEDICAL 06/29/2024 [id number] / [id number] / Anterior Cervical Plate Constr 3 Level 54mm Stry-K2m [id number] - [id number] Implanted:Qty : 1 on 06/23/2021 by Rohan Dewey MD at [facility] and Med Anterior: Spine Cervical MAYA SPINE [id number] / / Screw Va Self-Start 4x14mm Stry-K2m [id number]- [id number] - [id number] Implanted:Qty : 8 on 06/23/2021 by Rohan Dewey MD at [facility] and Med Anterior: Spine Cervical MAYA SPINE [id number] / / Carteret Screw Implanted:Qty : 1 on 07/29/2022 by Rohan Dewey MD at [facility] and Med Anterior: Spine Lumbar MAYA SPINE [id number] / / Bone Graft Spine Infuse Med Medt-Sofa [id number] - [id number] Implanted:Qty : 1 on 07/29/2022 by Rohan Dewey MD at [facility] and [facility] Spine Lumbar [employer] SOFAMOR DANEK 07/24/2024 [id number] / / [id number] Carteret Al Implanted:Qty : 1 on 07/29/2022 by Rohan Dewey MD at [facility] and Med Anterior: Spine Lumbar MAYA SPINE 01/19/2027 [id number] / / [id number] Monetery Screw Implanted:Qty : 5 on 07/29/2022 by Rohan Dewey MD at [facility] and Med Anterior: Spine Lumbar MAYA SPINE [id number] / / Manisha Shrestha Implanted:Qty : 1 on 07/29/2022 by Rohan Dewey MD at [facility] and Med Anterior: Spine Lumbar MAYA SPINE 02/12/2027 [id number] / / [id number] Additional Health Concerns Infection Onset Date Last Indicated COVID-19 Confirmed 07/02/2022 07/04/2022 Advance Directives For more information, please contact: [phone] Documents on File Type Date Recorded Patient Charger Tester Expl anation Advance Directive and Living Will [...] way: discussion with patient . Care Teams Weigher And Grader Relationship Specialty Start Date End Date Carleen López MD [address] [address] PCP - General Internal Medicine 06/16/21
== END 2025-05-02 10:28 | disposition home or self-care (01) ==
LOC: HO.HSM 09:46
PROVIDERS: PCP Internal Medicine; Visit Provider Registered Nurse
DX: G44.229 Chronic tension-type headache, not intractable (principal); M79.7 Fibromyalgia; M43.02 Spondylolysis, cervical region; G25.3 Myoclonus; F41.8 Other specified anxiety disorders
CPT/HCPCS: 99214

== ENCOUNTER 2025-05-14 10:32 | Outpatient (AMB) | payer BC, SELFPAY ==
--- OUTSIDE RECORDS SUMMARY | 2024-09-10 04:30 | XMS_ITS ---
Author Organization [facility] [address] Address [address] [place] [address] Care Team Providers Care Cruise Coordinator Name Role Phone Paige Jewell Unavailable [phone] Encounters Encounter Location Date Provider Diagnosis [facility] [address] [address] 09/10/2024 Paige Jewell Plan Of Treatment Next Appt Details Provider Name:Paige Jewell, 1 07/27/2024 09:00:00 AM, [address], [address], Provider Name:Paige Jewell, 1 09/02/2024 08:15:00 AM, [address] [place] [address], [phone], Progress Notes * Desirae RUIZ B:1965 (59 yo F)Acc No.[id number]:09/10/2024 Patient: Dakota PERSAUDAnjali JOHNS Provider: Kathryn Jewell PA-C :1965 A ge:58 Y S ex:Female Date:09/10/2024 Address:[address] [place], [place] [id number] Subjective: * Chief Complaints: * * Medical History: Objective: * Vitals: Assessment: Plan: * Treatment: * Images: Billing Information: * Visit Code: * Procedure Codes: * Electronic signature of Paige Jewell PA-C on 05/14/2025 at 01:19 PM EDT Sign off status: Pending * Provider: Kathryn Jewell PA-C Date: 0 09/10/2024 Generated for Jesus Alberto narayan/Nelida/Yogi on: 1 01:19 PM EDT
--- OUTSIDE RECORDS SUMMARY | 2025-02-11 04:45 | XMS_ITS ---
Author Organization [facility] [address] Address [address] [place] [address] Care Team Providers Care Music Engraver Name Role Phone Paige Jewell Unavailable [phone] Encounters Encounter Location Date Provider Diagnosis [facility] [address] [address] 02/11/2025 Paige Jewell Plan Of Treatment Next Appt Details Provider Name:Paige Jewell, 1 07/27/2024 09:00:00 AM, [address], [address], Provider Name:Paige Jewell, 1 09/02/2024 08:15:00 AM, [address] [place] [address], [address], Progress Notes * Desirae RUIZ B:1965 (59 yo F)Acc No.[id number]:02/11/2025 Patient: Dakota PERSAUDAnjali JOHNS Provider: Kathryn Jewell PA-C :1965 A ge:59 Y S ex:Female Date:02/11/2025 Address:[address] [place], [place] [id number] Subjective: * Chief Complaints: * * Medical History: Objective: * Vitals: Assessment: Plan: * Treatment: * Images: Billing Information: * Visit Code: * Procedure Codes: * Electronic signature of Paige Jewell PA-C on 05/14/2025 at 01:20 PM EDT Sign off status: Pending * Provider: Kathryn Jewell PA-C Date: 0 02/11/2025 Generated for Jesus Alberto narayan/Nelida/Yogi on: 1 01:20 PM EDT
--- NOTE | 2025-05-14 10:35 | A.OFFVIS_ITS ---
Vital Signs 05/14/25 10:36 Height 5 ft 5 in Weight 142 lb 3.17 oz BMI 23.7 BP 120/80 Blood Pressure Location Lt brachial Position Sitting Pulse 78 Pulse Source Pulse Oximeter Pulse Oximetry (%) 98 Oxygen Delivery Method Room Air Intake Visit Reasons: 3 Months Intake Note: Patient presents today for a follow up for right knee arthritis. Accompanied by: Self / Same As Patient Allergies No Known Allergies Allergy (Verified 05/14/25 10:36) HPI HPI 3 Months: Details: She is experiencing pain in multiple areas including her left knee, generalized pain and back pain. [facility] Medical History Insomnia Cervical disc disease Fibromyalgia Depression with anxiety Chronic tension type headache Surgical History S/P lumbar fusion S/P cervical spinal fusion Physical Exam Vital Signs: Last Vital Signs Pulse 78 05/14/25 10:36 BP 120/80 05/14/25 10:36 Pulse Ox 98 05/14/25 10:36 Oxygen Delivery Method Room Air 05/14/25 10:36 BMI result Body Mass Index 23.7 Office Procedures AMB Joint Injection/Aspiration Joint Injection/Aspiration Details: Left knee joint Prep: site was prepped using aseptic technique Injected: 40 mg of, Kenalog, with 1 mL of and 1% plain lidocaine Procedure: Informed verbal consent was obtained. The patient tolerated the procedure well. Postprocedure protocol was discussed with patient. Coding 68879 - Large joint Procedure code (CPT) selection complete Office Meds lidocaine (PF) 10 mg/mL (1 %) injection solution Performing Provider: Brandan Mills MD Performing Location: [facility] Administered by: Charlotte Dai RN on 05/14/25 13:35 Dose Route Admin Location Dispensed Lot Number Expiration Date [facility] Ammonia Still Operator 1 mL Infiltration right knee 2 mL [id number] 12/21/26 47077-829-32 [facility] Waste 2 mL 50 % Kenalog 40 mg/mL suspension for injection Performing Provider: Brandan Mills MD Performing Location: [facility] Administered by: Charlotte Dai RN on 05/14/25 13:35 Dose Route Admin Location Dispensed Lot Number Expiration Date [facility] Ammonia Still Operator 40 mg intra-articu right knee 1 mL [id number] 01/20/27 [address]-6 A [facility] Total Dispensed Waste 1 mL 0 % Assessment & Plan Assessment & Plan (1) Knee osteoarthritis: Comment: Left knee greater than right knee. Previously treated with cortisone injection to right knee on 11/2022, 07/2023, 01/2024, 07/2024, 01/2025. Relapse of pain. Code(s): M17.9 - Osteoarthritis of knee, unspecified Category: Medical Qualifiers: Laterality: right Osteoarthritis type: primary Qualified Code(s): M17.11 - Unilateral primary osteoarthritis, right knee Plan: Patient received right knee cortisone injection this visit Discussed importance of having a regular exercise routine Right knee hinged brace prescribed Encouraged weight loss. Congratulated patient on weight loss with Zepbound Gabapentin and duloxetine are both indicated for treatment of chronic knee pain due to knee osteoarthritis. Gabapentin is also indicated for chronic back pain. She will discuss with her prescriber to consider up titration either gabapentin or duloxetine to better control her generalized pain. Return to clinic in 3 months or sooner if needed Orders: Orders PT Evaluation and Treatment 05/14/25 M17.11 - Unilateral primary osteoarthritis, right knee AMB Joint Injection/Aspiration 05/14/25 M17.11 - Unilateral primary osteoarthritis, right knee Medications: New leg brace (Knee Support Brace) As directed R knee hinged brace Dx: osteoarthritis 1 ea 0RF Coding Level of Care Code Est Pt Level 3 (19941) Complex EM visit Add On G2211 Diagnoses Primary osteoarthritis of right knee M17.11 Laterality: right Osteoarthritis type: primary CPT Codes Coding - 45197 Large joint: 64108 - Large joint ([id number])
[2025-05-14 10:36] VITALS: BP 120/80; PULSE 78; O2SAT 98; BMI 23.7
--- OUTSIDE RECORDS SUMMARY | 2025-05-14 13:20 | XMS_ITS | Clinical Summary ---
Author Organization [facility] Address [address] [place] [address] Care Team Providers Care Regulatory Compliance Coordinator Name Role Phone Carleen López MD Primary Care Provider [phone] Surgical History Surgery Date Site/Laterality Comments SHOULDER [...] 3 LEVELS; Surgeon: Rohan Dewey MD; Location: [facility] MAIN OPERATING ROOM; Service: Spine; Laterality: Anterior; CERVICAL FUSION 06/23/2021 N/A PROCEDURE:CERVICAL FUSION;COMMENT:Procedure: ANTERIOR CERVICAL DISC FUSION 1 LEVEL; Surgeon: Rohan Dewey MD; Location: [facility] MAIN OPERATING ROOM; Service: Spine; Laterality: N/A; LUMBAR FUSION 07/29/2022 Anterior PROCEDURE:LUMBAR FUSION;COMMENT:Procedure: L4-5, L5-S1 FUSION SPINE LUMBAR ANTERIOR 2 INTERSPACES; Surgeon: Rohan Dewey MD; Location: [facility] MAIN OPERATING ROOM; Service: Spine; Laterality: Anterior; LUMBAR FUSION 07/29/2022 N/A PROCEDURE:LUMBAR FUSION;COMMENT:Procedure: FUSION SPINE LUMBAR ANTERIOR 1 INTERSPACE; Surgeon: Rohan Dewey MD; Location: [facility] MAIN OPERATING ROOM; Service: Spine; [...] this topic Medical Devices Implanted Type Area Shop Coordinator Device Identifier Shelf Expiration Date Model / Serial / Lot Surgiflo Hemostatic Matrix Monitor [employer] [id number] Implanted:Qty : 1 on 06/23/2021 by Rohan Dewey MD Implants N/A: Spine Cervical [employer] 12/21/2022 2991 / / [id number] Surgiflo Hemostatic Matrix Monitor Backlinks-Ethi [id number] Implanted:Qty : 1 on 07/29/2022 by Rohan Dewey MD Implants N/A: Spine Lumbar JNJ [employer] 04/22/2024 2991 / / [id number] Vikos Cervical 14x14.5x6mm 7d Stry-Spin [id number] - [id number] Implanted:Qty : 1 on 06/23/2021 by Rohan Dewey MD N/A: Spine Cervical MAYA SPINE 02/17/2025 [id number] / [id number] / Vikos Cervical 14x14.5x6mm 7d Stry-Spin [id number] -[id number] - [id number] Implanted:Qty : 1 on 06/23/2021 by Rohan Dewey MD N/A: Spine Cervical [employer] SPINE 08/18/2024 [id number] / [id number] / Vikos Allograft Systems Implanted:Qty : 1 on 06/23/2021 by Rohan Dewey MD N/A: Spine Cervical MAYA - MEDICAL 06/29/2024 [id number] L7 / [id number] / Anterior Cervical Plate Constr 3 Level 54mm Stry-K2m [id number] Implanted:Qty : 1 on 06/23/2021 by Rohan Dewey MD N/A: Spine Cervical MAYA SPINE [id number] / / Screw Va Self-Start 4x14mm Stry-K2m [id number] Implanted:Qty : 8 on 06/23/2021 by Rohan Dewey MD N/A: Spine Cervical [employer] SPINE [id number] / / Comm[place] Screw Implanted:Qty : 1 on 07/29/2022 by Rohan Dewey MD N/A: Spine Lumbar [employer]A SPINE [id number] / / Bone Graft Spine Infuse Med Medt-Sofa [id number] Implanted:Qty : 1 on 07/29/2022 by Rohan Dewey MD Spine Lumbar [employer] SOFAMOR DANEK 07/24/2024 [id number] / / [id number] [place] Al Implanted:Qty : 1 on 07/29/2022 by Rohan Dewey MD N/A: Spine Lumbar [employer]A SPINE 01/19/2027 [id number] / / [id number] Monetery Screw Implanted:Qty : 5 on 07/29/2022 by Rohan Dewey MD N/A: Spine Lumbar [employer]A SPINE [id number] / / [place] Al Implanted:Qty : 1 on 07/29/2022 by Rohan Dewey MD N/A: Spine Lumbar MAYA SPINE 02/12/2027 [id number] / / [id number] Care Teams Regulatory Compliance Coordinator Relationship Specialty Start Date End Date Carleen López MD [address] [place] [address] PCP - General Internal Medicine 06/16/21
--- OUTSIDE RECORDS SUMMARY | 2025-05-14 13:20 | XMS_ITS | Patient Health Record ---
Author Organization [facility] Address [address] [place] [address] Care Team Providers Care [employer] H[employer] R Instructor Name Role Phone Paige Jewell Unavailable [phone] Allergies Allergen (clinical drug ingredient) Drug/Non Drug [...] W/U Status Risk Notes Problem Essential hypertension (90678672) Essential hypertension (I10) Active confirmed Problem Pure hypercholesterolemia (531663783) Pure hypercholesterolemia (E78.00) Active confirmed Problem Vitamin D deficiency (33109421) Vitamin D deficiency (E55.9) Active confirmed Problem Obesity (469525180) Obesity (BMI 30-39.9) (E66.9) Active confirmed Problem Obese class II (617166538981719) BMI 35.0-35.9,adult (Z68.35) Active confirmed Problem Obese class I (271604627819771) BMI 33.0-33.9,adult (Z68.33) Active confirmed Problem BMI 30+ - obesity (610877578) BMI 32.0-32.9,adult (Z68.32) Active confirmed Problem BMI 25-29 - overweight (985848255) BMI 27.0-27.9,adult (Z68.27) Active confirmed Problem Body mass index 30.0 0 to 34.99 (277882340579110) BMI 34.0-34.9,adult (Z68.34) Active confirmed Problem Overweight (222317554) Overweight (BMI 25.0-29.9) (E66.3) Active confirmed Problem History of gastric bypass (589335942) History of gastric bypass (Z98.84) Active confirmed Vital Signs Heart Rate 73 /min 04/24/2025 Oximetry 99 % 04/24/2025 Blood pressure diastolic 64 mm Hg 04/24/2025 Height 64 in 04/24/2025 Blood pressure systolic 118 mm Hg 04/24/2025 Weight 139.3 lbs 04/24/2025 BMI 23.91 kg/m2 04/24/2025 Encounters Encounter Location Date Provider Diagnosis [facility] [address] [address] 05/28/2024 Paige Svrcek BMI 27.0-27.9,adult Z68.27 ; Overweight (BMI 25.0-29.9) E66.3 ; Essential hypertension I10 ; Pure hypercholesterolemia E78.00 ; History of gastric bypass Z98.84 and Weight loss counseling, encounter for Z71.3 [facility] [address] 06/25/2024 Paige Svrcek BMI 27.0-27.9,adult Z68.27 ; Overweight (BMI 25.0-29.9) E66.3 ; Essential hypertension I10 ; Pure hypercholesterolemia E78.00 ; History of gastric bypass Z98.84 and Weight loss counseling, encounter for Z71.3 [facility] [address] 08/06/2024 Paige Svrcek BMI 27.0-27.9,adult Z68.27 ; Overweight (BMI 25.0-29.9) E66.3 ; Essential hypertension I10 ; Pure hypercholesterolemia E78.00 ; History of gastric bypass Z98.84 and Weight loss counseling, encounter for Z71.3 [facility] [address] 09/05/2024 Paige Svrcek Overweight (BMI 25.0 -29.9) E66.3 ; BMI 26.0-26.9,adult Z68.26 ; Essential hypertension I10 ; Pure hypercholesterolemia E78.00 ; History of gastric bypass Z98.84 and Weight loss counseling, encounter for Z71.3 [facility] [address] 10/03/2024 Paige Svrcek Overweight (BMI 25.0 -29.9) E66.3 ; BMI 26.0-26.9,adult Z68.26 ; Essential hypertension I10 ; Pure hypercholesterolemia E78.00 ; History of gastric bypass Z98.84 and Weight loss counseling, encounter for Z71.3 [facility] [address] [address] 10/31/2024 Paige Svrcek Overweight (BMI 25.0 -29.9) E66.3 ; BMI 27.0-27.9,adult Z68.27 ; Essential hypertension I10 ; Pure hypercholesterolemia E78.00 ; History of gastric bypass Z98.84 and Weight loss counseling, encounter for Z71.3 [facility] [address] [address] 12/05/2024 Paige Svrcek Overweight (BMI 25.0 -29.9) E66.3 ; BMI 25.0-25.9,adult Z68.25 ; Essential hypertension I10 ; Pure hypercholesterolemia E78.00 ; History of gastric bypass Z98.84 and Weight loss counseling, encounter for Z71.3 [facility] [address] 01/07/2025 Paige Svrcek Overweight (BMI 25.0 -29.9) E66.3 ; BMI 26.0-26.9,adult Z68.26 ; Essential hypertension I10 ; Pure hypercholesterolemia E78.00 ; History of gastric bypass Z98.84 and Weight loss counseling, encounter [facility] Z71.3 [facility] [address] 02/24/2025 Paige Svrcek Overweight (BMI 25.0 -29.9) E66.3 ; Essential hypertension I10 ; Pure hypercholesterolemia E78.00 ; History of gastric bypass Z98.84 and Weight loss counseling, encounter for Z71.3 [facility] [address] 03/27/2025 Paige Svrcek Essential hypertensi on I10 ; BMI 24.0-24.9, adult Z68.24 ; Pure hypercholesterolemia E78.00 ; History of gastric bypass Z98.84 and Weight loss counseling, encounter for Z71.3 [facility] [address] 04/24/2025 Paige Svrcek Essential hypertensi on I10 ; BMI 23.0-23.9, adult Z68.23 ; Pure hypercholesterolemia E78.00 ; History of gastric bypass Z98.84 and Weight loss counseling, encounter for Z71.3 [facility] [address] [facility] [address] [place] [address] 09/05/2024 Paige Svrcek [facility] [address] [address] 12/05/2024 Paige Svrcek [facility] [address] [address] 02/10/2025 Paige Jewell Assessments Encounter Date Diagnosis [...] Dictation was accomplished with the use of Spritz voice recognition software, prone to medical misidentifications [...] Dictation was accomplished with the use of Spritz voice recognition software, prone to medical misidentifications [...] Dictation was accomplished with the use of Spritz voice recognition software, prone to medical misidentifications [...] Dictation was accomplished with the use of Spritz voice recognition software, prone to medical misidentifications [...] Dictation was accomplished with the use of Spritz voice recognition software, prone to medical misidentifications [...] Dictation was accomplished with the use of Spritz voice recognition software, prone to medical misidentifications [...] Dictation was accomplished with the use of Spritz voice recognition software, prone to medical misidentifications [...] Dictation was accomplished with the use of Spritz voice recognition software, prone to medical misidentifications [...] Dictation was accomplished with the use of Spritz voice recognition software, prone to medical misidentifications [...] Dictation was accomplished with the use of Spritz voice recognition software, prone to medical misidentifications [...] Dictation was accomplished with the use of Spritz voice recognition software, prone to medical misidentifications [...] Dictation was accomplished with the use of Spritz voice recognition software, prone to medical misidentifications [...] Dictation was accomplished with the use of Spritz voice recognition software, prone to medical misidentifications [...] Dictation was accomplished with the use of Spritz voice recognition software, prone to medical misidentifications [...] Dictation was accomplished with the use of Spritz voice recognition software, prone to medical misidentifications [...] Dictation was accomplished with the use of Spritz voice recognition software, prone to medical misidentifications [...] Dictation was accomplished with the use of Spritz voice recognition software, prone to medical misidentifications [...] Dictation was accomplished with the use of Spritz voice recognition software, prone to medical misidentifications [...] Dictation was accomplished with the use of Spritz voice recognition software, prone to medical misidentifications [...] Dictation was accomplished with the use of Spritz voice recognition software, prone to medical misidentifications [...] Dictation was accomplished with the use of Spritz voice recognition software, prone to medical misidentifications [...] Dictation was accomplished with the use of Spritz voice recognition software, prone to medical misidentifications [...] Dictation was accomplished with the use of Spritz voice recognition software, prone to medical misidentifications [...] Dictation was accomplished with the use of Spritz voice recognition software, prone to medical misidentifications [...] Dictation was accomplished with the use of Spritz voice recognition software, prone to medical misidentifications [...] Dictation was accomplished with the use of Spritz voice recognition software, prone to medical misidentifications [...] Dictation was accomplished with the use of Spritz voice recognition software, prone to medical misidentifications [...] Dictation was accomplished with the use of Spritz voice recognition software, prone to medical misidentifications [...] Dictation was accomplished with the use of Spritz voice recognition software, prone to medical misidentifications [...] Dictation was accomplished with the use of Spritz voice recognition software, prone to medical misidentifications [...] Dictation was accomplished with the use of Spritz voice recognition software, prone to medical misidentifications [...] Dictation was accomplished with the use of Spritz voice recognition software, prone to medical misidentifications [...] Dictation was accomplished with the use of Spritz voice recognition software, prone to medical misidentifications [...] Dictation was accomplished with the use of Spritz voice recognition software, prone to medical misidentifications [...] Dictation was accomplished with the use of Spritz voice recognition software, prone to medical misidentifications [...] Dictation was accomplished with the use of Spritz voice recognition software, prone to medical misidentifications [...] Dictation was accomplished with the use of Spritz voice recognition software, prone to medical misidentifications [...] Dictation was accomplished with the use of Spritz voice recognition software, prone to medical misidentifications [...] Dictation was accomplished with the use of Spritz voice recognition software, prone to medical misidentifications [...] Dictation was accomplished with the use of Spritz voice recognition software, prone to medical misidentifications [...] Dictation was accomplished with the use of Spritz voice recognition software, prone to medical misidentifications [...] Dictation was accomplished with the use of Spritz voice recognition software, prone to medical misidentifications [...] Dictation was accomplished with the use of Spritz voice recognition software, prone to medical misidentifications [...] Dictation was accomplished with the use of Spritz voice recognition software, prone to medical misidentifications [...] Dictation was accomplished with the use of Spritz voice recognition software, prone to medical misidentifications [...] Dictation was accomplished with the use of Spritz voice recognition software, prone to medical misidentifications [...] Dictation was accomplished with the use of Spritz voice recognition software, prone to medical misidentifications [...] Dictation was accomplished with the use of Spritz voice recognition software, prone to medical misidentifications [...] Dictation was accomplished with the use of Spritz voice recognition software, prone to medical misidentifications [...] Dictation was accomplished with the use of Spritz voice recognition software, prone to medical misidentifications [...] Dictation was accomplished with the use of Spritz voice recognition software, prone to medical misidentifications [...] Dictation was accomplished with the use of Spritz voice recognition software, prone to medical misidentifications [...] Dictation was accomplished with the use of Spritz voice recognition software, prone to medical misidentifications [...] Dictation was accomplished with the use of Spritz voice recognition software, prone to medical misidentifications [...] Dictation was accomplished with the use of Spritz voice recognition software, prone to medical misidentifications [...] Dictation was accomplished with the use of Spritz voice recognition software, prone to medical misidentifications [...] Dictation was accomplished with the use of Spritz voice recognition software, prone to medical misidentifications [...] Dictation was accomplished with the use of Spritz voice recognition software, prone to medical misidentifications [...] Dictation was accomplished with the use of Spritz voice recognition software, prone to medical misidentifications [...] Dictation was accomplished with the use of Spritz voice recognition software, prone to medical misidentifications [...] Dictation was accomplished with the use of Spritz voice recognition software, prone to medical misidentifications [...] Dictation was accomplished with the use of Spritz voice recognition software, prone to medical misidentifications [...] Dictation was accomplished with the use of Spritz voice recognition software, prone to medical misidentifications [...] 1 07/27/2024 09:00:00 AM, [address] , [facility] [address], [place], [address], Provider Name:Paige Jewell, Charles 09/02/2024 08:15:00 AM, [address], [facility] [address], [place], [address], Insurance Providers Payer Name Payer Address Payer Phone Subscriber Number Group Number Insured Name Patient Relationship to Insured Coverage Start Date Coverage End Date [facility] [address] [place] [address] [phone] [id number] Anjali Holland Self - patient is the insured Medical (General) History Medical History History ICD Code hypertension hypercholesterolemia Arthritis asthma depression Surgical History Surgery Date(Month/Year) hysterectomy anal cancer surgery x3 knee surgery hand surgery
--- OUTSIDE RECORDS SUMMARY | 2025-05-14 13:21 | XMS_ITS | Clinical Summary ---
Author Organization [facility] Address [address] [place] [address] Care Team Providers Care Street Supervisor Name Role Phone Carleen López MD Primary [...] by mouth once a week. 0 Active Smrfuvf-Evggxbhcnn-D itamin D (VITAMIN D3/CALCIUM/PHOSPHORU S PO) Take [...] this topic Medical Devices Implanted Type Area Popcorn Machine Operator Device Identifier Shelf Expiration Date Model / Serial / Lot Surgiflo Hemostatic Matrix Sxbbm[employer] 2991-060303 - [id number] Implanted:Qty : 1 on 06/23/2021 by Rohan Dewey MD [place] [facility] Hemostatic Agent Anterior: Spine Cervical [employer] 12/21/2022 2991 / / [id number] Surgiflo Hemostatic Matrix Sxbbm[employer] 2991-715561 - [id number] Implanted:Qty : 1 on 07/29/2022 by Rohan Dewey MD [place] [facility] Hemostatic Agent Anterior: Spine Lumbar [employer] 04/22/2024 2991 / / [id number] Vikos Cervical 14x14.5x6mm 7d Stry-Spin [id number] - [id number] Implanted:Qty : 1 on 06/23/2021 by Rohan Dewey MD [place] [facility] Anterior: Spine Cervical [employer] 02/17/2025 [id number] / [id number] / Vikos Cervical 14x14.5x6mm 7d Stry-Spin [id number] -[id number] - [id number] Implanted:Qty : 1 on 06/23/2021 by Rohan Dewey MD at [facility] Anterior: Spine Cervical [employer] 08/18/2024 [id number] L7 / [id number] / Vikos [employer] Systems Implanted:Qty : 1 on 06/23/2021 by Rohan Dewey MD at [facility] Anterior: Spine Cervical MAYA - MEDICAL 06/29/2024 [id number] L7 / [id number] / Anterior Cervical Plate Constr 3 Level 54mm Stry-K2m [id number] - [id number] Implanted:Qty : 1 on 06/23/2021 by Rohan Dewey MD at [facility] Anterior: Spine Cervical [employer] [id number] / / Screw Va Self-Start 4x14mm Stry-K2m [id number] - [id number] Implanted:Qty : 8 on 06/23/2021 by Rohan Dewey MD at [facility] Anterior: Spine Cervical [employer] [id number] / / [place] Screw Implanted:Qty : 1 on 07/29/2022 by Rohan Dewey MD at [facility] Anterior: Spine Lumbar [employer] [id number] / / Bone Graft Spine Infuse Med Medt-Sofa [id number] - [id number] Implanted:Qty : 1 on 07/29/2022 by Rohan Dewey MD [place] [facility] Spine Lumbar [employer] SO[employer]ANEK 07/24/2024 [id number] / / [id number] [place] Al Implanted:Qty : 1 on 07/29/2022 by Rohan Dewey MD at [facility] Anterior: Spine Lumbar [employer] 01/19/2027 [id number] / / [id number] Monetery Screw Implanted:Qty : 5 on 07/29/2022 by Rohan Dewey MD at [facility] Anterior: Spine Lumbar [employer] [id number] / / Manisha Shrestha Implanted:Qty : 1 on 07/29/2022 by Rohan Dewey MD at [facility] Anterior: Spine Lumbar [employer]INE 02/12/2027 [id number] / / [id number] Additional Health Concerns Infection Onset Date Last Indicated COVID-19 Confirmed 07/02/2022 07/04/2022 Advance Directives For more information, please contact: [phone] Documents on File Type Date Recorded Patient Water Supervisor Expl anation Advance Directive and Living Will [...] way: discussion with patient . Care Teams Street Supervisor Relationship Specialty Start Date End Date Carleen López MD [address] [address] PCP - General Internal Medicine 06/16/21
--- OUTSIDE RECORDS SUMMARY | 2025-05-14 13:21 | XMS_ITS | Clinical Summary ---
Author Organization [facility] Address [address] [place] [address] Care Team Providers Care Power And Recovery Shift Engineer Name Role Phone Carleen López MD Primary Care Provider + [phone] Allergies Active Allergy Reactions Criticality Noted Date [...] 50+ (1 of 1 - PCV) 11/15/2013 RSV Vaccine 50 years and old er and Patients (1 - Risk 50-74 years 1-dose series) 11/15/2013 Zoster (Shingles) Vaccine (1 of 2) 11/15/2013 Influenza Vaccine 02/21/2025 COVID-19 Vaccine ( - 2023-2 5 season) 2025 Hepatitis B Vaccines Aged Out No long er eligible based on patient's age to complete this topic Insurance BLUE CROSS OUT OF STATE - PPO Care Teams Power And Recovery Shift Engineer Relationship Specialty Start Date End Date Carleen López MD [facility] [address] [address] PCP - General Internal Medicine 09/26/24
== END 2025-05-14 11:34 | disposition home or self-care (01) ==
LOC: HO.RHES 10:33
PROVIDERS: PCP Internal Medicine; Visit Provider Internal Medicine Rheumatology
DX: M17.11 Unilateral primary osteoarthritis, right knee (principal)
CPT/HCPCS: 20610; 99213

== ENCOUNTER → 2025-05-14 10:32 | Outpatient (BNVA) | payer BC, SELFPAY | PROVIDERS: PCP Internal Medicine; Visit Provider Internal Medicine Rheumatology | DX: M17.11 Unilateral primary osteoarthritis, right knee (principal); M21.062 Valgus deformity, not elsewhere classified, left knee; M21.061 Valgus deformity, not elsewhere classified, right knee | CPT/HCPCS: 20610; J2003; J3301 ==

== ENCOUNTER 2025-05-15 10:28 | Outpatient (REF) | payer BC, SELFPAY ==
--- OUTSIDE RECORDS SUMMARY | 2024-09-10 04:30 | XMS_ITS ---
Author Organization [facility] [address] Address [address] [place] [address] Care Team Providers Care Admin Assistant Name Role Phone Paige Jewell Unavailable [phone] Encounters Encounter Location Date Provider Diagnosis [facility] [address] [address] 09/10/2024 Paige Jewell Plan Of Treatment Next Appt Details Provider Name:Paige Jewell, 1 07/27/2024 09:00:00 AM, [address], [address], Provider Name:Paige Jewell, 1 09/02/2024 08:15:00 AM, [address] [place] [address], [address], Progress Notes * Desirae RUIZ B:1965 (59 yo F)Acc No.[id number]:09/10/2024 Patient: Dakota PERSAUDAnjali JOHNS Provider: Kathryn Jewell PA-C :1965 A ge:58 Y S ex:Female Date:09/10/2024 Address:[address] [place], [place] [id number] Subjective: * Chief Complaints: * * Medical History: Objective: * Vitals: Assessment: Plan: * Treatment: * Images: Billing Information: * Visit Code: * Procedure Codes: * Electronic signature of Paige Jewell PA-C on 05/15/2025 at 12:38 PM EDT Sign off status: Pending * Provider: Kathryn Jewell PA-C Date: 0 09/10/2024 Generated for Jesus Alberto narayan/Nelida/Yogi on: 1 12:38 PM EDT
--- OUTSIDE RECORDS SUMMARY | 2025-02-11 04:45 | XMS_ITS ---
Author Organization [facility] [address] Address [address] [place] [address] Care Team Providers Care Automobile Damage Appraiser Name Role Phone Paige Jewell Unavailable [phone] Encounters Encounter Location Date Provider Diagnosis [facility] [address] [address] 02/11/2025 Paige Jewell Plan Of Treatment Next Appt Details Provider Name:Paige Jewell, 1 07/27/2024 09:00:00 AM, [address], [address], Provider Name:Paige Jewell, 1 09/02/2024 08:15:00 AM, [address] [place] [address], [phone], Progress Notes * Desirae RUIZ B:1965 (59 yo F)Acc No.[id number]:02/11/2025 Patient: Dakota PERSAUDAnjali JOHNS Provider: Kathryn Jewell PA-C :1965 A ge:59 Y S ex:Female Date:02/11/2025 Address:[address] [place], [place] [id number] Subjective: * Chief Complaints: * * Medical History: Objective: * Vitals: Assessment: Plan: * Treatment: * Images: Billing Information: * Visit Code: * Procedure Codes: * Electronic signature of Paige Jewell PA-C on 05/15/2025 at 12:38 PM EDT Sign off status: Pending * Provider: Kathryn Jewell PA-C Date: 0 02/11/2025 Generated for Jesus Alberto narayan/Nelida/Yogi on: 1 12:38 PM EDT
--- NOTE | 2025-05-15 11:55 | EEG_ITS ---
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 Patient reports it happened last night. Last meal was this morning at 6 AM. Medication: bupropion, cyclobenzaprine, duloxetine, gabapentin, lisinopril, nortriptyline, pantoprazole, tirzepatide Technical description Photic stimulation: completed Hyperventilation:?omitted Behavioral state: pleasant State of Consciousness: awake and drowsy Skull defect: none Sedation: none Handedness: right Duration of study:?33 min 19? sec Description: This is a 16 channel EEG with an EKG lead. Patient is reported awake and drowsy during the tracing. Background EEG rhythm is 12-14 hertz 5-100 microvolt posteriorly lower amplitude fast anteriorly. Intermittently sharply controlled theta range discharges and sharp waves were noted in right central temporal area. Photic stimulation did not produce any significant abnormality. Hyperventilation was not performed. Cardiac lead did not reveal any significant abnormality. Impression: Mildly abnormal EEG suggestive of right central temporal irritability. MTDD
--- OUTSIDE RECORDS SUMMARY | 2025-05-15 12:38 | XMS_ITS | Patient Health Record ---
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 Name Role Phone Paige Jewell Unavailable [phone] Allergies Allergen (clinical drug ingredient) Drug/Non Drug [...] W/U Status Risk Notes Problem Essential hypertension (73471140) Essential hypertension (I10) Active confirmed Problem Pure hypercholesterolemia (608377645) Pure hypercholesterolemia (E78.00) Active confirmed Problem Vitamin D deficiency (06482463) Vitamin D deficiency (E55.9) Active confirmed Problem Obesity (802948176) Obesity (BMI 30-39.9) (E66.9) Active confirmed Problem Obese class II (785322409879731) BMI 35.0-35.9,adult (Z68.35) Active confirmed Problem Obese class I (227794604485628) BMI 33.0-33.9,adult (Z68.33) Active confirmed Problem BMI 30+ - obesity (673801558) BMI 32.0-32.9,adult (Z68.32) Active confirmed Problem BMI 25-29 - overweight (060706366) BMI 27.0-27.9,adult (Z68.27) Active confirmed Problem Body mass index 30.0 0 to 34.99 (618392353562993) BMI 34.0-34.9,adult (Z68.34) Active confirmed Problem Overweight (404218597) Overweight (BMI 25.0-29.9) (E66.3) Active confirmed Problem History of gastric bypass (052369345) History of gastric bypass (Z98.84) Active confirmed Vital Signs Heart Rate 73 /min 04/24/2025 Blood pressure diastolic 64 mm Hg 04/24/2025 Oximetry 99 % 04/24/2025 Height 64 in 04/24/2025 Blood pressure systolic 118 mm Hg 04/24/2025 Weight 139.3 lbs 04/24/2025 BMI 23.91 kg/m2 04/24/2025 Encounters Encounter Location Date Provider Diagnosis [facility] [address] [address] 05/28/2024 Paige Svrcek BMI 27.0-27.9,adult Z68.27 ; Overweight (BMI 25.0-29.9) E66.3 ; Essential hypertension I10 ; Pure hypercholesterolemia E78.00 ; History of gastric bypass Z98.84 and Weight loss counseling, encounter for Z71.3 [facility] [address] 06/25/2024 Paige Svrcek BMI 27.0-27.9,adult Z68.27 ; Overweight (BMI 25.0-29.9) E66.3 ; Essential hypertension I10 ; Pure hypercholesterolemia E78.00 ; History of gastric bypass Z98.84 and Weight loss counseling, encounter for Z71.3 [facility] [address] 08/06/2024 Paige Svrcek BMI 27.0-27.9,adult Z68.27 ; Overweight (BMI 25.0-29.9) E66.3 ; Essential hypertension I10 ; Pure hypercholesterolemia E78.00 ; History of gastric bypass Z98.84 and Weight loss counseling, encounter for Z71.3 [facility] [address] 09/05/2024 Paige Svrcek Overweight (BMI 25.0 -29.9) E66.3 ; BMI 26.0-26.9,adult Z68.26 ; Essential hypertension I10 ; Pure hypercholesterolemia E78.00 ; History of gastric bypass Z98.84 and Weight loss counseling, encounter for Z71.3 [facility] [address] 10/03/2024 Paige Svrcek Overweight (BMI 25.0 -29.9) E66.3 ; BMI 26.0-26.9,adult Z68.26 ; Essential hypertension I10 ; Pure hypercholesterolemia E78.00 ; History of gastric bypass Z98.84 and Weight loss counseling, encounter for Z71.3 [facility] [address] [address] 10/31/2024 Paige Svrcek Overweight (BMI 25.0 -29.9) E66.3 ; BMI 27.0-27.9,adult Z68.27 ; Essential hypertension I10 ; Pure hypercholesterolemia E78.00 ; History of gastric bypass Z98.84 and Weight loss counseling, encounter for Z71.3 [facility] [address] [address] 12/05/2024 Paige Svrcek Overweight (BMI 25.0 -29.9) E66.3 ; BMI 25.0-25.9,adult Z68.25 ; Essential hypertension I10 ; Pure hypercholesterolemia E78.00 ; History of gastric bypass Z98.84 and [facility] loss [facility], [facility]71.3 [facility] [address] 01/07/2025 Paige Svrcek Overweight (BMI 25.0 -29.9) E66.3 ; BMI 26.0-26.9,adult Z68.26 ; Essential hypertension I10 ; Pure hypercholesterolemia E78.00 ; History of gastric bypass Z98.84 and [facility] loss counseling, [facility] Z71.3 [facility] [address] 02/24/2025 Paige Svrcek Overweight (BMI 25.0 -29.9) E66.3 ; Essential hypertension I10 ; Pure hypercholesterolemia E78.00 ; History of gastric bypass Z98.84 and Weight loss counseling, encounter for Z71.3 [facility] [address] 03/27/2025 Paige Svrcek Essential hypertensi on I10 ; BMI 24.0-24.9, adult Z68.24 ; Pure hypercholesterolemia E78.00 ; History of gastric bypass Z98.84 and Weight loss counseling, encounter for Z71.3 [facility] [address] 04/24/2025 Paige Svrcek Essential hypertensi on I10 ; BMI 23.0-23.9, adult Z68.23 ; Pure hypercholesterolemia E78.00 ; History of gastric bypass Z98.84 and Weight loss counseling, encounter for Z71.3 [facility] [address] [facility] [address] [place] [address] 09/05/2024 Paige Svrcek [facility] [address] [address] 12/05/2024 [facility] Svrcek [facility] [address] [address] 02/10/2025 Paige Jewell Assessments Encounter Date Diagnosis [...] Dictation was accomplished with the use of EverTune voice recognition software, prone to medical misidentifications [...] Dictation was accomplished with the use of EverTune voice recognition software, prone to medical misidentifications [...] Dictation was accomplished with the use of EverTune voice recognition software, prone to medical misidentifications [...] Dictation was accomplished with the use of EverTune voice recognition software, prone to medical misidentifications [...] Dictation was accomplished with the use of EverTune voice recognition software, prone to medical misidentifications [...] Dictation was accomplished with the use of EverTune voice recognition software, prone to medical misidentifications [...] Dictation was accomplished with the use of EverTune voice recognition software, prone to medical misidentifications [...] Dictation was accomplished with the use of EverTune voice recognition software, prone to medical misidentifications [...] Dictation was accomplished with the use of EverTune voice recognition software, prone to medical misidentifications [...] Dictation was accomplished with the use of EverTune voice recognition software, prone to medical misidentifications [...] Dictation was accomplished with the use of EverTune voice recognition software, prone to medical misidentifications [...] Dictation was accomplished with the use of EverTune voice recognition software, prone to medical misidentifications [...] Dictation was accomplished with the use of EverTune voice recognition software, prone to medical misidentifications [...] Dictation was accomplished with the use of EverTune voice recognition software, prone to medical misidentifications [...] Dictation was accomplished with the use of EverTune voice recognition software, prone to medical misidentifications [...] Dictation was accomplished with the use of EverTune voice recognition software, prone to medical misidentifications [...] Dictation was accomplished with the use of EverTune voice recognition software, prone to medical misidentifications [...] Dictation was accomplished with the use of EverTune voice recognition software, prone to medical misidentifications [...] Dictation was accomplished with the use of EverTune voice recognition software, prone to medical misidentifications [...] Dictation was accomplished with the use of EverTune voice recognition software, prone to medical misidentifications [...] Dictation was accomplished with the use of EverTune voice recognition software, prone to medical misidentifications [...] Dictation was accomplished with the use of EverTune voice recognition software, prone to medical misidentifications [...] Dictation was accomplished with the use of EverTune voice recognition software, prone to medical misidentifications [...] Dictation was accomplished with the use of EverTune voice recognition software, prone to medical misidentifications [...] Dictation was accomplished with the use of EverTune voice recognition software, prone to medical misidentifications [...] Dictation was accomplished with the use of EverTune voice recognition software, prone to medical misidentifications [...] Dictation was accomplished with the use of EverTune voice recognition software, prone to medical misidentifications [...] Dictation was accomplished with the use of EverTune voice recognition software, prone to medical misidentifications [...] Dictation was accomplished with the use of EverTune voice recognition software, prone to medical misidentifications [...] Dictation was accomplished with the use of EverTune voice recognition software, prone to medical misidentifications [...] Dictation was accomplished with the use of EverTune voice recognition software, prone to medical misidentifications [...] Dictation was accomplished with the use of EverTune voice recognition software, prone to medical misidentifications [...] Dictation was accomplished with the use of EverTune voice recognition software, prone to medical misidentifications [...] Dictation was accomplished with the use of EverTune voice recognition software, prone to medical misidentifications [...] Dictation was accomplished with the use of EverTune voice recognition software, prone to medical misidentifications [...] Dictation was accomplished with the use of EverTune voice recognition software, prone to medical misidentifications [...] Dictation was accomplished with the use of EverTune voice recognition software, prone to medical misidentifications [...] Dictation was accomplished with the use of EverTune voice recognition software, prone to medical misidentifications [...] Dictation was accomplished with the use of EverTune voice recognition software, prone to medical misidentifications [...] Dictation was accomplished with the use of EverTune voice recognition software, prone to medical misidentifications [...] Dictation was accomplished with the use of EverTune voice recognition software, prone to medical misidentifications [...] Dictation was accomplished with the use of EverTune voice recognition software, prone to medical misidentifications [...] Dictation was accomplished with the use of EverTune voice recognition software, prone to medical misidentifications [...] Dictation was accomplished with the use of EverTune voice recognition software, prone to medical misidentifications [...] Dictation was accomplished with the use of EverTune voice recognition software, prone to medical misidentifications [...] Dictation was accomplished with the use of EverTune voice recognition software, prone to medical misidentifications [...] Dictation was accomplished with the use of EverTune voice recognition software, prone to medical misidentifications [...] Dictation was accomplished with the use of EverTune voice recognition software, prone to medical misidentifications [...] Dictation was accomplished with the use of EverTune voice recognition software, prone to medical misidentifications [...] Dictation was accomplished with the use of EverTune voice recognition software, prone to medical misidentifications [...] Dictation was accomplished with the use of EverTune voice recognition software, prone to medical misidentifications [...] Dictation was accomplished with the use of EverTune voice recognition software, prone to medical misidentifications [...] Dictation was accomplished with the use of EverTune voice recognition software, prone to medical misidentifications [...] Dictation was accomplished with the use of EverTune voice recognition software, prone to medical misidentifications [...] Dictation was accomplished with the use of EverTune voice recognition software, prone to medical misidentifications [...] Dictation was accomplished with the use of EverTune voice recognition software, prone to medical misidentifications [...] Dictation was accomplished with the use of EverTune voice recognition software, prone to medical misidentifications [...] Dictation was accomplished with the use of EverTune voice recognition software, prone to medical misidentifications [...] Dictation was accomplished with the use of EverTune voice recognition software, prone to medical misidentifications [...] Dictation was accomplished with the use of EverTune voice recognition software, prone to medical misidentifications [...] Dictation was accomplished with the use of EverTune voice recognition software, prone to medical misidentifications [...] Dictation was accomplished with the use of EverTune voice recognition software, prone to medical misidentifications [...] Dictation was accomplished with the use of EverTune voice recognition software, prone to medical misidentifications [...] 1 07/27/2024 09:00:00 AM, [address] , [facility] [address], [place], [address], Provider Name:Paige Jewell, Charles 09/02/2024 08:15:00 AM, [address], [facility] [address], [place], [address], Insurance Providers Payer Name Payer Address Payer Phone Subscriber Number Group Number Insured Name Patient Relationship to Insured Coverage Start Date Coverage End Date [facility] [address] [place] [address] [id number] Anjali Holland Self - patient is the insured Medical (General) History Medical History History ICD Code hypertension hypercholesterolemia Arthritis asthma depression Surgical History Surgery Date(Month/Year) hysterectomy anal cancer surgery x3 knee surgery hand surgery
--- OUTSIDE RECORDS SUMMARY | 2025-05-15 12:39 | XMS_ITS | Clinical Summary ---
Author Organization [facility] Address [address] [place] [address] Care Team Providers Care Teacher Adult Education Name Role Phone Carleen López MD Primary Care Provider [phone] Surgical History Surgery Date Site/Laterality Comments SHOULDER [...] 3 LEVELS; Surgeon: Rohan Dewey MD; Location: [facility]IN OPERATING ROOM; Service: Spine; Laterality: Anterior; CERVICAL FUSION 06/23/2021 N/A PROCEDURE:CERVICAL FUSION;COMMENT:Procedure: ANTERIOR CERVICAL DISC FUSION 1 LEVEL; Surgeon: Rohan Dewey MD; Location: [facility] RO[facility]; Service: Spine; Laterality: N/A; LUMBAR FUSION 07/29/2022 Anterior PROCEDURE:LUMBAR FUSION;COMMENT:Procedure: L4-5, L5-S1 FUSION SPINE LUMBAR ANTERIOR 2 INTERSPACES; Surgeon: Rohan Dewey MD; Location: [facility] RO[facility]; Service: Spine; Laterality: Anterior; LUMBAR FUSION 07/29/2022 N/A PROCEDURE:LUMBAR FUSION;COMMENT:Procedure: FUSION SPINE LUMBAR ANTERIOR 1 INTERSPACE; Surgeon: Rohan Dewey MD; Location: [facility]PER[facility] RO[facility]; Service: Spine; Laterality: N/A; [...] this topic Medical Devices Implanted Type Area Actuarial Director Device Identifier Shelf Expiration Date Model / Serial / Lot Surgiflo Hemostatic Matrix QR [employer] [id number] Implanted:Qty : 1 on 06/23/2021 by Rohan Dewey MD Implants N/A: Spine Cervical [employer] 12/21/2022 2991 / / [id number] Surgiflo Hemostatic Matrix QR [employer] [id number] Implanted:Qty : 1 on 07/29/2022 by Rohan Dewey MD Implants N/A: Spine Lumbar [employer] 04/22/2024 2991 / / [id number] Vikos Cervical 14x14.5x6mm 7d Stry-Spin [id number] - [id number] Implanted:Qty : 1 on 06/23/2021 by Rohan Dewey MD N/A: Spine Cervical [employer] 02/17/2025 [id number] / [id number] / Vikos Cervical 14x14.5x6mm 7d Stry-Spin [id number] - [id number] Implanted:Qty : 1 on 06/23/2021 by Rohan Dewey MD N/A: Spine Cervical [employer] 08/18/2024 [id number] L7 / [id number] / [employer]os [employer] Systems Implanted:Qty : 1 on 06/23/2021 by Rohan Dewey MD N/A: Spine Cervical [employer] 06/29/2024 [id number] L7 / [id number] / Anterior Cervical Plate Constr 3 Level 54mm Stry-K2m [id number] Implanted:Qty : 1 on 06/23/2021 by Rohan Dewey MD N/A: Spine Cervical [employer] [id number] / / Screw Va Self-Start 4x14mm Stry-K2m [id number]- [id number] Implanted:Qty : 8 on 06/23/2021 by Rohan Dewey MD N/A: Spine Cervical [employer] [id number] / / [place] Screw Implanted:Qty : 1 on 07/29/2022 by Rohan Dewey MD N/A: Spine Lumbar [employer] [id number] / / Bone Graft Spine Infuse Med Medt-Sofa [id number] Implanted:Qty : 1 on 07/29/2022 by Rohan Dewey MD Spine Lumbar [employer] 07/24/2024 [id number] / / [id number] [place] Al Implanted:Qty : 1 on 07/29/2022 by Rohan Dewey MD N/A: Spine Lumbar [employer] 01/19/2027 [id number] / / [id number] Monetery Screw Implanted:Qty : 5 on 07/29/2022 by Rohan Dewey MD N/A: Spine Lumbar [employer] [id number] / / [place] Al Implanted:Qty : 1 on 07/29/2022 by Rohan Dewey MD N/A: Spine Lumbar [employer] 02/12/2027 [id number] / / [id number] Care Teams Teacher Adult Education Relationship Specialty Start Date End Date Carleen López MD [address] [place] [id number] PCP - General Internal Medicine 06/16/21
--- OUTSIDE RECORDS SUMMARY | 2025-05-15 12:39 | XMS_ITS | Data Portability ---
Author Organization [place] [facility] Adamaris Silverio AONE [place] Address [address] [place] [address] Care Team Providers Care Audiovisual Equipment Operator Name Role Phone QUIRINO BOYLETTE Referring Provider [phone] Assessment Encounter Date Assessment Date Assessment LastModified by Organization Details LastModified Time 02/29/2024 02/29/2024 The patient is doing well six weeks post operatively following her left foot hallux valgus correction and right foot PITER procedure She will begin to transition to regular footwear as tolerated Continue with scar massage Plan to follow up in 6 weeks for repeat evaluation with repeat weightbearing left foot xrays Patient was seen and evaluated by Leslie Owusu PA-C in indirect conjunction with Documenting Provider: Nicolette Michlele MD He/She agrees with history, physical examination, tests/diagnostic imaging, and treatment plan Not available 02/29/2024 11:55:06 04/18/2024 04/18/2024 She is doing great now 3 months postoperatively. She may continue [...] available 04/21/2024 13:25:38 05/24/2024 05/24/2024 The above findings were discussed in detail to the patient.She [...] 05/24/2024 12:55:23 07/25/2024 07/25/2024 She is doing great now more than 6 months postoperatively. She has no limitations. She may advance her activities as she is able. She may follow-up with me as needed. [email or web address] Not available 07/27/2024 17:53:47 02/07/2025 02/07/2025 We discussed her right middle finger trigger finger, she has had recurrence of symptoms after cortisone injections, the last 1 about 9 months ago. We discussed further treatment options which include another cortisone injection versus surgical A1 ángel release and possible retinacular cyst excision. She is thinking of doing the surgery in the fall. She would like to do another cortisone injection today in the interim. I told her that she cannot have surgery within 3 months of an injection therefore if we do 1 today, she could have surgery at the earliest in April. She would like to proceed with this. Details of injection and as well as [...] verbal consent. They tolerated the procedure well. We discussed surgery. This would be in the form of A1 ángel release and retinacular cyst excision. Risks of surgery were discussed with the patient which include but are not limited to bleeding, infection, injury to nerves, tendons, vessels, pain, stiffness, non-relief of symptoms, recurrence, needing more surgery in the future as well as risks of anesthesia. All questions were answered to the patient's satisfaction. They understood these risks and agreed to proceed, consent was obtained today. We discussed doing this under local only anesthesia versus with sedation. She like to proceed with local only anesthesia. Because of this she does not require presurgical clearance. Will schedule surgery after May 10, 2025 at her convenience. We also discussed her right elbow. 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 She has no pain. She has a flexion contracture. This may be due to soft tissue contracture from dysfunction from her brachial plexus injury at . I would not recommend any surgical intervention at this time. I would recommend that she see brachial plexus specialist and refer her to 1 for evaluation as they may have other options for her. All of her questions were answered, she is in agreement the plan. [email or web address] Not available 02/12/2025 08:38:14 Plan of Treatment Reminders Order Date Submit Date Provider Last Modified By Organization Details Last Modified Time Details Appointments SURGERY 45 TIME TBD by Facilit y 2024 08:30A Zachery lea MD Not available Not available Not available POST-OP 2024 09:00A Zachery lea MD Not available Not available Not available Lab None recorde d. Referral None recorde d. Procedures None recorde d. Surgeries trigger finger release (SURG) 2024 025 [email or web address] Not available 05/07/2025 09:00:46 Imaging XR, elbow, 3 or more view 2024 025 formerly [facility], [address], [place], [address], 02/07/2025 16:25:12 XR, foot, 3 or more view 2024 025 [email or web address] [facility], [address], [address], [place], [address], 07/25/2024 17:15:47 XR, foot, 3 or more view 2023 024 [facility], [address], [address], [place], [address], 04/18/2024 16:34:50 XR, foot, 3 or more view 2023 024 [email or web address] [facility], [address], [place], [address], 02/29/2024 12:15:08 Medication Orders lidocai ne (PF) 10 mg/mL (1 %) injecti on solutio n 2024 025 formerly [facility], [address] [place] [address], [address], 02/07/2025 16:25:12 [email or web address] nolone acetoni de 40 mg/mL suspens ion for injecti on 2024 025 formerly [facility], [address] [place] [address], [address], 02/07/2025 16:25:12 lidocai ne (PF) 10 mg/mL (1 %) injecti on solutio n 2023 024 [email or web address] [facility], [address] [place] [address], [address], 07/25/2024 09:47:27 triamci nolone acetoni de 40 mg/mL suspens ion for injecti on 2023 024 [facility], [address] [facility], [place], [address], 07/25/2024 09:47:49 lidocai ne (PF) 10 mg/mL (1 %) injecti on solutio n 2023 024 Not available 07/25/2024 09:47:27 triamci nolone acetoni de 40 mg/mL suspens ion for injecti on 2023 024 [email or web address] Not available 07/25/2024 09:47:49 Patient TargetsNo targets recorded. Patient Instructions Encounter Date Encounter Id Patient Instructions Last Modified By Organization Details Last Modified Time 02/29/2024 [id number] Weightbearing x-rays of the left foot were obtained in the [facility] office on 02/29/24 demonstrates hallux valgus correction with first metatarsal osteotomy and proximal phalanx osteotomy. There is callus appreciated at the first metatarsal osteotomy [email or web address] Not available 02/29/2024 11:55:32 04/18/2024 [id number] Weightbearing x-rays of the left foot were obtained on 04/18/24 demonstrating excellent correction of her hallux valgus deformity with hardware in her first metatarsal and proximal phalanx. Not available 04/21/2024 13:26:52 05/24/2024 [id number] You have been provided with a cortisone [...] following the injection. This is called a f lare . To help minimize the chances of this, please see the post-injection instructions above. There is a less than 1% chance of an infection. If you notice any signs of infection (redness, warmth, drainage, fever greater than 100 degrees) please call our office or contact us through the portal [facility]. [email or web address] Not available 05/24/2024 12:53:31 07/25/2024 [id number] 3 views of the l eft foot obtained weightbearing on 07/25/2024 demonstrate a healed first metatarsal and proximal phalanx osteotomy with a well corrected hallux valgus deformity. Not available 07/27/2024 17:53:18 02/07/2025 [id number] You have been provided with a cortisone [...] following the injection. This is called a f lare . To help minimize the chances of this, please see the post-injection instructions above. There is a less than 1% chance of an infection. If you notice any signs of infection (redness, warmth, drainage, fever greater than 100 degrees) please call our office or contact us through the portal [facility]. [email or web address] Not available 02/07/2025 09:51:28 3 views of the right elbow ordered and reviewed today, this demonstrates overall normal alignment of the elbow. There are mild degenerative changes. There is mild deformity of the radial head. Ulnohumeral radiocapitellar joints are maintained. [email or web address] Not available 02/12/2025 08:36:53 Reason for Referral None Reported. 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 5 00:25:46 Spinal stenosis of lumbar region 71384848 Active 2020 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 Not Available [facility] 5 00:31:52 History of cervical spine fusion 74348573608 Active 2020 History of fusion of cervical spine Not Available [facility] 5 00:25:45 Patient encounter status 063999078 Active 2022 Elective surgery Not Available [facility] 5 00:25:46 Ganglion cyst of tendon sheath of left hand 30416585469 09833 Active [address], [place], [address] , [place] [facility] 3 10:01:23 Osteoarth ritis of wrist 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 Active [address], [place], [address] , [place] [facility] 3 10:01:32 Acquired left hallux valgus 27158056708 4103 Active [address], [place], [address] , [place] [facility] 3 07:49:37 Tailor's bunion of left foot 01037054444 20749 Active 2022 Nicolette Michelle MD [address], [place], [address] , [place] [facility] 3 07:49:42 Acquired trigger finger of left middle finger 55732795135 9102 Active 2022 Pavan Santana MD [address], [place], [address] , [place] [facility] 3 11:54:23 Neck pain 29308998 Active 2023 Rohan Dewey MD [address], [place], [address] , [place] [facility] 4 10:01:50 Ganglion of flexor tendon sheath of finger 434419638 Active [address], [place], [address] , [place] [facility] 4 12:53:19 Contractu re of right elbow joint 07768235607 9100 Active 2024 Olamide Joseph MD [address], [place], [address] , [place] [facility] 5 08:38:25 Problem Notes None recorded. Procedures Surgical History Date Name Laterality Status Provider Name and Address Organization Details Recorded Time 02/08/20 25 LES trigger finger/De Quervain's injection completed Faiza [place] [facility] 02/07/2025 09:49:42 05/24/20 24 LES trigger finger/De Quervain's injection completed MD [address], [place], [address], [place] [facility] 05/24/2024 12:50:57 05/24/20 24 LES ganglion cyst injection completed Olamide Joseph MD [address], [place], [address], [place] [facility] 05/24/2024 12:53:02 01/19/20 24 ORTHOPAEDIC SURGERY (SURG) completed Yamilet Singh [place] [facility] 01/22/2024 09:18:37 01/03/20 24 AONE tendon sheath cortisone injection completed Pavan Santana MD [address], [place], [address], [place] [facility] 01/03/2024 12:01:17 04/05/20 23 AONE tendon sheath cortisone injection completed Pavan Santana MD [address], [place], [address], [place] [facility] 04/05/2023 12:16:48 procedure on wrist completed Nael Mccray [place] - [facility] 2022 09:37:28 Imaging Results None recorded. Procedure Notes None recorded. Medical Equipment None Reported. Allergies Allergen ID Allergen Name Allergen Category Reaction Reaction Severity Criticality Documentation Date Start Date Code Code System Note Provider Name and Address Organization Details Recorded Time 399409 meloxicam medicatio n Not available Not available Not available 04/15/20252021 72660 RxNorm Other react ion(s ): eleva nawaf liver enzym e Not Available [facility] 5 01:32:03 3054 diclofena c Not available Not available Not available Not available 2022 3355 RxNorm Nael Mccray null, [place] - [facility] 3 09:35:31 Medications Name Sig Start Date Stop Date Status Note LastModified by Organization Details LastModified Time flowflex kit test 05/03 completed Not Available Not Available Not Available cyclobenzap rine 10 mg tablet TAKE ONE TABLET BY MOUTH THREE TIMES A DAY 02/05 completed Not Available Not Available Not Available amoxicillin 500 mg capsule TAKE ONE CAPSULE BY MOUTH THREE TIMES A DAY FOR 10 DAYS . TAKE UNTIL GONE 02/04 completed Not Available Not Available Not Available methocarbam ol 500 mg tablet Take 500 mg by mouth 4 (four) times a day as needed. 11/25 completed Not Available Not Available Not Available bupropion HCl SR 150 mg tablet,12 hr sustained-r elease TAKE ONE TABLET BY MOUTH TWICE A DAY active Not Available Not Available No t Available sennosides 8.6 mg tablet Take 1 tablet by mouth 2 (two) times a day. 2022 active Not Available Not Available Not Avai lable trazodone 50 mg tablet TAKE 1 TO 2 TABLETS BY MOUTH DAILY AT BEDTIME 06/23 completed Not Available Not Available Not Available aspirin 325 mg tablet TAKE 1 [...] TAKE ONE TABLET BY MOUTH EVERY DAY 02/07 completed Not Available Not Available Not Available sennosides 8.6 mg-docusate sodium 50 mg tablet Take 2 tablets by mouth daily. To prevent constipat ion while on narcotics . Hold for diarrhea 07/05 completed Not Available Not Available Not Available omeprazole 40 mg capsule,del ayed release [...] t Available methocarbam ol 750 mg tablet Take 1 tablet (750 mg total) by mouth every 6 (six) hours as needed (spasm). 04/03 completed Not Available Not Available Not Available cyanocobala min (vit B-12) 500 mcg tablet Take 2 tablets (1,000 mcg total) by mouth once a week. active Not Available Not Available No t Available IBU 600 mg tablet TAKE 1 TABLET BY MOUTH EVERY 6 HOURS 02/05 completed Not Available Not Available Not Available Kenalog 10 mg/mL suspension for injection Take 2 mL by injection route. 05/03 completed Not Available Not Available Not Available triamcinolo ne acetonide 40 mg/mL suspension for injection Take 20 mg by injection route. 2024 active Not Available Not Available Not Avai lable nortriptyli ne 10 mg capsule TAKE 2 CAPSULES BY MOUTH DAILY active Not Available Not Available No t Available lisinopril 10 mg tablet TAKE ONE TABLET BY MOUTH EVERY DAY 2024 active Not Available Not Available Not Avai lable polymyxin B sulfate 10,000 unit-trimet hoprim 1 mg/mL eye drops INSTILL ONE DROP IN EACH EYE EVERY 3 HOURS FOR 7 DAYS; START WITH ONLY IN THE RIGHT EYE AND INCREASE TO IN EACH EYE IF SYMPTOMS DEVELOP IN I 02/05 completed Not Available Not Available Not Available gabapentin 300 mg capsule TAKE ONE CAPSULE BY MOUTH DAILY IN THE MORNING AND TAKE TWO CAPSULES DAILY IN THE EVENING active Not Available Not Available No t Available diclofenac sodium 75 mg tablet,emani yed release Take 75 mg by mouth 2 (two) times a day with meals. 06/27 completed Not Available Not Available Not Available montelukast 10 mg tablet TAKE ONE TABLET BY MOUTH EVERY DAY 12/06 completed Not Available Not Available Not Available ipratropium bromide 42 mcg (0.06 %) nasal spray INSTILL 2 SPRAYS IN EACH NOSTRIL THREE TIMES A DAY active Not Available Not Available No t Available lisinopril 40 mg tablet TAKE ONE TABLET BY MOUTH EVERY DAY 07/25 completed Not Available Not Available Not Available ipratropium bromide 21 mcg (0.03 %) nasal spray SPRAY 1 SPRAY IN EACH NOSTRIL DAILY AT BEDTIME active Not Available Not Available No t Available amoxicillin 875 mg-beatrizu m clavulanate 125 mg tablet TAKE ONE [...] Not Available Not Available No t Available ascorbate calcium (vitamin C) 500 mg capsule Take 1,000 mg by mouth once a week. active Not Available Not Available No t [...] solution Take 1 mL by injection route. 2024 active Not Available Not Available Not Avai lable GaviLyte-G 236 gram-22.74 gram-6.74 gram-5.86 gram oral solution MIX POWDER WITH WATER ACCORDING TO PRODUCT LABEL. FOLLOW INSTRUCTI ONS GIVEN BY [facility] FOR WHEN TO START. TAKE 8OZ [...] Updated DateTime 07/25/2024 167.64 cm 32.3 kg/m2 09766.[address] [place] [facility] 07/25/2024 09:48:08 Date Recorded Body height Body mass index (BMI) Body weight Provider Name and Address Organization Details Last Updated DateTime 02/07/2025 167.64 cm 32.3 kg/m2 50239.[address] [facility] 02/07/2025 09:39:10 Date Recorded Body height Body mass index (BMI) Body weight Provider Name and Address Organization Details Last Updated DateTime 04/18/2024 167.64 cm 32.3 kg/m2 [address]23.[address] [facility] 04/18/2024 14:59:13 Date Recorded Body height Body mass index (BMI) Body weight Provider Name and Address Organization Details Last Updated DateTime 04/26/2024 167.64 cm 32.3 kg/m2 57144.47 g Nael Mccray [facility] 04/26/2024 09:33:52 Date Recorded Body height Body mass index (BMI) Body weight Provider Name and Address Organization Details Last Updated DateTime 05/24/2024 167.64 cm 32.3 kg/m2 43194.47 g Justyna Karely [facility] 05/24/2024 08:32:40 Social History None recorded. [...] MRSA N Blood Transfusion N Emphysema N Depression N COPD N Hypothyroidism N Pacemaker N Vascular Disease N Gastrointestinal Disease N Anxiety Disorder N Autoimmune disease N Arthritis N Cancer N Stroke N High Cholesterol N Neurologic Disorder N Liver Disease N Organ Transplant N Rheumatoid Arthritis N Arrhythmia N Fibromyalgia N Kidney Disease N Allergies/Hayfever N Adverse Reaction to Anesthesia N Thyroid Problems N Anemia N Brain Injury N Heart Attack ([place]) N Osteopenia N Diabetes N Bleeding Disorder [...] Diagnosis SNOMED-CT Code Diagnosis ICD10 Code Diagnosis IMO Codes Diagnosis Note [id number] Rohan Dewey MD [place] [address] 11/14/2022 11:34:57 11/14/2022 12:37:55 History of lumbar fusion 9181998069 9106 Z98.1 Pressure i njury of buttock 882592456 L89.309 Ischial bursitis/W eaver's bottom 7046 Pavan Santana MD [place] [address] 2022 09:28:07 2022 10:02:58 Pain of left wrist 0151842473 57212 M25.532 Ganglion c yst of tendon sheath of left hand 0664010100 701178 M67.442 Osteoarthr itis of wrist 587131719 M19.039 8286 Nicolette Michelle MD [address] [address] 11/24/2022 09:56:15 11/24/2022 10:27:30 Pain in left foot 7398901517 25678 M79.672 Acquired l eft hallux valgus 5319592547 37531 M20.12 Tailor's b union of left foot 1145284286 237064 M21.622 Orthopedic hardware in situ 967501618 Z97.8 51135 [place] [address] 04/05/2023 11:30:08 04/05/2023 12:00:47 Acquired trigger finger of left middle finger 5359867411 81028 M65.332 Ganglion c yst of tendon sheath of left hand 4966411967 425936 M67.442 96856 MD LEXII [address] [address] 05/03/2023 09:11:24 05/03/2023 09:23:00 Acquired trigger finger of left middle finger 7265600989 70362 M65.332 Ganglion c yst of tendon sheath of left hand 0076161855 423516 M67.442 31522 MD FRANCISCO Vlilarreal [address] [address] 08/07/2023 09:10:05 08/07/2023 10:05:59 Neck pain 91854273 M54.2 Low back pain 634195655 M54.50 Pain in pelvis 39015584 R10.2 History of cervical spine fusion 6826917908 101 Z98.1 History of lumbar fusion 4731728845 9106 Z98.1 39819 RAÚL KENNEDY PA-C [address] [address] 09/11/2023 13:14:07 09/11/2023 14:13:06 Neck pain 71800400 M54.2 History of cervical spine fusion 7835723999 101 Z98.1 History of lumbar fusion 9306690384 9106 Z98.1 35014 MD FRANCISCO Valdovinos [address] [address] 12/07/2023 11:33:01 12/07/2023 12:19:28 Acquired left hallux valgus 5450387792 73230 M20.12 Orthopedic hardware in situ 604930163 Z97.8 Pain in right foot 79017 15148 79414 M79.671 00243 MD FRANCISCO George [address] [address] 01/03/2024 11:12:04 01/03/2024 11:35:21 Triggering of digit 561154190 M65.332 Additional diagnosis detail: Trigger finger, left middle finger Acquired t manager multicultural finger of left middle finger 7332783031 60384 M65.332 Ganglion c yst of tendon sheath of left hand 2381487735 776273 M67.442 Long finger 60886 CATRACHITA WALDEN [place] [address] 02/01/2024 16:08:00 02/01/2024 16:45:08 Acquired left hallux valgus 6069705582 90726 M20.12 Orthopedic hardware in situ 777657236 Z97.8 223[address] [facility] [address] [place] [address] 9 02/06/2024 13:46:52 02/06/2024 14:36:04 Acquired left hallux valgus 6439322706 15627 M20.12 [address] [place] [address] 9 02/29/2024 11:30:04 02/29/2024 11:56:30 Acquired left hallux valgus 0196935527 37247 M20.12 Orthopedic hardware in situ 146647086 Z97.8 08557 Nicolette Michelle MD [place] [address] 9 04/18/2024 14:53:17 04/18/2024 15:18:20 Acquired left hallux valgus 8456812508 78371 M20.12 Orthopedic hardware in situ 662873580 Z97.8 88034 Olamide Joseph MD [place] [address] 9 05/24/2024 08:28:47 05/24/2024 09:08:23 Triggering of digit 922396345 M65.513 8604486 Ganglion o f flexor tendon sheath of finger 645486305 M67.442 69725776 85443 Nicolette Michelle MD [place] [address] 9 07/25/2024 09:37:19 07/25/2024 10:37:36 Acquired left hallux valgus 5540509181 80393 M20.12 Orthopedic hardware in situ 353911029 Z97.8 275131 Olamide Joseph MD [facility] [address] [facility] [address] [place] [address] 02/07/2025 09:30:20 02/07/2025 10:20:51 Triggering of digit 485266533 M65.954 3712130 Pain of elbow region 743 30046 M25.521 713235 Ganglion c yst of tendon sheath of left hand 9837544121 225369 M67.442 Contractur e of right elbow joint 8341443487 48355 M24.431 6890228 Health Concerns Section Related Observation LastModified by Organization Detai ls LastModified Time None Recorded Concern Status LastModified by Organization Details LastModified Time None Recorded Advance Directives Directive None Recorded Payers Insurance Date Sequence Insurance Name Policy Number Policy Yeager Covered Member ID Yeager Member ID Guarantor Name 02/13/2025 1 [place] ([place] [id number] Jose Manuel Riddle [id number] Notes Date Note Type Note Provider [...] her right foot, she recently saw a benefits representative who told her that she did not [...] Nicolette Michelle MD [address], [place], [address], [place] [facility] 03/03/2024 10:04:59 04/18/2024 text/html Date of [...] her right foot, she recently saw a benefits representative who told her that she did not [...] Nicolette Michelle MD [address], [place], [address], [place] [facility] 04/21/2024 13:27:11 05/24/2024 text/html ROS as noted in the HPI This is a 58-year-old [id number] female who is presenting with left middle [...] Olamide Joseph MD [address], [place], [address], [place] [facility] 05/24/2024 12:56:03 07/25/2024 text/html Date of [...] of her hallux valgus deformity. From 11/24/22 ([facility]): for evaluation of a new problem regarding [...] her right foot, she recently saw a benefits representative who told her that she did not [...] Nicolette Michelle MD [address], [place], [address], [place] [facility] 07/27/2024 17:54:03 02/07/2025 text/html ROS as noted in the HPI She presents for follow-up of her left middle finger trigger finger and retinacular cyst, status post cortisone injections on 05/24/2024 and previously 01/03/2024 and 04/05/2023. She notes her symptoms have recurred. She has pain over the A1 ángel and some triggering. 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 She also has a new problem today as relates to her right elbow with pain and contracture which has been present for mostly her life. 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 She has undergone a right reverse total shoulder arthroplasty.Medica l history significant for hypertension. She denies tobacco or nicotine use, denies illicit drug use, drinks alcohol occasionally. Olamide Joseph MD [address], [place], [id number], [place] [facility], P 02/12/2025 08:39:06 OBGyn Episode No OBEpisode recorded.
--- OUTSIDE RECORDS SUMMARY | 2025-05-15 12:39 | XMS_ITS | Clinical Summary ---
Author Organization [facility] Address [address] [place] [address] Care Team Providers Care Commercial Carpet Installer Name Role Phone Carleen López MD Primary Care Provider + [phone] Allergies Active Allergy Reactions Criticality Noted Date [...] OUT OF STATE - PPO Care Teams Commercial Carpet Installer Relationship Specialty Start Date End Date Carleen López MD [facility] [address] [place] [id number] PCP - General Internal Medicine 09/26/24
--- OUTSIDE RECORDS SUMMARY | 2025-05-15 12:39 | XMS_ITS | Clinical Summary ---
Author Organization [facility] Address [address] [place] [address] Care Team Providers Care Keyseating Machine Set Up Operator Name Role Phone Carleen López MD Primary [...] by mouth once a week. 0 Active Svskeda-Htrifjdtqt-Q itamin D (VITAMIN D3/CALCIUM/PHOSPHORU S PO) Take [...] this topic Medical Devices Implanted Type Area Steam Hoist Operator Device Identifier Shelf Expiration Date Model / Serial / Lot Surgiflo Hemostatic Matrix [employer] 2991-311562 - [id number] Implanted:Qty : 1 on 06/23/2021 by Rohan [place] [facility] Hemostatic Agent Anterior: Spine Cervical [employer] 12/21/2022 2991 / / [id number] Surgiflo Hemostatic Matrix [employer] 2991-514512 - [id number] Implanted:Qty : 1 on 07/29/2022 by Rohan Dewey [place] [facility] Hemostatic Agent Anterior: Spine Lumbar [employer] 04/22/2024 2991 / / [id number] Vikos Cervical 14x14.5x6mm 7d Stry-Spin [id number] - [id number] Implanted:Qty : 1 on 06/23/2021 by Rohan Dewey [place] [facility] Anterior: Spine Cervical [employer] 02/17/2025 [id number] / [id number] / Vikos Cervical 14x14.5x6mm 7d Stry-Spin [id number] - [id number] Implanted:Qty : 1 on 06/23/2021 by Rohan Dewey [place] [facility] Anterior: Spine Cervical [employer] 08/18/2024 [id number] / [id number] / Vikos Allograft Systems Implanted:Qty : 1 on 06/23/2021 by Rohan Dewey [place] [facility] Anterior: Spine Cervical MAYA - MEDICAL 06/29/2024 [id number] L7 / [id number] / Anterior Cervical Plate Constr 3 Level 54mm Stry-K2m [id number] - [id number] Implanted:Qty : 1 on 06/23/2021 by Rohan Dewey [place] [facility] Anterior: Spine Cervical [employer] [id number] / / Screw Va Self-Start 4x14mm Stry-K2m [id number] - [id number] Implanted:Qty : 8 on 06/23/2021 by Rohan Dewey [place] [facility] Anterior: Spine Cervical [employer] [id number] / / Yuba Screw Implanted:Qty : 1 on 07/29/2022 by Rohan Dewey [place] [facility] Anterior: Spine Lumbar [employer] [id number] / / Bone Graft Spine Infuse Med Medt-Sofa [id number] - [id number] Implanted:Qty : 1 on 07/29/2022 by Rohan Dewey [place] [facility] Spine Lumbar [employer] SOFAMOR DANEK 07/24/2024 [id number] / / [id number] Yuba Al Implanted:Qty : 1 on 07/29/2022 by Rohan Dewey [place] [facility] Anterior: Spine Lumbar [employer] 01/19/2027 [id number] / / [id number] Monetery Screw Implanted:Qty : 5 on 07/29/2022 by Rohan Dewey [place] [facility] Anterior: Spine Lumbar [employer] [id number] / / Manisha Shrestha Implanted:Qty : 1 on 07/29/2022 by Rohan Dewey [place] [facility] Anterior: Spine Lumbar [employer] 02/12/2027 [id number] / / [id number] Additional Health Concerns Infection Onset Date Last Indicated COVID-19 Confirmed 07/02/2022 07/04/2022 Advance Directives For more information, please contact: [phone] Documents on File Type Date Recorded Patient Supervisor Claims Expl anation Advance Directive and Living Will [...] way: discussion with patient . Care Teams Keyseating Machine Set Up Operator Relationship Specialty Start Date End Date Carleen López MD [address] [address] PCP - General Internal Medicine 06/16/21
== END 2025-05-15 10:29 | disposition home or self-care (01) ==
LOC: HO.NEURO 10:28
PROVIDERS: PCP Internal Medicine; Visit Provider Registered Nurse
DX: G25.3 Myoclonus (principal)
CPT/HCPCS: 95816

== ENCOUNTER → 2025-05-15 11:55 | Outpatient (BNV) | payer BC, SELFPAY | PROVIDERS: PCP Internal Medicine; Visit Provider Psychiatry & Neurology Neurology | DX: G25.3 Myoclonus (principal) | CPT/HCPCS: 95816 ==

== ENCOUNTER 2025-06-13 08:59 | Outpatient (AMB) | payer BC, SELFPAY ==
--- OUTSIDE RECORDS SUMMARY | 2024-09-10 03:30 | XMS_ITS ---
Author Organization [facility] [address] Address [address] [place] [address] Care Team Providers Care Electrical Development Engineer Name Role Phone Best Paige Unavailable [phone] Encounters Encounter Location Date Provider Diagnosis [facility] [address] [address] 09/10/2024 Paige Jewell Plan Of Treatment Next Appt Details Provider Name:Paige Jewell, 1 09/02/2024 08:15:00 AM, [address], [address], Provider Name:Paige Jewell, 0 08/06/2025 08:15:00 AM, [address] [place] [address], [phone], Progress Notes * Desirae RUIZ B:1965 (59 yo F)Acc No.[id number]:09/10/2024 Patient: Dakota thomasAnjali Santo Provider: Kathryn Jewell PA-C :1965 A ge:58 Y S ex:Female Date:09/10/2024 Address:[address] [place], [place] [id number] * Electronic signature of Paige Jewell PA-C on 06/13/2025 at 09:13 AM EST Sign off status: Pending * Provider: Kathryn Jewell PA-C Date: 0 09/10/2024 Generated for Jesus Alberto narayan/Nelida/eTransmitting on: 1 08/13/2024 09:13 AM EST
--- NOTE | 2025-06-13 09:10 | A.OFFVIS_ITS ---
Intake Visit Reasons: sooner appt for med increase Allergies No Known Allergies Allergy (Verified 06/13/25 09:16) Medication List - Last Reconciled 06/13/25 by Faiza Jin CNP bupropion HCl SR 150 mg PO BID cyclobenzaprine 5 mg PO BEDTIME 30 days duloxetine 30 mg PO BID 90 days gabapentin 300 mg PO DAILY gabapentin 600 mg PO BEDTIME leg brace (Knee Support Brace) As directed R knee hinged brace Dx: osteoarthritis lisinopril 10 mg PO DAILY nortriptyline 20 mg (2 x 10 mg) PO BEDTIME 90 days pantoprazole 20 mg PO BID tirzepatide (weight loss) (Zepbound) mg subcut HPI Comments Details: 59-year-old woman with chronic tension type headaches and fibromyalgia. 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 She was here for EEG results, but also had few concerns. She was having more arthritis pains and saw rheumatology who gave her injection to knee, and apparently recommended discussing increasing duloxetine or gabapentin dose to help with pain. She also felt like she had a hard time regulating body temperature, both when it was hot or cold. She said her hands and feet would get very cold and it was hard to warm them up. She felt worse after losing some weight. She has not had jerking, spasm-type movement to neck and left arm that was happening almost every day in the evening for months in the last 2 weeks. She was wondering if maybe it had temporarily stopped as she was prescribed pain medication recently after having dental procedure and was more relaxed. [facility] Medical History Insomnia Cervical disc disease Fibromyalgia Depression with anxiety Chronic tension type headache Surgical History S/P lumbar fusion S/P cervical spinal fusion Review of Systems Const Denies chills, Denies daytime sleepiness, Reports difficulty sleeping, Denies fatigue, Denies fever(s), Denies frequent falls, Reports headache(s), Denies increased appetite, Denies poor appetite, Denies snoring, Denies weakness, Denies weight gain and Denies weight loss Eyes Denies loss of vision ENT Denies vertigo, Denies dizziness and Reports headache(s) Card Denies chest pain at rest, Denies chest pain with activity, Denies syncope, Denies leg edema and Denies palpitations Resp Denies snoring GI Denies constipation, Denies heartburn, Denies diarrhea and Denies nausea Denies urinary frequency, Denies urinary incontinence and Denies urinary urgency Musc Denies abnormal gait, Denies numbness and Denies tingling Skin/Breast Denies dry skin and Denies rash Neuro Denies abnormal gait, Denies vertigo, Denies dizziness, Denies syncope, Denies frequent falls, Reports headache(s), Denies lack of coordination, Denies loss of vision, Denies memory loss, Denies numbness, Denies restless legs, Denies seizure-like activity, Denies tingling, Denies paresthesias, Denies tremor(s) and Denies weakness Psych Denies anxiety, Denies depression, Denies auditory hallucinations, Denies memory loss, Denies visual hallucinations and Denies suicidal ideation Endo Reports cold intolerance, Denies fatigue, Reports heat intolerance and Denies palpitations Physical Exam Const Other: General Appearance:? normal, in no acute distress. Skin:? no rashes, no significant birthmarks. Heart:? S1, S2 normal, no murmurs. Lungs:? clear anteriorly and posteriorly. Extremities:? no edema. Psych:? alert, oriented, cognitive function intact, cooperative with exam. Neuro Other: Mental Status:?Normal attention, orientation, memory and affect.? Cranial Nerves:?Pupils are equal, round and reactive to light. External occular muscles are intact. Visual richardson are full. Face is symmetrical. Facial sensations are normal. Tongue is midline. Palate elevates symmetrically. Shoulder shrugging is normal. Hearing to bedside conversation is normal. Motor Examination:?Mild right upper ext atrophy. Plantars equivocal. Sensory Exam:?....? Coordination:?No ataxia,?no titubation.? Gait Exam: Within normal limits. Cerebellar Signs:?Cavdih-mt-lzjc is okay. Extrapyramidal System:?No tremor, rigidity with normal facial expressions.? Pronator Drift:?Not present.? Involuntary Movements:?No tremors seen.? Speech:?Normal.? Results Reviewed Results Reviewed: [address] [address] Electroencephalogram Report Signed Patient: Anjali Ryan MR#: [id number] : 1965 Acct:[id number] Age/Sex: 59 / F ADM Date: 05/15/25 Loc: HO.NEURO Attending Dr: Faiza Jin CNP Ordering Physician: Faiza Jin CNP Date of Service: 05/15/25 Procedure(s): EEG Routine Accession Number(s): [id number] cc: ANT BOYLE MD~ Reason for Exam: G25.3 - Myoclonus Reason for Exam: Myoclonus G25.3 Roomed Performed:?402 History: insomnia, cervical disc disease, fibromyalgia, depression with anxiety, chronic tension type headache - Patient c/o twitching, almost jerking or spasm type movement to neck and left arm almost every day in the evening when trying to rest. Patient reports it happened last night. Last meal was this morning at 6 AM. Medication: bupropion, cyclobenzaprine, duloxetine, gabapentin, lisinopril, nortriptyline, pantoprazole, tirzepatide Technical description Photic stimulation: completed Hyperventilation:?omitted Behavioral state: pleasant State of Consciousness: awake and drowsy Skull defect: none Sedation: none Handedness: right Duration of study:?33 min 19? sec Description: This is a 16 channel EEG with an EKG lead. Patient is reported awake and drowsy during the tracing. Background EEG rhythm is 12-14 hertz 5-100 microvolt posteriorly lower amplitude fast anteriorly. Intermittently sharply controlled theta range discharges and sharp waves were noted in right central temporal area. Photic stimulation did not produce any significant abnormality. Hyperventilation was not performed. Cardiac lead did not reveal any significant abnormality. Impression: Mildly abnormal EEG suggestive of right central temporal irritability. Dictated By: Pricilla Escobar MD Signed By: <Electronically signed by Pricilla Escobar MD> 05/16/25 3703 -- [place] [facility] [place] Status post C4-C7 ACDF, 2 mm spondylolisthesis C3-4 and C7-T1, mild degenerative spondylosis of the cervical spine. MRI brain WO at [facility] in Jul 2017: a few b/l WM non specific lesions, small. Assessment & Plan Assessment & Plan (1) Chronic tension type headache: Code(s): G44.229 - Chronic tension-type headache, not intractable Category: Medical Qualifiers: Intractability: not intractable Qualified Code(s): G44.229 - Chronic tension-type headache, not intractable Plan: Continue nortriptyline 10mg 2 tablets at bedtime. (2) Fibromyalgia: Code(s): M79.7 - Fibromyalgia Category: Medical Plan: She was interested in discussing increasing dose of duloxetine or gabapentin to help with increased pain as recommended by her supervisor microwave. She was advised gabapentin was not prescribed by this office, and she should discuss increasing dose with prescriber of medication, which appears to be PCP. At this time, it is my recommend to continue current duloxetine dose. Continue duloxetine 30mg 1 capsule twice a day. Continue cyclobenzaprine 5mg 1 tablet at bedtime as needed for muscle spasm/pain #30 for 30 days. 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 48 hr EEG ordered. Follow up after testing or sooner as needed. (4) Cervical spondylolysis: Code(s): M43.02 - Spondylolysis, cervical region Category: Medical (5) Depression with anxiety: Code(s): F41.8 - Other specified anxiety disorders Category: Medical Plan She was advised to follow up with PCP for complaints of heat and cold intolerance. Orders: Orders EEG 48hr Ambulatory Today G25.3 - Myoclonus Coding Level of Care Code Est Pt Level 4 (34272) Diagnoses Chronic tension-type headache, not intractable G44.229 Intractability: not intractable Fibromyalgia M79.7 Myoclonic jerking G25.3 Cervical spondylolysis M43.02 Depression with anxiety F41.8
--- OUTSIDE RECORDS SUMMARY | 2025-06-13 09:14 | XMS_ITS | Data Portability ---
Author Organization [place] [facility] Adamaris Silverio AONE Como Address [address] [place] [address] Care Team Providers Care Java J2Ee Application Developer Name Role Phone ANT BOYLE Referring Provider [phone] Assessment Encounter Date Assessment Date Assessment LastModified by Organization Details LastModified Time 04/18/2024 04/18/2024 She is doing great now [...] She may follow-up with me as needed. [email or web address] Not available 07/27/2024 17:53:47 02/07/2025 02/07/2025 We [...] answered, she is in agreement the plan. [email or web address] Not available 02/12/2025 08:38:14 06/11/2025 06/11/2025 The above findings are discussed in detail today with the patient. They are presenting for first post op visit status post trigger finger release and cyst excision, doing well. Pathology of the cyst was discussed today which did demonstrate a benign ganglion cyst. They can start scar massage over their incisions. They should not use oils or lotions for another week. No soaking incision until next week. They will continue with range of motion exercises and progressing activities as tolerated. They will hold off on heavy lifting until 6 weeks post op. Exercises for passive and active finger range of motion were demonstrated today. We discussed pain at the base of her thumb. This is likely from adjacent arthritis or instability next to her fusion site. Treatment options were discussed including activity modification, immobilization, anti-inflammator ies, cortisone injection or further partial fusion. She does not want surgery at this time. She would like to proceed with the injection. Details of injection and as well as [...] verbal consent. They tolerated the procedure well. All of their questions were answered, they are in agreement with the plan. They will return in 4 weeks for repeat evaluation. [email or web address] Not available 06/12/2025 11:44:11 Plan of Treatment Reminders Order Date Submit Date Provider Last Modified By Organization Details Last Modified Time Details Appointments None recorded . Lab None recorded . Referral None recorded . Procedures None recorded . Surgeries trigger finger release (SURG) 2024 025 KAROL Not available 13:58:08 Imaging XR, wrist, 3 or more view 2024 025 [facility], [address], [place], [address], 5 19:12:58 XR, elbow, 3 or more view 2024 025 [facility], [address], [place], [address], 5 16:25:12 XR, foot, 3 or more view 2024 025 [place] [id number] [facility], [address], [place], [address], 5 17:15:47 XR, foot, 3 or more view 2023 024 [place] [address] [facility], [address], [place], [address], 4 16:34:50 Medication Orders lidocain e (PF) 10 mg/mL (1 %) injectio n solution 2024 [facility], [address] [place], [address], 5 19:12:58 triamcin olone acetonid e 40 mg/mL suspensi on for injectio n 2024 [facility], [address] [place] [address], [address], 5 19:12:58 lidocain e (PF) 10 mg/mL (1 %) injectio n solution 2024 025 [facility], [address] [place] [address], [address], 5 16:25:12 triamcin olone acetonid e 40 mg/mL suspensi on for injectio n 2024 025 [facility], [address] [place] [address], [address], 5 16:25:12 lidocain e (PF) 10 mg/mL (1 %) injectio n solution 2023 024 [email or web address] [facility], [address] [place] [address], [address], 5 09:47:27 triamcin olone acetonid e 40 mg/mL suspensi on for injectio n 2023 024 [email or web address] [facility], [address] [place] [address], [address], 5 09:47:49 lidocain e (PF) 10 mg/mL (1 %) injectio n solution 2023 024 [email or web address] Not available 5 09:47:27 triamcin olone acetonid e 40 mg/mL suspensi on for injectio n 2023 024 Not available 5 09:47:49 Patient TargetsNo targets recorded. Patient Instructions Encounter Date Encounter Id Patient Instructions Last Modified By Organization Details Last Modified Time 04/18/2024 [id number] Weightbearing x-rays of the left foot were obtained on 04/18/24 demonstrating excellent correction of her hallux valgus deformity with hardware in her first metatarsal and proximal phalanx. Not available 04/21/2024 13:26:52 05/24/2024 [id number] You have been provided with a cortisone [...] following the injection. This is called a blair olivarez . To help minimize the chances of this, please see the post-injection instructions above. There is a less than 1% chance of an infection. If you notice any signs of infection (redness, warmth, drainage, fever greater than 100 degrees) please call our office or contact us through the portal [facility]. [email or web address] Not available 05/24/2024 12:53:31 07/25/2024 [id number] views of the l eft foot obtained weightbearing on 07/25/2024 demonstrate a healed first metatarsal and proximal phalanx osteotomy with a well corrected hallux valgus deformity. Not available 07/27/2024 17:53:18 02/07/2025 [id number] You have been provided with a cortisone [...] are maintained. [email or web address] Not available 02/12/2025 08:36:53 06/11/2025 [id number] You have been provided with a cortisone [...] through the portal [facility]. [email or web address] Not available 06/12/2025 11:45:13 4 views of the l eft thumb and wrist were ordered and reviewed today, demonstrates solid thumb CMC fusion with adjacent STT and scaphoid radial styloid arthritis with joint space narrowing and osteophyte formation. There is calcification along the extensor tendons/abductors at the base of the thumb. There is DRUJ arthritis there is diffuse demineralization of the bones. [email or web address] Not available 06/12/2025 11:45:07 Reason for Referral None Reported. 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 Not Available [facility] 5 00:25:46 Spondylol ysis of cervical spine 953297984 Active 2020 Cervical spondylol ysis Not Available [facility] 5 00:25:47 Backache 325830606 Active 2020 Lumbosacr al pain Not Available [facility] 5 00:25:46 Spinal stenosis of lumbar region 23308427 Active 2020 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 Not Available [facility] 5 00:31:52 History of cervical spine fusion 27881612733 Active 2020 History of fusion of cervical spine Not Available [facility] 5 00:25:45 Patient encounter status 913137492 Active 2022 Elective surgery Not Available [facility] 5 00:25:46 Ganglion cyst of tendon sheath of left hand 45594287677 20815 Active 2022 Pavan Santana MD [address], [place], [address] , [place] [facility] 3 10:01:23 Osteoarth ritis of wrist 661645379 Active [address], [place], [address] , [place] [facility] 3 10:01:32 Acquired left hallux valgus 65324012148 4103 Active [address], [place], [address] , [place] [facility] 3 07:49:37 Tailor's bunion of left foot 35846610856 14853 Active [address], [place], [place], , [place] [facility] 3 07:49:42 Acquired trigger finger of left middle finger 56700086056 9102 Active [address] [place], [place], [place], , [place] [facility] 3 11:54:23 Neck pain 92398829 Active [address], [place], , [place] [facility] 4 10:01:50 Ganglion of flexor tendon sheath of finger 672519488 Active [address], [place], [address] , [place] [facility] 4 12:53:19 Contractu re of right elbow joint 46700523691 9100 Active [address], [place], [address] , [place] [facility] 5 08:38:25 Problem Notes None recorded. Procedures Surgical History Date Name Laterality Status Provider Name and Address Organization Details Recorded Time 06/11/20 25 LES finger joint injection completed MD [address], [place], [address], [place] [facility] 06/12/2025 11:45:30 05/29/20 25 TRIGGER FINGER RELEASE (SURG) completed Yamilet Singh [place] [facility] 05/30/2025 13:58:14 02/08/20 25 LES trigger finger/De Quervain's injection completed Faiza Sargent [place] [facility] 02/07/2025 09:49:42 05/24/20 24 LES trigger finger/De Quervain's injection completed Olamide Joseph MD [address], [place], [address], [place] [facility] 05/24/2024 12:50:57 05/24/20 24 LES ganglion cyst injection completed Olamide Joseph MD [address], [place], [address], [place] [facility] 05/24/2024 12:53:02 01/19/20 24 ORTHOPAEDIC SURGERY (SURG) completed Yamilet Singh [facility] 01/22/2024 09:18:37 01/03/20 24 AONE tendon sheath cortisone injection completed Pavan Santana MD [address], [place], [address], [place] [facility] 01/03/2024 12:01:17 04/05/20 23 AONE tendon sheath cortisone injection completed Pavan Santana MD [address], [place], [address], [place] [facility] 04/05/2023 12:16:48 procedure on wrist completed Nael Mccray [place] [facility] 2022 09:37:28 Imaging Results None recorded. Procedure Notes None recorded. Medical Equipment None Reported. Allergies Allergen ID Allergen Name Allergen Category Reaction Reaction Severity Criticality Documentation Date Start Date Code Code System Note Provider Name and Address Organization Details Recorded Time 589978 meloxicam medicatio n Not available Not available Not available 04/15/20252021 23297 RxNorm Other react ion(s ): eleva nawaf liver enzym e Not Available [facility] 5 01:32:03 3054 diclofena c Not available Not available Not available Not available 2022 3355 RxNorm Nael Mahendra camacho, [place] [facility] 3 09:35:31 Medications Name Sig Start [...] CAPSULE BY MOUTH THREE TIMES A DAY active Not Available Not Available No t Available methocarbam ol 500 mg tablet Take [...] by mouth 2 (two) times a day. 06/11 completed Not Available Not Available Not Available trazodone 50 mg tablet TAKE 1 TO [...] MOUTH EVERY 6 HOURS NEEDED FOR PAIN active Not Available Not Available No t Available sucralfate 1 gram tablet TAKE ONE [...] acetonide 40 mg/mL suspension for injection Take 40 mg by injection route. 2024 active Not Available Not Available Not Avai lable cephalexin 500 mg capsule TAKE ONE CAPSULE BY MOUTH TWICE A DAY FOR 7 DAYS 06/08 completed Not Available Not Available Not Available nortriptyli ne 10 mg capsule TAKE 2 CAPSULES BY MOUTH AT BEDTIME. active Not Available Not Available No t [...] IN EACH NOSTRIL THREE TIMES A DAY 06/11 completed Not Available Not Available Not Available [...] ONE TABLET BY MOUTH DAILY AT BEDTIME active Not Available Not Available No t Available ascorbate calcium (vitamin C) 500 mg capsule Take 1,000 mg by mouth once a week. active Not Available Not Available No t Available Premarin 0.625 mg/gram vaginal cream INSERT ONE-HALF GRAM INTO VAGINA AT BEDTIME TWICE A WEEK. active Not Available Not Available No t Available duloxetine 30 mg capsule,del ayed release TAKE ONE CAPSULE BY MOUTH TWICE A DAY active Not Available Not Available No t Available chlorhexidi ne gluconate 0.12 % mouthwash SWISH AND SPIT 10ML THREE TIMES A DAY active Not Available Not Available No t Available lidocaine (PF) 10 mg/mL (1 %) injection solution Take 1 mL by injection route. 2024 active Not Available Not Available Not Avai lable GaviLyte-G 236 gram-22.74 gram-6.74 gram-5.86 gram oral solution MIX POWDER WITH WATER ACCORDING TO PRODUCT LABEL. FOLLOW INSTRUCTI ONS GIVEN BY [facility] FOR WHEN TO START. TAKE 8OZ BY [...] completed Not Available Not Available Not Available Paxlovid 300 mg (150 mg x 2)-100 mg tablets in a dose pack TAKE THREE TABLETS BY MOUTH TWICE A DAYAS DIRECTED ON PACKAGE INSERT 06/11 completed Not Available Not Available Not Available Zepbound 10 mg/0.5 mL subcutaneou s pen injector INJECT 0.5ML UNDER THE SKIN ONCE WEEKLY active Not Available Not Available No t [...] Updated DateTime 07/25/2024 167.64 cm 32.3 kg/m2 [address]8310.[address] [facility] 07/25/2024 09:48:08 Date Recorded Body height Body mass index (BMI) Body weight Provider Name and Address Organization Details Last Updated DateTime 02/07/2025 167.64 cm 32.3 kg/m2 [address]7616.[address] [facility] 02/07/2025 09:39:10 Date Recorded Body height Body mass index (BMI) Body weight Provider Name and Address Organization Details Last Updated DateTime 04/18/2024 167.64 cm 32.3 kg/m2 55426.[address] [facility] 04/18/2024 14:59:13 Date Recorded Body height Body mass index (BMI) Body weight Provider Name and Address Organization Details Last Updated DateTime 04/26/2024 167.64 cm 32.3 kg/m2 [address]9061.[address] [place] [facility] 04/26/2024 09:33:52 Date Recorded Body height Body mass index (BMI) Body weight Provider Name and Address Organization Details Last Updated DateTime 05/24/2024 167.64 cm 32.3 kg/m2 [address]019.[address] [place] [facility] 05/24/2024 08:32:40 Date Recorded Body height Body mass index (BMI) Body weight Provider Name and Address Organization Details Last Updated DateTime 06/11/2025 167.64 cm 32.3 kg/m2 91760.47 g Nael Mccray [facility] 06/11/2025 09:07:43 Social History None recorded. Functional Status Question [...] Anemia N Brain Injury N Heart Attack ([place]) N Osteopenia N Diabetes N Bleeding Disorder [...] Codes Diagnosis Note [id number] Rohan Dewey MD [place] [id number] 11/14/2022 11:34:57 11/14/2022 12:37:55 History of lumbar fusion 4554038006 9106 Z98.1 Pressure i njury of buttock 624952348 L89.309 Ischial bursitis/W eaver's bottom 7046 MD FRANCISCO George [address] [address] 2022 09:28:07 2022 10:02:58 Pain of left wrist 1920427696 83023 M25.532 Ganglion c yst of tendon sheath of left hand 2952471614 454463 M67.442 Osteoarthr itis of wrist 448367761 M19.039 8286 MD FRANCISCO Valdovinos [address] [address] 11/24/2022 09:56:15 11/24/2022 10:27:30 Pain in left foot 7054925249 00165 M79.672 Acquired l eft hallux valgus 7171502095 46983 M20.12 Tailor's b union of left foot 1433495017 990798 M21.622 Orthopedic hardware in situ 718205239 Z97.8 [id number] MD FRANCISCO George [address] [address] 04/05/2023 11:30:08 04/05/2023 12:00:47 Acquired trigger finger of left middle finger 2473964932 86053 M65.332 Ganglion c yst of tendon sheath of left hand 6150771208 766586 M67.442 23010 MD FRANCISCO George [address] [address] 05/03/2023 09:11:24 05/03/2023 09:23:00 Acquired trigger finger of left middle finger 7583766725 57595 M65.332 Ganglion c yst of tendon sheath of left hand 2888351522 591079 M67.442 [id number] MD FRANCISCO Villarreal [address] [address] 08/07/2023 09:10:05 08/07/2023 10:05:59 Neck pain 13147676 M54.2 Low back pain 065269729 M54.50 Pain in pelvis 27115974 R10.2 History of cervical spine fusion 8718122799 101 Z98.1 History of lumbar fusion 6616936637 9106 Z98.1 [address] [address] 09/11/2023 13:14:07 09/11/2023 14:13:06 Neck pain 88714216 M54.2 History of cervical spine fusion 3297120696 101 Z98.1 History of lumbar fusion 8051384670 9106 Z98.1 [id number] Nicolette Michelle MD [address] [address] 12/07/2023 11:33:01 12/07/2023 12:19:28 Acquired left hallux valgus 9916281791 45655 M20.12 Orthopedic hardware in situ 428714418 Z97.8 Pain in right foot 90864 41320 51818 M79.671 32805 Pavan Santana MD [address] [address] 01/03/2024 11:12:04 01/03/2024 11:35:21 Triggering of digit 970309518 M65.332 Additional diagnosis detail: Trigger finger, left middle finger Acquired t veterinary surgeon finger of left middle finger 7364239061 73587 M65.332 Ganglion c yst of tendon sheath of left hand 7059394428 325188 M67.442 Long finger [address] [address] 02/01/2024 16:08:00 02/01/2024 16:45:08 Acquired left hallux valgus 1131713393 37861 M20.12 Orthopedic hardware in situ 289634592 Z97.8 [id number] [facility] [address] [place] [address], ite [address] [place] [address] 02/06/2024 13:46:52 02/06/2024 14:36:04 Acquired left hallux valgus 8552648566 84753 M20.12 74398 CATRACHITA WALDEN [place] [address] 02/29/2024 11:30:04 02/29/2024 11:56:30 Acquired left hallux valgus 8153523517 89281 M20.12 Orthopedic hardware in situ 249688553 Z97.8 35727 MD FRANCISCO Valdovinos [place] [address] 04/18/2024 14:53:17 04/18/2024 15:18:20 Acquired left hallux valgus 5146065012 41076 M20.12 Orthopedic hardware in situ 163431940 Z97.8 22948 MD FRANCISCO Trent [place] [address] 05/24/2024 08:28:47 05/24/2024 09:08:23 Triggering of digit 069642288 M65.053 8198548 Ganglion o f flexor tendon sheath of finger 015237434 M67.442 18564455 54852 MD FRANCISCO Valdovinos [place] [address] 07/25/2024 09:37:19 07/25/2024 10:37:36 Acquired left hallux valgus 8722457692 58664 M20.12 Orthopedic hardware in situ 164400639 Z97.8 [id number] MD FRANCISCO Trent [place] [address] 02/07/2025 09:30:20 02/07/2025 10:20:51 Triggering of digit 907423432 M65.913 4806251 Pain of elbow region 743 79190 M25.521 151739 Ganglion c yst of tendon sheath of left hand 3837730909 814768 M67.442 Contractur e of right elbow joint 9722130699 60991 M24.550 [id number] [id number] MD FRANCISCO Trent [place] [phone] 06/11/2025 08:56:24 06/11/2025 09:41:33 Pain of left wrist 8275257851 82469 M25.532 945063 Arthritis of first carpometacarpal joint of left hand 2851885822 816373 M18.12 54739466 Ganglion o f flexor tendon sheath of finger 279663090 M67.442 32234571 Acquired t veterinary surgeon finger of left middle finger 9686329364 64775 M65.332 Health Concerns Section Related Observation LastModified by Organization Detai ls LastModified Time None Recorded Concern Status LastModified by Organization Details LastModified Time None Recorded Advance Directives Directive None Recorded Payers Insurance Date Sequence Insurance Name Policy Number Policy Yeager Covered Member ID Yeager Member ID Guarantor Name 06/08/2025 1 [facility] [id number] Jose Manuel Riddle [id number] [facility] [address] Notes Date Note Type Note Provider Name and Address Organization Details Recorded Time 04/18/2024 text/html Date of Surgery: 01/19/24: 1. [...] her right foot, she recently saw a shift mechanic who told her that she did not [...] ongoing radiculopathy or neuropathy. Nicolette Michelle MD [address], [place], [address], [place] [facility] 04/21/2024 13:27:11 05/24/2024 text/html ROS as noted in the HPI This is a 58-year-old ydujo-yiuy-etgoadgd female who is presenting with left middle [...] Olamide Joseph MD [address], [place], [address], [place] [facility] 05/24/2024 12:56:03 07/25/2024 text/html Date of [...] of her hallux valgus deformity. From 11/24/22 ([facility]): for evaluation of a new problem regarding [...] her right foot, she recently saw a shift mechanic who told her that she did not [...] Nicolette Michelle MD [address], [place], [address], [place] [facility] 07/27/2024 17:54:03 02/07/2025 text/html ROS as [...] denies illicit drug use, drinks alcohol occasionally. MD [address], [place], [address], [place] [facility] 02/12/2025 08:39:06 06/11/2025 text/html ROS as noted in the HPI She returns for first postop follow-up visit status post left middle finger trigger finger release and cyst excision, date of surgery 05/29/2025, she is 2 weeks postop. She has been doing very well. She is working on finger range of motion. She denies any clicking or locking. Pain has been well-controlled. Has been having a new issue of increased pain at the left base of the thumb. She tells me she had a prior procedure before which involved what sounds a CMC joint fusion a number of years ago. Olamide Joseph MD [address], [place], [address], [place] [facility] 06/12/2025 11:47:49 OBGyn Episode No OBEpisode recorded.
--- OUTSIDE RECORDS SUMMARY | 2025-06-13 09:14 | XMS_ITS | Clinical Summary ---
Author Organization [facility] Address [address] [place] [address] Care Team Providers Care Brine Purifier Name Role Phone Carleen López MD Primary Care Provider + [phone] Allergies Active Allergy Reactions Criticality Noted Date [...] OUT OF STATE - PPO Care Teams Brine Purifier Relationship Specialty Start Date End Date Carleen López MD [facility] [place]ANE [place] [id number] PCP - General Internal Medicine 09/26/24
--- OUTSIDE RECORDS SUMMARY | 2025-06-13 09:14 | XMS_ITS | Clinical Summary ---
Author Organization [facility] Address [address] [place] [address] Phone Care Team Providers Care Site Operations Manager Name Role Phone Carleen López MD Primary Care Provider [phone] Encounters Date Type Department Care Team Description 05/29/2025 Lab Requisition [facility] Main Lab [address] [place] [address] Olamide Joseph MD Trigger finger, left middle finger from Last 3 Months Surgical History Surgery Date Site/Laterality Comments SHOULDER [...] ANTERIOR CERVICAL DISC FUSION 3 LEVELS; Surgeon: Rhoan Dewey MD; Location: [facility] MAIN OPERATING ROOM; Service: Spine; Laterality: Anterior; CERVICAL FUSION 06/23/2021 N/A PROCEDURE:CERVICAL FUSION;COMMENT:Procedure: ANTERIOR CERVICAL DISC FUSION 1 LEVEL; Surgeon: Rohan Dewey MD; Location: [facility] MAIN OPERATING ROOM; Service: Spine; Laterality: N/A; LUMBAR FUSION 07/29/2022 Anterior PROCEDURE:LUMBAR FUSION;COMMENT:Procedure: L4-5, L5-S1 FUSION SPINE LUMBAR ANTERIOR 2 INTERSPACES; Surgeon: Rohan Dewey MD; Location: [facility] MAIN OPERATING ROOM; Service: Spine; Laterality: Anterior; LUMBAR FUSION 07/29/2022 N/A PROCEDURE:LUMBAR FUSION;COMMENT:Procedure: FUSION SPINE LUMBAR ANTERIOR 1 INTERSPACE; Surgeon: Rohan Dewey MD; Location: [facility] MAIN OPERATING ROOM; Service: Spine; Laterality: [...] Depression Screening 07/24/2024 COVID-19 Vaccine (1 - 2024-2 6 season) 2025 Influenza Vaccine (#1) 2025 RSV [...] this topic Medical Devices Implanted Type Area District Court Judge Device Identifier Shelf Expiration Date Model / Serial / Lot Surgiflo Hemostatic Matrix [facility] [id number] Implanted:Qty : 1 on 06/23/2021 by Rohan Dewey MD Implants N/A: Spine Cervical [place] [employer] 12/21/2022 2991 / / [id number] Surgiflo Hemostatic Matrix KloudCatch-Ethi [id number] Implanted:Qty : 1 on 07/29/2022 by Rohan Dewey MD Implants N/A: Spine Lumbar [place] [employer] 04/22/2024 2991 / / [id number] Vikos Cervical 14x14.5x6mm 7d Stry-Spin [id number] -[id number] - [id number] Implanted:Qty : 1 on 06/23/2021 by Rohan Dewey MD N/A: Spine Cervical MAYA SPINE 02/17/2025 [id number] L7 / [id number] / Vikos Cervical 14x14.5x6mm 7d Stry-Spin [id number] -[id number] - [id number] Implanted:Qty : 1 on 06/23/2021 by Rohan Dewey MD N/A: Spine Cervical MAYA SPINE 08/18/2024 [id number] / [id number] / Vikos Allograft Systems Implanted:Qty : 1 on 06/23/2021 by Rohan Dewey MD N/A: Spine Cervical MAYA - MEDICAL 06/29/2024 [id number] L7 / [id number] / Anterior Cervical Plate Constr 3 Level 54mm Stry-K2m [id number] Implanted:Qty : 1 on 06/23/2021 by Rohan Dewey MD N/A: Spine Cervical MAYA SPINE [id number] / / Screw Va Self-Start 4x14mm Stry-K2m [id number]- [id number] Implanted:Qty : 8 on 06/23/2021 by Rohan Dewey MD N/A: Spine Cervical MAYA SPINE [id number] / / [place] Screw Implanted:Qty : 1 on 07/29/2022 by Rohan Dewey MD N/A: Spine Lumbar MAYA SPINE [id number] / / Bone Graft Spine Infuse Med Medt-Sofa [id number] Implanted:Qty : 1 on 07/29/2022 by Rohan Dewey MD Spine Lumbar [employer] SOFAMOR DANEK 07/24/2024 [id number] / / [id number] Manisha Al Implanted:Qty : 1 on 07/29/2022 by Rohan Dewey MD N/A: Spine Lumbar MAYA SPINE 01/19/2027 [id number] / / [id number] Monetery Screw Implanted:Qty : 5 on 07/29/2022 by Rohan Dewey MD N/A: Spine Lumbar MAYA SPINE [id number] / / Manisha Al Implanted:Qty : 1 on 07/29/2022 by Rohan Dewey MD N/A: Spine Lumbar MAYA SPINE 02/12/2027 [id number] / / [id number] Procedures Procedure Name Priority Date/Time Associated Diagnosis Comments TISSUE EXAM Routine 05/29/2025 Trigger finger, left middle finger from Last 3 Months Results * Tissue Exam (05/29/2025) Final Diagnosis Finger, left middle cyst, excision: Consistent with ganglion cyst. 06/02/2025 11:24 AM EST [facility] at 1124 EST Gross Description A. Hand, Digit Left, left middle finger cyst: Received in formalin labeled Left middle finger cyst, and consists of a 0.7 x 0.4 x 0.3 cm sweet-white, previously disrupted presumptive cystic structure. No skin is grossly identified. The specimen is submitted in toto in 1 cassette labeled A1, 1 piece. LG 05/30/2025 06/02/2025 11:24 AM EST [facility] Disclaimer The technical components of this case were performed at [address] [address] CLIA # [id number] 06/02/2025 11:24 AM EST [facility] Tissue Structure of digit of left hand / Unknown 05/29/2025 05/29/2025 3:49 PM EST us Olamide Joseph MD LAB PATHOLOGY ORDERABLES Aminah kiser Result [facility] [address] [place] [address], [place] [phone] from Last [address] [facility] Care Teams Site Operations Manager Relationship Specialty Start Date End Date Carleen López MD [address] [place] [address] PCP - General Internal Medicine 06/16/21
--- OUTSIDE RECORDS SUMMARY | 2025-06-13 09:14 | XMS_ITS | Encounter Summary ---
Author Organization [facility] Address [address] [place] [address] Care Team Providers Care Internet Specialist Name Role Phone Carleen López MD Primary Care Provider [phone] Encounter Details Date Type Department Care Team (Late st Contact Info) Description 05/29/2025 Lab Requisition [facility] Main Lab [address] [place] [address] Olamide Joseph MD [address] [facility] [address] [place] [address] Trigger finger, left middle finger Social History Tobacco Use Types Packs/Day Years Used Date Smoking Tobacco: Never Smokeless Tobacco: Never Alcohol Use Standard Drinks/Week Comments Yes 2 (1 standard drink = 0.6 oz pur e alcohol) Comments Unknown Sex and Gender Information Value Date Recorded Sex Assigned at Not on file Legal Sex Female 10:03 PM EST Gender Identity Not on file Sexual Orientation Not on file documented as of this encounter Plan of Treatment Not on file documented as of this encounter Procedures Procedure Name Priority Date/Time Associated Diagnosis Comments TISSUE EXAM Routine 05/29/2025 Trigger finger, left middle finger documented in this encounter Results * Tissue Exam (05/29/2025) Final Diagnosis Finger, left middle cyst, excision: Consistent with ganglion cyst. 06/02/2025 11:24 AM EST [facility] at 1124 EST Gross Description A. Hand, Digit Left, left middle finger cyst: Received in formalin labeled Left middle finger cyst, and consists of a 0.7 x 0.4 x 0.3 cm sweet-white, previously disrupted presumptive cystic structure. No skin is grossly identified. The specimen is submitted in toto in 1 cassette labeled A1, 1 piece. LG 05/30/2025 06/02/2025 11:24 AM EST [facility] Disclaimer The technical components of this case [place] [address] CLIA # [id number] 06/02/2025 11:24 AM EST [facility] Tissue Structure of digit of left hand / Unknown 05/29/2025 05/29/2025 3:49 PM EST us Olamide Joseph MD LAB PATHOLOGY ORDERABLES Aminah rashel Result [facility] [address] [place] [address], documented in this encounter Visit Diagnoses Diagnosis Trigger finger, left middle finger documented in this encounter Care Teams Internet Specialist Relationship Specialty Start Date End Date Carleen López MD [address] [place] [address] PCP - General Internal Medicine 06/16/21 documented as of this encounter
--- OUTSIDE RECORDS SUMMARY | 2025-06-13 09:14 | XMS_ITS | Continuity of Care Document ---
Author Organization [place] [facility] Adamaris Silverio AONE Macdoel Address [address] [facility] [address] [place] [address] Care Team Providers Care Lead Athlete Name Role Phone ANT BOYLE Referring Provider [phone] Assessment Encounter Date Assessment Date Assessment LastModified by Organization Details LastModified Time 06/11/2025 06/11/2025 The above findings are discussed [...] options were discussed including activity modification, immobilization, anti-inflammato meaghan, cortisone injection or further partial fusion. She [...] return in 4 weeks for repeat evaluation. Tapshot, [employer] Not available 06/12/2025 11:44:11 Plan of Treatment Reminders Order Date Submit Date Provider Last Modified By Organization Details Last Modified Time Details Appointments None recorded . Lab None recorded . Referral None recorded . Procedures None recorded . Surgeries None recorded . Imaging XR, wrist, 3 or more view 2024 [facility], [address], [place], [address], 19:12:58 Medication Orders lidocain e (PF) 10 mg/mL (1 %) injectio n solution 2024 [facility], [address] [place], [address], 19:12:58 triamcin olone acetonid e 40 mg/mL suspensi on for injectio n 2024 [facility], [address] [place], [address], 19:12:58 Patient TargetsNo targets recorded. Patient Instructions Encounter Date Encounter Id Patient Instructions Last Modified By Organization Details Last Modified Time 06/11/2025 [id number] You have been provided with a cortisone [...] hours following the injection. This is called marta olivarez . 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 Not Available [facility] 5 00:31:52 History of cervical spine fusion 08257032324 Active 2020 History of fusion of cervical spine Not Available [facility] 5 00:25:45 Patient encounter status 810293529 Active 2022 Elective surgery Not Available [facility] 5 00:25:46 Ganglion cyst of tendon sheath of left hand 27059060076 34329 Active [address], [place], [address] , [place] [facility] 3 10:01:23 Osteoarth ritis of wrist 007391506 Active [address], [place], [address] , [place] [facility] 3 10:01:32 Acquired left hallux valgus 41463444271 4103 Active [address], [place], [address] , [place] [facility] 3 07:49:37 Tailor's bunion of left foot 94086794784 14122 Active [address], [place], [address] , [place] [facility] 3 07:49:42 Acquired trigger finger of left middle finger 36120551355 9102 Active [address], [place], [address] , [place] [facility] 3 11:54:23 Neck pain 58036151 Active [address], [place], [address] , [place] [facility] 4 10:01:50 Ganglion of flexor tendon sheath of finger 721978921 Active [address], [place], [address] , [place] [facility] 4 12:53:19 Contractu re of right elbow joint 37351259710 9100 Active [address], [place], [address] , [place] [facility], P 08:38:25 Problem Notes None recorded. Procedures Surgical History Date Name Laterality Status Provider Name and Address Organization Details Recorded Time 06/11/20 25 LES finger joint injection completed Olamide Joseph MD [address], [place], [address], [place] [facility] 06/12/2025 11:45:30 05/29/20 25 TRIGGER FINGER RELEASE (SURG) completed Yamilet Singh [place] [facility] 05/30/2025 13:58:14 02/08/20 25 LES trigger finger/De Quervain's injection completed Faiza Sargent [place] [facility] 02/07/2025 09:49:42 05/24/20 24 LES trigger finger/De Quervain's injection completed MD [address], [place], [address], [place] [facility] 05/24/2024 12:50:57 05/24/20 24 LES ganglion cyst injection completed MD [address], [place], [address], [place] [facility] 05/24/2024 12:53:02 01/19/20 24 ORTHOPAEDIC SURGERY (SURG) completed Yamilet Singh [place] [facility] 01/22/2024 09:18:37 01/03/20 24 AONE tendon sheath cortisone injection completed MD [address], [place], [address], [place] [facility] 01/03/2024 12:01:17 04/05/20 23 AONE tendon sheath cortisone injection completed MD [address], [place], [address], [place] [facility] 04/05/2023 12:16:48 procedure on wrist completed aNel Mccary [place] - [facility] P 2022 09:37:28 Imaging Results None recorded. Procedure Notes None recorded. Medical Equipment None Reported. Allergies Allergen ID Allergen Name Allergen Category Reaction Reaction Severity Criticality Documentation Date Start Date Code Code System Note Provider Name and Address Organization Details Recorded Time 293792 meloxicam medicatio n Not available Not available Not available 04/15/20252021 96175 RxNorm Other react ion(s ): eleva nawaf liver enzym e Not Available [facility] 5 01:32:03 3054 diclofena c Not available Not available Not available Not available 2022 3355 RxNorm Nael camacho, [place] [facility] 3 09:35:31 Medications Name Sig Start [...] PRODUCT LABEL. FOLLOW INSTRUCTI ONS GIVEN BY [facility] FOR WHEN TO START. TAKE 8OZ [...] Updated DateTime 06/11/2025 167.64 cm 32.3 kg/m2 47711.[address] [facility] 06/11/2025 09:07:43 Social History None recorded. [...] Anemia N Brain Injury N Heart Attack ([place]) N Osteopenia N Diabetes N Bleeding Disorder [...] ICD10 Code Diagnosis IMO Codes Diagnosis Note [id number] Olamide Joseph MD [address] [address] 06/11/2025 08:56:24 06/11/2025 09:41:33 Pain of left wrist 9609509340 23111 M25.532 125567 Arthritis of first carpometacarpal joint of left hand 9949745626 329186 M18.12 29578578 Ganglion o f flexor tendon sheath of finger 675352088 M67.442 88539466 Acquired t aerospace engineer officer armament finger of left middle finger 1685062678 [address]5310 M65.332 Health Concerns Section Related Observation LastModified by Organization Detai ls LastModified Time None Recorded Concern Status LastModified by Organization Details LastModified Time None Recorded Payers Encounter Date Sequence Insurance Name Policy Number Policy Yeager Covered Member ID Yeager Member ID Guarantor Name 06/11/2025 1 [place] [id number] Jose Manuel Riddle [id number] Notes Date Note Type Note Provider Name and Address Organization Details Recorded Time 06/11/2025 text/html ROS as noted in the [...] Olamide Joseph MD [address], [place], [address], [place] [facility] 06/12/2025 11:47:49 OBGyn Episode No OBEpisode recorded.
--- OUTSIDE RECORDS SUMMARY | 2025-06-13 09:14 | XMS_ITS | Clinical Summary ---
Author Organization [facility] Address [address] [place] [address] Care Team Providers Care Cambering Machine Operator Name Role Phone Carleen López MD Primary Care Provider [phone] Allergies Active Allergy Reactions Criticality Noted Date [...] by mouth once a week. 0 Active Vmqrmfa-Aeoswkahhz-Q itamin D (VITAMIN D3/CALCIUM/PHOSPHORU S PO) Take [...] this topic Medical Devices Implanted Type Area Fish Butcher Device Identifier Shelf Expiration Date Model / Serial / Lot Surgiflo Hemostatic Matrix [employer] 2991-722832 - [id number] Implanted:Qty : 1 on 06/23/2021 by Rohan Dewey MD at [facility] and Med Hemostatic Agent Anterior: Spine Cervical [employer] 12/21/2022 2991 / / [id number] Surgiflo Hemostatic Matrix [employer] 2991-031850 - [id number] Implanted:Qty : 1 on 07/29/2022 by Rohan Dewey MD at [facility] and Med Hemostatic Agent Anterior: Spine Lumbar [employer] 04/22/2024 2991 / / [id number] Vikos Cervical 14x14.5x6mm 7d Stry-Spin [id number] -[id number] - [id number] Implanted:Qty : 1 on 06/23/2021 by Rohan Dewey MD at [facility] and Med Anterior: Spine Cervical MAYA SPINE 02/17/2025 [id number] L7 / [id number] / Vikos Cervical 14x14.5x6mm 7d Stry-Spin [id number] -[id number] - [id number] Implanted:Qty : 1 on 06/23/2021 by Rohan Dewey MD at [facility] and Med Anterior: Spine Cervical MAYA SPINE 08/18/2024 [id number] L7 / [id number] / Vikos Allograft Systems Implanted:Qty : 1 on 06/23/2021 by Rohan Dewey MD at [facility] and Med Anterior: Spine Cervical MAYA - MEDICAL 06/29/2024 2504-304441 L7 / [id number] / Anterior Cervical Plate Constr 3 Level 54mm Stry-K2m Ap22-55l84t-1 70720 - [id number] Implanted:Qty : 1 on 06/23/2021 by Rohan Dewey MD at [facility] and Med Anterior: Spine Cervical MAYA SPINE [id number] / / Screw Va Self-Start 4x14mm Stry-K2m 8801-48202xi- [id number] - [id number] Implanted:Qty : 8 on 06/23/2021 by Rohan Dewey MD at [facility] and Med Anterior: Spine Cervical MAYA SPINE [id number] / / Grady Screw Implanted:Qty : 1 on 07/29/2022 by Rohan Dewey MD at [facility] and Med Anterior: Spine Lumbar MAYA SPINE [id number] / / Bone Graft Spine Infuse Med Medt-Sofa [id number] - [id number] Implanted:Qty : 1 on 07/29/2022 by Rohan Dewey MD at [facility] and [facility] Spine Lumbar [employer] SOFAMOR DANEK 07/24/2024 [id number] / / [id number] Grady Al Implanted:Qty : 1 on 07/29/2022 by Rohan Dewey MD at [facility] and Med Anterior: Spine Lumbar MAYA SPINE 01/19/2027 [id number] / / [id number] Monetery Screw Implanted:Qty : 5 on 07/29/2022 by Rohan Dewey MD at [facility] and Med Anterior: Spine Lumbar MAYA SPINE [id number] / / Manisha Shrestha Implanted:Qty : 1 on 07/29/2022 by Rohan Dewey MD at [facility] and Med Anterior: Spine Lumbar MAYA SPINE 02/12/2027 [id number] / / [id number] Additional Health Concerns Infection Onset Date Last Indicated COVID-19 Confirmed 07/02/2022 07/04/2022 Advance Directives For more information, please contact: [phone] Documents on File Type Date Recorded Patient Landscape Foreman Expl anation Advance Directive and Living Will [...] way: discussion with patient . Care Teams Cambering Machine Operator Relationship Specialty Start Date End Date Carleen López MD [address] [address] PCP - General Internal Medicine 06/16/21
--- OUTSIDE RECORDS SUMMARY | 2025-06-13 09:15 | XMS_ITS | Patient Health Record ---
Author Organization [facility] [address] Address [address] [place] [address] Care Team Providers Care Public Health Specialist Name Role Phone Paige Jewell Unavailable [phone] Allergies Allergen (clinical drug ingredient) Drug/Non Drug [...] Duration) Notes Start Date End Date Status Tylenol Arthritis Pain 09/28/2023 Active Magnesium Citrate 100 MG Tablet as directed Orally 09/28/2023 Active Probiotic 09/28/2023 Active DULoxetine HCl 30 MG Capsule Delayed Release Particles TAKE ONE CAPSULE BY MOUTH TWICE A DAY Oral; Duration: 30 Days Active Gabapentin 300 MG Capsule TAKE ONE CAPSU LE BY MOUTH EVERY MORNING AND TAKE TWO CAPSULES EVERY EVENING Oral; Duration: 30 Days Active Pantoprazole Sodium 20 MG Tablet Delayed Release TAKE ONE TABLET BY MOUTH TWICE A DAY Oral; Duration: 90 Days Active Fish Oil 1200 MG Capsule 1 capsule Orall y Three times a day; Duration: 30 day(s) 09/28/2023 Active buPROPion HCl ER (SR) 150 MG Tablet Extended Release 12 Hour 1 tablet in the morning Orally Once a day; Duration: 30 days Active Zepbound 10 MG/0.5ML Solution Auto-injector INJECT 0.5ML UNDER THE SKIN ONCE A WEEK; Duration: 28 Not-Taking Nortriptyline HCl 10 MG Capsule Oral; Duration: 30 Days Acti ve Zepbound 10 MG/0.5ML Solution Auto-injector 0.5 mL Subcutaneous once weekly; Duration: 90 days Active Lisinopril 20 MG Tablet 1 tablet Oral On ce a day; Duration: 30 days Active Social History Tobacco Use: Social History Observation Description Date Details (start date - stop date) Former Smoker NA - NA Social History Drugs/Alcohol: Social Info Question Answer Notes Alcohol Screen (Audit-C) Did you have a drink containing alcohol in the past year? Yes How often did you have a drink containing alcohol in the past year? 4 or more times a week (4 points) Points 4 Interpretation Positive Drugs Have you used drugs other than those for medical reasons in the past 12 months? No Tobacco Use: Social Info Question Answer Notes Tobacco Use/Smoking Are you a former smoker How long has it been since you last smoked? 5-10 years Problems Problem Type SNOMED Code ICD Code Onset Dates Problem Status W/U Status Risk Notes Problem Essential hypertension (41284010) Essential hypertension (I10) Active confirmed Problem Pure hypercholesterolemia (892285707) Pure hypercholesterolemia (E78.00) Active confirmed Problem Vitamin D deficiency (62521200) Vitamin D deficiency (E55.9) Active confirmed Problem Obesity (725705804) Obesity (BMI 30-39.9) (E66.9) Active confirmed Problem Obese class II (582587766932762) BMI 35.0-35.9,adult (Z68.35) Active confirmed Problem Obese class I (339165341336172) BMI 33.0-33.9,adult (Z68.33) Active confirmed Problem BMI 30+ - obesity (574305429) BMI 32.0-32.9,adult (Z68.32) Active confirmed Problem BMI 25-29 - overweight (477064297) BMI 27.0-27.9,adult (Z68.27) Active confirmed Problem Body mass index 30.0 0 to 34.99 (331916405675199) BMI 34.0-34.9,adult (Z68.34) Active confirmed Problem Overweight (179979390) Overweight (BMI 25.0-29.9) (E66.3) Active confirmed Problem History of gastric bypass (344188117) History of gastric bypass (Z98.84) Active confirmed Vital Signs Heart Rate 81 /min 05/27/2025 Oximetry 99 % 05/27/2025 Blood pressure diastolic 72 mm Hg 05/27/2025 Height 64 in 05/27/2025 Blood pressure systolic 108 mm Hg 05/27/2025 Weight 138.3 lbs 05/27/2025 BMI 23.74 kg/m2 05/27/2025 Encounters Encounter Location Date Provider Diagnosis [facility] [address] 06/25/2024 Paige Svrcek BMI 27.0-27.9,adult Z68.27 ; Overweight (BMI 25.0-29.9) E66.3 ; Essential hypertension I10 ; Pure hypercholesterolemia E78.00 ; History of gastric bypass Z98.84 and Weight loss counseling, encounter for Z71.3 [facility] [address] 08/06/2024 Paige Svrcek BMI 27.0-27.9,adult Z68.27 ; Overweight (BMI 25.0-29.9) E66.3 ; Essential hypertension I10 ; Pure hypercholesterolemia E78.00 ; History of gastric bypass Z98.84 and Weight loss counseling, encounter for Z71.3 [facility] [address] 09/05/2024 Paige Svrcek Overweight (BMI 25.0 -29.9) E66.3 ; BMI 26.0-26.9,adult Z68.26 ; Essential hypertension I10 ; Pure hypercholesterolemia E78.00 ; History of gastric bypass Z98.84 and Weight loss counseling, encounter for Z71.3 [facility] [address] 10/03/2024 Paige Svrcek Overweight (BMI 25.0 -29.9) E66.3 ; BMI 26.0-26.9,adult Z68.26 ; Essential hypertension I10 ; Pure hypercholesterolemia E78.00 ; History of gastric bypass Z98.84 and Weight loss counseling, encounter for Z71.3 [facility] [address] 10/31/2024 Paige Svrcek Overweight (BMI 25.0 -29.9) E66.3 ; BMI 27.0-27.9,adult Z68.27 ; Essential hypertension I10 ; Pure hypercholesterolemia E78.00 ; History of gastric bypass Z98.84 and Weight loss counseling, encounter for Z71.3 [facility] [address] 12/05/2024 Paige Svrcek Overweight (BMI 25.0 -29.9) E66.3 ; BMI 25.0-25.9,adult Z68.25 ; Essential hypertension I10 ; Pure hypercholesterolemia E78.00 ; History of gastric bypass Z98.84 and Weight loss counseling, encounter for Z71.3 [facility] [address] 01/07/2025 Paige Svrcek Overweight (BMI 25.0 -29.9) E66.3 ; BMI 26.0-26.9,adult Z68.26 ; Essential hypertension I10 ; Pure hypercholesterolemia E78.00 ; History of gastric bypass Z98.84 and Weight loss counseling, encounter for Z71.3 [facility] [address] 02/24/2025 Paige Svrcek Overweight (BMI 25.0 -29.9) E66.3 ; Essential hypertension I10 ; Pure hypercholesterolemia E78.00 ; History of gastric bypass Z98.84 and Weight loss counseling, encounter for Z71.3 [facility] [address] 03/27/2025 Paige Svrcek Essential hypertensi on I10 ; BMI 24.0-24.9, adult Z68.24 ; Pure hypercholesterolemia E78.00 ; History of gastric bypass Z98.84 and Weight loss counseling, encounter for Z71.3 [facility] [address] 04/24/2025 Paige Svrcek Essential hypertensi on I10 ; BMI 23.0-23.9, adult Z68.23 ; Pure hypercholesterolemia E78.00 ; History of gastric bypass Z98.84 and Weight loss counseling, encounter for Z71.3 [facility] [address] 05/27/2025 Paige Svrcek Essential hypertensi on I10 ; BMI 23.0-23.9, adult Z68.23 ; Pure hypercholesterolemia E78.00 ; History of gastric bypass Z98.84 and Weight loss counseling, encounter for Z71.3 [facility] [address] [id number] 09/05/2024 Paige Svrcek [facility] [address] [phone] 12/05/2024 Paige Svrcek [facility] [address] [address] 02/10/2025 Paige Svrcek Assessments Encounter Date Diagnosis (ICD Code) Assessment Notes Treatment Notes Treatment Clinical Notes Section Notes 06/25/2024 BMI 27.0-27.9,adult (ICD-10 - Z68.27) #Obesity. [...] Dictation was accomplished with the use of [employer] voice recognition software, prone to medical misidentifications [...] Dictation was accomplished with the use of [employer] voice recognition software, prone to medical misidentifications [...] Dictation was accomplished with the use of [employer] voice recognition software, prone to medical misidentifications [...] Dictation was accomplished with the use of [employer] voice recognition software, prone to medical misidentifications [...] Dictation was accomplished with the use of [employer] voice recognition software, prone to medical misidentifications [...] Dictation was accomplished with the use of [employer] voice recognition software, prone to medical misidentifications [...] Dictation was accomplished with the use of [employer] voice recognition software, prone to medical misidentifications [...] Dictation was accomplished with the use of [employer] voice recognition software, prone to medical misidentifications [...] Dictation was accomplished with the use of [employer] voice recognition software, prone to medical misidentifications [...] Dictation was accomplished with the use of [employer] voice recognition software, prone to medical misidentifications [...] Dictation was accomplished with the use of [employer] voice recognition software, prone to medical misidentifications [...] Dictation was accomplished with the use of [employer] voice recognition software, prone to medical misidentifications [...] Dictation was accomplished with the use of [employer] voice recognition software, prone to medical misidentifications [...] Dictation was accomplished with the use of [employer] voice recognition software, prone to medical misidentifications [...] Dictation was accomplished with the use of [employer] voice recognition software, prone to medical misidentifications [...] Dictation was accomplished with the use of [employer] voice recognition software, prone to medical misidentifications [...] Dictation was accomplished with the use of [employer] voice recognition software, prone to medical misidentifications [...] Dictation was accomplished with the use of [employer] voice recognition software, prone to medical misidentifications [...] Dictation was accomplished with the use of [employer] voice recognition software, prone to medical misidentifications [...] Dictation was accomplished with the use of [employer] voice recognition software, prone to medical misidentifications and grammatical errors. This is unintentional and the practitioner does try to identify and correct these, but some could still be present. Please do not hesitate to contact practitioner for clarification. All questions answered to patients satisfaction. Patient verbalized understanding of diagnosis and treatments explained. To call sooner prior to next visit it any questions/concerns arise. 05/27/2025 Essential hypertensi on (ICD-10 - I10) #Overweight: 138.2, BMI 23.7. She is now in a normal BMI range. Currently on Zepbound 10 mg every 9-10 days and in maintenance. Working on composition changes. Discussed maintenance dosing and potential change of coverage, July. Follow-up with me in 4 weeks. Continue [...] Dictation was accomplished with the use of [employer] voice recognition software, prone to medical misidentifications and grammatical errors. This is unintentional and the practitioner does try to identify and correct these, but some could still be present. Please do not hesitate to contact practitioner for clarification. All questions answered to patients satisfaction. Patient verbalized understanding of diagnosis and treatments explained. To call sooner prior to next visit it any questions/concerns arise. 05/27/2025 BMI 23.0-23.9, adult (ICD-10 - Z68.23) #Overweight: 138.2, BMI 23.7. She is now in a normal BMI range. Currently on Zepbound 10 mg every 9-10 days and in maintenance. Working on composition changes. Discussed maintenance dosing and potential change of coverage, July. Follow-up with me in 4 weeks. Continue [...] Dictation was accomplished with the use of [employer] voice recognition software, prone to medical misidentifications and grammatical errors. This is unintentional and the practitioner does try to identify and correct these, but some could still be present. Please do not hesitate to contact practitioner for clarification. All questions answered to patients satisfaction. Patient verbalized understanding of diagnosis and treatments explained. To call sooner prior to next visit it any questions/concerns arise. 05/27/2025 Pure hypercholesterolemia (ICD-10 - E78.00) #Overweight: 138.2, BMI 23.7. She is now in a normal BMI range. Currently on Zepbound 10 mg every 9-10 days and in maintenance. Working on composition changes. Discussed maintenance dosing and potential change of coverage, July. Follow-up with me in 4 weeks. Continue [...] Dictation was accomplished with the use of [employer] voice recognition software, prone to medical misidentifications [...] Dictation was accomplished with the use of [employer] voice recognition software, prone to medical misidentifications [...] Dictation was accomplished with the use of [employer] voice recognition software, prone to medical misidentifications [...] Dictation was accomplished with the use of [employer] voice recognition software, prone to medical misidentifications [...] Dictation was accomplished with the use of [employer] voice recognition software, prone to medical misidentifications [...] Dictation was accomplished with the use of [employer] voice recognition software, prone to medical misidentifications [...] Dictation was accomplished with the use of [employer] voice recognition software, prone to medical misidentifications [...] Dictation was accomplished with the use of [employer] voice recognition software, prone to medical misidentifications [...] Dictation was accomplished with the use of [employer] voice recognition software, prone to medical misidentifications [...] Dictation was accomplished with the use of [employer] voice recognition software, prone to medical misidentifications [...] Dictation was accomplished with the use of [employer] voice recognition software, prone to medical misidentifications [...] Dictation was accomplished with the use of [employer] voice recognition software, prone to medical misidentifications [...] Dictation was accomplished with the use of [employer] voice recognition software, prone to medical misidentifications [...] Dictation was accomplished with the use of [employer] voice recognition software, prone to medical misidentifications [...] Dictation was accomplished with the use of [employer] voice recognition software, prone to medical misidentifications [...] Dictation was accomplished with the use of [employer] voice recognition software, prone to medical misidentifications [...] Dictation was accomplished with the use of [employer] voice recognition software, prone to medical misidentifications [...] Dictation was accomplished with the use of [employer] voice recognition software, prone to medical misidentifications [...] Dictation was accomplished with the use of [employer] voice recognition software, prone to medical misidentifications [...] Dictation was accomplished with the use of [employer] voice recognition software, prone to medical misidentifications [...] Dictation was accomplished with the use of [employer] voice recognition software, prone to medical misidentifications and grammatical errors. This is unintentional and the practitioner does try to identify and correct these, but some could still be present. Please do not hesitate to contact practitioner for clarification. All questions answered to patients satisfaction. Patient verbalized understanding of diagnosis and treatments explained. To call sooner prior to next visit it any questions/concerns arise. 05/27/2025 History of gastric bypass (ICD-10 - Z98.84) #Overweight: 138.2, BMI 23.7. She is now in a normal BMI range. Currently on Zepbound 10 mg every 9-10 days and in maintenance. Working on composition changes. Discussed maintenance dosing and potential change of coverage, July. Follow-up with me in 4 weeks. Continue [...] Dictation was accomplished with the use of [employer] voice recognition software, prone to medical misidentifications and grammatical errors. This is unintentional and the practitioner does try to identify and correct these, but some could still be present. Please do not hesitate to contact practitioner for clarification. All questions answered to patients satisfaction. Patient verbalized understanding of diagnosis and treatments explained. To call sooner prior to next visit it any questions/concerns arise. 05/27/2025 Weight loss counseling, encounter for (ICD-10 - Z71.3) #Overweight: 138.2, BMI 23.7. She is now in a normal BMI range. Currently on Zepbound 10 mg every 9-10 days and in maintenance. Working on composition changes. Discussed maintenance dosing and potential change of coverage, July. Follow-up with me in 4 weeks. Continue [...] Dictation was accomplished with the use of [employer] voice recognition software, prone to medical misidentifications [...] Dictation was accomplished with the use of [employer] voice recognition software, prone to medical misidentifications [...] Dictation was accomplished with the use of [employer] voice recognition software, prone to medical misidentifications [...] care coordination Case discussed with collaborating physician Mcihelle Allen who reviewed the assessment and plan. Chart, medications, labs, vital signs reviewed. Dictation was accomplished with the use of [employer] voice recognition software, prone to medical misidentifications [...] Dictation was accomplished with the use of [employer] voice recognition software, prone to medical misidentifications [...] coordination Case discussed with collaborating physician Michelle Allne who reviewed the assessment and plan. Chart, medications, labs, vital signs reviewed. Dictation was accomplished with the use of [employer] voice recognition software, prone to medical misidentifications [...] Dictation was accomplished with the use of [employer] voice recognition software, prone to medical misidentifications [...] Dictation was accomplished with the use of [employer] voice recognition software, prone to medical misidentifications [...] of gastric bypass (ICD-10 - Z98.84) #Obesity. 2/13/25: 154.2 pounds, BMI 26.5. She has done [...] Dictation was accomplished with the use of [employer] voice recognition software, prone to medical misidentifications [...] Dictation was accomplished with the use of [employer] voice recognition software, prone to medical misidentifications [...] Dictation was accomplished with the use of [employer] voice recognition software, prone to medical misidentifications [...] Dictation was accomplished with the use of [employer] voice recognition software, prone to medical misidentifications [...] Dictation was accomplished with the use of [employer] voice recognition software, prone to medical misidentifications [...] Dictation was accomplished with the use of [employer] voice recognition software, prone to medical misidentifications [...] coordination Case discussed with collaborating physician Ranjana lAlen who reviewed the assessment and plan. Chart, medications, labs, vital signs reviewed. Dictation was accomplished with the use of [employer] voice recognition software, prone to medical misidentifications [...] Dictation was accomplished with the use of [employer] voice recognition software, prone to medical misidentifications [...] Dictation was accomplished with the use of [employer] voice recognition software, prone to medical misidentifications [...] Dictation was accomplished with the use of [employer] voice recognition software, prone to medical misidentifications [...] Name:Paige Jewell, 1 09/02/2024 08:15:00 AM, [address], [facility] [address], [place], [address], Provider Name:Paige Jewell, 0 08/06/2025 08:15:00 AM, [address], [facility] [address], [place], [address], Insurance Providers Payer Name Payer Address Payer Phone Subscriber Number Group Number Insured Name Patient Relationship to Insured Coverage Start Date Coverage End Date [facility] [address] [place] [address] [id number] Anjali Holland Self - patient is the insured Medical (General) History Medical History History ICD Code hypertension hypercholesterolemia Arthritis asthma depression Surgical History Surgery Date(Month/Year) hysterectomy anal cancer surgery x3 knee surgery hand surgery
== END 2025-06-13 09:34 | disposition home or self-care (01) ==
LOC: HO.HSM 08:59
PROVIDERS: PCP Internal Medicine; Visit Provider Registered Nurse
DX: G44.229 Chronic tension-type headache, not intractable (principal); M79.7 Fibromyalgia; G25.3 Myoclonus; M43.02 Spondylolysis, cervical region; F41.8 Other specified anxiety disorders
CPT/HCPCS: 99214